=== PATIENT | male | born 1955 | race Two or more races ===

== ENCOUNTER 2016-07-27 15:45 | Observation (INO) | payer BC ==
[2016-07-27] MEDS ORDERED: SODIUM CHLORIDE 0.9% 500 ML IV STA (16:29)
[2016-07-27 16:32] LABS: Glucose,Whole Blood 189 mg/dL (75-99)
--- NOTE | 2016-07-27 16:35 | ED ---
General Adult HPI - General Chief complaint: Weakness Stated complaint: Slurred speech/Poss Stroke Time Seen by Provider: 07/27/16 16:00 Source: patient, RN notes reviewed Mode of arrival: wheelchair Limitations: no limitations - History of Present Illness Initial comments: This is a 6-year-old male who presents to the emergency department because of weakness. Patient states for the last month he seems to be getting weaker and weaker as he seems just give out at times. Patient states a month ago he fell about 2 weeks ago he fell per patient states there was no injury in the fall because he went up slowly but he just felt as though his legs were giving out. Patient states she has chronic lower back pain but that is been a little bit worse lately. Patient denies any injury to the back. He denies any recent fever or chills or cough. Patient denies headache patient denies numbness weakness patient denies any lightheadedness or dizziness. Patient states he has no palpitations chest pain difficulty breathing shortness breath. Patient denies abdominal pain patient denies nausea vomiting or diarrhea. Patient denies any knee injury however he feels as though his knees just give out slowly. Patient denies any swelling about the knees or redness about the knees. Patient denies any dysuria hematuria urinary frequency - Related Data Home Medications Medication Instructions Recorded Confirmed No Known Home Medications [No 07/27/16 07/27/16 Known Home Medications] Allergies Allergy/AdvReac Type Severity Reaction Status Date / Time Penicillins Allergy Unknown Verified 07/27/16 16:57 Childhood Review of Systems ROS Statement: Those systems with pertinent positive or pertinent negative responses have been documented in the HPI. ROS Other: All systems not noted in ROS Statement are negative. Past Medical History Past Medical History: Diabetes Mellitus, Hypertension History of Any Multi-Drug Resistant Organisms: None Reported Past Surgical History: Tonsillectomy Additional Past Surgical History / Comment(s): brain aneursym with clamp Past Psychological History: No Psychological Hx Reported Smoking Status: Never smoker Past Alcohol Use History: None Reported Past Drug Use History: None Reported General Exam - General Exam Comments Initial Comments: GENERAL: Patient is well-developed and well-nourished. Patient is nontoxic and well- hydrated and is in no distress. ENT: Neck is soft and supple. No significant lymphadenopathy is noted. Oropharynx is clear. Moist mucous membranes. Neck has full range of motion without eliciting any pain. EYES: The sclera were anicteric and conjunctiva were pink and moist. Extraocular movements were intact and pupils were equal round and reactive to light. Eyelids were unremarkable. PULMONARY: Unlabored respirations. Good breath sounds bilaterally. No audible rales rhonchi or wheezing was noted. CARDIOVASCULAR: There is a regular rate and rhythm without any murmurs gallops or rubs. ABDOMEN: Soft and nontender with normal bowel sounds. No palpable organomegaly was noted. There is no palpable pulsatile mass. SKIN: Skin is clear with no lesions or rashes and otherwise unremarkable. NEUROLOGIC: Patient is alert and oriented x3. Cranial nerves II through XII are grossly intact. Motor and sensory are also intact. Normal speech, volume and content. Symmetrical smile. MUSCULOSKELETAL: Normal extremities with adequate strength and full range of motion. No lower extremity swelling or edema. No calf tenderness. LYMPHATICS: No significant lymphadenopathy is noted PSYCHIATRIC: Normal psychiatric evaluation. Limitations: no limitations Course Vital Signs 07/27/16 07/27/16 07/27/16 16:01 16:25 17:54 Temperature 98.7 F Pulse Rate 80 78 74 Respiratory 18 18 18 Rate Blood Pressure 200/93 166/93 164/96 O2 Sat by Pulse 95 95 96 Oximetry 07/27/16 19:02 Temperature 98.2 F Pulse Rate 67 Respiratory 18 Rate Blood Pressure 156/87 O2 Sat by Pulse 96 Oximetry Medical Decision Making - Medical Decision Making EKG shows normal sinus rhythm at 82 bpm DC interval 180 QRSs 100 QT interval 390 QTC is 455. Patient's EKG shows no ST segment elevation or depression or T- wave abdomen is noted. Chest x-ray shows no acute abnormality. Lumbar spine shows no acute normalities. I went back into the room to reevaluate the patient family states he is unable to walk without assistance of a cane were as a month and a half ago he was walking completely by himself. Daughter states that he is even unable to sit on the toilet by himself without falling over. - Lab Data Result diagrams: 07/27/16 16:25 07/27/16 16:25 Lab Results 07/27/16 07/27/16 07/27/16 Range/Units 16:20 16:25 16:25 WBC 8.2 (3.8-10.6) k/uL RBC 5.27 (4.30-5.90) m/uL Hgb 15.8 (13.0-17.5) gm/dL Hct 44.0 (39.0-53.0) % MCV 83.4 (80.0-100.0) fL MCH 29.9 (25.0-35.0) pg MCHC 35.8 (31.0-37.0) g/dL RDW 13.8 (11.5-15.5) % Plt Count 138 L (150-450) k/uL Neutrophils % 71 % Lymphocytes % 19 % Monocytes % 4 % Eosinophils % 4 % Basophils % 1 % Neutrophils # 5.8 (1.3-7.7) k/uL Lymphocytes # 1.5 (1.0-4.8) k/uL Monocytes # 0.4 (0-1.0) k/uL Eosinophils # 0.3 (0-0.7) k/uL Basophils # 0.1 (0-0.2) k/uL PT (9.0-12.0) sec INR (<1.1) APTT (22.0-30.0) sec Sodium (137-145) mmol/L Potassium (3.5-5.1) mmol/L Chloride (98-107) mmol/L Carbon Dioxide (22-30) mmol/L Anion Gap mmol/L BUN (9-20) mg/dL Creatinine (0.66-1.25) mg/dL Est GFR (MDRD) Af Amer (>60 ml/min/1.73 sqM) Est GFR (MDRD) Non-Af (>60 ml/min/1.73 sqM) Glucose (74-99) mg/dL POC Glucose (mg/dL) 189 H (75-99) mg/dL POC Glu Expanded Function Dental Assistant ID Boris Rivas Calcium (8.4-10.2) mg/dL Magnesium (1.6-2.3) mg/dL Total Bilirubin (0.2-1.3) mg/dL AST (17-59) U/L ALT (21-72) U/L Alkaline Phosphatase (38-126) U/L Total Creatine Kinase 43 L (55-170) U/L CK-MB (CK-2) 0.6 (0.0-2.4) ng/mL CK-MB (CK-2) Rel Index 1.4 Troponin I <0.012 (0.000-0.034) ng/mL Total Protein (6.3-8.2) g/dL Albumin (3.5-5.0) g/dL Urine Color Urine Appearance (Clear) Urine pH (5.0-8.0) Ur Specific [place] (1.001-1.035) Urine Protein (Negative) Urine Glucose (UA) (Negative) Urine Ketones (Negative) Urine Blood (Negative) Urine Nitrate (Negative) Urine Bilirubin (Negative) Urine Urobilinogen (<2.0) mg/dL Ur Leukocyte Esterase (Negative) Urine RBC (0-5) /hpf Urine WBC (0-5) /hpf Ur Squamous Epith Cells (0-4) /hpf Urine Mucus (None) /hpf 07/27/16 07/27/16 07/27/16 Range/Units 16:25 16:25 17:45 WBC (3.8-10.6) k/uL RBC (4.30-5.90) m/uL Hgb (13.0-17.5) gm/dL Hct (39.0-53.0) % MCV (80.0-100.0) fL MCH (25.0-35.0) pg MCHC (31.0-37.0) g/dL RDW (11.5-15.5) % Plt Count (150-450) k/uL Neutrophils % % Lymphocytes % % Monocytes % % Eosinophils % % Basophils % % Neutrophils # (1.3-7.7) k/uL Lymphocytes # (1.0-4.8) k/uL Monocytes # (0-1.0) k/uL Eosinophils # (0-0.7) k/uL Basophils # (0-0.2) k/uL PT 11.4 (9.0-12.0) sec INR 1.1 (<1.1) APTT 25.1 (22.0-30.0) sec Sodium 141 (137-145) mmol/L Potassium 4.2 (3.5-5.1) mmol/L Chloride 104 (98-107) mmol/L Carbon Dioxide 25 (22-30) mmol/L Anion Gap 12 mmol/L BUN 15 (9-20) mg/dL Creatinine 0.87 (0.66-1.25) mg/dL Est GFR (MDRD) Af Amer >60 (>60 ml/min/1.73 sqM) Est GFR (MDRD) Non-Af >60 (>60 ml/min/1.73 sqM) Glucose 185 H (74-99) mg/dL POC Glucose (mg/dL) (75-99) mg/dL POC Glu Expanded Function Dental Assistant ID Calcium 9.8 (8.4-10.2) mg/dL Magnesium 1.9 (1.6-2.3) mg/dL Total Bilirubin 1.0 (0.2-1.3) mg/dL AST 25 (17-59) U/L ALT 31 (21-72) U/L Alkaline Phosphatase 93 (38-126) U/L Total Creatine Kinase (55-170) U/L CK-MB (CK-2) (0.0-2.4) ng/mL CK-MB (CK-2) Rel Index Troponin I (0.000-0.034) ng/mL Total Protein 7.8 (6.3-8.2) g/dL Albumin 4.3 (3.5-5.0) g/dL Urine Color Yellow Urine Appearance Clear (Clear) Urine pH 6.0 (5.0-8.0) Ur Specific [place] 1.015 (1.001-1.035) Urine Protein 1+ H (Negative) Urine Glucose (UA) 3+ H (Negative) Urine Ketones Negative (Negative) Urine Blood Negative (Negative) Urine Nitrate Negative (Negative) Urine Bilirubin Negative (Negative) Urine Urobilinogen <2.0 (<2.0) mg/dL Ur Leukocyte Esterase Negative (Negative) Urine RBC 1 (0-5) /hpf Urine WBC <1 (0-5) /hpf Ur Squamous Epith Cells <1 (0-4) /hpf Urine Mucus Rare H (None) /hpf Disposition Clinical Impression: Generalized weakness Disposition: ADMITTED IP TO THIS [facility] Time of Disposition: 19:12
[2016-07-27 16:48] LABS: Basophils # (A) 0.1 k/uL (0-0.2); Basophils % (A) 1 %; CH 30.8; Eosinophils # (A) 0.3 k/uL (0-0.7); Eosinophils % (A) 4 %; HGB 15.8 gm/dL (13.0-17.5); Luc # (Auto) 0.13; Luc % (Auto) 2; Lymphocytes # (A) 1.5 k/uL (1.0-4.8); Lymphocytes % (A) 19 %; MCH 29.9 pg (25.0-35.0); MCHC 35.8 g/dL (31.0-37.0); MCV 83.4 fL (80.0-100.0); Mean Platelet Volume 8.9; Monocytes # (A) 0.4 k/uL (0-1.0); Monocytes % (A) 4 %; Neutrophils # (A) 5.8 k/uL (1.3-7.7); Neutrophils % (A) 71 %; RBC 5.27 m/uL (4.30-5.90); RDW 13.8 % (11.5-15.5); WBC 8.2 k/uL (3.8-10.6); WBC (Perox) 7.91
[2016-07-27 16:54] LABS: ALT 31 U/L (21-72); AST 25 U/L (17-59); Alkaline Phosphatase 93 U/L (38-126); Anion Gap 12 mmol/L; Blood Urea Nitrogen 15 mg/dL (9-20); Calcium 9.8 mg/dL (8.4-10.2); Carbon Dioxide 25 mmol/L (22-30); Chloride 104 mmol/L (98-107); Glucose 185 mg/dL (74-99); Magnesium 1.9 mg/dL (1.6-2.3); Non-African American GFR(MDRD) >60 (>60 ml/min/1.73 sqM); Potassium 4.2 mmol/L (3.5-5.1); Sodium 141 mmol/L (137-145); Total Protein 7.8 g/dL (6.3-8.2)
[2016-07-27 17:00] LABS: INR 1.1 (<1.1); Partial Thromboplastin Time 25.1 sec (22.0-30.0); Prothrombin Time 11.4 sec (9.0-12.0)
[2016-07-27 17:10] LABS: Creatine Kinase 43 U/L (55-170)
--- NOTE | 2016-07-27 17:22 | XR ---
EXAMINATION TYPE: XR chest 2V DATE OF EXAM: 07/27/2016 5:17 PM COMPARISON: NONE HISTORY: Weakness TECHNIQUE: Frontal and lateral views of the chest are obtained. FINDINGS: Heart and mediastinum are normal. Lungs are clear. Costophrenic angles are clear. There is spurring in the thoracic spine. There are no hilar masses. There are chest leads. IMPRESSION: No active cardiopulmonary disease.
[2016-07-27 17:23] LABS: Creatine Kinase MB 0.6 ng/mL (0.0-2.4); Troponin I <0.012 ng/mL (0.000-0.034)
--- NOTE | 2016-07-27 17:23 | XR ---
EXAMINATION TYPE: XR lumbar spine 2 or 3V DATE OF EXAM: 07/27/2016 5:17 PM COMPARISON: NONE HISTORY: Weakness TECHNIQUE: 3 views FINDINGS: The vertebra have normal alignment. There is mild narrowing of disc spaces. There is spurri ng of the endplates anteriorly throughout the lumbar spine. There is no compression fracture. Posteri or elements are intact. Sacroiliac joints appear intact. IMPRESSION: Multilevel spondylosis. No fracture seen.
[2016-07-27 18:11] LABS: Appearance,Urine Clear (Clear); Bilirubin,Urine Negative (Negative); Glucose,Urine (UA) 3+ (Negative); Ketones,Urine Negative (Negative); Leukocyte Esterase,Urine Negative (Negative); Mucus,Urine Rare /hpf; Nitrite,Urine Negative (Negative); Particle Count 396; Protein,Urine 1+ (Negative); RBC,Urine 1 /hpf (0-5); Specific Gravity,Urine 1.015 (1.001-1.035); Squamous Epithelial Cell,Urine <1 /hpf (0-4); UA Billing (MACRO vs. MICRO) MICRO; Urobilinogen,Urine <2.0 mg/dL (<2.0); WBC,Urine <1 /hpf (0-5)
[2016-07-27] MEDS ORDERED: SODIUM CHLORIDE 0.9% 1,000 ML IV ONE (19:13)
[2016-07-27 21:01] LABS: Glucose,Whole Blood 131 mg/dL (75-99)
[2016-07-27] MEDS ORDERED: HYDROcodone/APAP 5-325MG 1 EACH TAB PO PRN (21:56)
[2016-07-27] MEDS ORDERED: ALPRAZolam 0.25 MG TAB PO PRN (21:56)
[2016-07-27 22:47] LABS: Hemoglobin A1C 6.6 % (4.2-6.1)
[2016-07-28 07:27] LABS: Glucose,Whole Blood 166 mg/dL (75-99)
[2016-07-28] MEDS: INSULIN LISPRO (humaLOG) 300 UNIT/3 ML VIAL SQ SCH ×4 (08:20→21:23)
[2016-07-28 11:52] LABS: Glucose,Whole Blood 187 mg/dL (75-99)
[2016-07-28] MEDS: DEXAMETHASONE 4 MG TAB PO SCH ×3 (14:45→21:23)
[2016-07-28] MEDS ORDERED: ACETAMINOPHEN TAB 500 MG TAB PO STA (15:35)
[2016-07-28] MEDS ORDERED: ACETAMINOPHEN TAB 325 MG TAB PO PRN (15:35)
--- NOTE | 2016-07-28 16:14 | HP ---
DATE OF ADMISSION: 07/27/2016 HISTORY AND PHYSICAL EXAMINATION/DISCHARGE SUMMARY: This dictation is both H&P and discharge summary. Patient is pleasant 60-year-old gentleman who came in with complaints of generalized weakness but patient has good strength in bilateral lower limbs. The patient denied any focal ( ) which are normal. Denied any focal weakness or speech abnormalities. The patient denied any strokelike symptoms. Patient has multiple falls recently. Patient is morbidly obese. Complaining of severe low back pain without any loss of bowel or bladder incontinence without any other any ( ) of back pain. Patient used to be morbidly obese and has been intentionally losing weight. Patient had history of diabetes mellitus, hypertension, benign prostatic hypertrophy, stopped using all his medications about a year ago and his hemoglobin A1C at this point of time is around 6.6 I believe. Since he lost weight, all of his diabetes mellitus, blood pressures are coming down improving. Patient is on the ( ), that patient although has severe low back pain. X-ray of the back showed spinal stenosis. Patient does not have any ( ), I do not believe patient had any CVA. Patient has chronic low back pain for which patient will get ( ) patient will need to see Dr. Crain as shahbaz as an outpatient. We will give him a dose of Decadron here and see if that will help him although patient will need physical therapy. I am not sure patient can walk, and patient had falls because of which I will obtain PT, OT consultation. Depending on their recommendations, patient will be either discharged home or to subacute rehabilitation depending on their recommendation for physical therapy. We will need at least ( ) we will also get Dr. Crain to evaluate him here, although patient will not need any emergent MRI. Patient was also advised to continue to lose weight. Patient will be started on low dose of Lisinopril. Patient will be started on metformin which is also helpful for prediabetes. Blood sugars are actually coming down. Patient will be started on Doxazosin. Patient will be started on anti-inflammatory medication along with Jackson, if he is discharged, being discharged home. Depending his ( ) all his work, his discharge is pending evaluation by Dr. Crain and PT and OT. Once those are done, patient can be discharged today either to subacute rehab or home with home care. ROS: All other systems were reviewed and were negative. MEDICATIONS: Home medications: None. PAST MEDICAL HISTORY: Significant for diabetes mellitus, hypertension, benign prostatic hypertrophy. SOCIAL HISTORY: Denied any smoking or drug abuse. FAMILY HISTORY: Significant for diabetes mellitus in multiple family members. PHYSICAL EXAMINATION: VITAL SIGNS: Temperature 98.0, pulse of 70, respiratory rate of 18, blood pressure is 165/93, saturating at 96% on 2 liters of O2 nasal cannula. GENERAL: Obese. Alert and oriented x3. HEENT: Pupils are round and equally reacting to light. EOMI. No scleral icterus. No conjunctival pallor. Normocephalic, atraumatic. No pharyngeal erythema. No thyromegaly. CARDIOVASCULAR: S1 and S2 present. No murmurs, rubs, or gallops. PULMONARY: Chest is clear to auscultation, no wheezing or crackles. ABDOMEN: Soft, nontender, nondistended, normoactive bowel sounds. No palpable organomegaly. MUSCULOSKELETAL: No joint swelling or deformity. EXTREMITIES: No cyanosis, clubbing, or pedal edema. NEUROLOGICAL: Gross neurological examination did not reveal any focal deficits. SKIN: No rashes. Patient's strengths in bilateral lower limbs is 5/5. We will obtain a TSH level. LABORATORY DATA: CBC, CMP, essentially within normal limits with hemoglobin A1C of 6.6. ASSESSMENT AND PLAN: 1. Bilateral lower limb weakness and back pain secondary to spinal stenosis. Will use Decadron empirically. He may not need Decadron for discharge. Patient can be discharged on tramadol and Jackson, PT and OT evaluation. Dr. Crain evaluation. After that, the patient will be discharged today. His disposition as related issues as mentioned above. 2. Hypertension. Will start him on low dose of Lisinopril. 3. Diabetes mellitus pretty much appears to be diet controlled at this point of time, although patient will definitely benefit with metformin because of his overweight. 4. Obesity. Counseling was provided regarding that and the patient has been losing weight. 5. Benign prostatic hypertrophy. PLAN: Patient after evaluation by PT and OT and Dr. Crain will be discharged. Activity as tolerated. Patient will be either discharged home or to subacute rehab and patient will follow with Dr. Miller Granda as an outpatient in 3 to 7 days. Activity as tolerated. Cardiac and diabetic 1800 calorie diet. Patient will need physical therapy. Patient does not have any stroke, will not need any emergent neurological evaluation. [facility]
[2016-07-28 16:52] LABS: Glucose,Whole Blood 148 mg/dL (75-99)
[2016-07-28 21:32] LABS: Glucose,Whole Blood 235 mg/dL (75-99)
[2016-07-29] MEDS: DEXAMETHASONE 4 MG TAB PO SCH ×3 (07:42→16:59)
[2016-07-29] MEDS: INSULIN LISPRO (humaLOG) 300 UNIT/3 ML VIAL SQ SCH ×3 (07:42→17:00)
[2016-07-29 07:44] LABS: Glucose,Whole Blood 208 mg/dL (75-99)
[2016-07-29 07:50] VITALS: RESP 19
[2016-07-29 11:48] LABS: Glucose,Whole Blood 238 mg/dL (75-99)
[2016-07-29 15:25] VITALS: BP 139/84; PULSE 79; TEMP 98.9
--- NOTE | 2016-07-29 16:50 | DS ---
DATE OF ADMISSION: 07/27/2016 DATE OF DISCHARGE: FINAL DIAGNOSES: 1. Bilateral lower leg weakness with the back pain secondary to spinal stenosis on conservative line of treatments. 2. Gait dysfunction. 3. Hypertension. 4. Diabetes mellitus type 2. 5. Obesity. 6. Benign prostatic hypertrophy. DISCHARGE DISPOSITION: The patient will be discharged in stable condition with guarded prognosis. Total time taken 35 minutes. The patient will be transferred to [facility]. HISTORY OF PRESENT ILLNESS: This 60-year-old gentleman with a past medical history of multiple medical problems as mentioned earlier being followed by Dr. Miller Granda in the outpatient setting was admitted to the hospital with right lower leg weakness and back pain. The symptomatology was thought to be secondary to spinal stenosis. Evaluated by orthopedic surgery. Recommend outpatient follow-up. Steroids were given. Patient improved significantly. On exam, vitals are stable. CARDIOVASCULAR SYSTEM: S1, S2 muffled. ABDOMEN: Soft. CENTRAL NERVOUS SYSTEM: Minimal diffuse weakness in the lower limbs present. Otherwise, discharge advice and medications: 1. Diet is cardiac 1800 calorie. 2. Accu-Cheks a.c. and at bedtime. 3. Novolog scale 150 to 200 = 2 units, 200-250 = 4 units, 250-300 = 6 units, 300-350 8 units, 350 to 400 10 units, more than 400 call. The current medications are: 1. Cardura 4 mg p.o. daily. 2. [place] 7.5. Q.6 p.r.n. 3. Zestril 5 mg p.o. daily. 4. Glucophage 500 mg p.o. b.i.d. 5. Ultram 50 mg p.o. q.4 p.r.n. Follow up with Dr. Granda in 2 weeks. Follow-up with orthopedics as recommended. 2
[2016-07-29] MEDS ORDERED: metFORMIN 500 MG TAB PO SCH (17:30)
[2016-07-29 17:55] LABS: Glucose,Whole Blood 251 mg/dL (75-99)
[2016-07-29] MEDS ORDERED: TAMSULOSIN 0.4 MG CAP.ER.24H PO SCH (18:30)
--- NOTE | 2016-07-29 19:37 | P.CNOR ---
History of Present Illness - [facility] Consult date: 07/29/16 Requesting physician: [place] Consult reason: low back pain, other (Generalized lower extremity weakness) History of present illness: Patient is a pleasant 60-year-old male who is seeing examined at the bedside after we are consulted for further evaluation for bilateral lower extremity weakness and low back pain. Patient is known have chronic low back pain. He states he's been experiencing some lower extremity weakness for approximately one month. He states he has fallen a couple times at work recently. After his most recent fall he was brought to the hospital for further evaluation. Denies any specific lower extremity radiculopathy. His back pain has improved since being admitted to the hospital. He is not currently experiencing any significant lower extremity radiculopathy. Patient is currently scheduled for discharge today to [facility] for rehab prior to returning home. He has been eating and voiding without difficulty. He denies loss of bowel or bladder. Past Medical History Past Medical History: Diabetes Mellitus, Hypertension, Pneumonia Additional Past Medical History / Comment(s): few falls lately-in may broke a rib on lt side, jun fell-was sent from work to [facility]. History of Any Multi-Drug Resistant Organisms: None Reported Past Surgical History: Tonsillectomy Additional Past Surgical History / Comment(s): brain aneursym with clip , colonoscopy/poypectomy(benign) Past Anesthesia/Blood Transfusion Reactions: No Reported Reaction Past Psychological History: No Psychological Hx Reported Additional Psychological History / Comment(s): pt lives with his /daughter/ 3 dogs, 5 cats., uses a 4 prong cane when up.(glenny)-no other medical equipment . 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 no service in past. lives in a ranch style home w/ 2 steps up into house.no outside services. Smoking Status: Never smoker Past Alcohol Use History: None Reported Past Drug Use History: None Reported - Past Family History Father Family Medical History: Diabetes Mellitus Additional Family Medical History / Comment(s): Mother Family Medical History: Diabetes Mellitus Additional Family Medical History / Comment(s): alive and age 81 Medications and Allergies Allergies Allergy/AdvReac Type Severity Reaction Status Date / Time Penicillins Allergy Unknown Verified 07/27/16 16:57 Childhood Physical Examination Physical exam: Patient is awake, alert, and oriented 3 Vital signs stable Good chest excursion with deep inspiration and expiration Abdomen soft nontender Examination of lumbar spine reveals skin is intact with no abrasions, lacerations or bruises; no erythema, purulence or signs of infection No significant pain with palpation of the lumbar spine Dorsiflexion, plantarflexion, and extensor hallucis longus positive sustained bilaterally Lower extremity strength 5/5 bilaterally Patient is able to lift legs independently off the bed No lower extremity hyperreflexia bilaterally Straight leg test negative bilateral lower extremities Negative Lasegue's test bilaterally No signs or symptoms of DVT; no calf pain No pain with internal and external rotation of the hips bilaterally Neurovascularly intact Results Pertinent studies: X-rays lumbar spine: L1-L2 and L2-3 lateral osteophytic spurring; L4-5 degenerative disc disease; L5-S1 severe degenerative disc disease; T12-L4 anterior osteophytic spurring; no evidence of vertebral body compression fracture; multilevel spondylosis - Labs Labs: Abnormal Lab Results - Last 24 Hours (Table) 07/28/16 07/29/16 07/29/16 Range/Units 21:00 07:35 11:47 POC Glucose (mg/dL) 235 H 208 H 238 H (75-99) mg/dL 07/29/16 Range/Units 16:58 POC Glucose (mg/dL) 251 H (75-99) mg/dL Result Diagrams: 07/27/16 16:25 07/27/16 16:25 Assessment and Plan (1) Lumbar degenerative disc disease Status: Acute (2) Lumbar spondylosis Status: Acute (3) Chronic low back pain Status: Acute (4) Generalized weakness Status: Acute Plan: Assessment: Generalized bilateral lower extremity weakness Lumbar degenerative disc disease Lumbar spondylosis Chronic low back pain Plan: 1. After physical examination of the patient, reviewing imaging, and further discussion with the patient, we'll currently planned to continue with conservative treatment and we'll plan to follow the patient for further evaluation in the outpatient setting. He's had some improvement of his symptoms since being admitted. He is currently planning to discharge to [facility] facility to try to increase his strength prior to returning home. We discussed we'll plan have him follow-up in approximately 2- 3 weeks in the outpatient setting for further evaluation. Depending on his progress with conservative treatment, we will determine an appropriate plan of care at that time. Patient agrees with this plan of care. 2. Medicine will continue following the patient; currently planned for discharge to [facility] today 3. Following discharge, patient may follow-up with Ej Hendricks PA-C or Dr. Melecio Crain at [facility] in approximately 2-3 weeks for further evaluation 4. I have discussed this patient detail with Dr. Crain and he agrees with this plan Time with Patient: Less than 30
== END 2016-07-29 17:50 ==
LOC: EC 15:45 → 4MS4W 19:13
PROVIDERS: ADMIT Internal Medicine; ATTEND Internal Medicine
DX: M48.00 Spinal stenosis, site unspecified (principal); I10 Essential (primary) hypertension; E11.9 Type 2 diabetes mellitus without complications; E66.01 Morbid (severe) obesity due to excess calories; Z68.41 Body mass index [BMI] 40.0-44.9, adult; N40.0 Benign prostatic hyperplasia without lower urinary tract symptoms; M51.36 Other intervertebral disc degeneration, lumbar region; M47.816 Spondylosis without myelopathy or radiculopathy, lumbar region; R29.6 Repeated falls; Z83.3 Family history of diabetes mellitus; Z88.0 Allergy status to penicillin
CPT/HCPCS: 96360; 96361; 99285; 36415; 93005; 97116; 97161; 97535; 97166; 80053; 84443; 83036; 82550; 82553; 83735; 84484; 85025; 85610; 85730; 81001; 71020; 72100; G0378 ×3; J8540 ×2

== ENCOUNTER → 2016-08-30 | Outpatient (CLI) | payer BC ==
--- NOTE | 2016-08-31 08:26 | MR ---
EXAMINATION TYPE: MR lumbar spine wo con DATE OF EXAM: 08/30/2016 9:48 PM COMPARISON: Plain film 27 July 2016 HISTORY: back pain x2 months TECHNIQUE: Multiplanar, multisequence images of the lumbar spine were acquired. L1-L2: Circumferential posterior disc bulge causes only mild anterior mass effect on the thecal sac. There is loss of disc height and signal with associated spondylosis, endplate discogenic marrow signa l change. L2-L3: Circumferential posterior disc bulge causes only minimal anterior mass effect on the thecal sa c. L3-L4: Endplate discogenic marrow signal change, Schmorl's node formation at the inferior endplate of L3 is present, there is associated spondylosis, loss of disc height and signal. Circumferential exte nsion endplate disc complex encroaches somewhat on the neural foramen on the right greater than left. There is only mild central canal stenosis. Facet arthropathy changes are present encroaching on the lateral recesses. L4-L5: Endplate discogenic marrow signal change is present with associated loss of disc height and si gnal compatible with disc desiccation and degenerative disc disease. Circumferential extension of end plate disc complex encroaches somewhat on the left neural foramen greater than right. Circumferential posterior disc bulge causes mild anterior mass effect on the thecal sac. Facet arthropathy with hype rtrophy of ligamentum flavum encroaches on the lateral recesses. Only mild central canal stenosis. L5-S1: Facet arthropathy is present with hypertrophy of the ligamentum flavum encroaching on the late ral recesses. There is loss of disc height and signal with vacuum phenomenon present. Posterior exten pito of endplate disc complex is noted causing anterior mass effect on the thecal sac centrally. Circ umferential extension of endplate disc complex encroaches on the neural foramina right greater than l eft. Lumbar segments are intact. No paraspinal masses are identified. Conus medullaris has a normal appe arance. There is a spinal curvature. Cortical cyst is associated with the right kidney measuring appr oximately 4.4 cm. IMPRESSION: Degenerative disc disease, facet arthropathy, foraminal encroachment as described.
== END | disposition home or self-care (01) ==
LOC: RADMRIMAIN 20:52
PROVIDERS: ATTEND Orthopaedic Surgery Orthopaedic Surgery of the Spine
DX: M51.36 Other intervertebral disc degeneration, lumbar region (principal); M46.96 Unspecified inflammatory spondylopathy, lumbar region
CPT/HCPCS: 72148

== ENCOUNTER → 2016-11-07 | Outpatient (CLI) | payer BC ==
--- NOTE | 2016-11-07 13:51 | MR ---
EXAMINATION TYPE: MR iac wo/w con DATE OF EXAM: 11/07/2016 COMPARISON: NONE HISTORY: cerebral aneurysm, benign neoplasm, acoustic neuroma, right hemisphere dysfunction, left hea ring loss, ataxia, and history of cerebral aneurysm all per order. Left-sided hearing loss, history o f stroke and 2000 aneurysm with clipping per patient. TECHNIQUE: Multiplanar, multisequence images of the brain and brainstem is performed without and with IV contras t, utilizing 20 mL intravenous MultiHance . Acoustic nerve disorder protocol. FINDINGS: Diffusion weighted images demonstrate no evidence of a recent infarct or other diffusion ab normality. There is no worrisome extra-axial fluid collection. There is mild to moderate diffuse hyd rocephalus. There is confluent T2 hyperintensity in periventricular white matter likely combination o f transependymal CSF flow and product of chronic small vessel ischemic change. Thinning of corpus callosum is present. There is mild mucosal thickening involving ethmoid sinuses bi laterally. The globes are intact bilaterally. There is artifact from aneurysm clip at left MCA origin. No suspicious fluid signal is seen in mastoid air cells bilaterally. There is fairly homogeneous avid enhancing left cerebellopontine angle mass measuring approximately 4.0 cm transversely by 3.5 cm AP diameter on series 901 image 12 x 3.5 cm craniocaudal diameter on coronal image 12 and is hypointense on T1-weighted images to remainder brain parenchyma and is slightly hyperintense on T2-weighted imag es. There is perhaps slight extension to the intracanicular portion of the 7th cranial nerve on axial image 10 series 901. There is significant local mass effect on the rafael which is deviated to right o f midline. Inferior extent is up to level of foramen magnum. There is mass effect on the cerebellum w hich is pushed posteriorly. Fourth ventricle is deviated to right of midline. Superior extent is to t he superior aspect of the rafael. IMPRESSION: 1. Abnormal large left cerebellopontine angle mass, favor meningioma given avid enhancement without d efinitive intracanicular spread or centering. Other etiologies such as acoustic neuroma or cranial ne rve schwannoma felt less likely but not excluded. Neurosurgical consultation advised. Obstructing mil d to moderate hydrocephalus is felt present. A Yellow message has been communicated to Mukul Garcia DO via the [employer] system on 11/07/2016 1:49 PM, Message ID [id number].
--- NOTE | 2016-11-07 13:57 | MR ---
EXAMINATION TYPE: MR angio head wo con DATE OF EXAM: 11/07/2016 COMPARISON: NONE HISTORY: cerebral aneurysm 2000 treated with coiling with new onset hearing loss and ataxia. TECHNIQUE: Time of flight images focusing on the [place] of [place] were performed without contrast.. 2-D and 3-D postprocessing imaging is performed. FINDINGS: There is heterogeneous left cerebellopontine angle mass with local mass effect causing post erior circulation to be deviated to the right of midline. There are patent codominant vertebral arter ies. There is no significant focal stenosis or aneurysmal change in the posterior circulation. There are hypoplastic posterior communicating arteries noted bilaterally. Images of the anterior circulation show blooming artifact from aneurysm clip at left MCA origin. Ther e is poor visualization distal to this making evaluation suboptimal. Remainder of anterior circulatio n shows patent anterior communicating artery without new aneurysm or focal stenosis identified. IMPRESSION: No new aneurysm is clearly seen. Artifact from left-sided aneurysm clip noted.
== END | disposition home or self-care (01) ==
LOC: RADMRIMAIN 12:10
PROVIDERS: ATTEND Psychiatry & Neurology Neurology
DX: G93.89 Other specified disorders of brain (principal); H93.3X9 Disorders of unspecified acoustic nerve; H91.92 Unspecified hearing loss, left ear; I67.1 Cerebral aneurysm, nonruptured
CPT/HCPCS: 70544; 70553; A9577

== ENCOUNTER → 2016-12-03 | Outpatient (CLI) | payer BC ==
--- NOTE | 2016-12-03 13:03 | MR ---
EXAMINATION TYPE: MR cspine/tspine wo con DATE OF EXAM: 12/03/2016 COMPARISON: NONE HISTORY: Cervical and thoracic regions spinal stenosis per order. Presurgical study per patient prior to brain surgery. TECHNIQUE: Multiplanar, multisequence imaging of cervical and thoracic spine are performed without co ntrast FINDINGS: There is slight S-shaped scoliosis levoconvex upper thoracic spine and dextroconvex in curv ature in the mid thoracic spine. Exam is noted suboptimal as is degraded by patient motion related to heavy breathing per technologist. C-SPINE: FINDINGS: Sagittal images of the cervical spine show the craniocervical junction to appear within nor mal limits. There is partial visualization of heterogeneous extra-axial mass anterior fossa anterior to cerebellum correlates with recent brain MRI. The cervical and upper thoracic spinal cord is normal in course, caliber, and signal. Vertebral alignment is anatomic. The vertebral body heights are no rmal. There is mild disc space narrowing C5-C6 and C6-C7 levels. Small posterior disc herniations are seen at these levels on sagittal images. The bone marrow signal intensity is within normal limits. N o significant spurring is seen. Axial images show the C2-C3 and C3-C4 levels to appear within normal limits. Axial images at C4-C5 level show central disc protrusion effacing anterior thecal sac, bilateral neur al foramina are mildly narrowed due to uncovertebral facet arthropathy. Axial images at C5-C6 level show broad-based central disc protrusion effacing anterior thecal sac matthieu rly up to ventral surface of spinal cord with asymmetric moderate left-sided neural foraminal narrowi ng and mild right-sided neural foraminal narrowing noted. Axial images at C6-C7 level shows central disc protrusion effacing anterior thecal sac bilateral neur al foramina are patent. Axial images at C7-T1 level are felt within normal limits. IMPRESSION: Multilevel degenerative changes in the mid to lower cervical spine as detailed above. T-SPINE: Spinal cord shows normal course, caliber, and signal as it courses the thoracic spine. Vertebral bod y heights and alignment are satisfactory. Posterior disc herniation T2-T3 level mildly effaces anteri or thecal sac on sagittal image 11. Disc space heights are fairly well-maintained. There is mild to m oderate multilevel anterior spurring. There are few small scattered hemangiomas, for reference are le sions T5 and T7 level on sagittal image 9. Review of the axial images confirm small focal right paracentral disc protrusion mildly effacing ante rior thecal sac on axial image 15 at T2-T3 level. Remainder thoracic spine shows no significant disc herniation or spinal canal effacement or evidence of significant neural foraminal narrowing at any th oracic level. IMPRESSION: Slight scoliotic curvature with mild to moderate multilevel spurring and small disc herni ation T2-T3 level noted.
== END | disposition home or self-care (01) ==
LOC: RADMRIMAIN 10:26
PROVIDERS: ATTEND Neurological Surgery
DX: M51.24 Other intervertebral disc displacement, thoracic region (principal); M47.812 Spondylosis without myelopathy or radiculopathy, cervical region; M41.84 Other forms of scoliosis, thoracic region
CPT/HCPCS: 72141; 72146

== ENCOUNTER 2017-03-26 17:54 | Inpatient (IN) | payer BC ==
[2017-03-26] MEDS ORDERED: SODIUM CHLORIDE 0.9% 1,000 ML IV STA (18:03)
[2017-03-26] MEDS ORDERED: SODIUM CHLORIDE 0.9% 500 ML IV STA (18:03)
[2017-03-26 18:05] LABS: Glucose,Whole Blood 136 mg/dL (75-99)
--- NOTE | 2017-03-26 18:08 | ED ---
Altered Mental Status HPI - General Stated Complaint: Altered Mental Status Time Seen by Provider: 03/26/17 17:54 Source: family, RN notes reviewed - History of Present Illness Initial Comments: This is a 61-year-old male with a history of surgery for acoustic neuroma who does have deafness in his left ear no use of his left upper extremity was brought in for evaluation by his family and EMS for decreased level of consciousness over last several weeks is been intermittent. Today it was worse he does still get fed through a feeding tube bees had some decreased intake today. He did have the surgery for part of the neuroma December 19 of this year at [facility]. Also is had some swelling to his right knee no reports of any injury no reports of fevers chills sweats nausea vomiting or other symptoms. No reports of headache or blurred vision. MD Complaint: altered mental status, decreased responsiveness - Related Data Home Medications Medication Instructions Recorded Confirmed Acetaminophen [Tylenol] 650 mg PO Q6H PRN 03/26/17 03/26/17 Amiodarone [Cordarone] 100 mg PO DAILY 03/26/17 03/26/17 Amitriptyline HCl [Elavil] 10 mg PO HS 03/26/17 03/26/17 Antifungal Powder 1 applic TOPICAL BID 03/26/17 03/26/17 Bumetanide [Bumex] 1 mg PO DAILY 03/26/17 03/26/17 Camphor-Menthol 1 applic TOPICAL HS 03/26/17 03/26/17 Doxazosin [Cardura] 2 mg PO DAILY 03/26/17 03/26/17 Doxycycline Monohydrate [Monodox] 100 mg PO BID 03/26/17 03/26/17 Famotidine [Pepcid] 20 mg PO BID 03/26/17 03/26/17 Ferrous Sulfate [Feosol] 325 mg PO DAILY 03/26/17 03/26/17 Gabapentin [Neurontin] 200 mg PO DAILY@1400 03/26/17 03/26/17 Gabapentin [Neurontin] 300 mg PO BID 03/26/17 03/26/17 HYDROcodone/APAP 7.5-325MG [[place] 1 tab PO Q4H PRN 03/26/17 03/26/17 7.5-325] Heparin Sodium,Porcine [Heparin 7,500 unit SQ Q8HR 03/26/17 03/26/17 Sodium] Insulin Glargine,Hum.rec.anlog 30 unit SQ Q12H 03/26/17 03/26/17 [Basaglar Kwikpen U-100] Insulin Regular [HumuLIN R] See Protocol SQ ACHS 03/26/17 03/26/17 Ipratropium-Albuterol Nebulize 3 ml INHALATION RT-Q6H PRN 03/26/17 03/26/17 [Duoneb 0.5 mg-3 mg/3 ml Soln] Magnesium Oxide [Mag-Ox] 400 mg PO DAILY 03/26/17 03/26/17 Metoprolol Tartrate [Lopressor] 12.5 mg PO BID 03/26/17 03/26/17 Polyethylene Glycol 3350 [Miralax] 17 gm PO DAILY 03/26/17 03/26/17 Sennosides-Docusate Sodium 1 tab PO BID 03/26/17 03/26/17 [Senokot-S] Sertraline [Zoloft] 50 mg PO HS 03/26/17 03/26/17 Triad Hydrophilic Wound Dress 1 applic TOPICAL BID 03/26/17 03/26/17 Allergies Allergy/AdvReac Type Severity Reaction Status Date / Time almond Allergy Unknown Verified 03/26/17 18:31 banana Allergy Unknown Verified 03/26/17 18:31 Penicillins Allergy Unknown Verified 03/26/17 18:31 Childhood Review of Systems ROS Statement: Those systems with pertinent positive or pertinent negative responses have been documented in the HPI. ROS Other: All systems not noted in ROS Statement are negative. Past Medical History Past Medical History: Diabetes Mellitus, Hypertension, Pneumonia Additional Past Medical History / Comment(s): few falls lately-in may broke a rib on lt side, jun-was sent from [facility]. History of Any Multi-Drug Resistant Organisms: None Reported Past Surgical History: Tonsillectomy Additional Past Surgical History / Comment(s): brain aneursym with clip , colonoscopy/poypectomy(benign) Past Anesthesia/Blood Transfusion Reactions: No Reported Reaction Past Psychological History: No Psychological Hx Reported Additional Psychological History / Comment(s): pt lives with his /daughter/ 3 dogs, 5 cats., uses a 4 prong cane when up.(glenny)-no other medical equipment . 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 no service in past. lives in a ranch style home w/ 2 steps up into house.no outside services. Smoking Status: Never smoker Past Alcohol Use History: None Reported Past Drug Use History: None Reported - Past Family History Father Family Medical History: Diabetes Mellitus Additional Family Medical History / Comment(s): Mother Family Medical History: Diabetes Mellitus Additional Family Medical History / Comment(s): alive and age 81 General Exam - General Exam Comments Initial Comments: This is a well-developed well-nourished awake alert male Limitations: altered mental status, physical limitation General appearance: alert, in no apparent distress Head exam: Present: other (The site of the CASE MANAGEMENT ASSISTANT shunt appears to be unremarkable) Eye exam: Present: normal appearance, PERRL, EOMI. Absent: scleral icterus, conjunctival injection, periorbital swelling ENT exam: Present: mucous membranes dry Neck exam: Present: other (Trach site shows no evidence of infection..). Absent : tenderness, meningismus, lymphadenopathy Respiratory exam: Present: normal lung sounds bilaterally. Absent: respiratory distress, wheezes, rales, rhonchi, stridor Cardiovascular Exam: Present: regular rate, normal rhythm, normal heart sounds. Absent: systolic murmur, diastolic murmur, rubs, gallop, clicks GI/Abdominal exam: Present: soft, normal bowel sounds, other (Feeding tube in place). Absent: distended, tenderness, guarding, rebound, rigid Extremities exam: Present: normal capillary refill, other (The right lower extremity demonstrates edema to the right knee some mild lateral tenderness no step-off or crepitation no ecchymosis. There is left-sided upper extremity weakness consistent with his previous history). Absent: tenderness, pedal edema , joint swelling, calf tenderness Back exam: Present: normal inspection Neurological exam: Present: alert, oriented X3, CN II-XII intact Psychiatric exam: Present: normal affect, normal mood Skin exam: Present: warm, dry, normal color, other (He does have a apparent stage II coccyx decubitus ulcer.). Absent: intact, rash Course Vital Signs 03/26/17 03/26/17 03/26/17 17:56 19:00 20:20 Temperature 98.8 F Pulse Rate 83 80 90 Respiratory 20 18 18 Rate Blood Pressure 107/65 115/70 132/69 O2 Sat by Pulse 97 100 96 Oximetry 03/26/17 21:29 Temperature 101.0 F H Pulse Rate 98 Respiratory 18 Rate Blood Pressure 119/89 O2 Sat by Pulse 94 L Oximetry Medical Decision Making - Medical Decision Making I did discuss findings with the patient family members as well as with Dr. Cueva. Patient will be admitted he does appear to have pneumonia with failed treatment thus far. He also has right knee effusion questionable compression fracture he will be admitted with change in IV antibiotics as well as orthopedic consultation. CAT scan appears to be stable at this time. - Lab Data Result diagrams: 03/26/17 18:25 03/26/17 18:25 Lab Results 03/26/17 03/26/17 03/26/17 Range/Units 18:04 18:25 18:25 WBC (3.8-10.6) k/uL RBC (4.30-5.90) m/uL Hgb (13.0-17.5) gm/dL Hct (39.0-53.0) % MCV (80.0-100.0) fL MCH (25.0-35.0) pg MCHC (31.0-37.0) g/dL RDW (11.5-15.5) % Plt Count (150-450) k/uL Neutrophils % % Lymphocytes % % Monocytes % % Eosinophils % % Basophils % % Neutrophils # (1.3-7.7) k/uL Lymphocytes # (1.0-4.8) k/uL Monocytes # (0-1.0) k/uL Eosinophils # (0-0.7) k/uL Basophils # (0-0.2) k/uL Hypochromasia Poikilocytosis Anisocytosis Sodium (137-145) mmol/L Potassium (3.5-5.1) mmol/L Chloride (98-107) mmol/L Carbon Dioxide (22-30) mmol/L Anion Gap mmol/L BUN (9-20) mg/dL Creatinine (0.66-1.25) mg/dL Est GFR (MDRD) Af Amer (>60 ml/min/1.73 sqM) Est GFR (MDRD) Non-Af (>60 ml/min/1.73 sqM) Glucose (74-99) mg/dL POC Glucose (mg/dL) 136 H (75-99) mg/dL POC Glu District Leader ID Ailin Moyer Plasma Lactic Acid Maxx 1.1 (0.7-2.0) mmol/L Calcium (8.4-10.2) mg/dL Magnesium (1.6-2.3) mg/dL Total Bilirubin (0.2-1.3) mg/dL AST (17-59) U/L ALT (21-72) U/L Alkaline Phosphatase (38-126) U/L Ammonia 17 (<30) umol/L Total Creatine Kinase <20 L (55-170) U/L CK-MB (CK-2) 0.3 (0.0-2.4) ng/mL CK-MB (CK-2) Rel Index Total Protein (6.3-8.2) g/dL Albumin (3.5-5.0) g/dL Urine Color Urine Appearance (Clear) Urine pH (5.0-8.0) Ur Specific [place] (1.001-1.035) Urine Protein (Negative) Urine Glucose (UA) (Negative) Urine Ketones (Negative) Urine Blood (Negative) Urine Nitrite (Negative) Urine Bilirubin (Negative) Urine Urobilinogen (<2.0) mg/dL Ur Leukocyte Esterase (Negative) Urine RBC (0-5) /hpf Urine WBC (0-5) /hpf Urine Mucus (None) /hpf 03/26/17 03/26/17 03/26/17 Range/Units 18:25 18:25 19:53 WBC 7.0 (3.8-10.6) k/uL RBC 3.93 L (4.30-5.90) m/uL Hgb 10.2 L (13.0-17.5) gm/dL Hct 33.1 L (39.0-53.0) % MCV 84.1 (80.0-100.0) fL MCH 26.0 (25.0-35.0) pg MCHC 31.0 (31.0-37.0) g/dL RDW 17.6 H (11.5-15.5) % Plt Count 204 (150-450) k/uL Neutrophils % 82 % Lymphocytes % 12 % Monocytes % 4 % Eosinophils % 2 % Basophils % 0 % Neutrophils # 5.7 (1.3-7.7) k/uL Lymphocytes # 0.8 L (1.0-4.8) k/uL Monocytes # 0.3 (0-1.0) k/uL Eosinophils # 0.1 (0-0.7) k/uL Basophils # 0.0 (0-0.2) k/uL Hypochromasia Marked Poikilocytosis Moderate Anisocytosis Slight Sodium 137 (137-145) mmol/L Potassium 4.6 (3.5-5.1) mmol/L Chloride 98 (98-107) mmol/L Carbon Dioxide 30 (22-30) mmol/L Anion Gap 9 mmol/L BUN 20 (9-20) mg/dL Creatinine 0.90 (0.66-1.25) mg/dL Est GFR (MDRD) Af Amer >60 (>60 ml/min/1.73 sqM) Est GFR (MDRD) Non-Af >60 (>60 ml/min/1.73 sqM) Glucose 123 H (74-99) mg/dL POC Glucose (mg/dL) (75-99) mg/dL POC Glu District Leader ID Plasma Lactic Acid Maxx (0.7-2.0) mmol/L Calcium 9.0 (8.4-10.2) mg/dL Magnesium 2.1 (1.6-2.3) mg/dL Total Bilirubin 0.5 (0.2-1.3) mg/dL AST 22 (17-59) U/L ALT 37 (21-72) U/L Alkaline Phosphatase 69 (38-126) U/L Ammonia (<30) umol/L Total Creatine Kinase (55-170) U/L CK-MB (CK-2) (0.0-2.4) ng/mL CK-MB (CK-2) Rel Index Total Protein 7.9 (6.3-8.2) g/dL Albumin 3.3 L (3.5-5.0) g/dL Urine Color Yellow Urine Appearance Clear (Clear) Urine pH 6.0 (5.0-8.0) Ur Specific [place] 1.012 (1.001-1.035) Urine Protein Negative (Negative) Urine Glucose (UA) Negative (Negative) Urine Ketones Negative (Negative) Urine Blood Negative (Negative) Urine Nitrite Negative (Negative) Urine Bilirubin Negative (Negative) Urine Urobilinogen <2.0 (<2.0) mg/dL Ur Leukocyte Esterase Small H (Negative) Urine RBC <1 (0-5) /hpf Urine WBC 6 H (0-5) /hpf Urine Mucus Rare H (None) /hpf - EKG Data -: EKG Interpreted by Me EKG shows normal: sinus rhythm (Sinus rhythm rate of 83. Interval 168 QRS 84 daily cyst QTc of 396/465 minimal voltage criteria for LVH nonspecific inferior changes.) Disposition Clinical Impression: Pneumonia, Failure of outpatient treatment, Effusion, right knee Disposition: ADMITTED IP TO THIS HOSP Condition: Stable Referrals: Miller Granda DO [Primary Care Provider] - 1-2 days
[2017-03-26 18:43] LABS: Anisocytosis Slight; Basophils % (A) 0 %; CH 26.7; CHCM 31.8; Eosinophils # (A) 0.1 k/uL (0-0.7); Eosinophils % (A) 2 %; HCT 33.1 % (39.0-53.0); HDW 4.24; HGB 10.2 gm/dL (13.0-17.5); Hypochromasia Marked; Luc # (Auto) 0.07; Luc % (Auto) 1; Lymphocytes # (A) 0.8 k/uL (1.0-4.8); Lymphocytes % (A) 12 %; MCV 84.1 fL (80.0-100.0); Mean Platelet Volume 7.3; Monocytes # (A) 0.3 k/uL (0-1.0); Monocytes % (A) 4 %; Neutrophils # (A) 5.7 k/uL (1.3-7.7); Neutrophils % (A) 82 %; Poikilocytosis Moderate; RBC 3.93 m/uL (4.30-5.90); RDW 17.6 % (11.5-15.5); WBC (Perox) 6.96
[2017-03-26 18:57] LABS: ALT 37 U/L (21-72); AST 22 U/L (17-59); Alkaline Phosphatase 69 U/L (38-126); Anion Gap 9 mmol/L; Blood Urea Nitrogen 20 mg/dL (9-20); Carbon Dioxide 30 mmol/L (22-30); Chloride 98 mmol/L (98-107); Glucose 123 mg/dL (74-99); Magnesium 2.1 mg/dL (1.6-2.3); Non-African American GFR(MDRD) >60 (>60 ml/min/1.73 sqM); Potassium 4.6 mmol/L (3.5-5.1); Sodium 137 mmol/L (137-145); Total Bilirubin 0.5 mg/dL (0.2-1.3); Total Protein 7.9 g/dL (6.3-8.2)
[2017-03-26 18:59] LABS: Creatine Kinase <20 U/L (55-170)
[2017-03-26 19:08] LABS: Creatine Kinase MB 0.3 ng/mL (0.0-2.4)
--- NOTE | 2017-03-26 19:47 | CT ---
EXAMINATION TYPE: CT brain wo con DATE OF EXAM: 03/26/2017 COMPARISON: MRI 11/07/2016 HISTORY: 61-year-old male confusion Altered mental status. TECHNIQUE: Examination was done in axial plane without intravenous contrast. Coronal and sagittal r econstructions performed. CT DLP: 1041.80 mGycm Automated exposure control for dose reduction was used. FINDINGS: Right frontal HIM DIRECTOR shunt catheter tip terminates in the anterior third ventricle. There is asymmetric d ecompression of the right lateral ventricle. The left lateral ventricle caliber is improved from 11/07. Prominent perivascular space or old lacunar infarct in the left basal ganglia. Prior aneurysm left MCA M1 territory. There is prior craniotomy change left posterior cranial fossa. There is some bulging CSF density here . There is a rounded soft tissue abnormality measuring 3.7 cm and the left cerebellopontine angle tracy t appears to have mass effect displacing the brainstem towards the right. Curvilinear areas of densit y in the lateral left posterior cranial fossa could represent postsurgical material. No prior CT is a vailable for comparison purposes. However, this was measured at 4.0 cm on the 11/07/2016 MRI. No evidence for acute intracranial hemorrhage or acute ischemic change. Paranasal sinuses and mastoid air cells are well pneumatized. IMPRESSION: 1. New right frontal HIM DIRECTOR shunt catheter. There is improvement in the patient's hydrocephalus with asym metrically greater shunting of the right lateral ventricle. 2. Interval left posterior craniotomy. There appears to be some CSF herniating through a portion of t he craniotomy defect. Underlying curvilinear areas of density likely surgical material. Compare with any recent outside priors. 3. Redemonstrated large 3.7 cm left CPA mass displacing the brainstem towards the right.
--- NOTE | 2017-03-26 20:03 | XR ---
EXAMINATION TYPE: XR chest 2V DATE OF EXAM: 03/26/2017 COMPARISON: 07/27/2016 HISTORY: 61-year-old male with cough TECHNIQUE: Frontal and lateral views FINDINGS: Heart borderline to mildly enlarged. Diffuse interstitial prominence appears in part chronic. There i s patchy posterior basilar opacity on the lateral view. No significant pleural effusion. Right-sided WIRE STITCHER OPERATOR shunt catheter. IMPRESSION: Patchy posterior basilar opacity on the lateral view. This could represent atelectasis or developing pneumonia.
--- NOTE | 2017-03-26 20:06 | XR ---
EXAMINATION TYPE: XR knee complete RT DATE OF EXAM: 03/26/2017 COMPARISON: NONE HISTORY: 61-year-old male right knee pain TECHNIQUE: 3 views FINDINGS: Anterior soft tissue swelling. There is prominent degenerative spurring at the patellofemoral compart ment mild to moderate in the medial and lateral compartments with at least mild joint space narrowing . Small knee joint effusion. Some intracondylar spurring present along the medial femoral condyle. On the AP view, there could be a subtle insufficiency fracture or osteochondral lesion involving the me dial femoral condyle. IMPRESSION: 1. Tricompartmental osteoarthrosis. 2. There could be a subtle impaction or insufficiency fracture or osteochondral lesion along the medi al femoral condyle on the AP view. Consider MRI if indicated. 3. Small knee joint effusion.
[2017-03-26 20:10] LABS: Appearance,Urine Clear (Clear); Bilirubin,Urine Negative (Negative); Glucose,Urine (UA) Negative (Negative); Ketones,Urine Negative (Negative); Leukocyte Esterase,Urine Small (Negative); Mucus,Urine Rare /hpf; Nitrite,Urine Negative (Negative); Particle Count 698; Protein,Urine Negative (Negative); RBC,Urine <1 /hpf (0-5); Specific Gravity,Urine 1.012 (1.001-1.035); UA Billing (MACRO vs. MICRO) MICRO; Urobilinogen,Urine <2.0 mg/dL (<2.0); WBC,Urine 6 /hpf (0-5)
[2017-03-26] MEDS ORDERED: LEVOFLOXACIN 750MG-D5W PMX 750 MG in DEXTROSE/WATER 1 150ML.BAG IVPB STA (22:04)
[2017-03-26] MEDS ORDERED: PNEUMONIA PROTOCOL UTILIZED 1 EACH MISC PO PRN (22:04)
[2017-03-26] MEDS ORDERED: ACETAMINOPHEN TAB 325 MG TAB PO PRN (22:06)
[2017-03-26] MEDS ORDERED: HYDROcodone/APAP 7.5-325MG 1 EACH TAB PO PRN (22:06)
[2017-03-27] MEDS: INSULIN DETEMIR 100 UNIT/ML 10 ML VIAL SQ SCH ×3 (00:11→21:26)
[2017-03-27] MEDS: ACETAMINOPHEN IV (For NPO) 1,000 MG in EMPTY BAG 1 BAG IVPB SCH ×4 (01:28→18:16)
[2017-03-27] MEDS: HEPARIN SODIUM,PORCINE 5,000 UNIT/ML 1 ML VIAL SQ SCH ×2 (01:28→10:54)
[2017-03-27] MEDS: SODIUM CHLORIDE 0.9% 1,000 ML IV SCH ×2 (01:29→10:55)
[2017-03-27 07:05] LABS: Glucose,Whole Blood 102 mg/dL (75-99)
[2017-03-27] MEDS ORDERED: BUMETANIDE 1 MG TAB PO SCH (09:00)
[2017-03-27] MEDS ORDERED: CLOTRIMAZOLE/BETAMETH 1-0.05% CREAM 45 GM TUBE TOPICAL SCH (09:00)
[2017-03-27] MEDS: INSULIN LISPRO (humaLOG) 300 UNIT/3 ML VIAL SQ SCH ×4 (10:54→22:21)
[2017-03-27] MEDS: FAMOTIDINE 20 MG TAB PO SCH ×2 (10:58→21:20)
[2017-03-27] MEDS: AMIODARONE 100 MG TAB PO SCH (10:58)
[2017-03-27] MEDS: DOXAZOSIN 2 MG TAB PO SCH (10:59)
[2017-03-27] MEDS: FERROUS SULFATE 325 MG TAB PO SCH (10:59)
[2017-03-27] MEDS: METOPROLOL TARTRATE 12.5 MG TAB PO SCH ×2 (11:00→21:23)
[2017-03-27] MEDS: MAGNESIUM OXIDE 400 MG TAB PO SCH (11:00)
[2017-03-27] MEDS: GABAPENTIN 300 MG CAP PO SCH ×2 (11:00→21:20)
[2017-03-27] MEDS: POLYETHYLENE GLYCOL 3350 17 GM POWD.PACK PO SCH (11:01)
[2017-03-27] MEDS: SENNOSIDES-DOCUSATE SODIUM 1 EACH TAB PO SCH ×2 (11:29→21:26)
--- NOTE | 2017-03-27 11:38 | XR ---
EXAMINATION TYPE: XR chest 2V DATE OF EXAM: 03/27/2017 COMPARISON: Prior chest x-ray 03/26/2017 HISTORY: Pneumonia TECHNIQUE: Frontal and lateral views of the chest are obtained. FINDINGS: Patchy basilar density is again noted. Ventriculoperitoneal shunt tubing is again seen. No evident pneumothorax or pleural effusion. Cardiac mediastinal silhouette, pulmonary vascularity and delfina are not significantly changed. IMPRESSION: Probable basilar atelectasis, correlate to exclude pneumonia. Follow-up is recommended.
[2017-03-27 11:58] LABS: Glucose,Whole Blood 129 mg/dL (75-99)
--- NOTE | 2017-03-27 12:39 | FL ---
EXAMINATION TYPE: FL barium swallow w video DATE OF EXAM: 03/27/2017 MODIFIED SWALLOW / DEGLUTITION STUDY CLINICAL HISTORY: Dysphagia. TECHNIQUE: Deglutition study is performed utilizing thin liquid barium, honey and nectar thick liqui d barium, barium thick applesauce, and barium coated cracker. 1.12 minutes of fluoroscopy time was ut ilized with 0 images saved. COMPARISON: None. FINDINGS: The oral and pharyngeal phases show satisfactory initiation and propagation with all modali ties tested. Normal mastication is seen with solid modalities tested. There is no evidence of penet ration or aspiration with any modality tested. Minimal pharyngeal residual was present with barium co ated cracker consistency. IMPRESSION: Normal deglutition study other than minimal pharyngeal residual with solid consistency. Please refer to speech therapist notes for further details if necessary.
[2017-03-27] MEDS ORDERED: VANCOMYCIN IV PER PHARMACY 1 EACH MISC MISCELLANE PRN (12:43)
[2017-03-27] MEDS: IPRATROPIUM-ALBUTEROL 3 ML NEB INHALATION PRN (12:56)
[2017-03-27] MEDS ORDERED: VANCOMYCIN 1,750 MG in SODIUM CHLORIDE 0.9% 250 ML IVPB ONE (13:00)
[2017-03-27] MEDS: GABAPENTIN 100 MG CAP PO SCH (14:28)
[2017-03-27] MEDS: CLOTRIMAZOLE 1% CREAM 15 GM TUBE TOPICAL SCH ×2 (15:13→21:20)
[2017-03-27] MEDS: [UNRECOGNIZED DRUG - OTHER] TOPICAL SCH ×2 (15:14→22:22)
--- NOTE | 2017-03-27 15:27 | P.HPIM ---
History of Present Illness [id number] admitted with history of a caustic neuroma underwent surgery at an month of November in [facility] [place], post surgery his hospitalization course was complicated by paralysis on the left side of the body , was intubated presently patient has an ostomy without any heart failure and a PEG tube. Patient was brought into the hospital from subacute rehab because of fever, altered mental status metabolic encephalopathy, patient has some atelectasis without any cough patient was admitted for pneumonia with levofloxacin upon examination patient appears to have pus around the PEG tube site area and patient has a decubitus ulcer stage II which doesn't appear to be infected. Infectious disease is being consulted patient it appears to have an avulsion fracture of the right knee because of which am counseling orthopedic surgery as well. Patient denied any cough dysuria come urinalysis is not significant. Patient had proximal atrial fibrillation, patient is on DVT prophylactic dose of heparin subcutaneous and family is requesting cardiology evaluation to decide regarding anticoagulation long-term. Patient was apparently treated for fluid overload and is on Bumex which will be discontinued and I'll obtain an echocardiogram and also medical records from [facility]. A she is IV fluids will be held as well Review of Systems REVIEW OF SYSTEMS: CONSTITUTIONAL: As mentioned in HPI, patient is presently alert oriented 3 HEENT: No recent visual problems or hearing problems. Denied any sore throat. CARDIOVASCULAR: No chest pain, orthopnea, PND, no palpitations, no syncope. PULMONARY: No shortness of breath, no cough, no hemoptysis. GASTROINTESTINAL: No diarrhea, no nausea, no vomiting, no abdominal pain. Normoactive bowel sounds. NEUROLOGICAL: No headaches, no weakness, no numbness. HEMATOLOGICAL: Denies any bleeding or petechiae. GENITOURINARY: Denies any burning micturition, frequency, or urgency. MUSCULOSKELETAL/RHEUMATOLOGICAL: Denies any joint pain, swelling, or any muscle pain. ENDOCRINE: Denies any polyuria or polydipsia. The rest of the 14-point review of systems is negative. Past Medical History Past Medical History: Diabetes Mellitus, Hypertension, Pneumonia Additional Past Medical History / Comment(s): few falls lately-in may broke a rib on lt side, jun fell-was sent from work to [facility]. brain aneurysm 2017 History of Any Multi-Drug Resistant Organisms: None Reported Past Surgical History: Tonsillectomy Additional Past Surgical History / Comment(s): brain aneursym with clip , colonoscopy/polypectomy(benign) Past Anesthesia/Blood Transfusion Reactions: No Reported Reaction Past Psychological History: No Psychological Hx Reported Smoking Status: Never smoker Past Alcohol Use History: None Reported Past Drug Use History: None Reported - Past Family History Father Family Medical History: Diabetes Mellitus Additional Family Medical History / Comment(s): Mother Family Medical History: Diabetes Mellitus Additional Family Medical History / Comment(s): alive and age 81 Medications and Allergies Home Medications Medication Instructions Recorded Confirmed Type Acetaminophen [Tylenol] 650 mg PO Q6H PRN 03/26/17 03/26/17 History Amiodarone [Cordarone] 100 mg PO DAILY 03/26/17 03/26/17 History Amitriptyline HCl [Elavil] 10 mg PO HS 03/26/17 03/26/17 History Antifungal Powder 1 applic TOPICAL BID 03/26/17 03/26/17 History Bumetanide [Bumex] 1 mg PO DAILY 03/26/17 03/26/17 History Camphor-Menthol 1 applic TOPICAL HS 03/26/17 03/26/17 History Doxazosin [Cardura] 2 mg PO DAILY 03/26/17 03/26/17 History Doxycycline Monohydrate [Monodox] 100 mg PO BID 03/26/17 03/26/17 History Famotidine [Pepcid] 20 mg PO BID 03/26/17 03/26/17 History Ferrous Sulfate [Feosol] 325 mg PO DAILY 03/26/17 03/26/17 History Gabapentin [Neurontin] 200 mg PO DAILY@1400 03/26/17 03/26/17 History Gabapentin [Neurontin] 300 mg PO BID 03/26/17 03/26/17 History HYDROcodone/APAP 7.5-325MG [[place] 1 tab PO Q4H PRN 03/26/17 03/26/17 History 7.5-325] Heparin Sodium,Porcine [Heparin 7,500 unit SQ Q8HR 03/26/17 03/26/17 History Sodium] Insulin Glargine,Hum.rec.anlog 30 unit SQ Q12H 03/26/17 03/26/17 History [Basaglnola Yin U-100] Insulin Regular [HumuLIN R] See Protocol SQ ACHS 03/26/17 03/26/17 History Ipratropium-Albuterol Nebulize 3 ml INHALATION RT-Q6H PRN 03/26/17 03/26/17 History [Duoneb 0.5 mg-3 mg/3 ml Soln] Magnesium Oxide [Mag-Ox] 400 mg PO DAILY 03/26/17 03/26/17 History Metoprolol Tartrate [Lopressor] 12.5 mg PO BID 03/26/17 03/26/17 History Polyethylene Glycol 3350 [Miralax] 17 gm PO DAILY 03/26/17 03/26/17 History Sennosides-Docusate Sodium 1 tab PO BID 03/26/17 03/26/17 History [Senokot-S] Sertraline [Zoloft] 50 mg PO HS 03/26/17 03/26/17 History Triad Hydrophilic Wound Dress 1 applic TOPICAL BID 03/26/17 03/26/17 History Allergies Allergy/AdvReac Type Severity Reaction Status Date / Time almond Allergy Unknown Verified 03/26/17 18:31 banana Allergy Unknown Verified 03/26/17 18:31 Penicillins Allergy Unknown Verified 03/26/17 18:31 Childhood Physical Exam Vitals: Vital Signs Temp Pulse Pulse Resp BP BP Pulse Ox 03/27/17 14:48 97.5 F L 71 16 103/66 98 03/27/17 13:05 72 03/27/17 12:57 72 03/27/17 07:00 98.4 F 68 16 110/70 92 L 03/27/17 03:45 98.3 F 69 12 109/72 97 03/26/17 23:19 97.7 F 92 12 102/61 99 03/26/17 22:29 98.9 F 03/26/17 22:18 98 18 115/64 100 03/26/17 21:29 101.0 F H 98 18 119/89 94 L 03/26/17 20:20 90 18 132/69 96 03/26/17 19:00 80 18 115/70 100 03/26/17 17:56 98.8 F 83 20 107/65 97 Intake and Output 03/27/17 03/27/17 03/27/17 06:59 14:59 22:59 Intake Total 1150 Balance 1150 Intake: Intake, IV Titration 1150 Amount ACETAMINOPHEN IV (For NPO 200 ) 1,000 mg In Empty Bag 1 bag @ 400 mls/hr IVPB Q6HR [facility] Rx#:[id number] Levofloxacin 750Mg-D5w 150 Pmx 750 mg In Dextrose/ Water 1 150ml.bag @ 100 mls/hr IVPB Q24H [facility] Rx#: [id number] Sodium Chloride 0.9% 1, 800 000 ml @ 100 mls/hr IV . Q10H [facility] Rx#:[id number] Other: Voiding Method Urinal # Voids 500 Weight 114.759 kg Patient Weight 03/28/17 06:59 Weight 114.759 kg PHYSICAL EXAMINATION: GENERAL: The patient is alert and oriented x3, not in any acute distress. Obese HEENT: Pupils are round and equally reacting to light. EOMI. No scleral icterus. No conjunctival pallor. Normocephalic, atraumatic. No pharyngeal erythema. No thyromegaly. CARDIOVASCULAR: S1 and S2 present. No murmurs, rubs, or gallops. PULMONARY: Chest is clear to auscultation, no wheezing or crackles. ABDOMEN: Soft, nontender, nondistended, normoactive bowel sounds. No palpable organomegaly. MUSCULOSKELETAL: No joint swelling or deformity. EXTREMITIES: No cyanosis, clubbing, or pedal edema. NEUROLOGICAL: There are no new focal deficit but patient has weakness in the left side has a tracheostomy in place PEG tube in place with pus around the PEG tube site area with some redness around the PEG tube site area and has a sacral decubitus ulcer no new weakness was appreciated sacral decubitus ulcer is stage II SKIN: Mentioned above Results CBC & Chem 7: 03/26/17 18:25 03/26/17 18:25 Labs: Abnormal Lab Results - Last 24 Hours (Table) 03/26/17 03/26/17 03/26/17 Range/Units 18:04 18:25 18:25 RBC 3.93 L (4.30-5.90) m/uL Hgb 10.2 L (13.0-17.5) gm/dL Hct 33.1 L (39.0-53.0) % RDW 17.6 H (11.5-15.5) % Lymphocytes # 0.8 L (1.0-4.8) k/uL Glucose (74-99) mg/dL POC Glucose (mg/dL) 136 H (75-99) mg/dL Total Creatine Kinase <20 L (55-170) U/L Albumin (3.5-5.0) g/dL Ur Leukocyte Esterase (Negative) Urine WBC (0-5) /hpf Urine Mucus (None) /hpf 03/26/17 03/26/17 03/27/17 Range/Units 18:25 19:53 06:47 RBC (4.30-5.90) m/uL Hgb (13.0-17.5) gm/dL Hct (39.0-53.0) % RDW (11.5-15.5) % Lymphocytes # (1.0-4.8) k/uL Glucose 123 H (74-99) mg/dL POC Glucose (mg/dL) 102 H (75-99) mg/dL Total Creatine Kinase (55-170) U/L Albumin 3.3 L (3.5-5.0) g/dL Ur Leukocyte Esterase Small H (Negative) Urine WBC 6 H (0-5) /hpf Urine Mucus Rare H (None) /hpf 03/27/17 Range/Units 11:56 RBC (4.30-5.90) m/uL Hgb (13.0-17.5) gm/dL Hct (39.0-53.0) % RDW (11.5-15.5) % Lymphocytes # (1.0-4.8) k/uL Glucose (74-99) mg/dL POC Glucose (mg/dL) 129 H (75-99) mg/dL Total Creatine Kinase (55-170) U/L Albumin (3.5-5.0) g/dL Ur Leukocyte Esterase (Negative) Urine WBC (0-5) /hpf Urine Mucus (None) /hpf Thrombosis Risk Factor Assmnt - Choose All That Apply Each Risk Factor Represents 2 Points: Age 61-74 years Thrombosis Risk Factor Assessment Total Risk Factor Score: 2 Thrombosis Risk Factor Assessment Level: Low Risk Assessment and Plan Plan: 1 acute toxic encephalopathy: Probably related to infection and sepsis and possibility of PEG tube site area being infected patient was started on Vanco mycin was suspicion is low that pneumonia is contributing to her symptoms. #2 sepsis due to above-mentioned reasons. #3 congestive heart failure possibility a do not have his ejection fraction available. #4 paroxysmal atrial fibrillation consulted cardiology regarding decisions of anticoagulation patient is presently rate controlled continue his rate control medications including amiodarone and metoprolol. #5 obesity #6 weakness in the left side of the body post surgery for Acoustic neuroma #7 sacral decubitus ulcer stage II: That doesn't appear to be infected exes disease was consulted #8 fracture of the right knee: Orthopedic surgery was consulted #9 continue with DVT prophylaxis #10 anemia anemia of chronic disease which is normocytic anemia
[2017-03-27 16:55] LABS: Glucose,Whole Blood 148 mg/dL (75-99)
[2017-03-27] MEDS ORDERED: METHYLENE BLUE 30 MG in DEXTROSE 5% IN WATER 500 ML IRRIGATION ONE ×2 (17:30)
[2017-03-27] MEDS: HEPARIN SODIUM,PORCINE 10,000 UNIT/ML 1 ML VIAL SQ SCH ×2 (18:11→23:19)
[2017-03-27 19:40] LABS: Glucose,Whole Blood 127 mg/dL (75-99)
[2017-03-27] MEDS ORDERED: LEVOFLOXACIN 750MG-D5W PMX 750 MG in DEXTROSE/WATER 1 150ML.BAG IVPB SCH (21:00)
[2017-03-27] MEDS: AMITRIPTYLINE HCL 10 MG TAB PO SCH (21:19)
[2017-03-27] MEDS: MENTHOL-CAMPHOR LOTION 222 APPLIC/222 ML BOTTLE TOPICAL SCH (21:21)
[2017-03-27] MEDS: SERTRALINE 50 MG TAB PO SCH (21:26)
--- NOTE | 2017-03-27 23:10 | P.CONS ---
History of Present Illness - Reason for Consult Consult date: 03/27/17 - Chief Complaint Sepsis - History of Present Illness 61 -year-old male presents to Hospital with altered mentation and fever. This pleasant gentleman has a history of cerebral aneurysm. With surgical intervention including vent curricular peritoneal shunting from several years ago. Has a several year history of difficulty with hearing in his left ear. 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 He has had surgical intervention. 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 There are concerns for sepsis and workup has been initiated. Possible blood cultures are noted. Concerns to cellulitis at the tube site. The patient's who is present is able to relate that recently she had some improvement of his status. His tracheostomy recently was decannulated. He is tolerating that well. He has follow study today that he did well with. Will be allowed oral intake but his tube feeds are on hold due to concerns to PEG tube site infection. The patient is comfortable has had an improved status. His is pleased that he is improving. Review of Systems Patient more comfortable HEENT:Denies headache or acute visual change. Denies sinus or mouth discomforts. Denies neck stiffness or pain. Denies significant oral cavity pain. Denies difficulty on swallowing. Lungs: Denies significant shortness of breath, cough, sputum production, or hemoptysis. Cardiovascular: Denies significant shortness of breath, chest pain, chest wall pain, orthopnea, dyspnea on exertion, syncope Gastrointestinal:Denies nausea, vomiting, diarrhea, constipation, hematemesis, melena, hematochezia. No no significant change of bowel habit noticed. Musculoskeletal: denies significant myalgias or arthralgias. No new joint swelling. Denies new back pain. Skin: Irritation of the PEG site as per the HPI Neuro: Denies headache but was lethargic and sleepy and not interacting well at admission Psychiatric:Denies anxiety or depression. Endocrine: Has fatigue but weight has been stable Urologic evidence of some darkening to his urine Past Medical History Past Medical History: Diabetes Mellitus, Hypertension, Pneumonia Additional Past Medical History / Comment(s): few falls lately-in may broke a rib on lt side, jun fell-was [facility]. brain aneurysm 2017 History of Any Multi-Drug Resistant Organisms: None Reported Past Surgical History: Tonsillectomy Additional Past Surgical History / Comment(s): brain aneursym with clip , colonoscopy/polypectomy(benign). 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 No travel, or experience. No tobacco or alcohol use. No animal exposures Smoking Status: Never smoker Past Alcohol Use History: None Reported Past Drug Use History: None Reported - Past Family History Father Family Medical History: Diabetes Mellitus Additional Family Medical History / Comment(s): Mother Family Medical History: Diabetes Mellitus Additional Family Medical History / Comment(s): alive and age 81 Medications and Allergies Home Medications and Allergies Comment(s): Current Medications Hydrocodone Bitart/Acetaminophen ([place] 7.5-325) 1 each PO Q4H PRN PRN Reason: Moderate Pain Albuterol/Ipratropium (Duoneb 0.5 Mg-3 Mg/3 Ml Soln) 3 ml INHALATION RT-Q6H PRN PRN Reason: Shortness Of Breath Last Admin: 03/27/17 12:56 Dose: 3 ml Amiodarone HCl (Cordarone) 100 mg PO DAILY [facility] Last Admin: 03/27/17 10:58 Dose: 100 mg Amitriptyline HCl (Elavil) 10 mg PO HS [facility] Last Admin: 03/27/17 21:19 Dose: 10 mg Clotrimazole (Lotrimin Cream) 1 applic TOPICAL BID [facility] Last Admin: 03/27/17 21:20 Dose: 1 applic Doxazosin Mesylate (Cardura) 2 mg PO DAILY [facility] Last Admin: 03/27/17 10:59 Dose: 2 mg Famotidine (Pepcid) 20 mg PO BID [facility] Last Admin: 03/27/17 21:20 Dose: 20 mg Ferrous Sulfate (Feosol) 325 mg PO DAILY [facility] Last Admin: 03/27/17 10:59 Dose: 325 mg Gabapentin (Neurontin) 300 mg PO BID [facility] Last Admin: 03/27/17 21:20 Dose: 300 mg Gabapentin (Neurontin) 200 mg PO DAILY@1400 [facility] Last Admin: 03/27/17 14:28 Dose: 200 mg Heparin Sodium (Porcine) (Heparin) 7,500 unit SQ Q8HR [facility] Last Admin: 03/27/17 18:11 Dose: 7,500 unit Levofloxacin 750 mg/ IV (Solution) 150 mls @ 100 mls/hr IVPB [facility] Stop: 04/06/17 21:01 Last Admin: 03/27/17 20:47 Dose: 100 mls/hr Vancomycin HCl 1,750 mg/ (Sodium Chloride) 250 mls @ 125 mls/hr IVPB Q12H [facility] Insulin Detemir (Levemir) 30 unit SQ Q12H [facility] Last Admin: 03/27/17 21:26 Dose: 30 unit Insulin Human Lispro (Humalog) 0 unit SQ ACHS [facility] PRN Reason: Protocol Last Admin: 03/27/17 22:21 Dose: Not Given Magnesium Oxide (Mag-Ox) 400 mg PO DAILY [facility] Last Admin: 03/27/17 11:00 Dose: 400 mg Metoprolol Tartrate (Lopressor) 12.5 mg PO BID [facility] Last Admin: 03/27/17 21:23 Dose: 12.5 mg Miscellaneous Information (Pneumonia Protocol Utilized) 1 each PO ONCE PRN PRN Reason: Per Protocol Non-Formulary Medication (Triad Hydrophilic Wound Dress ) 1 applic TOPICAL BID [facility] Last Admin: 03/27/17 22:22 Dose: Not Given Petrolatum (Sarna Lotion 0.5%-0.5%) 1 applic TOPICAL [facility] Last Admin: 03/27/17 21:21 Dose: 1 applicate Polyethylene Glycol (Miralax) 17 gm PO DAILY [facility] Last Admin: 03/27/17 11:01 Dose: Not Given Senna/Docusate Sodium (Senokot-S) 1 each PO BID [facility] Last Admin: 03/27/17 21:26 Dose: 1 each Sertraline HCl (Zoloft) 50 mg PO [facility] Last Admin: 03/27/17 21:26 Dose: 50 mg Home Medications Medication Instructions Recorded Confirmed Type Acetaminophen [Tylenol] 650 mg PO Q6H PRN 03/26/17 03/26/17 History Amiodarone [Cordarone] 100 mg PO DAILY 03/26/17 03/26/17 History Amitriptyline HCl [Elavil] 10 mg PO 03/26/17 03/26/17 History Antifungal Powder 1 applic TOPICAL BID 03/26/17 03/26/17 History Bumetanide [Bumex] 1 mg PO DAILY 03/26/17 03/26/17 History Camphor-Menthol 1 applic TOPICAL HS 03/26/17 03/26/17 History Doxazosin [Cardura] 2 mg PO DAILY 03/26/17 03/26/17 History Doxycycline Monohydrate [Monodox] 100 mg PO BID 03/26/17 03/26/17 History Famotidine [Pepcid] 20 mg PO BID 03/26/17 03/26/17 History Ferrous Sulfate [Feosol] 325 mg PO DAILY 03/26/17 03/26/17 History Gabapentin [Neurontin] 200 mg PO DAILY@1400 03/26/17 03/26/17 History Gabapentin [Neurontin] 300 mg PO BID 03/26/17 03/26/17 History HYDROcodone/APAP 7.5-325MG [[place] 1 tab PO Q4H PRN 03/26/17 03/26/17 History 7.5-325] Heparin Sodium,Porcine [Heparin 7,500 unit SQ Q8HR 03/26/17 03/26/17 History Sodium] Insulin Glargine,Hum.rec.anlog 30 unit SQ Q12H 03/26/17 03/26/17 History [Basaglar Kwikpen U-100] Insulin Regular [HumuLIN R] See Protocol SQ ACHS 03/26/17 03/26/17 History Ipratropium-Albuterol Nebulize 3 ml INHALATION RT-Q6H PRN 03/26/17 03/26/17 History [Duoneb 0.5 mg-3 mg/3 ml Soln] Magnesium Oxide [Mag-Ox] 400 mg PO DAILY 03/26/17 03/26/17 History Metoprolol Tartrate [Lopressor] 12.5 mg PO BID 03/26/17 03/26/17 History Polyethylene Glycol 3350 [Miralax] 17 gm PO DAILY 03/26/17 03/26/17 History Sennosides-Docusate Sodium 1 tab PO BID 03/26/17 03/26/17 History [Senokot-S] Sertraline [Zoloft] 50 mg PO HS 03/26/17 03/26/17 History Triad Hydrophilic Wound Dress 1 applic TOPICAL BID 03/26/17 03/26/17 History Allergies Allergy/AdvReac Type Severity Reaction Status Date / Time almond Allergy Unknown Verified 03/26/17 18:31 banana Allergy Unknown Verified 03/26/17 18:31 Penicillins Allergy Unknown Verified 03/26/17 18:31 Childhood Physical Exam Vitals: Vital Signs Temp Pulse Pulse Resp BP Pulse Ox 03/27/17 20:00 98.2 F 71 16 106/66 98 03/27/17 14:48 97.5 F L 71 16 103/66 98 03/27/17 13:05 72 03/27/17 12:57 72 03/27/17 07:00 98.4 F 68 16 110/70 92 L 03/27/17 03:45 98.3 F 69 12 109/72 97 03/26/17 23:19 97.7 F 92 12 102/61 99 Intake and Output 03/27/17 03/27/17 03/27/17 06:59 14:59 22:59 Intake Total 1150 750 390 Balance 1150 750 390 Intake: Intake, IV Titration 1150 700 250 Amount ACETAMINOPHEN IV (For NPO 200 100 ) 1,000 mg In Empty Bag 1 bag @ 400 mls/hr IVPB Q6HR [facility] Rx#:[id number] Levofloxacin 750Mg-D5w 150 Pmx 750 mg In Dextrose/ Water 1 150ml.bag @ 100 mls/hr IVPB HS [facility] Rx#: [id number] Sodium Chloride 0.9% 1, 800 600 000 ml @ 100 mls/hr IV . Q10H [facility] Rx#:[id number] Vancomycin 1,750 mg In 250 Sodium Chloride 0.9% 250 ml @ 125 mls/hr IVPB Q12H [facility] Rx#:[id number] Oral 50 50 Tube Feeding 90 Other: Voiding Method Urinal Bedpan Urinal # Voids 500 1 Weight 114.759 kg Patient Weight 03/28/17 06:59 Weight 114.759 kg 61-year-old male comfortable at this time HEENT: Anicteric conjunctiva are pink and moist nasal mucosa grossly intact without significant lesions, there is no thrush. 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 Neck: The neck is supple without significant lymphadenopathy or thyromegaly. Lungs: Good bilateral air entry without significant crackles or wheezing. There is no significant bronchial sounds. There is no egophony or dullness. Heart: Irregular with a positive S4 no murmur click or rub Abdomen: Obese, Positive bowel sounds soft and nontender without palpable masses or organomegaly. There was no guarding or rebound. Surgical wound from his HEARING THERAPIST shunt is well-healed. The PEG tube site is reviewed. Evidence or just some scant drainage at the site. Extremities: The upper extremities have excellent pulses they are symmetric, no significant petechiae or telangiectasia. No splinter hemorrhages were noted. The lower extremities are free from significant edema. The peripheral pulses were 2+ and symmetric. Neuro: Is awake and alert as has the right hemiparesis Results CBC & Chem 7: 03/26/17 18:25 03/26/17 18:25 Labs: Abnormal Lab Results - Last 24 Hours (Table) 03/27/17 03/27/17 03/27/17 Range/Units 06:47 11:56 16:48 POC Glucose (mg/dL) 102 H 129 H 148 H (75-99) mg/dL 03/27/17 Range/Units 19:33 POC Glucose (mg/dL) 127 H (75-99) mg/dL Microbiology - Last 24 Hours (Table) 03/26/17 18:25 Blood Culture Gram Stain - Preliminary Blood 03/26/17 18:25 Blood Culture - Final Blood Laboratory Results WBC 7.0 k/uL (3.8-10.6) 03/26/17 18:25 RBC 3.93 m/uL (4.30-5.90) L 03/26/17 18:25 Hgb 10.2 gm/dL (13.0-17.5) L 03/26/17 18:25 Hct 33.1 % (39.0-53.0) L 03/26/17 18:25 MCV 84.1 fL (80.0-100.0) 03/26/17 18:25 MCH 26.0 pg (25.0-35.0) 03/26/17 18:25 MCHC 31.0 g/dL (31.0-37.0) 03/26/17 18:25 RDW 17.6 % (11.5-15.5) H 03/26/17 18:25 Plt Count 204 k/uL (150-450) 03/26/17 18:25 Neutrophils % 82 % 03/26/17 18:25 Lymphocytes % 12 % 03/26/17 18:25 Monocytes % 4 % 03/26/17 18:25 Eosinophils % 2 % 03/26/17 18:25 Basophils % 0 % 03/26/17 18:25 Neutrophils # 5.7 k/uL (1.3-7.7) 03/26/17 18:25 Lymphocytes # 0.8 k/uL (1.0-4.8) L 03/26/17 18:25 Monocytes # 0.3 k/uL (0-1.0) 03/26/17 18:25 Eosinophils # 0.1 k/uL (0-0.7) 03/26/17 18:25 Basophils # 0.0 k/uL (0-0.2) 03/26/17 18:25 Hypochromasia Marked 03/26/17 18:25 Poikilocytosis Moderate 03/26/17 18:25 Anisocytosis Slight 03/26/17 18:25 Sodium 137 mmol/L (137-145) 03/26/17 18:25 Potassium 4.6 mmol/L (3.5-5.1) 03/26/17 18:25 Chloride 98 mmol/L (98-107) 03/26/17 18:25 Carbon Dioxide 30 mmol/L (22-30) 03/26/17 18:25 Anion Gap 9 mmol/L 03/26/17 18:25 BUN 20 mg/dL (9-20) 03/26/17 18:25 Creatinine 0.90 mg/dL (0.66-1.25) 03/26/17 18:25 Est GFR (MDRD) Af Amer >60 (>60 ml/min/1.73 sqM) 03/26/17 18:25 Est GFR (MDRD) Non-Af >60 (>60 ml/min/1.73 sqM) 03/26/17 18:25 Glucose 123 mg/dL (74-99) H 03/26/17 18:25 POC Glucose (mg/dL) 127 mg/dL (75-99) H 03/27/17 19:33 POC Glu [place] Allison Barton 03/27/17 19:33 Plasma Lactic Acid Maxx 1.1 mmol/L (0.7-2.0) 03/26/17 18:25 Calcium 9.0 mg/dL (8.4-10.2) 03/26/17 18:25 Magnesium 2.1 mg/dL (1.6-2.3) 03/26/17 18:25 Total Bilirubin 0.5 mg/dL (0.2-1.3) 03/26/17 18:25 AST 22 U/L (17-59) 03/26/17 18:25 ALT 37 U/L (21-72) 03/26/17 18:25 Alkaline Phosphatase 69 U/L (38-126) 03/26/17 18:25 Ammonia 17 umol/L (<30) 03/26/17 18:25 Total Creatine Kinase <20 U/L (55-170) L 03/26/17 18:25 CK-MB (CK-2) 0.3 ng/mL (0.0-2.4) 03/26/17 18:25 CK-MB (CK-2) Rel Index 03/26/17 18:25 Total Protein 7.9 g/dL (6.3-8.2) 03/26/17 18:25 Albumin 3.3 g/dL (3.5-5.0) L 03/26/17 18:25 Urine Color Yellow 03/26/17 19:53 Urine Appearance Clear (Clear) 03/26/17 19:53 Urine pH 6.0 (5.0-8.0) 03/26/17 19:53 Ur Specific [place] 1.012 (1.001-1.035) 03/26/17 19:53 Urine Protein Negative (Negative) 03/26/17 19:53 Urine Glucose (UA) Negative (Negative) 03/26/17 19:53 Urine Ketones Negative (Negative) 03/26/17 19:53 Urine Blood Negative (Negative) 03/26/17 19:53 Urine Nitrite Negative (Negative) 03/26/17 19:53 Urine Bilirubin Negative (Negative) 03/26/17 19:53 Urine Urobilinogen <2.0 mg/dL (<2.0) 03/26/17 19:53 Ur Leukocyte Esterase Small (Negative) H 03/26/17 19:53 Urine RBC <1 /hpf (0-5) 03/26/17 19:53 Urine WBC 6 /hpf (0-5) H 03/26/17 19:53 Urine Mucus Rare /hpf (None) H 03/26/17 19:53 Microbiology 03/26/17 18:25 Blood Blood Culture Gram Stain - Preliminary 03/26/17 18:25 Blood Blood Culture - Final Assessment and Plan (1) Sepsis Narrative/Plan: 61 year old male that has multiple medical troubles who presents for evaluation of increasing weakness and fever. There are concerns to sepsis and blood cultures have been performed. They've come back as positive for gram- positive cocci in chains and pairs. At this time source is not completely clear. There was concern as to the PEG site being infected. On evaluation does not appear to be grossly infected. Methyline blue was placed through the PEG tube without any evidence of leakage at this time. The patient's tracheostomy was decannulated and does not appear to be the source of infection. His pulmonary status appears to be stable. Urinalysis is mildly abnormal and urine culture potentially is etiology. Antimicrobial therapy with vancomycin is initiated. He also received levofloxacin. However he is on amiodarone and this is discontinued. We'll enhance gram-negative coverage if needed based on other cultures but gram- positive cocci are all that are seen at this time. Follow blood cultures are requested. Continue supportive care. The PEG site is being cleansed and a Aquacel silver will be utilized to the site. Current Visit: Yes Status: Acute Code(s): A41.9 - SEPSIS, UNSPECIFIED ORGANISM SNOMED Code(s): 39619004 (2) Fever Current Visit: Yes Status: Acute Code(s): R50.9 - FEVER, UNSPECIFIED SNOMED Code(s): 300228521 (3) Effusion, right knee Current Visit: Yes Status: Acute Code(s): M25.461 - EFFUSION, RIGHT KNEE SNOMED Code(s): 606816064 (4) Acoustic neuroma Current Visit: Yes Status: Acute Code(s): D33.3 - BENIGN NEOPLASM OF CRANIAL NERVES SNOMED Code(s): 558483661
[2017-03-27] MEDS: VANCOMYCIN 1,750 MG in SODIUM CHLORIDE 0.9% 250 ML IVPB SCH (23:19)
[2017-03-28 06:56] LABS: Glucose,Whole Blood 115 mg/dL (75-99)
[2017-03-28] MEDS: INSULIN LISPRO (humaLOG) 300 UNIT/3 ML VIAL SQ SCH ×4 (07:20→21:28)
[2017-03-28 07:37] LABS: Anisocytosis Slight; CH 25.5; CHCM 30.5; HCT 31.7 % (39.0-53.0); HDW 3.91; HGB 9.7 gm/dL (13.0-17.5); Hypochromasia Marked; MCH 25.7 pg (25.0-35.0); MCHC 30.6 g/dL (31.0-37.0); Mean Platelet Volume 8.1; Poikilocytosis Slight; RBC 3.77 m/uL (4.30-5.90); RDW 18.8 % (11.5-15.5); WBC 4.7 k/uL (3.8-10.6)
[2017-03-28 07:40] LABS: ALT 31 U/L (21-72); AST 18 U/L (17-59); Alkaline Phosphatase 56 U/L (38-126); Anion Gap 6 mmol/L; Blood Urea Nitrogen 17 mg/dL (9-20); Calcium 8.8 mg/dL (8.4-10.2); Carbon Dioxide 30 mmol/L (22-30); Chloride 104 mmol/L (98-107); Glucose 111 mg/dL (74-99); Non-African American GFR(MDRD) >60 (>60 ml/min/1.73 sqM); Potassium 4.4 mmol/L (3.5-5.1); Sodium 140 mmol/L (137-145); Total Bilirubin 0.3 mg/dL (0.2-1.3); Total Protein 7.1 g/dL (6.3-8.2)
[2017-03-28] MEDS: HEPARIN SODIUM,PORCINE 10,000 UNIT/ML 1 ML VIAL SQ SCH ×3 (08:51→23:38)
[2017-03-28] MEDS: DOXAZOSIN 2 MG TAB PO SCH (08:54)
[2017-03-28] MEDS: FAMOTIDINE 20 MG TAB PO SCH ×2 (08:54→21:26)
[2017-03-28] MEDS: AMIODARONE 100 MG TAB PO SCH (08:54)
[2017-03-28] MEDS: FERROUS SULFATE 325 MG TAB PO SCH (08:54)
[2017-03-28] MEDS: MAGNESIUM OXIDE 400 MG TAB PO SCH (08:55)
[2017-03-28] MEDS: METOPROLOL TARTRATE 12.5 MG TAB PO SCH (08:55)
[2017-03-28] MEDS: GABAPENTIN 300 MG CAP PO SCH ×2 (08:55→21:27)
[2017-03-28] MEDS: SENNOSIDES-DOCUSATE SODIUM 1 EACH TAB PO SCH ×2 (08:59→21:25)
[2017-03-28] MEDS: POLYETHYLENE GLYCOL 3350 17 GM POWD.PACK PO SCH (09:00)
[2017-03-28] MEDS: VANCOMYCIN 1,750 MG in SODIUM CHLORIDE 0.9% 250 ML IVPB SCH ×2 (09:56→22:46)
--- NOTE | 2017-03-28 10:29 | P.CNOR ---
History of Present Illness - [facility] Consult date: 03/28/17 Requesting physician: Tim Gambino Consult reason: joint pain (Right knee) History of present illness: Patient is a pleasant 61-year-old male seen at bedside this morning. Orthopedics was consulted for right knee pain. He states he's had knee pain for the past 3 or 4 days. He doesn't recall any trauma or injury to the knee. His past medical history is significant for previous craniotomy, brainstem mass , hemiparesis, requiring PEG tube. He is also being treated for pneumonia. He hasn't been ambulatory. He denies numbness or tingling that is new or radicular symptoms are acute. Pain is in the area of the superior knee. He denies calf pain. Pain in the knee worsens with flexion. He has no other complaints. Review of Systems All systems: negative Constitutional: Denies chills, Denies fever Eyes: denies blurred vision, denies pain Ears, nose, mouth and throat: Denies headache, Denies sore throat Cardiovascular: Denies chest pain, Denies shortness of breath Respiratory: Denies cough Gastrointestinal: Denies abdominal pain, Denies diarrhea, Denies nausea, Denies vomiting Musculoskeletal: Denies myalgias Integumentary: Denies pruritus, Denies rash Neurological: Denies convulsions, Denies loss of vision Psychiatric: Denies anxiety, Denies depression Endocrine: Denies fatigue, Denies weight change Past Medical History Past Medical History: Diabetes Mellitus, Hypertension, Pneumonia Additional Past Medical History / Comment(s): few falls lately-in may broke a rib on lt side, jun fell-was sent from work to [facility]. brain aneurysm 2017 History of Any Multi-Drug Resistant Organisms: None Reported Past Surgical History: Tonsillectomy Additional Past Surgical History / Comment(s): brain aneursym with clip , colonoscopy/polypectomy(benign). 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 No travel, or experience. No tobacco or alcohol use. No animal exposures Smoking Status: Never smoker Past Alcohol Use History: None Reported Past Drug Use History: None Reported - Past Family History Father Family Medical History: Diabetes Mellitus Additional Family Medical History / Comment(s): Mother Family Medical History: Diabetes Mellitus Additional Family Medical History / Comment(s): alive and age 81 Medications and Allergies Home Medications Medication Instructions Recorded Confirmed Type Acetaminophen [Tylenol] 650 mg PO Q6H PRN 03/26/17 03/26/17 History Amiodarone [Cordarone] 100 mg PO DAILY 03/26/17 03/26/17 History Amitriptyline HCl [Elavil] 10 mg PO HS 03/26/17 03/26/17 History Antifungal Powder 1 applic TOPICAL BID 03/26/17 03/26/17 History Bumetanide [Bumex] 1 mg PO DAILY 03/26/17 03/26/17 History Camphor-Menthol 1 applic TOPICAL HS 03/26/17 03/26/17 History Doxazosin [Cardura] 2 mg PO DAILY 03/26/17 03/26/17 History Doxycycline Monohydrate [Monodox] 100 mg PO BID 03/26/17 03/26/17 History Famotidine [Pepcid] 20 mg PO BID 03/26/17 03/26/17 History Ferrous Sulfate [Feosol] 325 mg PO DAILY 03/26/17 03/26/17 History Gabapentin [Neurontin] 200 mg PO DAILY@1400 03/26/17 03/26/17 History Gabapentin [Neurontin] 300 mg PO BID 03/26/17 03/26/17 History HYDROcodone/APAP 7.5-325MG [[place] 1 tab PO Q4H PRN 03/26/17 03/26/17 History 7.5-325] Heparin Sodium,Porcine [Heparin 7,500 unit SQ Q8HR 03/26/17 03/26/17 History Sodium] Insulin Glargine,Hum.rec.anlog 30 unit SQ Q12H 03/26/17 03/26/17 History [Basaglar [place]pen U-100] Insulin Regular [HumuLIN R] See Protocol SQ ACHS 03/26/17 03/26/17 History Ipratropium-Albuterol Nebulize 3 ml INHALATION RT-Q6H PRN 03/26/17 03/26/17 History [Duoneb 0.5 mg-3 mg/3 ml Soln] Magnesium Oxide [Mag-Ox] 400 mg PO DAILY 03/26/17 03/26/17 History Metoprolol Tartrate [Lopressor] 12.5 mg PO BID 03/26/17 03/26/17 History Polyethylene Glycol 3350 [Miralax] 17 gm PO DAILY 03/26/17 03/26/17 History Sennosides-Docusate Sodium 1 tab PO BID 03/26/17 03/26/17 History [Senokot-S] Sertraline [Zoloft] 50 mg PO HS 03/26/17 03/26/17 History Triad Hydrophilic Wound Dress 1 applic TOPICAL BID 03/26/17 03/26/17 History Allergies Allergy/AdvReac Type Severity Reaction Status Date / Time almond Allergy Unknown Verified 03/26/17 18:31 banana Allergy Unknown Verified 03/26/17 18:31 Penicillins Allergy Unknown Verified 03/26/17 18:31 Childhood Physical Examination Inspection of the right lower extremity shows no erythema, ecchymoses or deformity. There is a moderate swelling/possible effusion at the superior lateral aspect of the knee. The knee is not hot to touch. There is no joint line tenderness. Patellar tracking is normal. There is negative patellar apprehension. He extends to 0 with no pain. He flexes 100 degrees with superior knee pain. Dianna's is negative, MCL and LCL are intact. Negative Yuko's. Calf is soft and nontender. 2+ dorsalis pedis pulse and less than 2 second cap refill present. Sensation to light touch intact throughout the lower extremity. Results - Labs Labs: Abnormal Lab Results - Last 24 Hours (Table) 03/27/17 03/27/17 03/27/17 Range/Units 11:56 16:48 19:33 RBC (4.30-5.90) m/uL Hgb (13.0-17.5) gm/dL Hct (39.0-53.0) % MCHC (31.0-37.0) g/dL RDW (11.5-15.5) % Glucose (74-99) mg/dL POC Glucose (mg/dL) 129 H 148 H 127 H (75-99) mg/dL Albumin (3.5-5.0) g/dL 11/07/17 11/07/17 11/07/17 Range/Units 06:54 07:05 07:05 RBC 3.77 L (4.30-5.90) m/uL Hgb 9.7 L (13.0-17.5) gm/dL Hct 31.7 L (39.0-53.0) % MCHC 30.6 L (31.0-37.0) g/dL RDW 18.8 H (11.5-15.5) % Glucose 111 H (74-99) mg/dL POC Glucose (mg/dL) 115 H (75-99) mg/dL Albumin 2.9 L (3.5-5.0) g/dL Microbiology - Last 24 Hours (Table) 03/26/17 18:25 Blood Culture Gram Stain - Preliminary Blood Blood Culture - Preliminary Group D Enterococcus 03/27/17 16:00 Gram Stain - Preliminary Abdomen Wound Culture - Preliminary 03/27/17 16:00 Anaerobic Culture - Preliminary Abdomen 03/26/17 18:25 Blood Culture - Final Blood H & H 03/26/17 03/28/17 Range/Units 18:25 07:05 Hgb 10.2 L 9.7 L (13.0-17.5) gm/dL Hct 33.1 L 31.7 L (39.0-53.0) % Result Diagrams: 03/28/17 07:05 03/28/17 07:05 - Diagnostic results Knee x-ray: report reviewed, image reviewed Assessment and Plan (1) Effusion, right knee Narrative/Plan: X-rays of the right knee show advanced tricompartmental degenerative joint disease/osteoarthritis. There is also suggestion of possible impacted fracture or osteochondral defect at the right medial femoral condyle. His symptoms and findings do not correlate with a medial femoral condyle injury. Utilizing sterile technique the right knee was prepped where 5 mL of 1% plain lidocaine was injected into the superior lateral aspect of the knee without competition. Then approximately 5-10 mL of joint fluid was aspirated which was noninfectious in appearance. The synovial fluid aspirate was sent to the lab for culture and sensitivity, Gram stain, cell count and crystals. He is to utilize a knee immobilizer if he is to be up and ambulating. This patient has been reviewed with Dr. Gambino. We will continue to follow and make further recommendations as appropriate according to his clinical course. We will hold off on an MRI as surgical intervention is unlikely. Thank you Current Visit: Yes Status: Acute Priority: Medium Code(s): M25.461 - EFFUSION, RIGHT KNEE SNOMED Code(s): 929709824 Time with Patient: Greater than 30 (Interviewing patient, physical exam, reviewing findings, preparation and performing joint aspiration, discussing care with health care team)
[2017-03-28] MEDS: [UNRECOGNIZED DRUG - OTHER] TOPICAL SCH ×2 (11:11→21:50)
[2017-03-28] MEDS: CLOTRIMAZOLE 1% CREAM 15 GM TUBE TOPICAL SCH ×2 (11:12→22:34)
[2017-03-28] MEDS: INSULIN DETEMIR 100 UNIT/ML 10 ML VIAL SQ SCH ×2 (11:22→21:26)
[2017-03-28 11:24] LABS: RBC, Body Fluid 98400 /uL
[2017-03-28 11:34] LABS: Synovial Crystal Source Right Knee
--- NOTE | 2017-03-28 11:40 | ECHOF ---
Referral Reason:CHF MEASUREMENTS -------- HEIGHT: 172.7 cm WEIGHT: 114.8 kg BP: IVSd: 1.5 cm (0.6 - 1.1) LVIDd: 3.5 cm (3.9 - 5.3) LVPWd: 1.5 cm (0.6 - 1.1) IVSs: 1.8 cm LVIDs: 1.4 cm LVPWs: 1.7 cm Ao Diam: 3.8 cm (2.0 - 3.7) AV Cusp: 2.7 cm (1.5 - 2.6) LA Diam: 3.1 cm (2.7 - 3.8) MV EXCURSION: 26.551 mm (> 18.000) MV EF SLOPE: 106 mm/s (70 - 150) EPSS: 0.9 cm MV E Naga: 0.85 m/s MV DecT: 259 ms MV A Naga: 0.94 m/s MV E/A Ratio: 0.90 AR PHT: 211 ms RAP: 5.00 mmHg RVSP: 14.31 mmHg FINDINGS -------- Sinus rhythm. This was a technically adequate study. The left ventricular size is normal. There is moderate concentric left ventricular hypertrophy. O verall left ventricular systolic function is normal with, an EF between 55 - 60 %. The right ventricle is normal in size and function. The left atrium is normal in size. The right atrium is normal in size. Aortic valve is trileaflet and is mildly thickened. There is mild aortic regurgitation. The mitral valve leaflets are mildly thickened. Mild mitral regurgitation is present. Trace tricuspid regurgitation present. The right ventricular systolic pressure, as measured by Dopp ler, is 14.31mmHg. The pulmonic valve was not well visualized. There is no pulmonic regurgitation present. The aortic root size is normal. There is no pericardial effusion. CONCLUSIONS -------- 1. Sinus rhythm. 2. This was a technically adequate study. 3. There is moderate concentric left ventricular hypertrophy. 4. Overall left ventricular systolic function is normal with, an EF between 55 - 60 %. 5. The left atrium is normal in size. 6. Aortic valve is trileaflet and is mildly thickened. 7. There is mild aortic regurgitation. 8. The mitral valve leaflets are mildly thickened. 9. Mild mitral regurgitation is present. 10. Trace tricuspid regurgitation present. 11. The right ventricular systolic pressure, as measured by Doppler, is 14.31mmHg. 12. There is no pulmonic regurgitation present. 13. The aortic root size is normal. 14. There is no pericardial effusion. DIELECTRIC PRESS OPERATOR: Camille Newby RDCS
[2017-03-28 11:45] LABS: Glucose,Whole Blood 176 mg/dL (75-99)
--- NOTE | 2017-03-28 13:57 | P.CRDCN ---
History of Present Illness Consult date: 03/28/17 History of present illness: This is a 61-year-old male with past medical history significant for hypertension, diabetes mellitus, brain aneurysm with clip November 2016 and episode of atrial fibrillation while intubated s/p brain surgery. We have been asked to see him in consultation for recommendations on anticoagulation in regards to a- fib. Review of the previous records from [facility] reveal that he had one episode of a-fib with RVR while intubated and was placed on an amiodarone and lopressor. At that time anticoagulation was not initiated since he was post- operative for brain surgery. He is currently at [facility] undergoing rehab and was brought into the hospital for evaluation of right knee pain and swelling. EKG on arrival is sinus mechanism and he is currently in a regular rhythm. He denies any episodes of chest pain, shortness of breath, dizziness, palpitations or rapid feeling heart beat. He is not currently on telemetry. Hemoglobin 9.7, platelets 174, potassium 4.4, magnesium 2.1, BUN 17, creatinine 0.84, AST 18, ALT 31. Current cardiac medications include Lopressor 12.5 mg twice a day, amiodarone 100 mg daily. Review of Systems CONSTITUTIONAL: Denies fever. Denies chills. EYES: Denies blurred vision. Denies vision changes. Denies eye pain. EARS, NOSE, MOUTH & THROAT: Denies headache. Denies sore throat. Denies ear pain. CARDIOVASCULAR: Denies chest pain. Denies shortness of breath. Denies orthopnea. Denies PND. Denies palpitations. RESPIRATORY: Denies cough. GASTROINTESTINAL: Denies abdominal pain. Denies diarrhea. Denies constipation. Denies nausea. Denies vomitng. MUSCULOSKELETAL: Denies myalgias. INTEGUMENTARY: Denies pruitis. Denies rash. NEUROLOGIC: Denies numbness. Denies tingling. Denies weakness. PSYCHIATRIC: Denies anxiety. Denies depression. ENDOCRINE: Denies fatigue. Denies weight change. Denies polydipsia. Denies polyurina. GENITOURINARY: Denies burning, hematuria or urgency with micturation. HEMATOLOGIC: Denies history of anemia. Denies bleeding. Past Medical History Past Medical History: Diabetes Mellitus, Hypertension, Pneumonia Additional Past Medical History / Comment(s): few falls lately-in may broke a rib on lt side, jun fell-was sent from work to [facility]. brain aneurysm 2016 History of Any Multi-Drug Resistant Organisms: None Reported Past Surgical History: Tonsillectomy Additional Past Surgical History / Comment(s): brain aneursym with clip , colonoscopy/polypectomy(benign). 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 No travel, or experience. No tobacco or alcohol use. No animal exposures Smoking Status: Never smoker Past Alcohol Use History: None Reported Past Drug Use History: None Reported - Past Family History Father Family Medical History: Diabetes Mellitus Additional Family Medical History / Comment(s): Mother Family Medical History: Diabetes Mellitus Additional Family Medical History / Comment(s): alive and age 81 Medications and Allergies Home Medications Medication Instructions Recorded Confirmed Type Acetaminophen [Tylenol] 650 mg PO Q6H PRN 03/26/17 03/26/17 History Amiodarone [Cordarone] 100 mg PO DAILY 03/26/17 03/26/17 History Amitriptyline HCl [Elavil] 10 mg PO HS 03/26/17 03/26/17 History Antifungal Powder 1 applic TOPICAL BID 03/26/17 03/26/17 History Bumetanide [Bumex] 1 mg PO DAILY 03/26/17 03/26/17 History Camphor-Menthol 1 applic TOPICAL HS 03/26/17 03/26/17 History Doxazosin [Cardura] 2 mg PO DAILY 03/26/17 03/26/17 History Doxycycline Monohydrate [Monodox] 100 mg PO BID 03/26/17 03/26/17 History Famotidine [Pepcid] 20 mg PO BID 03/26/17 03/26/17 History Ferrous Sulfate [Feosol] 325 mg PO DAILY 03/26/17 03/26/17 History Gabapentin [Neurontin] 200 mg PO DAILY@1400 03/26/17 03/26/17 History Gabapentin [Neurontin] 300 mg PO BID 03/26/17 03/26/17 History HYDROcodone/APAP 7.5-325MG [Emerado 1 tab PO Q4H PRN 03/26/17 03/26/17 History 7.5-325] Heparin Sodium,Porcine [Heparin 7,500 unit SQ Q8HR 03/26/17 03/26/17 History Sodium] Insulin Glargine,Hum.rec.anlog 30 unit SQ Q12H 03/26/17 03/26/17 History [Basaglar Kwikpen U-100] Insulin Regular [HumuLIN R] See Protocol SQ ACHS 03/26/17 03/26/17 History Ipratropium-Albuterol Nebulize 3 ml INHALATION RT-Q6H PRN 03/26/17 03/26/17 History [Duoneb 0.5 mg-3 mg/3 ml Soln] Magnesium Oxide [Mag-Ox] 400 mg PO DAILY 03/26/17 03/26/17 History Metoprolol Tartrate [Lopressor] 12.5 mg PO BID 03/26/17 03/26/17 History Polyethylene Glycol 3350 [Miralax] 17 gm PO DAILY 03/26/17 03/26/17 History Sennosides-Docusate Sodium 1 tab PO BID 03/26/17 03/26/17 History [Senokot-S] Sertraline [Zoloft] 50 mg PO HS 03/26/17 03/26/17 History Triad Hydrophilic Wound Dress 1 applic TOPICAL BID 03/26/17 03/26/17 History Allergies Allergy/AdvReac Type Severity Reaction Status Date / Time almond Allergy Unknown Verified 03/26/17 18:31 banana Allergy Unknown Verified 03/26/17 18:31 Penicillins Allergy Unknown Verified 03/26/17 18:31 Childhood Physical Exam Vitals: Vital Signs Temp Pulse Resp BP Pulse Ox 03/28/17 11:35 97.5 F L 85 18 104/60 100 03/28/17 08:00 12 03/28/17 07:00 98.6 F 67 12 104/67 99 03/28/17 00:50 97.8 F 61 16 103/66 99 03/27/17 20:00 98.2 F 71 16 106/66 98 03/27/17 14:48 97.5 F L 71 16 103/66 98 Intake and Output 03/27/17 03/28/17 03/28/17 22:59 06:59 14:59 Intake Total 390 390 Balance 390 390 Intake: Intake, IV Titration 250 390 Amount Sodium Chloride 0.9% 1, 140 000 ml @ 75 mls/hr IV . [id number] [facility] Rx#:[id number] Vancomycin 1,750 mg In 250 250 Sodium Chloride 0.9% 250 ml @ 125 mls/hr IVPB Q12H [facility] Rx#:[id number] Oral 50 Tube Feeding 90 Other: Voiding Method Bedpan Urinal # Voids 1 GENERAL: This is a 61-year-old male in no apparent distress at the time of my examination. Obese. HEENT: Pupils are equal, round. Sclerae anicteric. Conjunctivae are clear. Mucous membranes of the mouth are moist. Neck is supple. There is no jugular venous distention. No carotid bruit is heard. LUNGS: Clear to auscultation no wheezes, rales or rhonchi. No chest wall tenderness is noted on palpation or with deep breathing. HEART: Regular rate and rhythm without murmurs, rubs or gallops. S1 and S2 heard. ABDOMEN: Soft, nontender. Bowel sounds are heard. No organomegaly noted. EXTREMITIES: 2+ peripheral pulses with no evidence of peripheral edema and no calf tenderness noted. Right knee redness and swelling. NEUROLOGIC: Patient is awake, alert and oriented x3. Results 03/28/17 07:05 03/28/17 07:05 Cardiac Enzymes 03/28/17 Range/Units 07:05 AST 18 (17-59) U/L CBC 03/28/17 Range/Units 07:05 WBC 4.7 (3.8-10.6) k/uL RBC 3.77 L (4.30-5.90) m/uL Hgb 9.7 L (13.0-17.5) gm/dL Hct 31.7 L (39.0-53.0) % Plt Count 174 (150-450) k/uL Comprehensive Metabolic Panel 03/28/17 Range/Units 07:05 Sodium 140 (137-145) mmol/L Potassium 4.4 (3.5-5.1) mmol/L Chloride 104 (98-107) mmol/L Carbon Dioxide 30 (22-30) mmol/L BUN 17 (9-20) mg/dL Creatinine 0.84 (0.66-1.25) mg/dL Glucose 111 H (74-99) mg/dL Calcium 8.8 (8.4-10.2) mg/dL AST 18 (17-59) U/L ALT 31 (21-72) U/L Alkaline Phosphatase 56 (38-126) U/L Total Protein 7.1 (6.3-8.2) g/dL Albumin 2.9 L (3.5-5.0) g/dL Current Medications Generic Name Dose Route Start Last Admin Trade Name Freq PRN Reason Stop Dose Admin Hydrocodone Bitart/Acetaminophen 1 each 03/26/17 22:06 Emerado 7.5-325 PO Q4H PRN Moderate Pain Albuterol/Ipratropium 3 ml 03/26/17 22:06 03/27/17 12:56 Duoneb 0.5 Mg-3 Mg/3 Ml Soln INHALATION 3 ml RT-Q6H PRN Administration Shortness Of Breath Amitriptyline HCl 10 mg 03/27/17 21:00 03/27/17 21:19 Elavil PO 10 mg HS [facility] Administration Clotrimazole 1 applic 03/27/17 09:00 03/28/17 11:12 Lotrimin Cream TOPICAL Not Given BID [facility] Doxazosin Mesylate 2 mg 03/27/17 09:00 03/28/17 08:54 Cardura PO 2 mg DAILY [facility] Administration Famotidine 20 mg 03/27/17 09:00 03/28/17 08:54 Pepcid PO 20 mg BID [facility] Administration Ferrous Sulfate 325 mg 03/27/17 09:00 03/28/17 08:54 Feosol PO 325 mg DAILY [facility] Administration Gabapentin 300 mg 03/27/17 09:00 03/28/17 08:55 Neurontin PO 300 mg BID [facility] Administration Gabapentin 200 mg 03/27/17 14:00 03/27/17 14:28 Neurontin PO 200 mg DAILY@1400 [facility] Administration Heparin Sodium (Porcine) 7,500 unit 03/27/17 16:00 03/28/17 08:51 Heparin SQ 7,500 unit Q8HR [facility] Administration Vancomycin HCl 1,750 mg/ 250 mls @ 125 mls/hr 03/27/17 22:00 03/28/17 09:56 Sodium Chloride IVPB 125 mls/hr Q12H [facility] Administration Insulin Detemir 30 unit 03/26/17 22:15 03/28/17 11:22 Levemir SQ 30 unit Q12H [facility] Administration Insulin Human Lispro 0 unit 03/27/17 07:30 03/28/17 12:55 Humalog SQ 3 unit ACHS [facility] Administration Protocol Magnesium Oxide 400 mg 03/27/17 09:00 03/28/17 08:55 Mag-Ox PO 400 mg DAILY [facility] Administration Metoprolol Tartrate 12.5 mg 03/27/17 09:00 03/28/17 08:55 Lopressor PO 12.5 mg BID [facility] Administration Miscellaneous Information 1 each 03/26/17 22:04 Pneumonia Protocol Utilized PO ONCE PRN Per Protocol Non-Formulary Medication 1 applic 03/27/17 09:00 03/28/17 11:11 Triad Hydrophilic Wound Dress TOPICAL Not Given BID [facility] Petrolatum 1 applic 03/27/17 21:00 03/27/17 21:21 Sarna Lotion 0.5%-0.5% TOPICAL 1 applicate HS [facility] Administration Polyethylene Glycol 17 gm 03/27/17 09:00 03/28/17 09:00 Miralax PO Not Given DAILY [facility] Senna/Docusate Sodium 1 each 03/27/17 09:00 03/28/17 08:59 Senokot-S PO 1 each BID [facility] Administration Sertraline HCl 50 mg 03/27/17 21:00 03/27/17 21:26 Zoloft PO 50 mg HS [facility] Administration Intake and Output 03/27/17 03/28/17 03/28/17 22:59 06:59 14:59 Intake Total 390 390 Balance 390 390 Intake: Intake, IV Titration 250 390 Amount Sodium Chloride 0.9% 1, 140 000 ml @ 75 mls/hr IV . [id number] [facility] Rx#:[id number] Vancomycin 1,750 mg In 250 250 Sodium Chloride 0.9% 250 ml @ 125 mls/hr IVPB Q12H [facility] Rx#:[id number] Oral 50 Tube Feeding 90 Other: Voiding Method Bedpan Urinal # Voids 1 03/28/17 07:05 03/28/17 07:05 Assessment and Plan Assessment: ASSESSMENT 1. Paroxysmal atrial fibrillation 2. Essential hypertension 3. Diabetes mellitus PLAN Since >rEduardo Gtz only had one episode of atrial fibrillation while he was intubated after brain surgery this may have been related to an acute high stress situation and his cardiac response was affected. Therefore, I would not recommend long-term anticoagulation at this time. Amiodarone can be discontinued and lopressor increased to 25 mg PO BID. He should follow-up with Dr. Leblanc in 2 weeks. At that time they will discuss an event monitor to evaluate for any further episodes once off amiodarone. We will also check a TSH. The patient had some question about stopping SQ heparin, this decision should be made by his primary medical team at [facility]. This is not something that is being used by cardiology for protection from coagulation secondary to atrial fibrillation. Nurse Practitioner note has been reviewed, I agree with a documented findings and plan of care. Patient was seen and examined.
[2017-03-28] MEDS: GABAPENTIN 100 MG CAP PO SCH (14:38)
--- NOTE | 2017-03-28 16:42 | P.PN ---
Subjective Progress Note Date: 03/28/17 Patient is seen bedside and all of acute events overnight per nursing staff sitting at bedside patient status post right knee aspiration with orthopedic surgery patient tolerated procedure well patient states the pain is slightly improved however not diminished, patient still unable to use left upper extremity versus chronic comes craniotomy procedure in November patient able tolerate his diet patient got using incentive spirometer as instructed is reeducated Objective - Vital Signs Vital signs: Vital Signs Temp 97.9 F 03/28/17 15:00 Pulse 72 03/28/17 15:32 Resp 18 03/28/17 15:32 BP 102/55 03/28/17 15:00 Pulse Ox 96 03/28/17 15:00 Intake & Output 03/27/17 03/28/17 03/28/17 18:59 06:59 18:59 Intake Total 750 780 490 Balance 750 780 490 Weight 114.759 kg 114.759 kg Intake: Intake, IV Titration 700 640 250 Amount ACETAMINOPHEN IV (For NPO 100 ) 1,000 mg In Empty Bag 1 bag @ 400 mls/hr IVPB Q6HR [facility] Rx#:[id number] Sodium Chloride 0.9% 1, 600 000 ml @ 100 mls/hr IV . Q10H [facility] Rx#:[id number] Sodium Chloride 0.9% 1, 140 000 ml @ 75 mls/hr IV . [id number] [facility] Rx#:[id number] Vancomycin 1,750 mg In 500 250 Sodium Chloride 0.9% 250 ml @ 125 mls/hr IVPB Q12H [facility] Rx#:[id number] Oral 50 50 240 Tube Feeding 90 Other: Voiding Method Bedpan Bedpan Urinal Urinal # Voids 1 - Exam GENERAL: The patient is alert and oriented x3, not in any acute distress. Obese. Bedbound nontoxic-appearing, cooperative his long white uncut jorge HEENT: Pupils are round and equally reacting to light. EOMI. No scleral icterus. No conjunctival pallor. Normocephalic, atraumatic. No pharyngeal erythema. No thyromegaly. CARDIOVASCULAR: S1 and S2 present. No murmurs, rubs, or gallops. PULMONARY: Chest is clear to auscultation, no wheezing or crackles. ABDOMEN: Soft, nontender, nondistended, normoactive bowel sounds. No palpable organomegaly. MUSCULOSKELETAL: No joint swelling or deformity. EXTREMITIES: No cyanosis, clubbing, or pedal edema. NEUROLOGICAL: There are no new focal deficit but patient has left upper extremity hemiparesis with loss of both motor and sensory function there is evidence of muscle wasting and atrophy has a tracheostomy in place PEG tube in place PEG dressing is clean dry and intact PEG tube site area with some redness around the PEG tube site area and has a sacral decubitus stage II SKIN: Mentioned above - Labs CBC & Chem 7: 03/28/17 07:05 03/28/17 07:05 Labs: Abnormal Lab Results - Last 24 Hours (Table) 03/27/17 03/27/17 03/28/17 Range/Units 16:48 19:33 06:54 RBC (4.30-5.90) m/uL Hgb (13.0-17.5) gm/dL Hct (39.0-53.0) % MCHC (31.0-37.0) g/dL RDW (11.5-15.5) % Glucose (74-99) mg/dL POC Glucose (mg/dL) 148 H 127 H 115 H (75-99) mg/dL Albumin (3.5-5.0) g/dL 03/28/17 03/28/17 03/28/17 Range/Units 07:05 07:05 11:42 RBC 3.77 L (4.30-5.90) m/uL Hgb 9.7 L (13.0-17.5) gm/dL Hct 31.7 L (39.0-53.0) % MCHC 30.6 L (31.0-37.0) g/dL RDW 18.8 H (11.5-15.5) % Glucose 111 H (74-99) mg/dL POC Glucose (mg/dL) 176 H (75-99) mg/dL Albumin 2.9 L (3.5-5.0) g/dL Microbiology - Last 24 Hours (Table) 03/26/17 18:25 Blood Culture Gram Stain - Preliminary Blood Blood Culture - Preliminary Group D Enterococcus 03/27/17 16:00 Gram Stain - Preliminary Abdomen Wound Culture - Preliminary 03/27/17 16:00 Anaerobic Culture - Preliminary Abdomen 03/26/17 18:25 Blood Culture - Final Blood Assessment and Plan Assessment: Plan: 1 acute toxic encephalopathy: Probably related to infection and sepsis and possibility of PEG tube site versus septic joint a was started on Vanco mycin infectious diseases consultation patient's antibiotics were broadened and Levaquin was added ex post right knee aspiration, cytology cell count Gram stain are pending. We'll monitor labs and vital signs will add CRP and sed rate to the a.m. labs #2 sepsis due to above-mentioned reasons. #3 congestive heart failure possibility a do not have his ejection fraction available. #4 paroxysmal atrial fibrillation consulted cardiology regarding decisions of anticoagulation patient is presently rate controlled continue his rate control medications including amiodarone and metoprolol. 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 patient currently having ongoing physical and occupational therapy and that is to continue #7 sacral decubitus ulcer stage II: That doesn't appear to be infected exes disease was consulted, patient to initiate pressure ulcer prophylaxis #8 advanced tricompartmental degenerative joint disease: Orthopedic surgery was consulted status post knee aspiration recommend utilization of a knee immobilizer if he is up and ambulating no acute surgical intervention is planned #9 continue with DVT prophylaxis #10 anemia anemia of chronic disease which is normocytic anemia Further recommendation to follow pending clinical course
[2017-03-28 17:21] LABS: Glucose,Whole Blood 130 mg/dL (75-99)
[2017-03-28] MEDS: IPRATROPIUM-ALBUTEROL 3 ML NEB INHALATION PRN (19:21)
[2017-03-28 20:29] LABS: Glucose,Whole Blood 146 mg/dL (75-99)
[2017-03-28] MEDS: SERTRALINE 50 MG TAB PO SCH (21:26)
[2017-03-28] MEDS: AMITRIPTYLINE HCL 10 MG TAB PO SCH (21:27)
[2017-03-28] MEDS: METOPROLOL TARTRATE 25 MG TAB PO SCH (21:31)
[2017-03-28] MEDS: MENTHOL-CAMPHOR LOTION 222 APPLIC/222 ML BOTTLE TOPICAL SCH (22:34)
--- NOTE | 2017-03-28 22:48 | P.PN ---
Subjective Progress Note Date: 03/28/17 Principal diagnosis: Sepsis 61 -year-old male presents to Hospital with altered mentation and fever. This pleasant gentleman has a history of cerebral aneurysm. With surgical intervention including vent curricular peritoneal shunting from several years ago. Has a several year history of difficulty with hearing in his left ear. 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 He has had surgical intervention. 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 There are concerns for sepsis and workup has been initiated. Possible blood cultures are noted. Concerns to cellulitis at the tube site. The patient's who is present is able to relate that recently she had some improvement of his status. His tracheostomy recently was decannulated. He is tolerating that well. He has follow study today that he did well with. Will be allowed oral intake but his tube feeds are on hold due to concerns to PEG tube site infection. The patient is comfortable has had an improved status. His is pleased that he is improving. Patient has no new complaints today. Positive blood cultures are noted. Objective - Vital Signs Vital signs: Vital Signs Temp 98.1 F 03/28/17 21:33 Pulse 77 03/28/17 21:33 Resp 18 03/28/17 21:27 BP 104/62 03/28/17 21:33 Pulse Ox 92 L 03/28/17 21:27 Intake & Output 03/28/17 03/28/17 03/29/17 06:59 18:59 06:59 Intake Total 780 490 Balance 780 490 Weight 114.759 kg Intake: Intake, IV Titration 640 250 Amount Sodium Chloride 0.9% 1, 140 000 ml @ 75 mls/hr IV . [id number] [facility]A Rx#:[id number] Vancomycin 1,750 mg In 500 250 Sodium Chloride 0.9% 250 ml @ 125 mls/hr IVPB Q12H [facility] Rx#:[id number] Oral 50 240 Tube Feeding 90 Other: Voiding Method Bedpan Bedpan Urinal Urinal # Voids 1 - Exam 61-year-old male comfortable at this time HEENT: Anicteric conjunctiva are pink and moist nasal mucosa grossly intact without significant lesions, there is no thrush. 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 Neck: The neck is supple without significant lymphadenopathy or thyromegaly. Lungs: Good bilateral air entry without significant crackles or wheezing. There is no significant bronchial sounds. There is no egophony or dullness. Heart: Irregular with a positive S4 no murmur click or rub Abdomen: Obese, Positive bowel sounds soft and nontender without palpable masses or organomegaly. There was no guarding or rebound. 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 The PEG tube site is evaluated. Evidence or just some scant drainage at the site. Extremities: The upper extremities have excellent pulses they are symmetric, no significant petechiae or telangiectasia. No splinter hemorrhages were noted. The lower extremities are free from significant edema. Is evidence of the right knee effusion that is slightly tender on the lateral surface The peripheral pulses were 2+ and symmetric. Neuro: Is awake and alert as has the left hemiparesis - Labs CBC & Chem 7: 03/28/17 07:05 03/28/17 07:05 Labs: Abnormal Lab Results - Last 24 Hours (Table) 03/28/17 03/28/17 03/28/17 Range/Units 06:54 07:05 07:05 RBC 3.77 L (4.30-5.90) m/uL Hgb 9.7 L (13.0-17.5) gm/dL Hct 31.7 L (39.0-53.0) % MCHC 30.6 L (31.0-37.0) g/dL RDW 18.8 H (11.5-15.5) % Glucose 111 H (74-99) mg/dL POC Glucose (mg/dL) 115 H (75-99) mg/dL Albumin 2.9 L (3.5-5.0) g/dL 03/28/17 03/28/17 03/28/17 Range/Units 11:42 17:19 20:16 RBC (4.30-5.90) m/uL Hgb (13.0-17.5) gm/dL Hct (39.0-53.0) % MCHC (31.0-37.0) g/dL RDW (11.5-15.5) % Glucose (74-99) mg/dL POC Glucose (mg/dL) 176 H 130 H 146 H (75-99) mg/dL Albumin (3.5-5.0) g/dL Microbiology - Last 24 Hours (Table) 03/27/17 16:00 Gram Stain - Preliminary Abdomen Wound Culture - Preliminary Gram Neg Bacilli Leanne albicans 03/28/17 10:00 Body Fluid Culture - Preliminary Knee - Right 03/28/17 10:00 Anaerobic Culture - Preliminary Knee - Right 03/26/17 18:25 Blood Culture Gram Stain - Preliminary Blood Blood Culture - Preliminary Group D Enterococcus 03/27/17 16:00 Anaerobic Culture - Preliminary Abdomen Laboratory Results WBC 4.7 k/uL (3.8-10.6) 03/28/17 07:05 RBC 3.77 m/uL (4.30-5.90) L 03/28/17 07:05 Hgb 9.7 gm/dL (13.0-17.5) L 03/28/17 07:05 Hct 31.7 % (39.0-53.0) L 03/28/17 07:05 MCV 84.0 fL (80.0-100.0) 03/28/17 07:05 MCH 25.7 pg (25.0-35.0) 03/28/17 07:05 MCHC 30.6 g/dL (31.0-37.0) L 03/28/17 07:05 RDW 18.8 % (11.5-15.5) H 03/28/17 07:05 Plt Count 174 k/uL (150-450) 03/28/17 07:05 Neutrophils % 82 % 03/26/17 18:25 Lymphocytes % 12 % 03/26/17 18:25 Monocytes % 4 % 03/26/17 18:25 Eosinophils % 2 % 03/26/17 18:25 Basophils % 0 % 03/26/17 18:25 Neutrophils # 5.7 k/uL (1.3-7.7) 03/26/17 18:25 Lymphocytes # 0.8 k/uL (1.0-4.8) L 03/26/17 18:25 Monocytes # 0.3 k/uL (0-1.0) 03/26/17 18:25 Eosinophils # 0.1 k/uL (0-0.7) 03/26/17 18:25 Basophils # 0.0 k/uL (0-0.2) 03/26/17 18:25 Hypochromasia Marked 03/28/17 07:05 Poikilocytosis Slight 03/28/17 07:05 Anisocytosis Slight 03/28/17 07:05 Sodium 140 mmol/L (137-145) 03/28/17 07:05 Potassium 4.4 mmol/L (3.5-5.1) 03/28/17 07:05 Chloride 104 mmol/L (98-107) 03/28/17 07:05 Carbon Dioxide 30 mmol/L (22-30) 03/28/17 07:05 Anion Gap 6 mmol/L 03/28/17 07:05 BUN 17 mg/dL (9-20) 03/28/17 07:05 Creatinine 0.84 mg/dL (0.66-1.25) 03/28/17 07:05 Est GFR (MDRD) Af Amer >60 (>60 ml/min/1.73 sqM) 03/28/17 07:05 Est GFR (MDRD) Non-Af >60 (>60 ml/min/1.73 sqM) 03/28/17 07:05 Glucose 111 mg/dL (74-99) H 03/28/17 07:05 POC Glucose (mg/dL) 146 mg/dL (75-99) H 03/28/17 20:16 POC Glu Poultry Picking Machine Tender ID Марина Cruz 03/28/17 20:16 Plasma Lactic Acid Maxx 1.1 mmol/L (0.7-2.0) 03/26/17 18:25 Calcium 8.8 mg/dL (8.4-10.2) 03/28/17 07:05 Magnesium 2.1 mg/dL (1.6-2.3) 03/26/17 18:25 Total Bilirubin 0.3 mg/dL (0.2-1.3) 03/28/17 07:05 AST 18 U/L (17-59) 03/28/17 07:05 ALT 31 U/L (21-72) 03/28/17 07:05 Alkaline Phosphatase 56 U/L (38-126) 03/28/17 07:05 Ammonia 17 umol/L (<30) 03/26/17 18:25 Total Creatine Kinase <20 U/L (55-170) L 03/26/17 18:25 CK-MB (CK-2) 0.3 ng/mL (0.0-2.4) 03/26/17 18:25 CK-MB (CK-2) Rel Index 03/26/17 18:25 Total Protein 7.1 g/dL (6.3-8.2) 03/28/17 07:05 Albumin 2.9 g/dL (3.5-5.0) L 03/28/17 07:05 TSH 2.380 mIU/L (0.465-4.680) 03/28/17 07:05 Urine Color Yellow 03/26/17 19:53 Urine Appearance Clear (Clear) 03/26/17 19:53 Urine pH 6.0 (5.0-8.0) 03/26/17 19:53 Ur Specific Brinkley 1.012 (1.001-1.035) 03/26/17 19:53 Urine Protein Negative (Negative) 03/26/17 19:53 Urine Glucose (UA) Negative (Negative) 03/26/17 19:53 Urine Ketones Negative (Negative) 03/26/17 19:53 Urine Blood Negative (Negative) 03/26/17 19:53 Urine Nitrite Negative (Negative) 03/26/17 19:53 Urine Bilirubin Negative (Negative) 03/26/17 19:53 Urine Urobilinogen <2.0 mg/dL (<2.0) 03/26/17 19:53 Ur Leukocyte Esterase Small (Negative) H 03/26/17 19:53 Urine RBC <1 /hpf (0-5) 03/26/17 19:53 Urine WBC 6 /hpf (0-5) H 03/26/17 19:53 Urine Mucus Rare /hpf (None) H 03/26/17 19:53 Fluid Source Synovial 03/28/17 10:00 Fluid Color Red 03/28/17 10:00 Fluid Appearance Bloody 03/28/17 10:00 Fluid RBC 79921 /uL 03/28/17 10:00 Fluid Nucleated Cells 60 /uL 03/28/17 10:00 Fluid Polynuclear WBCs 37 % 03/28/17 10:00 Fluid Mononuclear WBCs 63 % 03/28/17 10:00 Synovial Source Right Knee 03/28/17 10:00 Synovial Crystals See comment 03/28/17 10:00 Microbiology 03/27/17 16:00 Abdomen Gram Stain - Preliminary 03/27/17 16:00 Abdomen Wound Culture - Preliminary Gram Neg Bacilli Leanne albicans 03/28/17 10:00 Knee - Right Body Fluid Culture - Preliminary 03/28/17 10:00 Knee - Right Anaerobic Culture - Preliminary 03/26/17 18:25 Blood Blood Culture Gram Stain - Preliminary 03/26/17 18:25 Blood Blood Culture - Preliminary Group D Enterococcus 03/27/17 16:00 Abdomen Anaerobic Culture - Preliminary 03/26/17 18:25 Blood Blood Culture - Final Assessment and Plan (1) Sepsis Narrative/Plan: 61 year old male that has multiple medical troubles who presents for evaluation of increasing weakness and fever. There are concerns to sepsis and blood cultures have been performed. They've come back as positive for gram- positive cocci in chains and pairs. At this time source is not completely clear. There was concern as to the PEG site being infected. On evaluation does not appear to be grossly infected. Methyline blue was placed through the PEG tube without any evidence of leakage at this time. The patient's tracheostomy was decannulated and does not appear to be the source of infection. His pulmonary status appears to be stable. Urinalysis is mildly abnormal and urine culture potentially is etiology. Antimicrobial therapy with vancomycin is initiated. He also received levofloxacin. However he is on amiodarone and this is discontinued. We'll enhance gram-negative coverage if needed based on other cultures but gram- positive cocci which appears to be enterococcus is the only blood culture positive so far.. Follow blood cultures are requested. Continue supportive care. The PEG site is being cleansed and a Aquacel silver utilized to the site. The aspirated by orthopedics await final culture. Crystal analysis was negative Current Visit: Yes Status: Acute Code(s): A41.9 - SEPSIS, UNSPECIFIED ORGANISM SNOMED Code(s): 22952409 (2) Fever Current Visit: Yes Status: Acute Code(s): R50.9 - FEVER, UNSPECIFIED SNOMED Code(s): 655481251 (3) Effusion, right knee Current Visit: Yes Status: Acute Priority: Medium Code(s): M25.461 - EFFUSION, RIGHT KNEE SNOMED Code(s): 949470745 (4) Acoustic neuroma Current Visit: Yes Status: Acute Code(s): D33.3 - BENIGN NEOPLASM OF CRANIAL NERVES SNOMED Code(s): 562013590
[2017-03-29 07:11] LABS: Glucose,Whole Blood 107 mg/dL (75-99)
[2017-03-29] MEDS: CLOTRIMAZOLE 1% CREAM 15 GM TUBE TOPICAL SCH ×3 (08:22→21:14)
[2017-03-29] MEDS: [UNRECOGNIZED DRUG - OTHER] TOPICAL SCH ×2 (08:24→21:25)
[2017-03-29] MEDS: SENNOSIDES-DOCUSATE SODIUM 1 EACH TAB PO SCH ×2 (08:24→20:33)
[2017-03-29] MEDS: MAGNESIUM OXIDE 400 MG TAB PO SCH (08:25)
[2017-03-29] MEDS: FAMOTIDINE 20 MG TAB PO SCH ×2 (08:25→20:32)
[2017-03-29] MEDS: POLYETHYLENE GLYCOL 3350 17 GM POWD.PACK PO SCH (08:25)
[2017-03-29] MEDS: METOPROLOL TARTRATE 25 MG TAB PO SCH ×2 (08:25→20:32)
[2017-03-29] MEDS: GABAPENTIN 300 MG CAP PO SCH ×2 (08:25→20:33)
[2017-03-29] MEDS: FERROUS SULFATE 325 MG TAB PO SCH (08:25)
[2017-03-29 08:26] LABS: Anisocytosis Slight; Basophils % (A) 0 %; CH 25.2; CHCM 30.6; Eosinophils # (A) 0.1 k/uL (0-0.7); Eosinophils % (A) 2 %; HCT 29.6 % (39.0-53.0); HDW 3.88; HGB 9.4 gm/dL (13.0-17.5); Hypochromasia Marked; Luc # (Auto) 0.08; Luc % (Auto) 2; Lymphocytes # (A) 0.7 k/uL (1.0-4.8); Lymphocytes % (A) 17 %; MCH 26.4 pg (25.0-35.0); MCHC 31.9 g/dL (31.0-37.0); MCV 82.7 fL (80.0-100.0); Mean Platelet Volume 7.7; Monocytes # (A) 0.2 k/uL (0-1.0); Monocytes % (A) 4 %; Neutrophils # (A) 3.2 k/uL (1.3-7.7); Neutrophils % (A) 75 %; Poikilocytosis Slight; RBC 3.58 m/uL (4.30-5.90); RDW 18.3 % (11.5-15.5); WBC 4.2 k/uL (3.8-10.6); WBC (Perox) 4.59
[2017-03-29] MEDS: INSULIN LISPRO (humaLOG) 300 UNIT/3 ML VIAL SQ SCH ×2 (08:26→13:11)
[2017-03-29] MEDS: DOXAZOSIN 2 MG TAB PO SCH (08:26)
[2017-03-29 08:52] LABS: ALT 30 U/L (21-72); AST 17 U/L (17-59); Alkaline Phosphatase 55 U/L (38-126); Anion Gap 6 mmol/L; Blood Urea Nitrogen 16 mg/dL (9-20); Calcium 8.8 mg/dL (8.4-10.2); Carbon Dioxide 28 mmol/L (22-30); Chloride 106 mmol/L (98-107); Glucose 95 mg/dL (74-99); Non-African American GFR(MDRD) >60 (>60 ml/min/1.73 sqM); Potassium 4.2 mmol/L (3.5-5.1); Sodium 140 mmol/L (137-145); Total Bilirubin 0.2 mg/dL (0.2-1.3)
--- NOTE | 2017-03-29 09:21 | P.PN ---
Subjective Progress Note Date: 03/29/17 Patient seen bedside no acute events overnight per nursing staff patient seen sitting upright in bed eating breakfast and tolerating it well he was observed and no episodes of coughing while eating. Patient states his right knee pain is much improved he denied any chest pain no shortness of breath no fevers or chills he stated that he slept well Objective - Vital Signs Vital signs: Vital Signs Temp 98.6 F 03/29/17 07:35 Pulse 65 03/29/17 07:35 Resp 14 03/29/17 07:35 BP 104/64 03/29/17 07:35 Pulse Ox 95 03/29/17 07:35 Intake & Output 03/28/17 03/29/17 03/29/17 18:59 06:59 18:59 Intake Total 490 700 Output Total 550 Balance 490 150 Weight 114.759 kg Intake: IV 250 Vancomycin 1,750 mg In 250 Sodium Chloride 0.9% 250 ml @ 125 mls/hr IVPB Q12H [facility] Rx#:[id number] Intake, IV Titration 250 Amount Vancomycin 1,750 mg In 250 Sodium Chloride 0.9% 250 ml @ 125 mls/hr IVPB Q12H [facility] Rx#:[id number] Oral 240 450 Output: Urine 550 Other: Voiding Method Bedpan Bedpan Urinal Urinal - Exam GENERAL: The patient is alert and oriented x3, not in any acute distress. Obese. Bedbound nontoxic-appearing, cooperative his long white uncut jorge HEENT: Pupils are round and equally reacting to light. EOMI. No scleral icterus. No conjunctival pallor. Normocephalic, atraumatic. Old craniotomy site wound is well-healed no evidence of drainage or dehiscence No pharyngeal erythema. No thyromegaly. CARDIOVASCULAR: S1 and S2 present. No murmurs, rubs, or gallops. PULMONARY: Chest is clear to auscultation, no wheezing or crackles. ABDOMEN: Soft, nontender, nondistended, normoactive bowel sounds. No palpable organomegaly. MUSCULOSKELETAL: No joint swelling or deformity. EXTREMITIES: No cyanosis, clubbing, or pedal edema. NEUROLOGICAL: There are no new focal deficit but patient has left upper extremity hemiparesis with loss of both motor and sensory function there is evidence of muscle wasting and atrophy old tracheostomy site looks clean and intact PEG tube in place PEG dressing is clean dry and intact PEG tube site area with some redness around the PEG tube there are still remnants of methylene blue within the tubing however there is no extravasation of that fluid into oR surrounding insertion site site area and has a sacral decubitus stage II SKIN: Mentioned above - Labs CBC & Chem 7: 03/29/17 07:39 03/29/17 07:39 Labs: Abnormal Lab Results - Last 24 Hours (Table) 03/28/17 03/28/17 03/28/17 Range/Units 11:42 17:19 20:16 RBC (4.30-5.90) m/uL Hgb (13.0-17.5) gm/dL Hct (39.0-53.0) % RDW (11.5-15.5) % Lymphocytes # (1.0-4.8) k/uL POC Glucose (mg/dL) 176 H 130 H 146 H (75-99) mg/dL Albumin (3.5-5.0) g/dL 03/29/17 03/29/17 03/29/17 Range/Units 07:10 07:39 07:39 RBC 3.58 L (4.30-5.90) m/uL Hgb 9.4 L (13.0-17.5) gm/dL Hct 29.6 L (39.0-53.0) % RDW 18.3 H (11.5-15.5) % Lymphocytes # 0.7 L (1.0-4.8) k/uL POC Glucose (mg/dL) 107 H (75-99) mg/dL Albumin 2.8 L (3.5-5.0) g/dL Microbiology - Last 24 Hours (Table) 03/28/17 07:05 Blood Culture Gram Stain - Preliminary Blood 03/28/17 07:05 Blood Culture - Final Blood 03/28/17 10:00 Gram Stain - Preliminary Knee - Right Body Fluid Culture - Preliminary 03/27/17 16:00 Gram Stain - Preliminary Abdomen Wound Culture - Preliminary Gram Neg Bacilli Leanne albicans 03/28/17 10:00 Anaerobic Culture - Preliminary Knee - Right 03/26/17 18:25 Blood Culture Gram Stain - Preliminary Blood Blood Culture - Preliminary Group D Enterococcus Assessment and Plan Assessment: Plan: 1 acute metabolic encephalopathy(improving): With now preliminary positive blood cultures growing group D enterococcus. infectious diseases consultation was obtained the recommendations are appreciated patient to continue with IV vancomycin continue to wait for the final reports of the blood cultures and cultures from the knee aspirate which are preliminarily negative. We'll monitor labs and vital signs will add CRP and sed rate to the a.m. labs #2 sepsis due bacteremia with group D enterococcus to above-mentioned reasons. #3 congestive heart failure exacerbation at this time #4 paroxysmal atrial fibrillation consulted cardiology regarding decisions of anticoagulation patient is presently rate controlled continue metoprolol, amiodarone was discontinued #5 obesity #6 left-sided upper extremity hemiparesis secondary to neurosurgery for an acoustic neuroma in November 2016 patient currently having ongoing physical and occupational therapy and that is to continue #7 sacral decubitus ulcer stage II: That doesn't appear to be infected, patient to initiate pressure ulcer prophylaxis #8 advanced tricompartmental degenerative joint disease: Orthopedic surgery was consulted status post knee aspiration recommend utilization of a knee immobilizer if he is up and ambulating no acute surgical intervention is planned #9 continue with DVT prophylaxis #10 anemia anemia of chronic disease which is normocytic anemia Anticipate discharge back to the rehab facility within the next 24-48 hours
[2017-03-29] MEDS: INSULIN DETEMIR 100 UNIT/ML 10 ML VIAL SQ SCH ×2 (09:51→21:33)
[2017-03-29] MEDS: HEPARIN SODIUM,PORCINE 10,000 UNIT/ML 1 ML VIAL SQ SCH ×3 (09:51→23:21)
[2017-03-29] MEDS: VANCOMYCIN 1,750 MG in SODIUM CHLORIDE 0.9% 250 ML IVPB SCH ×2 (09:51→21:40)
[2017-03-29 11:29] LABS: Erythrocyte Sedimentation Rate 96 mm/hr (0-15)
[2017-03-29 12:31] LABS: Glucose,Whole Blood 120 mg/dL (75-99)
--- NOTE | 2017-03-29 12:42 | P.PN ---
Subjective Progress Note Date: 03/29/17 Mr. Gtz is a 61-year-old male we are seeing today in follow-up from an initial consultation. We have asked to see this patient for recommendations on anticoagulation for a one-time episode of atrial fibrillation status post brain surgery at [facility]. It was our recommendation yesterday to discontinue amiodarone and increase Lopressor. Blood pressure this morning 104/64 with a heart rate of 65. At the time of my examination he is seen resting comfortably in bed in no acute distress. He denies any episodes of chest pain, shortness of breath, dizziness or palpitations. As far as he can tell he has an abnormal rhythm. TSH 2.38. Objective - Vital Signs Vital signs: Vital Signs Temp 98.6 F 03/29/17 07:35 Pulse 65 03/29/17 08:00 Resp 14 03/29/17 07:35 BP 104/64 03/29/17 07:35 Pulse Ox 95 03/29/17 07:35 Intake & Output 03/28/17 03/29/17 03/29/17 18:59 06:59 18:59 Intake Total 490 700 Output Total 550 Balance 490 150 Weight 114.759 kg Intake: IV 250 Vancomycin 1,750 mg In 250 Sodium Chloride 0.9% 250 ml @ 125 mls/hr IVPB Q12H [facility] Rx#:[id number] Intake, IV Titration 250 Amount Vancomycin 1,750 mg In 250 Sodium Chloride 0.9% 250 ml @ 125 mls/hr IVPB Q12H [facility] Rx#:[id number] Oral 240 450 Output: Urine 550 Other: Voiding Method Bedpan Bedpan Urinal Urinal - Exam GENERAL: Well-appearing, well-nourished and in no acute distress. NECK: Supple without JVD or thyromegaly. LUNGS: Breath sounds clear to auscultation bilaterally. Respiration equal and unlabored. No wheezes, rales or rhonchi. HEART: Regular rate and rhythm without murmurs, rubs or gallops. S1 and S2 heard. EXTREMITIES: Right lower extremity wrapped with bandages. Peripheral pulses intact. - Labs CBC & Chem 7: 03/29/17 07:39 03/29/17 07:39 Labs: Abnormal Lab Results - Last 24 Hours (Table) 03/28/17 03/28/17 03/28/17 Range/Units 11:42 17:19 20:16 RBC (4.30-5.90) m/uL Hgb (13.0-17.5) gm/dL Hct (39.0-53.0) % RDW (11.5-15.5) % Lymphocytes # (1.0-4.8) k/uL POC Glucose (mg/dL) 176 H 130 H 146 H (75-99) mg/dL C-Reactive Protein (<10.0) mg/L Albumin (3.5-5.0) g/dL 03/29/17 03/29/17 03/29/17 Range/Units 07:10 07:39 07:39 RBC 3.58 L (4.30-5.90) m/uL Hgb 9.4 L (13.0-17.5) gm/dL Hct 29.6 L (39.0-53.0) % RDW 18.3 H (11.5-15.5) % Lymphocytes # 0.7 L (1.0-4.8) k/uL POC Glucose (mg/dL) 107 H (75-99) mg/dL C-Reactive Protein 41.0 H (<10.0) mg/L Albumin 2.8 L (3.5-5.0) g/dL Microbiology - Last 24 Hours (Table) 03/28/17 07:05 Blood Culture Gram Stain - Preliminary Blood 03/28/17 07:05 Blood Culture - Final Blood 03/28/17 10:00 Gram Stain - Preliminary Knee - Right Body Fluid Culture - Preliminary 03/27/17 16:00 Gram Stain - Preliminary Abdomen Wound Culture - Preliminary Gram Neg Bacilli Leanne albicans 03/28/17 10:00 Anaerobic Culture - Preliminary Knee - Right 03/26/17 18:25 Blood Culture Gram Stain - Preliminary Blood Blood Culture - Preliminary Group D Enterococcus Assessment and Plan Assessment: ASSESSMENT 1. Paroxysmal atrial fibrillation 2. Essential hypertension 3. Diabetes mellitus PLAN From cardiac perspective continue medications as previously ordered with discontinuation of amiodarone and he should continue home on Lopressor 25 mg twice a day. The need for anticoagulation will be revisited at his follow-up appointment. He should follow-up with Dr. Leblanc as an outpatient in 2 weeks. This plan has been communicated to the patient and he is in agreement. Nurse Practitioner note has been reviewed, I agree with a documented findings and plan of care. Patient was seen and examined.
[2017-03-29] MEDS: GABAPENTIN 100 MG CAP PO SCH (15:24)
--- NOTE | 2017-03-29 16:18 | P.PN ---
Subjective Progress Note Date: 03/29/17 Principal diagnosis: Right knee pain Patient is a pleasant 61-year-old male seen at bedside this morning. We are following him for his right knee pain. X-rays showed questionable impact fracture or osteochondral defect of the medial femoral condyle of the right leg. His pain has been superior lateral. A joint aspiration was performed yesterday without complication. Synovial fluid was sent for cell count, Gram stain, culture and sensitivity, and crystals. He has no new complaints today. He feels his pain is the same or improved. He has been nonambulatory and is to use a knee immobilizer when mobilizing or if he is to ambulate. He's currently denying new numbness or tingling, fever, chills, or calf pain. Objective - Vital Signs Vital signs: Vital Signs Temp 97.6 F 03/29/17 14:58 Pulse 74 03/29/17 14:58 Resp 18 03/29/17 14:58 BP 113/64 03/29/17 14:58 Pulse Ox 94 L 03/29/17 14:58 Intake & Output 03/28/17 03/29/17 03/29/17 18:59 06:59 18:59 Intake Total 490 700 300 Output Total 550 475 Balance 490 150 -175 Weight 114.759 kg Intake: IV 250 Vancomycin 1,750 mg In 250 Sodium Chloride 0.9% 250 ml @ 125 mls/hr IVPB Q12H [facility] Rx#:[id number] Intake, IV Titration 250 Amount Vancomycin 1,750 mg In 250 Sodium Chloride 0.9% 250 ml @ 125 mls/hr IVPB Q12H [facility] Rx#:[id number] Oral 240 450 300 Output: Urine 550 475 Other: Voiding Method Bedpan Bedpan Bedpan Urinal Urinal Urinal - Exam Inspection of the right lower extremity shows no deformity. There is no erythema or ecchymoses. The knee is not hot to touch. The patella and joint line are nontender. Ligamentously the knee is stable. He extends to 0 and flexes to 90 with mild pain in the superior aspect of the knee. The calf is soft and nontender. There is 2+ dorsalis pedis pulse present and less than 2 second cap refill distally. - Constitutional General appearance: Present: no acute distress - Psychiatric Psychiatric: Present: A&O x's 3, appropriate affect, intact judgment & insight - Labs CBC & Chem 7: 03/29/17 07:39 03/29/17 07:39 Labs: Abnormal Lab Results - Last 24 Hours (Table) 03/28/17 03/28/17 03/29/17 Range/Units 17:19 20:16 07:10 RBC (4.30-5.90) m/uL Hgb (13.0-17.5) gm/dL Hct (39.0-53.0) % RDW (11.5-15.5) % Lymphocytes # (1.0-4.8) k/uL ESR (0-15) mm/hr POC Glucose (mg/dL) 130 H 146 H 107 H (75-99) mg/dL C-Reactive Protein (<10.0) mg/L Albumin (3.5-5.0) g/dL 03/29/17 03/29/17 03/29/17 Range/Units 07:39 07:39 12:27 RBC 3.58 L (4.30-5.90) m/uL Hgb 9.4 L (13.0-17.5) gm/dL Hct 29.6 L (39.0-53.0) % RDW 18.3 H (11.5-15.5) % Lymphocytes # 0.7 L (1.0-4.8) k/uL ESR 96 H (0-15) mm/hr POC Glucose (mg/dL) 120 H (75-99) mg/dL C-Reactive Protein 41.0 H (<10.0) mg/L Albumin 2.8 L (3.5-5.0) g/dL Microbiology - Last 24 Hours (Table) 03/28/17 10:00 Gram Stain - Preliminary Knee - Right Body Fluid Culture - Preliminary 03/26/17 18:25 Blood Culture Gram Stain - Final Blood Blood Culture - Final Enterococcus faecalis 03/28/17 07:05 Blood Culture Gram Stain - Preliminary Blood 03/28/17 07:05 Blood Culture - Final Blood 03/27/17 16:00 Gram Stain - Preliminary Abdomen Wound Culture - Preliminary Gram Neg Bacilli Leanne albicans 03/28/17 10:00 Anaerobic Culture - Preliminary Knee - Right Assessment and Plan (1) Effusion, right knee Narrative/Plan: X-rays of the right knee show advanced tricompartmental degenerative joint disease/osteoarthritis. Synovial fluid sent for analysis is negative for crystals and a very low cell count which is not indicative of infection. Cultures and sensitivity are still pending. Continue pain management, ice, elevation and knee immobilizer when mobilizing. Currently he is not a surgical candidate regarding his knee. We will continue to follow and make further recommendations as appropriate. Current Visit: Yes Status: Acute Priority: Medium Code(s): M25.461 - EFFUSION, RIGHT KNEE SNOMED Code(s): 798116732 Time with Patient: Less than 30
[2017-03-29 17:26] LABS: Glucose,Whole Blood 123 mg/dL (75-99)
[2017-03-29] MEDS: INSULIN ASPART 100 UNIT/ML 1 ML 10 ML VIAL SQ SCH ×2 (17:42→21:33)
[2017-03-29 19:54] LABS: Glucose,Whole Blood 151 mg/dL (75-99)
[2017-03-29] MEDS: AMITRIPTYLINE HCL 10 MG TAB PO SCH (20:32)
[2017-03-29] MEDS: SERTRALINE 50 MG TAB PO SCH (20:32)
[2017-03-29] MEDS: MENTHOL-CAMPHOR LOTION 222 APPLIC/222 ML BOTTLE TOPICAL SCH (20:35)
[2017-03-29] MEDS ORDERED: VANCOMYCIN TROUGH DUE 1 EACH MISC MISCELLANE ONE (21:00)
--- NOTE | 2017-03-29 21:54 | P.PN ---
Subjective Progress Note Date: 03/29/17 Principal diagnosis: Sepsis 61 -year-old male presents to Hospital with altered mentation and fever. This pleasant gentleman has a history of cerebral aneurysm. With surgical intervention including vent curricular peritoneal shunting from several years ago. Has a several year history of difficulty with hearing in his left ear. 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 He has had surgical intervention. 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 There are concerns for sepsis and workup has been initiated. Possible blood cultures are noted. Concerns to cellulitis at the tube site. The patient's who is present is able to relate that recently she had some improvement of his status. His tracheostomy recently was decannulated. He is tolerating that well. He has follow study today that he did well with. Will be allowed oral intake but his tube feeds are on hold due to concerns to PEG tube site infection. The patient is comfortable has had an improved status. His is pleased that he is improving. Patient has no new complaints today. Positive blood cultures are noted. And the repeat cultures are also positive. Objective - Vital Signs Vital signs: Vital Signs Temp 98.7 F 03/29/17 20:03 Pulse 69 03/29/17 20:03 Resp 19 03/29/17 20:03 BP 107/58 03/29/17 20:03 Pulse Ox 95 03/29/17 20:03 Intake & Output 03/29/17 03/29/17 03/30/17 06:59 18:59 06:59 Intake Total 700 300 Output Total 550 475 Balance 150 -175 Intake: IV 250 Vancomycin 1,750 mg In 250 Sodium Chloride 0.9% 250 ml @ 125 mls/hr IVPB Q12H [facility] Rx#:[id number] Oral 450 300 Output: Urine 550 475 Other: Voiding Method Bedpan Bedpan Urinal Urinal - Exam 61-year-old male comfortable at this time HEENT: Anicteric conjunctiva are pink and moist nasal mucosa grossly intact without significant lesions, there is no thrush. 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 Neck: The neck is supple without significant lymphadenopathy or thyromegaly. Lungs: Good bilateral air entry without significant crackles or wheezing. There is no significant bronchial sounds. There is no egophony or dullness. Heart: Irregular with a positive S4 no murmur click or rub Abdomen: Obese, Positive bowel sounds soft and nontender without palpable masses or organomegaly. There was no guarding or rebound. Surgical wound from his ORIENTAL RUG STRETCHER shunt is well-healed. The PEG tube site is evaluated. Evidence or just some scant drainage at the site. Extremities: The upper extremities have excellent pulses they are symmetric, no significant petechiae or telangiectasia. No splinter hemorrhages were noted. The lower extremities are free from significant edema. Is evidence of the right knee effusion that is slightly tender on the lateral surface The peripheral pulses were 2+ and symmetric. Neuro: Is awake and alert as has the left hemiparesis Does have the pressure ulceration to the coccyx that is stable to improved - Labs CBC & Chem 7: 03/29/17 07:39 03/29/17 07:39 Labs: Abnormal Lab Results - Last 24 Hours (Table) 03/29/17 03/29/17 03/29/17 Range/Units 07:10 07:39 07:39 RBC 3.58 L (4.30-5.90) m/uL Hgb 9.4 L (13.0-17.5) gm/dL Hct 29.6 L (39.0-53.0) % RDW 18.3 H (11.5-15.5) % Lymphocytes # 0.7 L (1.0-4.8) k/uL ESR 96 H (0-15) mm/hr POC Glucose (mg/dL) 107 H (75-99) mg/dL C-Reactive Protein 41.0 H (<10.0) mg/L Albumin 2.8 L (3.5-5.0) g/dL 03/29/17 03/29/17 03/29/17 Range/Units 12:27 17:24 19:53 RBC (4.30-5.90) m/uL Hgb (13.0-17.5) gm/dL Hct (39.0-53.0) % RDW (11.5-15.5) % Lymphocytes # (1.0-4.8) k/uL ESR (0-15) mm/hr POC Glucose (mg/dL) 120 H 123 H 151 H (75-99) mg/dL C-Reactive Protein (<10.0) mg/L Albumin (3.5-5.0) g/dL Microbiology - Last 24 Hours (Table) 03/27/17 16:00 Gram Stain - Final Abdomen Wound Culture - Final Pseudomonas aeruginosa Leanne albicans 03/28/17 10:00 Gram Stain - Preliminary Knee - Right Body Fluid Culture - Preliminary 03/26/17 18:25 Blood Culture Gram Stain - Final Blood Blood Culture - Final Enterococcus faecalis 03/28/17 07:05 Blood Culture Gram Stain - Preliminary Blood 03/28/17 07:05 Blood Culture - Final Blood 03/28/17 10:00 Anaerobic Culture - Preliminary Knee - Right Laboratory Results WBC 4.2 k/uL (3.8-10.6) 03/29/17 07:39 RBC 3.58 m/uL (4.30-5.90) L 03/29/17 07:39 Hgb 9.4 gm/dL (13.0-17.5) L 03/29/17 07:39 Hct 29.6 % (39.0-53.0) L 03/29/17 07:39 MCV 82.7 fL (80.0-100.0) 03/29/17 07:39 MCH 26.4 pg (25.0-35.0) 03/29/17 07:39 MCHC 31.9 g/dL (31.0-37.0) 03/29/17 07:39 RDW 18.3 % (11.5-15.5) H 03/29/17 07:39 Plt Count 176 k/uL (150-450) 03/29/17 07:39 Neutrophils % 75 % 03/29/17 07:39 Lymphocytes % 17 % 03/29/17 07:39 Monocytes % 4 % 03/29/17 07:39 Eosinophils % 2 % 03/29/17 07:39 Basophils % 0 % 03/29/17 07:39 Neutrophils # 3.2 k/uL (1.3-7.7) 03/29/17 07:39 Lymphocytes # 0.7 k/uL (1.0-4.8) L 03/29/17 07:39 Monocytes # 0.2 k/uL (0-1.0) 03/29/17 07:39 Eosinophils # 0.1 k/uL (0-0.7) 03/29/17 07:39 Basophils # 0.0 k/uL (0-0.2) 03/29/17 07:39 Hypochromasia Marked 03/29/17 07:39 Poikilocytosis Slight 03/29/17 07:39 Anisocytosis Slight 03/29/17 07:39 ESR 96 mm/hr (0-15) H 03/29/17 07:39 Sodium 140 mmol/L (137-145) 03/29/17 07:39 Potassium 4.2 mmol/L (3.5-5.1) 03/29/17 07:39 Chloride 106 mmol/L (98-107) 03/29/17 07:39 Carbon Dioxide 28 mmol/L (22-30) 03/29/17 07:39 Anion Gap 6 mmol/L 03/29/17 07:39 BUN 16 mg/dL (9-20) 03/29/17 07:39 Creatinine 0.80 mg/dL (0.66-1.25) 03/29/17 07:39 Est GFR (MDRD) Af Amer >60 (>60 ml/min/1.73 sqM) 03/29/17 07:39 Est GFR (MDRD) Non-Af >60 (>60 ml/min/1.73 sqM) 03/29/17 07:39 Glucose 95 mg/dL (74-99) 03/29/17 07:39 POC Glucose (mg/dL) 151 mg/dL (75-99) H 03/29/17 19:53 POC Glu [employer] BHAVIN Cleopatra Carlton 03/29/17 19:53 Plasma Lactic Acid Maxx 1.1 mmol/L (0.7-2.0) 03/26/17 18:25 Calcium 8.8 mg/dL (8.4-10.2) 03/29/17 07:39 Magnesium 2.0 mg/dL (1.6-2.3) 03/29/17 07:39 Total Bilirubin 0.2 mg/dL (0.2-1.3) 03/29/17 07:39 AST 17 U/L (17-59) 03/29/17 07:39 ALT 30 U/L (21-72) 03/29/17 07:39 Alkaline Phosphatase 55 U/L (38-126) 03/29/17 07:39 Ammonia 17 umol/L (<30) 03/26/17 18:25 Total Creatine Kinase <20 U/L (55-170) L 03/26/17 18:25 CK-MB (CK-2) 0.3 ng/mL (0.0-2.4) 03/26/17 18:25 CK-MB (CK-2) Rel Index 03/26/17 18:25 C-Reactive Protein 41.0 mg/L (<10.0) H 03/29/17 07:39 Total Protein 7.0 g/dL (6.3-8.2) 03/29/17 07:39 Albumin 2.8 g/dL (3.5-5.0) L 03/29/17 07:39 TSH 2.380 mIU/L (0.465-4.680) 03/28/17 07:05 Urine Color Yellow 03/26/17 19:53 Urine Appearance Clear (Clear) 03/26/17 19:53 Urine pH 6.0 (5.0-8.0) 03/26/17 19:53 Ur Specific Garrett 1.012 (1.001-1.035) 03/26/17 19:53 Urine Protein Negative (Negative) 03/26/17 19:53 Urine Glucose (UA) Negative (Negative) 03/26/17 19:53 Urine Ketones Negative (Negative) 03/26/17 19:53 Urine Blood Negative (Negative) 03/26/17 19:53 Urine Nitrite Negative (Negative) 03/26/17 19:53 Urine Bilirubin Negative (Negative) 03/26/17 19:53 Urine Urobilinogen <2.0 mg/dL (<2.0) 03/26/17 19:53 Ur Leukocyte Esterase Small (Negative) H 03/26/17 19:53 Urine RBC <1 /hpf (0-5) 03/26/17 19:53 Urine WBC 6 /hpf (0-5) H 03/26/17 19:53 Urine Mucus Rare /hpf (None) H 03/26/17 19:53 Fluid Source Synovial 03/28/17 10:00 Fluid Color Red 03/28/17 10:00 Fluid Appearance Bloody 03/28/17 10:00 Fluid RBC 39425 /uL 03/28/17 10:00 Fluid Nucleated Cells 60 /uL 03/28/17 10:00 Fluid Polynuclear WBCs 37 % 03/28/17 10:00 Fluid Mononuclear WBCs 63 % 03/28/17 10:00 Synovial Source Right Knee 03/28/17 10:00 Synovial Crystals See comment 03/28/17 10:00 Vancomycin Trough 17.7 ug/mL 03/29/17 21:11 Microbiology 03/27/17 16:00 Abdomen Gram Stain - Final 03/27/17 16:00 Abdomen Wound Culture - Final Pseudomonas aeruginosa Leanne albicans 03/28/17 10:00 Knee - Right Gram Stain - Preliminary 03/28/17 10:00 Knee - Right Body Fluid Culture - Preliminary 03/26/17 18:25 Blood Blood Culture Gram Stain - Final 03/26/17 18:25 Blood Blood Culture - Final Enterococcus faecalis 03/28/17 07:05 Blood Blood Culture Gram Stain - Preliminary 03/28/17 07:05 Blood Blood Culture - Final 03/28/17 10:00 Knee - Right Anaerobic Culture - Preliminary Microbiology 03/27/17 16:00 Abdomen Gram Stain - Final 03/27/17 16:00 Abdomen Wound Culture - Final Pseudomonas aeruginosa Leanne albicans 03/28/17 10:00 Knee - Right Gram Stain - Preliminary 03/28/17 10:00 Knee - Right Body Fluid Culture - Preliminary 03/26/17 18:25 Blood Blood Culture Gram Stain - Final 03/26/17 18:25 Blood Blood Culture - Final Enterococcus faecalis 03/28/17 07:05 Blood Blood Culture Gram Stain - Preliminary 03/28/17 07:05 Blood Blood Culture - Final 03/28/17 10:00 Knee - Right Anaerobic Culture - Preliminary 03/27/17 16:00 Abdomen Anaerobic Culture - Preliminary 03/26/17 18:25 Blood Blood Culture - Final Assessment and Plan (1) Sepsis Narrative/Plan: 61 year old male that has multiple medical troubles who presents for evaluation of increasing weakness and fever. There are concerns to sepsis and blood cultures have been performed. They've come back as positive for gram- positive cocci in chains and pairs. At this time source is not completely clear. There was concern as to the PEG site being infected. On evaluation does not appear to be grossly infected. Methyline blue was placed through the PEG tube without any evidence of leakage at this time. The patient's tracheostomy was decannulated and does not appear to be the source of infection. His pulmonary status appears to be stable. Urinalysis is mildly abnormal and urine culture potentially is etiology. Antimicrobial therapy with vancomycin is initiated. He also received levofloxacin. However he is on amiodarone and this is discontinued. We'll enhance gram-negative coverage if needed based on other cultures but gram- positive cocci which appears to be enterococcus is the only blood culture positive so far.. Followup blood cultures are requested. These are positive again. Further have been requested. Receiving vancomycin for the enterococcus it's been isolated. Continue supportive care. The PEG site is being cleansed and a Aquacel silver utilized to the site. The knee was aspirated by orthopedics await final culture. Culture is negative so far. Crystal analysis was negative Echocardiogram is negative. Concern at the source of the sepsis is from the tissue breakdown of the coccyx. Other concern if it is persistent would be to his implanted materials. Current Visit: Yes Status: Acute Code(s): A41.9 - SEPSIS, UNSPECIFIED ORGANISM SNOMED Code(s): 46071165 (2) Fever Current Visit: Yes Status: Acute Code(s): R50.9 - FEVER, UNSPECIFIED SNOMED Code(s): 498553710 (3) Effusion, right knee Current Visit: Yes Status: Acute Priority: Medium Code(s): M25.461 - EFFUSION, RIGHT KNEE SNOMED Code(s): 280441454 (4) Acoustic neuroma Current Visit: Yes Status: Acute Code(s): D33.3 - BENIGN NEOPLASM OF CRANIAL NERVES SNOMED Code(s): 674693317
[2017-03-30 07:22] LABS: Glucose,Whole Blood 101 mg/dL (75-99)
[2017-03-30] MEDS: INSULIN ASPART 100 UNIT/ML 1 ML 10 ML VIAL SQ SCH ×4 (07:35→20:31)
[2017-03-30 07:41] LABS: Anisocytosis Slight; CH 25.2; CHCM 30.4; HCT 32.6 % (39.0-53.0); HDW 3.82; Hypochromasia Marked; MCH 25.5 pg (25.0-35.0); MCHC 30.6 g/dL (31.0-37.0); MCV 83.4 fL (80.0-100.0); Mean Platelet Volume 7.8; Poikilocytosis Slight; RBC 3.91 m/uL (4.30-5.90); RDW 18.4 % (11.5-15.5)
[2017-03-30 07:55] LABS: Anion Gap 6 mmol/L; Blood Urea Nitrogen 16 mg/dL (9-20); Calcium 8.8 mg/dL (8.4-10.2); Carbon Dioxide 28 mmol/L (22-30); Chloride 107 mmol/L (98-107); Glucose 90 mg/dL (74-99); Non-African American GFR(MDRD) >60 (>60 ml/min/1.73 sqM); Phosphorus 4.8 mg/dL (2.5-4.5); Potassium 4.3 mmol/L (3.5-5.1); Sodium 141 mmol/L (137-145)
[2017-03-30] MEDS: SENNOSIDES-DOCUSATE SODIUM 1 EACH TAB PO SCH ×2 (08:56→20:30)
[2017-03-30] MEDS: GABAPENTIN 300 MG CAP PO SCH ×2 (08:56→20:31)
[2017-03-30] MEDS: FAMOTIDINE 20 MG TAB PO SCH ×2 (08:56→20:31)
[2017-03-30] MEDS: POLYETHYLENE GLYCOL 3350 17 GM POWD.PACK PO SCH (08:56)
[2017-03-30] MEDS: HEPARIN SODIUM,PORCINE 10,000 UNIT/ML 1 ML VIAL SQ SCH ×2 (08:56→15:05)
[2017-03-30] MEDS: METOPROLOL TARTRATE 25 MG TAB PO SCH ×2 (08:56→20:30)
[2017-03-30] MEDS: FERROUS SULFATE 325 MG TAB PO SCH (08:56)
[2017-03-30] MEDS: MAGNESIUM OXIDE 400 MG TAB PO SCH (08:56)
[2017-03-30] MEDS: CLOTRIMAZOLE 1% CREAM 15 GM TUBE TOPICAL SCH ×2 (08:56→20:30)
[2017-03-30] MEDS: VANCOMYCIN 1,750 MG in SODIUM CHLORIDE 0.9% 250 ML IVPB SCH (09:37)
[2017-03-30] MEDS: DOXAZOSIN 2 MG TAB PO SCH (09:38)
[2017-03-30] MEDS ORDERED: RX INFO: IV CONTRAST WAS GIVEN 1 EACH MISC MISCELLANE PRN (11:11)
[2017-03-30] MEDS: IOHEXOL 350 MG/ML 25 ML BOTTLE (ORAL USE) PO PRN ×2 (11:20→12:40)
[2017-03-30] MEDS: [UNRECOGNIZED DRUG - OTHER] TOPICAL SCH ×2 (11:41→20:14)
[2017-03-30] MEDS: INSULIN DETEMIR 100 UNIT/ML 10 ML VIAL SQ SCH ×2 (11:49→22:53)
[2017-03-30 11:53] LABS: Glucose,Whole Blood 194 mg/dL (75-99)
--- NOTE | 2017-03-30 13:35 | P.PN ---
Subjective Progress Note Date: 03/30/17 Patient seen bedside no acute events overnight per nursing staff patient seen sitting upright in bed His demeanor seemed down from yesterday, He stated that he feels dwon about his current medical situation and feel as if no one can find out whats wrong, He was told about he repeat cx coming back positive and the need for further testing to find the source for his bactermia, He slept well and has no other complaints at this time. Objective - Vital Signs Vital signs: Vital Signs Temp 98.5 F 03/30/17 07:00 Pulse 70 03/30/17 08:00 Resp 18 03/30/17 08:00 BP 109/68 03/30/17 07:00 Pulse Ox 93 L 03/30/17 07:00 Intake & Output 03/29/17 03/30/17 03/30/17 18:59 06:59 18:59 Intake Total 300 250 Output Total 475 325 Balance -175 250 -325 Weight 114.759 kg Intake: IV 250 Vancomycin 1,750 mg In 250 Sodium Chloride 0.9% 250 ml @ 125 mls/hr IVPB Q12H [facility] Rx#:[id number] Oral 300 Output: Urine 475 325 Other: Voiding Method Bedpan Bedpan Bedpan Urinal Urinal Urinal # Voids 2 - Exam GENERAL: The patient is alert and oriented x3, not in any acute distress. Obese. Bedbound nontoxic-appearing, cooperative his long white uncut jorge HEENT: Pupils are round and equally reacting to light. EOMI. No scleral icterus. No conjunctival pallor. Normocephalic, atraumatic. Old craniotomy site wound is well-healed no evidence of drainage or dehiscence overlying dressing is soiled with food particles, No pharyngeal erythema. No thyromegaly. CARDIOVASCULAR: S1 and S2 present. No murmurs, rubs, or gallops. PULMONARY: Chest is clear to auscultation, no wheezing or crackles. ABDOMEN: Soft, nontender, nondistended, normoactive bowel sounds. No palpable organomegaly. MUSCULOSKELETAL: No joint swelling or deformity. EXTREMITIES: No cyanosis, clubbing, or pedal edema. NEUROLOGICAL: There are no new focal deficit but patient has left upper extremity hemiparesis with loss of both motor and sensory function there is evidence of muscle wasting and atrophy. intact PEG tube in place PEG dressing is clean dry and intact PEG tube site area with some redness around the PEG tube there are still remnants of methylene blue within the tubing however there is no extravasation of that fluid into or surrounding insertion site site area and has a sacral decubitus stage II does not look too be acutely infected SKIN: Mentioned above - Labs CBC & Chem 7: 03/30/17 06:51 03/30/17 06:51 Labs: Abnormal Lab Results - Last 24 Hours (Table) 03/29/17 03/29/17 03/30/17 Range/Units 17:24 19:53 06:51 RBC 3.91 L (4.30-5.90) m/uL Hgb 10.0 L (13.0-17.5) gm/dL Hct 32.6 L (39.0-53.0) % MCHC 30.6 L (31.0-37.0) g/dL RDW 18.4 H (11.5-15.5) % POC Glucose (mg/dL) 123 H 151 H (75-99) mg/dL Phosphorus (2.5-4.5) mg/dL 03/30/17 03/30/17 03/30/17 Range/Units 06:51 07:17 11:47 RBC (4.30-5.90) m/uL Hgb (13.0-17.5) gm/dL Hct (39.0-53.0) % MCHC (31.0-37.0) g/dL RDW (11.5-15.5) % POC Glucose (mg/dL) 101 H 194 H (75-99) mg/dL Phosphorus 4.8 H (2.5-4.5) mg/dL Microbiology - Last 24 Hours (Table) 03/29/17 07:39 Blood Culture Gram Stain - Preliminary Blood 03/29/17 08:01 Blood Culture Gram Stain - Preliminary Blood 03/29/17 08:01 Blood Culture - Final Blood 03/29/17 07:39 Blood Culture - Final Blood 03/28/17 07:05 Blood Culture Gram Stain - Preliminary Blood Blood Culture - Preliminary Group D Enterococcus 03/27/17 16:00 Gram Stain - Final Abdomen Wound Culture - Final Pseudomonas aeruginosa Leanne albicans 03/28/17 10:00 Gram Stain - Preliminary Knee - Right Body Fluid Culture - Preliminary 03/26/17 18:25 Blood Culture Gram Stain - Final Blood Blood Culture - Final Enterococcus faecalis Assessment and Plan Assessment: Plan: 1 acute metabolic encephalopathy (improving): With now preliminary positive blood cultures growing group D enterococcus growing on 2 cultures obtained on and 03/28 infectious diseases consultation was obtained the recommendations are appreciated patient to continue with IV vancomycin continue to wait for the final/ reports of the blood cultures and cultures from the knee aspirate which are preliminarily negative, Patient is scheduled fro CT ABD/Pelvis this afternoon to look for possible source. We'll monitor labs and vital signs will add CRP and sed rate to the a.m. labs, repeat cx on 03/30/2017 pending. #2 sepsis due bacteremia with group D enterococcus to above-mentioned reasons. #3 congestive heart failure exacerbation at this time #4 paroxysmal atrial fibrillation consulted cardiology regarding decisions of anticoagulation patient is presently rate controlled continue metoprolol, amiodarone was discontinued #5 obesity #6 left-sided upper extremity hemiparesis secondary to neurosurgery for an acoustic neuroma in November 2016 patient currently having ongoing physical and occupational therapy and that is to continue #7 sacral decubitus ulcer stage II: That doesn't appear to be infected, patient to initiate pressure ulcer prophylaxis #8 advanced tricompartmental degenerative joint disease: Orthopedic surgery was consulted status post knee aspiration recommend utilization of a knee immobilizer if he is up and ambulating no acute surgical intervention is planned #9 continue with DVT prophylaxis #10 anemia anemia of chronic disease which is normocytic anemia Anticipate discharge back to the rehab facility within the next 24-48 hours
[2017-03-30] MEDS: GABAPENTIN 100 MG CAP PO SCH (15:05)
--- NOTE | 2017-03-30 15:06 | CT ---
EXAMINATION TYPE: CT ChestAbdPelvis w con DATE OF EXAM: 03/30/2017 COMPARISON: NONE HISTORY: Possible abscess with septicemia CT DLP: 2729.7 mGycm Automated exposure control for dose reduction was used. CONTRAST: CT scan of the chest, abdomen and pelvis is performed with Oral Contrast and with IV Contrast, patien t injected with 100 mL of Omnipaque 300. FINDINGS: LUNGS: Basilar atelectatic changes are present. No endobronchial lesion, pleural or pericardial effus ion. MEDIASTINUM: There are no greater than 1 cm hilar or mediastinal lymph nodes. Air within the pulmona ry artery likely introduced during intravenous access. The heart is borderline enlarged. There are co ronary artery calcifications. No pericardial effusion is seen. AORTA: No significant abnormality is seen. OTHER: Ventriculoperitoneal shunt tubing is present along the right chest anterior laterally. Increa sed attenuation along the subcutaneous fat in the left chest towards the left axilla is noted may rep resent contusion or ecchymosis, edema. Subcutaneous increased density over the lower anterior abdomin al wall subcutaneous fat with areas of lucency likely due to injections. LIVER/GB: The liver is enlarged. Gallbladder is normal. PANCREAS: No significant abnormality is seen. SPLEEN: Enlarged ADRENALS: No significant abnormality is seen. KIDNEYS: Cortical cyst is present at the lower pole right kidney measuring 4.4 cm. No hydronephrosis bilaterally. Low dense focus present towards the upper pole left kidney measures approximately 4.4 cm in greatest dimension and is indeterminate. REPRODUCTIVE ORGANS: Prostate calcifications are present. BOWEL: No significant abnormality is seen. Percutaneous gastrostomy tube is present within the stoma ch. Some thickening along the rectosigmoid colon is nonspecific. FREE AIR: No Free Air visible. ASCITES: None seen. RETROPERITONEAL ADENOPATHY: No retroperitoneal adenopathy is seen. LYMPH NODES: No greater than 1 cm abdominal or pelvic lymph nodes are appreciated. URINARY BLADDER: No significant abnormality is seen. PELVIC ADENOPATHY: None visualized. OSSEOUS STRUCTURES: Degenerative disc changes are present in the visualized spine. IMPRESSION: Postop changes, ventriculoperitoneal shunt tubing is present. Hepatosplenomegaly. Indeter minate low-attenuation focus left kidney, correlate to exclude pyelonephritis, urinary tract infectio n. Basilar atelectasis. Cardiomegaly. Coronary artery disease. Additional findings above.
[2017-03-30 17:41] LABS: Glucose,Whole Blood 110 mg/dL (75-99)
[2017-03-30] MEDS ORDERED: DAPTOmycin IN 0.9% NACL 500 MG/10 ML SYRINGE IVP SCH (19:00)
[2017-03-30 20:13] LABS: Glucose,Whole Blood 133 mg/dL (75-99)
[2017-03-30] MEDS: AMITRIPTYLINE HCL 10 MG TAB PO SCH (20:30)
[2017-03-30] MEDS: SERTRALINE 50 MG TAB PO SCH (20:30)
[2017-03-30] MEDS: MENTHOL-CAMPHOR LOTION 222 APPLIC/222 ML BOTTLE TOPICAL SCH (20:31)
[2017-03-30] MEDS ORDERED: diphenhydrAMINE 50 MG/ML 1 ML VIAL IVP STA (21:05)
[2017-03-30 21:09] LABS: Glucose,Whole Blood 122 mg/dL (75-99)
[2017-03-30] MEDS ORDERED: methylPREDNISolone SOD SUCCI 125 MG/2 ML VIAL IV STA (21:16)
--- NOTE | 2017-03-30 21:19 | XR ---
EXAMINATION TYPE: XR chest 1V portable DATE OF EXAM: 03/30/2017 COMPARISON: 03/27/2017 HISTORY: Hypoxemia TECHNIQUE: Single frontal view of the chest is obtained. FINDINGS: There are linear densities in both lungs related to patchy atelectasis. There is poor insp iration. There is no gross heart failure. There is no sign of pleural effusion. There is ventriculope ritoneal shunt catheter on the right side noted. IMPRESSION: Bilateral patchy atelectasis without change compared to last exam. No heart failure.
[2017-03-30 21:26] LABS: Anisocytosis Slight; Basophils % (A) 0 %; CH 25.8; CHCM 30.6; Eosinophils % (A) 0 %; HCT 38.2 % (39.0-53.0); HDW 3.81; HGB 11.6 gm/dL (13.0-17.5); Hypochromasia Marked; Luc # (Auto) 0.21; Luc % (Auto) 4; Lymphocytes # (A) 2.2 k/uL (1.0-4.8); Lymphocytes % (A) 36 %; MCH 25.7 pg (25.0-35.0); MCHC 30.4 g/dL (31.0-37.0); MCV 84.6 fL (80.0-100.0); Mean Platelet Volume 7.7; Monocytes # (A) 0.1 k/uL (0-1.0); Monocytes % (A) 2 %; Neutrophils # (A) 3.5 k/uL (1.3-7.7); Neutrophils % (A) 57 %; Poikilocytosis Slight; RBC 4.51 m/uL (4.30-5.90); WBC 6.1 k/uL (3.8-10.6); WBC (Perox) 6.66
[2017-03-30 21:51] LABS: ALT 32 U/L (21-72); AST 24 U/L (17-59); Alkaline Phosphatase 66 U/L (38-126); Anion Gap 9 mmol/L; Blood Urea Nitrogen 15 mg/dL (9-20); Carbon Dioxide 24 mmol/L (22-30); Chloride 107 mmol/L (98-107); Glucose 147 mg/dL (74-99); Non-African American GFR(MDRD) >60 (>60 ml/min/1.73 sqM); Potassium 4.3 mmol/L (3.5-5.1); Sodium 140 mmol/L (137-145); Total Bilirubin 0.3 mg/dL (0.2-1.3); Total Protein 6.9 g/dL (6.3-8.2)
[2017-03-30 21:58] LABS: Glucose,Whole Blood 186 mg/dL (75-99)
--- NOTE | 2017-03-30 22:54 | P.PN ---
Subjective Progress Note Date: 03/30/17 Principal diagnosis: Sepsis 61 -year-old male presents to Hospital with altered mentation and fever. This pleasant gentleman has a history of cerebral aneurysm. With surgical intervention including vent curricular peritoneal shunting from several years ago. Has a several year history of difficulty with hearing in his left ear. 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 He has had surgical intervention. 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 There are concerns for sepsis and workup has been initiated. Possible blood cultures are noted. Concerns to cellulitis at the tube site. The patient's who is present is able to relate that recently she had some improvement of his status. His tracheostomy recently was decannulated. He is tolerating that well. He has follow study today that he did well with. Will be allowed oral intake but his tube feeds are on hold due to concerns to PEG tube site infection. The patient is comfortable has had an improved status. His is pleased that he is improving. Patient has no new complaints today. Positive blood cultures are noted. And the repeat cultures are also positive. Because of the ongoing possible cultures computed tomography scan of the chest abdomen pelvis has been requested. Case is discussed with the hospitalist. Objective - Vital Signs Vital signs: Vital Signs Temp 96.7 F L 03/30/17 19:14 Pulse 77 03/30/17 19:14 Resp 19 03/30/17 19:14 BP 116/97 03/30/17 19:14 Pulse Ox 94 L 03/30/17 19:14 Intake & Output 03/30/17 03/30/17 03/31/17 06:59 18:59 06:59 Intake Total 250 250 Output Total 925 Balance 250 -675 Weight 114.759 kg Intake: IV 250 250 Vancomycin 1,750 mg In 250 250 Sodium Chloride 0.9% 250 ml @ 125 mls/hr IVPB Q12H [facility] Rx#:[id number] Output: Urine 925 Other: Voiding Method Bedpan Bedpan Urinal Urinal # Voids 2 1 - Exam 61-year-old male comfortable at this time HEENT: Anicteric conjunctiva are pink and moist nasal mucosa grossly intact without significant lesions, there is no thrush. 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 Neck: The neck is supple without significant lymphadenopathy or thyromegaly. Lungs: Good bilateral air entry without significant crackles or wheezing. There is no significant bronchial sounds. There is no egophony or dullness. Heart: Irregular with a positive S4 no murmur click or rub Abdomen: Obese, Positive bowel sounds soft and nontender without palpable masses or organomegaly. There was no guarding or rebound. Surgical wound from his [employer] shunt is well-healed. The PEG tube site is evaluated. Evidence or just some scant drainage at the site. Extremities: The upper extremities have excellent pulses they are symmetric, no significant petechiae or telangiectasia. No splinter hemorrhages were noted. The lower extremities are free from significant edema. Is evidence of the right knee effusion that is slightly tender on the lateral surface The peripheral pulses were 2+ and symmetric. Neuro: Is awake and alert as has the left hemiparesis Does have the pressure ulceration to the coccyx that is stable to improved - Labs CBC & Chem 7: 03/30/17 21:11 03/30/17 21:11 Labs: Abnormal Lab Results - Last 24 Hours (Table) 03/30/17 03/30/17 03/30/17 Range/Units 06:51 06:51 07:17 RBC 3.91 L (4.30-5.90) m/uL Hgb 10.0 L (13.0-17.5) gm/dL Hct 32.6 L (39.0-53.0) % MCHC 30.6 L (31.0-37.0) g/dL RDW 18.4 H (11.5-15.5) % D-Dimer (<0.60) mg/L FEU Glucose (74-99) mg/dL POC Glucose (mg/dL) 101 H (75-99) mg/dL Plasma Lactic Acid Maxx (0.7-2.0) mmol/L Phosphorus 4.8 H (2.5-4.5) mg/dL Albumin (3.5-5.0) g/dL 03/30/17 03/30/17 03/30/17 Range/Units 11:47 17:34 20:12 RBC (4.30-5.90) m/uL Hgb (13.0-17.5) gm/dL Hct (39.0-53.0) % MCHC (31.0-37.0) g/dL RDW (11.5-15.5) % D-Dimer (<0.60) mg/L FEU Glucose (74-99) mg/dL POC Glucose (mg/dL) 194 H 110 H 133 H (75-99) mg/dL Plasma Lactic Acid Maxx (0.7-2.0) mmol/L Phosphorus (2.5-4.5) mg/dL Albumin (3.5-5.0) g/dL 03/30/17 03/30/17 03/30/17 Range/Units 20:48 21:11 21:11 RBC (4.30-5.90) m/uL Hgb 11.6 L (13.0-17.5) gm/dL Hct 38.2 L (39.0-53.0) % MCHC 30.4 L (31.0-37.0) g/dL RDW 19.0 H (11.5-15.5) % D-Dimer (<0.60) mg/L FEU Glucose 147 H (74-99) mg/dL POC Glucose (mg/dL) 122 H (75-99) mg/dL Plasma Lactic Acid Maxx (0.7-2.0) mmol/L Phosphorus (2.5-4.5) mg/dL Albumin 2.9 L (3.5-5.0) g/dL 03/30/17 03/30/17 03/30/17 Range/Units 21:11 21:11 21:44 RBC (4.30-5.90) m/uL Hgb (13.0-17.5) gm/dL Hct (39.0-53.0) % MCHC (31.0-37.0) g/dL RDW (11.5-15.5) % D-Dimer 3.77 H (<0.60) mg/L FEU Glucose (74-99) mg/dL POC Glucose (mg/dL) 186 H (75-99) mg/dL Plasma Lactic Acid Maxx 3.7 H* (0.7-2.0) mmol/L Phosphorus (2.5-4.5) mg/dL Albumin (3.5-5.0) g/dL Microbiology - Last 24 Hours (Table) 03/29/17 08:01 Blood Culture Gram Stain - Preliminary Blood 03/28/17 10:00 Anaerobic Culture - Preliminary Knee - Right 03/28/17 10:00 Gram Stain - Preliminary Knee - Right Body Fluid Culture - Preliminary 03/29/17 07:39 Blood Culture Gram Stain - Preliminary Blood 03/29/17 08:01 Blood Culture - Final Blood 03/29/17 07:39 Blood Culture - Final Blood 03/28/17 07:05 Blood Culture Gram Stain - Preliminary Blood Blood Culture - Preliminary Group D Enterococcus 03/27/17 16:00 Gram Stain - Final Abdomen Wound Culture - Final Pseudomonas aeruginosa Leanne albicans Laboratory Results WBC 6.1 k/uL (3.8-10.6) 03/30/17 21:11 RBC 4.51 m/uL (4.30-5.90) 03/30/17 21:11 Hgb 11.6 gm/dL (13.0-17.5) L 03/30/17 21:11 Hct 38.2 % (39.0-53.0) L 03/30/17 21:11 MCV 84.6 fL (80.0-100.0) 03/30/17 21:11 MCH 25.7 pg (25.0-35.0) 03/30/17 21:11 MCHC 30.4 g/dL (31.0-37.0) L 03/30/17 21:11 RDW 19.0 % (11.5-15.5) H 03/30/17 21:11 Plt Count 258 k/uL (150-450) 03/30/17 21:11 Neutrophils % 57 % 03/30/17 21:11 Lymphocytes % 36 % 03/30/17 21:11 Monocytes % 2 % 03/30/17 21:11 Eosinophils % 0 % 03/30/17 21:11 Basophils % 0 % 03/30/17 21:11 Neutrophils # 3.5 k/uL (1.3-7.7) 03/30/17 21:11 Lymphocytes # 2.2 k/uL (1.0-4.8) 03/30/17 21:11 Monocytes # 0.1 k/uL (0-1.0) 03/30/17 21:11 Eosinophils # 0.0 k/uL (0-0.7) 03/30/17 21:11 Basophils # 0.0 k/uL (0-0.2) 03/30/17 21:11 Hypochromasia Marked 03/30/17 21:11 Poikilocytosis Slight 03/30/17 21:11 Anisocytosis Slight 03/30/17 21:11 ESR 96 mm/hr (0-15) H 03/29/17 07:39 D-Dimer 3.77 mg/L FEU (<0.60) H 03/30/17 21:11 Sodium 140 mmol/L (137-145) 03/30/17 21:11 Potassium 4.3 mmol/L (3.5-5.1) 03/30/17 21:11 Chloride 107 mmol/L (98-107) 03/30/17 21:11 Carbon Dioxide 24 mmol/L (22-30) 03/30/17 21:11 Anion Gap 9 mmol/L 03/30/17 21:11 BUN 15 mg/dL (9-20) 03/30/17 21:11 Creatinine 0.90 mg/dL (0.66-1.25) 03/30/17 21:11 Est GFR (MDRD) Af Amer >60 (>60 ml/min/1.73 sqM) 03/30/17 21:11 Est GFR (MDRD) Non-Af >60 (>60 ml/min/1.73 sqM) 03/30/17 21:11 Glucose 147 mg/dL (74-99) H 03/30/17 21:11 POC Glucose (mg/dL) 186 mg/dL (75-99) H 03/30/17 21:44 POC Glu Manufacturing Engineering Professor ID Soniya Kendrick 03/30/17 21:44 Plasma Lactic Acid Maxx 3.7 mmol/L (0.7-2.0) H* 03/30/17 21:11 Calcium 9.0 mg/dL (8.4-10.2) 03/30/17 21:11 Phosphorus 4.8 mg/dL (2.5-4.5) H 03/30/17 06:51 Magnesium 2.0 mg/dL (1.6-2.3) 03/30/17 21:11 Total Bilirubin 0.3 mg/dL (0.2-1.3) 03/30/17 21:11 AST 24 U/L (17-59) 03/30/17 21:11 ALT 32 U/L (21-72) 03/30/17 21:11 Alkaline Phosphatase 66 U/L (38-126) 03/30/17 21:11 Ammonia 17 umol/L (<30) 03/26/17 18:25 Total Creatine Kinase <20 U/L (55-170) L 03/26/17 18:25 CK-MB (CK-2) 0.3 ng/mL (0.0-2.4) 03/26/17 18:25 CK-MB (CK-2) Rel Index 03/26/17 18:25 Troponin I <0.012 ng/mL (0.000-0.034) 03/30/17 21:11 C-Reactive Protein 41.0 mg/L (<10.0) H 03/29/17 07:39 Total Protein 6.9 g/dL (6.3-8.2) 03/30/17 21:11 Albumin 2.9 g/dL (3.5-5.0) L 03/30/17 21:11 TSH 2.380 mIU/L (0.465-4.680) 03/28/17 07:05 Urine Color Yellow 03/26/17 19:53 Urine Appearance Clear (Clear) 03/26/17 19:53 Urine pH 6.0 (5.0-8.0) 03/26/17 19:53 Ur Specific [place] 1.012 (1.001-1.035) 03/26/17 19:53 Urine Protein Negative (Negative) 03/26/17 19:53 Urine Glucose (UA) Negative (Negative) 03/26/17 19:53 Urine Ketones Negative (Negative) 03/26/17 19:53 Urine Blood Negative (Negative) 03/26/17 19:53 Urine Nitrite Negative (Negative) 03/26/17 19:53 Urine Bilirubin Negative (Negative) 03/26/17 19:53 Urine Urobilinogen <2.0 mg/dL (<2.0) 03/26/17 19:53 Ur Leukocyte Esterase Small (Negative) H 03/26/17 19:53 Urine RBC <1 /hpf (0-5) 03/26/17 19:53 Urine WBC 6 /hpf (0-5) H 03/26/17 19:53 Urine Mucus Rare /hpf (None) H 03/26/17 19:53 Fluid Source Synovial 03/28/17 10:00 Fluid Color Red 03/28/17 10:00 Fluid Appearance Bloody 03/28/17 10:00 Fluid RBC 99391 /uL 03/28/17 10:00 Fluid Nucleated Cells 60 /uL 03/28/17 10:00 Fluid Polynuclear WBCs 37 % 03/28/17 10:00 Fluid Mononuclear WBCs 63 % 03/28/17 10:00 Synovial Source Right Knee 03/28/17 10:00 Synovial Crystals See comment 03/28/17 10:00 Vancomycin Trough 17.7 ug/mL 03/29/17 21:11 Microbiology 03/29/17 08:01 Blood Blood Culture Gram Stain - Preliminary 03/28/17 10:00 Knee - Right Anaerobic Culture - Preliminary 03/28/17 10:00 Knee - Right Gram Stain - Preliminary 03/28/17 10:00 Knee - Right Body Fluid Culture - Preliminary 03/29/17 07:39 Blood Blood Culture Gram Stain - Preliminary 03/29/17 08:01 Blood Blood Culture - Final 03/29/17 07:39 Blood Blood Culture - Final 03/28/17 07:05 Blood Blood Culture Gram Stain - Preliminary 03/28/17 07:05 Blood Blood Culture - Preliminary Group D Enterococcus 03/27/17 16:00 Abdomen Gram Stain - Final 03/27/17 16:00 Abdomen Wound Culture - Final Pseudomonas aeruginosa Leanne albicans 03/26/17 18:25 Blood Blood Culture Gram Stain - Final 03/26/17 18:25 Blood Blood Culture - Final Enterococcus faecalis 03/28/17 07:05 Blood Blood Culture - Final 03/27/17 16:00 Abdomen Anaerobic Culture - Preliminary 03/26/17 18:25 Blood Blood Culture - Final - Imaging and Cardiology CT scan - abdomen: report reviewed (Low-attenuation left kidney concerns to abscess) Assessment and Plan (1) Sepsis Narrative/Plan: 61 year old male that has multiple medical troubles who presents for evaluation of increasing weakness and fever. There are concerns to sepsis and blood cultures have been performed. They've come back as positive for gram- positive cocci in chains and pairs. At this time source is not completely clear. There was concern as to the PEG site being infected. On evaluation does not appear to be grossly infected. Methyline blue was placed through the PEG tube without any evidence of leakage at this time. The patient's tracheostomy was decannulated and does not appear to be the source of infection. His pulmonary status appears to be stable. Urinalysis is mildly abnormal and urine culture potentially is etiology. Antimicrobial therapy with vancomycin is initiated. He also received levofloxacin. However he is on amiodarone and this is discontinued. We'll enhance gram-negative coverage if needed based on other cultures but gram- positive cocci which appears to be enterococcus is the only blood culture positive so far.. Followup blood cultures are requested. These are positive again. Further have been requested. Receiving vancomycin for the enterococcus it's been isolated. This will be altered to daptomycin and that he appears to be feeling vancomycin therapy. Computed tomography scan shows evidence of the lesion on the left kidney. This could be an abscess. Continue supportive care. The PEG site is being cleansed and a Aquacel silver utilized to the site. The knee was aspirated by orthopedics await final culture. Culture is negative so far. Crystal analysis was negative Echocardiogram is negative. Appears that the left kidney as a source of infection may need surgical evaluation. After daptomycin therapy the patient had a bout of hypotension and tachycardia. Concerns to medication reaction. This is now put on hold. However the patient does have evidence of ongoing sepsis Current Visit: Yes Status: Acute Code(s): A41.9 - SEPSIS, UNSPECIFIED ORGANISM SNOMED Code(s): 69340778 (2) Fever Current Visit: Yes Status: Acute Code(s): R50.9 - FEVER, UNSPECIFIED SNOMED Code(s): 232767443 (3) Effusion, right knee Current Visit: Yes Status: Acute Priority: Medium Code(s): M25.461 - EFFUSION, RIGHT KNEE SNOMED Code(s): 533874651 (4) Acoustic neuroma Current Visit: Yes Status: Acute Code(s): D33.3 - BENIGN NEOPLASM OF CRANIAL NERVES SNOMED Code(s): 815198168
[2017-03-31] MEDS ORDERED: SODIUM CHLORIDE 0.9% 2,000 ML IV ONE (00:46)
[2017-03-31] MEDS: HEPARIN SODIUM,PORCINE 10,000 UNIT/ML 1 ML VIAL SQ SCH ×4 (00:49→23:36)
[2017-03-31 05:25] LABS: Anisocytosis Slight; Basophils % (A) 0 %; CH 25.4; CHCM 30.3; Eosinophils % (A) 0 %; HCT 34.9 % (39.0-53.0); HDW 3.73; HGB 10.5 gm/dL (13.0-17.5); Hypochromasia Marked; Luc # (Auto) 0.07; Luc % (Auto) 1; Lymphocytes # (A) 0.4 k/uL (1.0-4.8); Lymphocytes % (A) 5 %; MCH 25.3 pg (25.0-35.0); MCHC 30.2 g/dL (31.0-37.0); Mean Platelet Volume 8.2; Monocytes # (A) 0.1 k/uL (0-1.0); Monocytes % (A) 1 %; Neutrophils # (A) 7.8 k/uL (1.3-7.7); Neutrophils % (A) 93 %; Poikilocytosis Slight; RBC 4.15 m/uL (4.30-5.90); RDW 18.5 % (11.5-15.5); WBC 8.5 k/uL (3.8-10.6)
[2017-03-31 05:39] LABS: ALT 31 U/L (21-72); AST 21 U/L (17-59); Alkaline Phosphatase 59 U/L (38-126); Anion Gap 5 mmol/L; Blood Urea Nitrogen 17 mg/dL (9-20); Carbon Dioxide 27 mmol/L (22-30); Chloride 107 mmol/L (98-107); Glucose 202 mg/dL (74-99); Non-African American GFR(MDRD) >60 (>60 ml/min/1.73 sqM); Phosphorus 5.1 mg/dL (2.5-4.5); Potassium 5.2 mmol/L (3.5-5.1); Sodium 139 mmol/L (137-145); Total Bilirubin 0.2 mg/dL (0.2-1.3); Total Protein 6.7 g/dL (6.3-8.2)
[2017-03-31] MEDS: methylPREDNISolone SOD SUCCI 125 MG/2 ML VIAL IV SCH ×3 (06:23→18:01)
[2017-03-31] MEDS: MAGNESIUM OXIDE 400 MG TAB PO SCH (08:09)
[2017-03-31] MEDS: FAMOTIDINE 20 MG TAB PO SCH ×2 (08:09→22:13)
[2017-03-31] MEDS: FERROUS SULFATE 325 MG TAB PO SCH (08:09)
[2017-03-31] MEDS: GABAPENTIN 300 MG CAP PO SCH ×2 (08:09→22:13)
[2017-03-31 08:12] LABS: Glucose,Whole Blood 191 mg/dL (75-99)
[2017-03-31] MEDS: INSULIN ASPART 100 UNIT/ML 1 ML 10 ML VIAL SQ SCH ×4 (08:14→22:11)
[2017-03-31] MEDS: SENNOSIDES-DOCUSATE SODIUM 1 EACH TAB PO SCH ×2 (09:02→22:10)
[2017-03-31] MEDS: POLYETHYLENE GLYCOL 3350 17 GM POWD.PACK PO SCH (09:02)
--- NOTE | 2017-03-31 09:14 | XR ---
EXAMINATION TYPE: XR chest 1V portable DATE OF EXAM: 03/31/2017 COMPARISON: Prior chest x-ray 03/30/2017 HISTORY: Pneumonia TECHNIQUE: Single frontal view of the chest is obtained. FINDINGS: Patient is rotated. Ventriculoperitoneal shunt tubing is coursing on the chest at the righ t side as on previous exam. Cardiac mediastinal silhouette, pulmonary vascularity and delfina show stable appearance. Interstitium m ay be slightly improved. Patchy perihilar bandlike areas of increased attenuation again noted. No pne umothorax or pleural effusion. There are overlying cardiac leads. IMPRESSION: There may be some improvement in lung aeration. Persistent atelectatic changes. Follow-u p recommended.
[2017-03-31] MEDS: DOXAZOSIN 2 MG TAB PO SCH (09:57)
[2017-03-31] MEDS: METOPROLOL TARTRATE 25 MG TAB PO SCH (09:57)
--- NOTE | 2017-03-31 10:06 | P.PN ---
Subjective Progress Note Date: 03/31/17 Principal diagnosis: Right knee pain Patient is a pleasant 61-year-old male seen at bedside this morning. We are following him for his right knee pain. X-rays showed questionable impact fracture or osteochondral defect of the medial femoral condyle of the right leg. His pain has been superior lateral. A joint aspiration with synovial fluid analysis has been negative for cell count, Gram stain, culture and sensitivity, and crystals thus far. He has no new complaints today. He is not complaining of knee pain today. He has been nonambulatory and is to use a knee immobilizer when mobilizing or if he is to ambulate. He's currently denying new numbness or tingling, fever, chills, or calf pain. Objective - Vital Signs Vital signs: Vital Signs Temp 98.0 F 03/31/17 08:00 Pulse 89 03/31/17 09:00 Resp 22 03/31/17 09:00 BP 96/57 03/31/17 09:00 Pulse Ox 94 L 03/31/17 09:00 Intake & Output 03/30/17 03/31/17 03/31/17 18:59 06:59 18:59 Intake Total 250 2465 850 Output Total 925 575 Balance -675 1890 850 Weight 114.759 kg 116.5 kg Intake: IV 250 2225 150 Sodium Chloride 0.9% 225 150 Sodium Chloride 0.9% 2, 2000 000 ml @ 500 mls/hr IV . Q4H [facility] Rx#:[id number] Vancomycin 1,750 mg In 250 Sodium Chloride 0.9% 250 ml @ 125 mls/hr IVPB Q12H [facility] Rx#:[id number] Oral 240 700 Output: Urine 925 575 Other: Voiding Method Bedpan Urinal Urinal # Voids 1 0 - Exam Inspection of the right lower extremity shows no deformity. There is no erythema or ecchymoses. The knee is not hot to touch. There is minimal to no actual joint effusion. The patella and joint line are nontender. Ligamentously the knee is stable. He extends to 0 and flexes to 90 with mild pressure in the superior aspect of the knee. The calf is soft and nontender. There is 2+ dorsalis pedis pulse present and less than 2 second cap refill distally. - Constitutional General appearance: Present: no acute distress - Psychiatric Psychiatric: Present: A&O x's 3, appropriate affect, intact judgment & insight - Labs CBC & Chem 7: 03/31/17 04:57 03/31/17 04:57 Labs: Abnormal Lab Results - Last 24 Hours (Table) 03/30/17 03/30/17 03/30/17 Range/Units 11:47 17:34 20:12 RBC (4.30-5.90) m/uL Hgb (13.0-17.5) gm/dL Hct (39.0-53.0) % MCHC (31.0-37.0) g/dL RDW (11.5-15.5) % Neutrophils # (1.3-7.7) k/uL Lymphocytes # (1.0-4.8) k/uL D-Dimer (<0.60) mg/L FEU Potassium (3.5-5.1) mmol/L Glucose (74-99) mg/dL POC Glucose (mg/dL) 194 H 110 H 133 H (75-99) mg/dL Plasma Lactic Acid Maxx (0.7-2.0) mmol/L Phosphorus (2.5-4.5) mg/dL Albumin (3.5-5.0) g/dL 03/30/17 03/30/17 03/30/17 Range/Units 20:48 21:11 21:11 RBC (4.30-5.90) m/uL Hgb 11.6 L (13.0-17.5) gm/dL Hct 38.2 L (39.0-53.0) % MCHC 30.4 L (31.0-37.0) g/dL RDW 19.0 H (11.5-15.5) % Neutrophils # (1.3-7.7) k/uL Lymphocytes # (1.0-4.8) k/uL D-Dimer (<0.60) mg/L FEU Potassium (3.5-5.1) mmol/L Glucose 147 H (74-99) mg/dL POC Glucose (mg/dL) 122 H (75-99) mg/dL Plasma Lactic Acid Maxx (0.7-2.0) mmol/L Phosphorus (2.5-4.5) mg/dL Albumin 2.9 L (3.5-5.0) g/dL 03/30/17 03/30/17 03/30/17 Range/Units 21:11 21:11 21:44 RBC (4.30-5.90) m/uL Hgb (13.0-17.5) gm/dL Hct (39.0-53.0) % MCHC (31.0-37.0) g/dL RDW (11.5-15.5) % Neutrophils # (1.3-7.7) k/uL Lymphocytes # (1.0-4.8) k/uL D-Dimer 3.77 H (<0.60) mg/L FEU Potassium (3.5-5.1) mmol/L Glucose (74-99) mg/dL POC Glucose (mg/dL) 186 H (75-99) mg/dL Plasma Lactic Acid Maxx 3.7 H* (0.7-2.0) mmol/L Phosphorus (2.5-4.5) mg/dL Albumin (3.5-5.0) g/dL 03/31/17 03/31/17 03/31/17 Range/Units 00:58 04:57 04:57 RBC 4.15 L (4.30-5.90) m/uL Hgb 10.5 L (13.0-17.5) gm/dL Hct 34.9 L (39.0-53.0) % MCHC 30.2 L (31.0-37.0) g/dL RDW 18.5 H (11.5-15.5) % Neutrophils # 7.8 H (1.3-7.7) k/uL Lymphocytes # 0.4 L (1.0-4.8) k/uL D-Dimer (<0.60) mg/L FEU Potassium 5.2 H (3.5-5.1) mmol/L Glucose 202 H (74-99) mg/dL POC Glucose (mg/dL) (75-99) mg/dL Plasma Lactic Acid Maxx 2.9 H* (0.7-2.0) mmol/L Phosphorus 5.1 H (2.5-4.5) mg/dL Albumin 2.9 L (3.5-5.0) g/dL 11/10/17 Range/Units 07:47 RBC (4.30-5.90) m/uL Hgb (13.0-17.5) gm/dL Hct (39.0-53.0) % MCHC (31.0-37.0) g/dL RDW (11.5-15.5) % Neutrophils # (1.3-7.7) k/uL Lymphocytes # (1.0-4.8) k/uL D-Dimer (<0.60) mg/L FEU Potassium (3.5-5.1) mmol/L Glucose (74-99) mg/dL POC Glucose (mg/dL) 191 H (75-99) mg/dL Plasma Lactic Acid Maxx (0.7-2.0) mmol/L Phosphorus (2.5-4.5) mg/dL Albumin (3.5-5.0) g/dL Microbiology - Last 24 Hours (Table) 03/28/17 07:05 Blood Culture Gram Stain - Final Blood Blood Culture - Final Enterococcus faecalis 03/29/17 08:01 Blood Culture Gram Stain - Preliminary Blood Blood Culture - Preliminary Group D Enterococcus 03/29/17 07:39 Blood Culture Gram Stain - Preliminary Blood Blood Culture - Preliminary Group D Enterococcus 03/28/17 10:00 Anaerobic Culture - Preliminary Knee - Right 03/28/17 10:00 Gram Stain - Preliminary Knee - Right Body Fluid Culture - Preliminary 03/29/17 08:01 Blood Culture - Final Blood Assessment and Plan (1) Effusion, right knee Narrative/Plan: X-rays of the right knee show advanced tricompartmental degenerative joint disease/osteoarthritis. Synovial fluid sent for analysis is negative for crystals and has shown no signs of infection. His exam is relatively benign. Continue pain management, ice, elevation and knee immobilizer prn. He may follow up as an outpatient. We will sign off for now. Thank you. Current Visit: Yes Status: Acute Priority: Medium Code(s): M25.461 - EFFUSION, RIGHT KNEE SNOMED Code(s): 415491116 Time with Patient: Less than 30
[2017-03-31 11:00] LABS: Appearance,Urine Clear (Clear); Bilirubin,Urine Negative (Negative); Glucose,Urine (UA) 3+ (Negative); Ketones,Urine Negative (Negative); Leukocyte Esterase,Urine Negative (Negative); Nitrite,Urine Negative (Negative); PH, Urine 5.5 (5.0-8.0); Protein,Urine Negative (Negative); Specific Gravity,Urine 1.019 (1.001-1.035); UA Billing (MACRO vs. MICRO) CHEM; Urobilinogen,Urine <2.0 mg/dL (<2.0)
[2017-03-31] MEDS: INSULIN DETEMIR 100 UNIT/ML 10 ML VIAL SQ SCH ×2 (11:06→22:11)
[2017-03-31] MEDS: CLOTRIMAZOLE 1% CREAM 15 GM TUBE TOPICAL SCH ×2 (11:09→22:10)
[2017-03-31] MEDS: [UNRECOGNIZED DRUG - OTHER] TOPICAL SCH ×2 (11:14→22:14)
[2017-03-31 12:47] LABS: Glucose,Whole Blood 180 mg/dL (75-99)
--- NOTE | 2017-03-31 13:22 | P.CNPUL ---
History of Present Illness Consult date: 03/31/17 Requesting physician: Regulo Cueva Reason for consult: other (ICU management) Chief complaint: Change in mental status History of present illness: This is a 61-year-old white male with history of multiple medical problems, patient had acoustic neuroma surgery back in November at [facility] in [place], postoperatively the patient developed paralysis on the left side, and he developed postoperative respiratory failure, and failure to wean, he required tracheostomy which was recently D cannulated. Patient was eventually discharged to a subacute rehab. Patient was sent to [facility] on 03/26/2017 with mostly symptoms of mental status change, metabolic encephalopathy, and he was felt to possibly have pneumonia. His other medical problems included a stage II decubitus ulcer, avulsion fracture of the right knee, paroxysmal atrial fibrillation, acute toxic encephalopathy felt to be related to sepsis. It was not clear whether the source of sepsis would be coming from, but looking at the microbiology report, patient had positive blood cultures growing group D enterococcus, Enterococcus faecalis, and he had positive wound cultures from the decubitus ulcer growing Pseudomonas and Leanne albicans. Blood cultures have been positive since admission on 2016, and follow-up cultures as of 03/29/2017, remain positive for group D enterococcus. Patient was seen by Dr. Borja on consultation, and he was placed on vancomycin and daptomycin. However yesterday the patient developed an acute episode of hypotension and diaphoresis shortly after he received his daptomycin dose. Patient was transferred to the ICU, given fluid boluses, daptomycin is presently on hold, and the patient responded well not requiring any norepinephrine. Chest x-ray done in the ICU showed basically atelectatic changes, no clear-cut evidence of pneumonia was appreciated. CT of the chest abdomen and pelvis showed postoperative changes and [employer] shunt tubing, hepatosplenomegaly, and low-attenuation focus of the left kidney cannot exclude pyelonephritis. Surprisingly no urine culture has been done since admission no urinalysis has been done since admission, I went ahead and recommended a urine culture to be sent and a urinalysis to be sent today. I believe the primary source of the patient's enterococcal infection is most likely from the urine unless proven otherwise. Patient may truly have pyelonephritis causing his Enterococcus faecalis bacteremia. Patient had a recent arthrocentesis from the right knee, results of which are pending. The synovial fluid aspiration was sent for cultures Gram stain, and so far Gram stain is negative. Review of Systems REVIEW OF SYSTEMS: CONSTITUTIONAL: Generalized weakness, fatigue, weight loss, and intermittent fevers. HEENT: History of acoustic neuroma and hard of hearing CARDIOVASCULAR: No chest pain, orthopnea, PND, no palpitations, no syncope. PULMONARY: No shortness of breath, no cough, no hemoptysis. History of tracheostomy, was recently decannulated, patient continues to have a slight healing stoma in the lower portion of his neck anteriorly. GASTROINTESTINAL: No nausea no vomiting no abdominal pain no melena no hematemesis. Patient had a PEG tube placed. NEUROLOGICAL: History of recent craniotomy, left-sided weakness, acoustic neuroma surgery and [employer]ING [employer] shunt placement. HEMATOLOGICAL: Denies any bleeding or petechiae. GENITOURINARY: No dysuria and no frequency no urgency no hematuria. MUSCULOSKELETAL/RHEUMATOLOGICAL: Denies any joint pain, swelling, or any muscle pain. ENDOCRINE: Denies any polyuria or polydipsia. Past Medical History Past Medical History: Diabetes Mellitus, Hypertension, Pneumonia Additional Past Medical History / Comment(s): few falls lately-in may broke a rib on lt side, jun fell-was sent from work to [facility]. brain aneurysm 2017 History of Any Multi-Drug Resistant Organisms: None Reported Past Surgical History: Tonsillectomy Additional Past Surgical History / Comment(s): brain aneursym with clip , colonoscopy/polypectomy(benign). 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 No travel, or experience. No tobacco or alcohol use. No animal exposures Smoking Status: Never smoker Past Alcohol Use History: None Reported Past Drug Use History: None Reported - Past Family History Father Family Medical History: Diabetes Mellitus Additional Family Medical History / Comment(s): Mother Family Medical History: Diabetes Mellitus Additional Family Medical History / Comment(s): alive and age 81 Medications and Allergies Home Medications Medication Instructions Recorded Confirmed Type Acetaminophen [Tylenol] 650 mg PO Q6H PRN 03/26/17 03/26/17 History Amitriptyline HCl [Elavil] 10 mg PO HS 03/26/17 03/26/17 History Antifungal Powder 1 applic TOPICAL BID 03/26/17 03/26/17 History Bumetanide [Bumex] 1 mg PO DAILY 03/26/17 03/26/17 History Camphor-Menthol 1 applic TOPICAL HS 03/26/17 03/26/17 History Doxazosin [Cardura] 2 mg PO DAILY 03/26/17 03/26/17 History Doxycycline Monohydrate [Monodox] 100 mg PO BID 03/26/17 03/26/17 History Famotidine [Pepcid] 20 mg PO BID 03/26/17 03/26/17 History Ferrous Sulfate [Feosol] 325 mg PO DAILY 03/26/17 03/26/17 History Gabapentin [Neurontin] 200 mg PO DAILY@1400 03/26/17 03/26/17 History Gabapentin [Neurontin] 300 mg PO BID 03/26/17 03/26/17 History HYDROcodone/APAP 7.5-325MG [[place] 1 tab PO Q4H PRN 03/26/17 03/26/17 History 7.5-325] Heparin Sodium,Porcine [Heparin 7,500 unit SQ Q8HR 03/26/17 03/26/17 History Sodium] Insulin Glargine,Hum.rec.anlog 30 unit SQ Q12H 03/26/17 03/26/17 History [Basaglar Kwikpen U-100] Insulin Regular [HumuLIN R] See Protocol SQ ACHS 03/26/17 03/26/17 History Ipratropium-Albuterol Nebulize 3 ml INHALATION RT-Q6H PRN 03/26/17 03/26/17 History [Duoneb 0.5 mg-3 mg/3 ml Soln] Magnesium Oxide [Mag-Ox] 400 mg PO DAILY 03/26/17 03/26/17 History Polyethylene Glycol 3350 [Miralax] 17 gm PO DAILY 03/26/17 03/26/17 History Sennosides-Docusate Sodium 1 tab PO BID 03/26/17 03/26/17 History [Senokot-S] Sertraline [Zoloft] 50 mg PO HS 03/26/17 03/26/17 History Triad Hydrophilic Wound Dress 1 applic TOPICAL BID 03/26/17 03/26/17 History Metoprolol Tartrate [Lopressor] 25 mg PO BID #60 tab 03/29/17 Rx Allergies Allergy/AdvReac Type Severity Reaction Status Date / Time almond Allergy Unknown Verified 03/26/17 18:31 banana Allergy Unknown Verified 03/26/17 18:31 Penicillins Allergy Unknown Verified 03/26/17 18:31 Childhood daptomycin AdvReac Severe Abdominal Verified 03/31/17 10:01 Pain Physical Exam Vitals: Vital Signs Temp Pulse Pulse Pulse Resp BP BP 03/31/17 11:00 81 17 102/66 03/31/17 10:30 84 10 L 107/65 03/31/17 10:00 87 13 104/64 03/31/17 09:30 88 19 95/58 03/31/17 09:00 89 22 96/57 03/31/17 08:30 85 18 102/65 03/31/17 08:00 98.0 F 81 12 98/61 03/31/17 07:30 77 0 L 98/61 03/31/17 07:00 77 12 92/53 03/31/17 06:30 78 18 100/61 03/31/17 06:00 74 15 102/61 03/31/17 05:30 79 19 95/60 03/31/17 05:00 76 10 L 109/59 03/31/17 04:30 76 15 101/61 03/31/17 04:00 98.3 F 75 18 98/59 03/31/17 03:30 73 10 L 105/59 03/31/17 03:00 77 14 104/59 03/31/17 02:30 76 12 105/61 03/31/17 02:00 78 16 98/59 03/31/17 01:30 77 18 101/59 03/31/17 01:00 76 17 98/56 03/31/17 00:30 83 17 95/61 03/31/17 00:00 80 16 92/55 03/30/17 23:30 92 19 87/58 03/30/17 23:00 77 19 97/61 03/30/17 22:30 82 16 104/64 03/30/17 22:00 98.6 F 103 H 15 112/75 03/30/17 21:44 101 H 03/30/17 19:14 96.7 F L 77 19 116/97 03/30/17 16:21 98.3 F 77 19 116/67 03/30/17 16:00 18 Pulse Ox 03/31/17 11:00 95 03/31/17 10:30 94 L 03/31/17 10:00 94 L 03/31/17 09:30 90 L 03/31/17 09:00 94 L 03/31/17 08:30 95 03/31/17 08:00 98 03/31/17 07:30 94 L 03/31/17 07:00 94 L 03/31/17 06:30 93 L 03/31/17 06:00 96 03/31/17 05:30 95 03/31/17 05:00 94 L 03/31/17 04:30 94 L 03/31/17 04:00 92 L 03/31/17 03:30 98 03/31/17 03:00 99 03/31/17 02:30 97 03/31/17 02:00 96 03/31/17 01:30 96 03/31/17 01:00 95 03/31/17 00:30 97 03/31/17 00:00 98 03/30/17 23:30 98 03/30/17 23:00 98 03/30/17 22:30 100 03/30/17 22:00 95 03/30/17 21:44 03/30/17 19:14 94 L 03/30/17 16:21 94 L 03/30/17 16:00 Intake and Output 03/30/17 03/31/17 03/31/17 22:59 06:59 14:59 Intake Total 2465 1000 Output Total 575 300 Balance 1890 700 Intake: IV 2225 300 Sodium Chloride 0.9% 225 300 Sodium Chloride 0.9% 2, 2000 000 ml @ 500 mls/hr IV . Q4H ONE Rx#:[id number] Oral 240 700 Output: Urine 575 300 Other: Voiding Method Bedpan Urinal Urinal Urinal # Voids 1 0 Weight 116.5 kg Physical exam revealed a 61-year-old white male in no distress. HEENT: Anicteric conjunctiva, moist mucous membranes, throat is clear, heavily bearded, Neck: The neck is supple without significant lymphadenopathy or thyromegaly. Healing stoma noted in the lower anterior portion of his neck. Lungs: Diminished breath sound bilaterally no crackles or rhonchi or wheezes. Heart: Irregular with a positive S4 no murmur click or rub Abdomen: Obese, soft nontender no megaly no rebound no guarding, positive bowel sounds. Surgical wound from his [employer] shunt is well-healed. The PEG tube site was noted. Minimal scanty drainage noted at the site Extremities: The upper extremities have excellent pulses they are symmetric, no significant petechiae or telangiectasia. No splinter hemorrhages were noted. The lower extremities are free from significant edema. Site of recent right sided arthrocentesis was noted. Neuro: Is awake and alert as has the left hemiparesis Skin: pressure ulceration to the coccyx is noted. Results - Laboratory Findings CBC and BMP: 03/31/17 04:57 03/31/17 04:57 PT/INR, D-dimer D-Dimer 3.77 mg/L FEU (<0.60) H 03/30/17 21:11 Abnormal lab findings: Abnormal Labs 03/26/17 03/26/17 03/26/17 18:04 18:25 18:25 RBC 3.93 L Hgb 10.2 L Hct 33.1 L MCHC RDW 17.6 H Neutrophils # Lymphocytes # 0.8 L ESR D-Dimer Potassium Glucose POC Glucose (mg/dL) 136 H Plasma Lactic Acid Maxx Phosphorus Total Creatine Kinase <20 L C-Reactive Protein Albumin Urine Glucose (UA) Ur Leukocyte Esterase Urine WBC Urine Mucus 03/26/17 03/26/17 03/27/17 18:25 19:53 06:47 RBC Hgb Hct MCHC RDW Neutrophils # Lymphocytes # ESR D-Dimer Potassium Glucose 123 H POC Glucose (mg/dL) 102 H Plasma Lactic Acid Maxx Phosphorus Total Creatine Kinase C-Reactive Protein Albumin 3.3 L Urine Glucose (UA) Ur Leukocyte Esterase Small H Urine WBC 6 H Urine Mucus Rare H 03/27/17 03/27/17 03/27/17 11:56 16:48 19:33 RBC Hgb Hct MCHC RDW Neutrophils # Lymphocytes # ESR D-Dimer Potassium Glucose POC Glucose (mg/dL) 129 H 148 H 127 H Plasma Lactic Acid Maxx Phosphorus Total Creatine Kinase C-Reactive Protein Albumin Urine Glucose (UA) Ur Leukocyte Esterase Urine WBC Urine Mucus 03/28/17 03/28/1703/28/17 06:54 07:05 07:05 RBC 3.77 L Hgb 9.7 L Hct 31.7 L MCHC 30.6 L RDW 18.8 H Neutrophils # Lymphocytes # ESR D-Dimer Potassium Glucose 111 H POC Glucose (mg/dL) 115 H Plasma Lactic Acid Maxx Phosphorus Total Creatine Kinase C-Reactive Protein Albumin 2.9 L Urine Glucose (UA) Ur Leukocyte Esterase Urine WBC Urine Mucus 03/28/17 03/28/17 03/28/17 11:42 17:19 20:16 RBC Hgb Hct MCHC RDW Neutrophils # Lymphocytes # ESR D-Dimer Potassium Glucose POC Glucose (mg/dL) 176 H 130 H 146 H Plasma Lactic Acid Maxx Phosphorus Total Creatine Kinase C-Reactive Protein Albumin Urine Glucose (UA) Ur Leukocyte Esterase Urine WBC Urine Mucus 03/29/17 03/29/17 03/29/17 07:10 07:39 07:39 RBC 3.58 L Hgb 9.4 L Hct 29.6 L MCHC RDW 18.3 H Neutrophils # Lymphocytes # 0.7 L ESR 96 H D-Dimer Potassium Glucose POC Glucose (mg/dL) 107 H Plasma Lactic Acid Maxx Phosphorus Total Creatine Kinase C-Reactive Protein 41.0 H Albumin 2.8 L Urine Glucose (UA) Ur Leukocyte Esterase Urine WBC Urine Mucus 03/29/17 03/29/17 03/29/17 12:27 17:24 19:53 RBC Hgb Hct MCHC RDW Neutrophils # Lymphocytes # ESR D-Dimer Potassium Glucose POC Glucose (mg/dL) 120 H 123 H 151 H Plasma Lactic Acid Maxx Phosphorus Total Creatine Kinase C-Reactive Protein Albumin Urine Glucose (UA) Ur Leukocyte Esterase Urine WBC Urine Mucus 03/30/17 03/30/17 03/30/17 06:51 06:51 07:17 RBC 3.91 L Hgb 10.0 L Hct 32.6 L MCHC 30.6 L RDW 18.4 H Neutrophils # Lymphocytes # ESR D-Dimer Potassium Glucose POC Glucose (mg/dL) 101 H Plasma Lactic Acid Maxx Phosphorus 4.8 H Total Creatine Kinase C-Reactive Protein Albumin Urine Glucose (UA) Ur Leukocyte Esterase Urine WBC Urine Mucus 03/30/17 03/30/17 03/30/17 11:47 17:34 20:12 RBC Hgb Hct MCHC RDW Neutrophils # Lymphocytes # ESR D-Dimer Potassium Glucose POC Glucose (mg/dL) 194 H 110 H 133 H Plasma Lactic Acid Maxx Phosphorus Total Creatine Kinase C-Reactive Protein Albumin Urine Glucose (UA) Ur Leukocyte Esterase Urine WBC Urine Mucus 03/30/17 03/30/17 03/30/17 20:48 21:11 21:11 RBC Hgb 11.6 L Hct 38.2 L MCHC 30.4 L RDW 19.0 H Neutrophils # Lymphocytes # ESR D-Dimer Potassium Glucose 147 H POC Glucose (mg/dL) 122 H Plasma Lactic Acid Maxx Phosphorus Total Creatine Kinase C-Reactive Protein Albumin 2.9 L Urine Glucose (UA) Ur Leukocyte Esterase Urine WBC Urine Mucus 03/30/17 03/30/17 03/30/17 21:11 21:11 21:44 RBC Hgb Hct MCHC RDW Neutrophils # Lymphocytes # ESR D-Dimer 3.77 H Potassium Glucose POC Glucose (mg/dL) 186 H Plasma Lactic Acid Maxx 3.7 H* Phosphorus Total Creatine Kinase C-Reactive Protein Albumin Urine Glucose (UA) Ur Leukocyte Esterase Urine WBC Urine Mucus 03/31/17 03/31/17 03/31/17 00:58 04:57 04:57 RBC 4.15 L Hgb 10.5 L Hct 34.9 L MCHC 30.2 L RDW 18.5 H Neutrophils # 7.8 H Lymphocytes # 0.4 L ESR D-Dimer Potassium 5.2 H Glucose 202 H POC Glucose (mg/dL) Plasma Lactic Acid Maxx 2.9 H* Phosphorus 5.1 H Total Creatine Kinase C-Reactive Protein Albumin 2.9 L Urine Glucose (UA) Ur Leukocyte Esterase Urine WBC Urine Mucus 03/31/17 03/31/17 03/31/17 07:47 10:15 12:41 RBC Hgb Hct MCHC RDW Neutrophils # Lymphocytes # ESR D-Dimer Potassium Glucose POC Glucose (mg/dL) 191 H 180 H Plasma Lactic Acid Maxx Phosphorus Total Creatine Kinase C-Reactive Protein Albumin Urine Glucose (UA) 3+ H Ur Leukocyte Esterase Urine WBC Urine Mucus - Diagnostic Findings Chest x-ray: image reviewed (No evidence of pneumonia, minimal bibasilar atelectasis is noted.) Assessment and Plan Assessment: Impression: 1 acute sepsis and bacteremia secondary to group D enterococcus faecalis. Source is not clear at this point, being addressed by Dr. Borja on consultation. 2 suspect acute polynephritis. Urine cultures are pending, urinalysis from today is unremarkable. 3 no evidence of pneumonia based on the chest x-ray findings. And based on the clinical history. 4 sacral decubitus ulcer with cellulitis secondary to pseudomonas aeruginosa. 5 acute hypotension most likely secondary to daptomycin, although possibility of hypotension from sepsis is not entirely ruled out but clinically felt to be less likely based on the clinical history. 6 history of acoustic neuroma requiring surgery and prolonged postoperative care with failure to wean and previous tracheostomy requiring decannulation recently. 7 left sided hemiparesis secondary to recent craniotomy and acoustic neuroma surgery. History of [employer] shunt placement. 8 history of paroxysmal atrial fibrillation, being addressed by cardiology. 9 advanced tricompartmental degenerative joint disease, and recent arthrocentesis done from the right knee. 10 chronic anemia. Secondary to chronic disease. Recommendation: Continue present antibiotics/vancomycin, however the patient will likely need further coverage for Pseudomonas, the decision will be left to Dr. Jonh vu. At this point a don't think we know the exact source of his enterococcal infection, and his blood cultures have been positive all along since admission. May have to seriously consider a transesophageal echocardiogram. Cardiology is following the patient. Considering the patient' s episode of hypotension was transient and resolved and considering it was closer related to the daptomycin infusion, it was felt to be related to daptomycin unless proven otherwise. We'll continue to follow, patient can be transferred out of the ICU today. Time with Patient: Greater than 30
[2017-03-31] MEDS: GABAPENTIN 100 MG CAP PO SCH (13:57)
[2017-03-31 17:30] LABS: Glucose,Whole Blood 214 mg/dL (75-99)
[2017-03-31] MEDS: AMPICILLIN 2,000 MG in SODIUM CHLORIDE 0.9% 100 ML IVPB SCH ×2 (18:01→23:35)
[2017-03-31] MEDS ORDERED: SODIUM CHLORIDE 0.9% 1,000 ML IV ONE (19:31)
--- NOTE | 2017-03-31 19:36 | PN ---
PROGRESS NOTE DATE OF SERVICE: 03/31/2017 INTERVAL HISTORY: This 61-year-old gentleman admitted with acoustic neuroma surgery had possible complication including respiratory failure as well as weakness of the left side. The patient currently was admitted with sepsis secondary to bacteremia secondary to enterococcus faecalis. The patient apparently had hypotension, transferred to ICU and is being closely monitored. The patient complains of generalized tiredness and weakness. The patient is on broad-spectrum IV antibiotics. Infectious Disease is following the patient closely. A chest x-ray was done which I reviewed personally showed some improvement in lung function. A CT scan of the chest, abdomen and pelvis was also done which showed possible changes ventriculoperitoneal shunt and hepatosplenomegaly. There is no history of fever, rigors or chills at this time. PAST MEDICAL HISTORY: Reviewed. REVIEW OF SYSTEMS: CARDIOVASCULAR: No angina. RESPIRATORY: Occasional cough. GI: As mentioned earlier. : No dysuria. NERVOUS SYSTEM: As mentioned earlier. CURRENT MEDICATIONS: Reviewed and include: 1. [place] 7.5. 2. DuoNeb q.i.d. and p.r.n. 3. Elavil 10 mg q.h.s. 4. Lotrimin. 5. Cardura 2 mg daily. 6. Pepcid. 7. Ancef. 8. Neurontin 300 mg t.i.d. 9. Heparin. 10.Levemir. 11.Magnesium oxide. 12.Solu-Medrol 60 IV q.6h. 13.Lopressor. 15.Senokot. 16.Zoloft. PHYSICAL EXAM: Patient is alert, oriented x3. The pulse is 80, blood pressure is 80/50, respiration 18, temperature is normal, pulse ox 94% on room air. HEENT: Conjunctivae normal. Oral mucosa moist. NECK: No jugular venous distention. No carotid bruit. No lymph node enlargement. CARDIOVASCULAR: S1, S2. RESPIRATORY: Breath sounds diminished in the bases. A few scattered rhonchi. No crackles. ABDOMEN: Soft, nontender. LEGS: No edema. NERVOUS SYSTEM: Diffusely weak left more than right. No focal deficits. LABS: At this time shows WBC 8.1, hemoglobin is 10.5, glucose 202. ASSESSMENT: 1. Acute sepsis bacteremia secondary to group B Enterococcus faecalis secondary to urinary tract infection. 2. Acute pyelonephritis and urinary tract infection with sepsis. 3. Sacral decubitus ulcers secondary to Pseudomonas aeruginosa. 4. History of recent acoustic neuroma surgery and postoperative left-sided hemiparalysis and ventriculoperitoneal shunt placement. 5. Hypertension, possibly secondary to medication daptomycin. 6. History of paroxysmal atrial fibrillation. 7. Degenerative joint disease. 8. Gait dysfunction. RECOMMENDATIONS AND DISCUSSION: This 61-year-old gentleman who presented with multiple complex medical issues. Will monitor the patient closely. Continue the current medications and I recommend to reduce the dose of Lopressor and hold if the blood pressure is too low. Continue steroids. Continue the rest of medications including antibiotics. I also recommend PT, OT evaluation and as well as possible ECF rehab also. We will continue to monitor. I would also recommend to check orthostatic blood pressure also on a t.i.d. basis. The prognosis is guarded because of multiple complex medical issues. Further recommendations to follow. KEVENL / IJN: [id number] / MANISHA
[2017-03-31 20:08] LABS: Glucose,Whole Blood 231 mg/dL (75-99)
[2017-03-31] MEDS: MENTHOL-CAMPHOR LOTION 222 APPLIC/222 ML BOTTLE TOPICAL SCH (22:11)
[2017-03-31] MEDS: METOPROLOL TARTRATE 12.5 MG TAB PO SCH (22:12)
[2017-03-31] MEDS: AMITRIPTYLINE HCL 10 MG TAB PO SCH (22:13)
[2017-03-31] MEDS: SERTRALINE 50 MG TAB PO SCH (22:14)
--- NOTE | 2017-03-31 22:51 | P.PN ---
Subjective Progress Note Date: 03/31/17 Principal diagnosis: Sepsis 61 -year-old male presents to Hospital with altered mentation and fever. This pleasant gentleman has a history of cerebral aneurysm. With surgical intervention including vent curricular peritoneal shunting from several years ago. Has a several year history of difficulty with hearing in his left ear. 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 He has had surgical intervention. 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 There are concerns for sepsis and workup has been initiated. Possible blood cultures are noted. Concerns to cellulitis at the tube site. The patient's who is present is able to relate that recently she had some improvement of his status. His tracheostomy recently was decannulated. He is tolerating that well. He has follow study today that he did well with. Will be allowed oral intake but his tube feeds are on hold due to concerns to PEG tube site infection. Positive blood cultures are noted. And the repeat cultures are also positive. With this antibiotic therapy was changed from vancomycin to daptomycin. This was admitted as a slow IV push. The patient immediately had a reaction antibiotic. Hypotension fever diaphoresis and shortness of breath all occurred. Fortunately resolved. He was in the ICU for monitoring and is now back to the general medical floor. Because of the ongoing possible cultures computed tomography scan of the chest abdomen pelvis has been requested. Case is discussed with the hospitalist. Objective - Vital Signs Vital signs: Vital Signs Temp 97.3 F L 03/31/17 19:42 Pulse 83 03/31/17 19:42 Resp 18 03/31/17 19:42 BP 113/58 03/31/17 19:42 Pulse Ox 94 L 03/31/17 19:42 Intake & Output 03/31/17 03/31/17 04/01/17 06:59 18:59 06:59 Intake Total 2465 1150 Output Total 575 300 Balance 1890 850 Weight 116.5 kg Intake: IV 2225 450 Sodium Chloride 0.9% 225 450 Sodium Chloride 0.9% 2, 2000 000 ml @ 500 mls/hr IV . Q4H ONE Rx#:[id number] Oral 240 700 Output: Urine 575 300 Other: Voiding Method Urinal Urinal # Voids 0 # Bowel Movements 1 - Exam 61-year-old male has recovered from the events of yesterday HEENT: Anicteric conjunctiva are pink and moist nasal mucosa grossly intact without significant lesions, there is no thrush. 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 Neck: The neck is supple without significant lymphadenopathy or thyromegaly. Lungs: Good bilateral air entry without significant crackles or wheezing. There is no significant bronchial sounds. There is no egophony or dullness. Heart: Irregular with a positive S4 no murmur click or rub Abdomen: Obese, Positive bowel sounds soft and nontender without palpable masses or organomegaly. There was no guarding or rebound. Surgical wound from his [employer] shunt is well-healed. The PEG tube site is evaluated. Evidence or just some scant drainage at the site. Extremities: The upper extremities have excellent pulses they are symmetric, no significant petechiae or telangiectasia. No splinter hemorrhages were noted. The lower extremities are free from significant edema. Is evidence of the right knee effusion that is slightly tender on the lateral surface The peripheral pulses were 2+ and symmetric. Neuro: Is awake and alert as has the left hemiparesis Does have the pressure ulceration to the coccyx that is stable to improved - Labs CBC & Chem 7: 03/31/17 04:57 03/31/17 04:57 Labs: Abnormal Lab Results - Last 24 Hours (Table) 03/31/17 03/31/17 03/31/17 Range/Units 00:58 04:57 04:57 RBC 4.15 L (4.30-5.90) m/uL Hgb 10.5 L (13.0-17.5) gm/dL Hct 34.9 L (39.0-53.0) % MCHC 30.2 L (31.0-37.0) g/dL RDW 18.5 H (11.5-15.5) % Neutrophils # 7.8 H (1.3-7.7) k/uL Lymphocytes # 0.4 L (1.0-4.8) k/uL Potassium 5.2 H (3.5-5.1) mmol/L Glucose 202 H (74-99) mg/dL POC Glucose (mg/dL) (75-99) mg/dL Plasma Lactic Acid Maxx 2.9 H* (0.7-2.0) mmol/L Phosphorus 5.1 H (2.5-4.5) mg/dL Albumin 2.9 L (3.5-5.0) g/dL Urine Glucose (UA) (Negative) 03/31/17 03/31/17 03/31/17 Range/Units 07:47 10:15 12:41 RBC (4.30-5.90) m/uL Hgb (13.0-17.5) gm/dL Hct (39.0-53.0) % MCHC (31.0-37.0) g/dL RDW (11.5-15.5) % Neutrophils # (1.3-7.7) k/uL Lymphocytes # (1.0-4.8) k/uL Potassium (3.5-5.1) mmol/L Glucose (74-99) mg/dL POC Glucose (mg/dL) 191 H 180 H (75-99) mg/dL Plasma Lactic Acid Maxx (0.7-2.0) mmol/L Phosphorus (2.5-4.5) mg/dL Albumin (3.5-5.0) g/dL Urine Glucose (UA) 3+ H (Negative) 03/31/17 03/31/17 03/31/17 Range/Units 13:49 17:27 18:13 RBC (4.30-5.90) m/uL Hgb (13.0-17.5) gm/dL Hct (39.0-53.0) % MCHC (31.0-37.0) g/dL RDW (11.5-15.5) % Neutrophils # (1.3-7.7) k/uL Lymphocytes # (1.0-4.8) k/uL Potassium (3.5-5.1) mmol/L Glucose (74-99) mg/dL POC Glucose (mg/dL) 214 H (75-99) mg/dL Plasma Lactic Acid Maxx 2.7 H* 4.0 H* (0.7-2.0) mmol/L Phosphorus (2.5-4.5) mg/dL Albumin (3.5-5.0) g/dL Urine Glucose (UA) (Negative) 03/31/17 Range/Units 20:06 RBC (4.30-5.90) m/uL Hgb (13.0-17.5) gm/dL Hct (39.0-53.0) % MCHC (31.0-37.0) g/dL RDW (11.5-15.5) % Neutrophils # (1.3-7.7) k/uL Lymphocytes # (1.0-4.8) k/uL Potassium (3.5-5.1) mmol/L Glucose (74-99) mg/dL POC Glucose (mg/dL) 231 H (75-99) mg/dL Plasma Lactic Acid Maxx (0.7-2.0) mmol/L Phosphorus (2.5-4.5) mg/dL Albumin (3.5-5.0) g/dL Urine Glucose (UA) (Negative) Microbiology - Last 24 Hours (Table) 03/27/17 16:00 Anaerobic Culture - Final Abdomen 03/31/17 10:15 Urine Culture - Preliminary Urine,Voided 03/28/17 10:00 Gram Stain - Preliminary Knee - Right Body Fluid Culture - Preliminary 03/28/17 07:05 Blood Culture Gram Stain - Final Blood Blood Culture - Final Enterococcus faecalis 03/29/17 08:01 Blood Culture Gram Stain - Preliminary Blood Blood Culture - Preliminary Group D Enterococcus 03/29/17 07:39 Blood Culture Gram Stain - Preliminary Blood Blood Culture - Preliminary Group D Enterococcus Laboratory Results WBC 8.5 k/uL (3.8-10.6) 03/31/17 04:57 RBC 4.15 m/uL (4.30-5.90) L 03/31/17 04:57 Hgb 10.5 gm/dL (13.0-17.5) L 03/31/17 04:57 Hct 34.9 % (39.0-53.0) L 03/31/17 04:57 MCV 84.0 fL (80.0-100.0) 03/31/17 04:57 MCH 25.3 pg (25.0-35.0) 03/31/17 04:57 MCHC 30.2 g/dL (31.0-37.0) L 03/31/17 04:57 RDW 18.5 % (11.5-15.5) H 03/31/17 04:57 Plt Count 182 k/uL (150-450) 03/31/17 04:57 Neutrophils % 93 % 03/31/17 04:57 Lymphocytes % 5 % 03/31/17 04:57 Monocytes % 1 % 03/31/17 04:57 Eosinophils % 0 % 03/31/17 04:57 Basophils % 0 % 03/31/17 04:57 Neutrophils # 7.8 k/uL (1.3-7.7) H 03/31/17 04:57 Lymphocytes # 0.4 k/uL (1.0-4.8) L 03/31/17 04:57 Monocytes # 0.1 k/uL (0-1.0) 03/31/17 04:57 Eosinophils # 0.0 k/uL (0-0.7) 03/31/17 04:57 Basophils # 0.0 k/uL (0-0.2) 03/31/17 04:57 Hypochromasia Marked 03/31/17 04:57 Poikilocytosis Slight 03/31/17 04:57 Anisocytosis Slight 03/31/17 04:57 ESR 96 mm/hr (0-15) H 03/29/17 07:39 D-Dimer 3.77 mg/L FEU (<0.60) H 03/30/17 21:11 Sodium 139 mmol/L (137-145) 03/31/17 04:57 Potassium 5.2 mmol/L (3.5-5.1) H 03/31/17 04:57 Chloride 107 mmol/L (98-107) 03/31/17 04:57 Carbon Dioxide 27 mmol/L (22-30) 03/31/17 04:57 Anion Gap 5 mmol/L 03/31/17 04:57 BUN 17 mg/dL (9-20) 03/31/17 04:57 Creatinine 0.90 mg/dL (0.66-1.25) 03/31/17 04:57 Est GFR (MDRD) Af Amer >60 (>60 ml/min/1.73 sqM) 03/31/17 04:57 Est GFR (MDRD) Non-Af >60 (>60 ml/min/1.73 sqM) 03/31/17 04:57 Glucose 202 mg/dL (74-99) H 03/31/17 04:57 POC Glucose (mg/dL) 231 mg/dL (75-99) H 03/31/17 20:06 POC Glu Lens Inserter ID Cleopatra Carlton 03/31/17 20:06 Lactic Ac Sepsis Rflx Y 03/31/17 14:18 Plasma Lactic Acid Maxx 4.0 mmol/L (0.7-2.0) H* 03/31/17 18:13 Calcium 9.0 mg/dL (8.4-10.2) 03/31/17 04:57 Phosphorus 5.1 mg/dL (2.5-4.5) H 03/31/17 04:57 Magnesium 2.0 mg/dL (1.6-2.3) 03/31/17 04:57 Total Bilirubin 0.2 mg/dL (0.2-1.3) 03/31/17 04:57 AST 21 U/L (17-59) 03/31/17 04:57 ALT 31 U/L (21-72) 03/31/17 04:57 Alkaline Phosphatase 59 U/L (38-126) 03/31/17 04:57 Ammonia 17 umol/L (<30) 03/26/17 18:25 Total Creatine Kinase <20 U/L (55-170) L 03/26/17 18:25 CK-MB (CK-2) 0.3 ng/mL (0.0-2.4) 03/26/17 18:25 CK-MB (CK-2) Rel Index 03/26/17 18:25 Troponin I <0.012 ng/mL (0.000-0.034) 03/30/17 21:11 C-Reactive Protein 41.0 mg/L (<10.0) H 03/29/17 07:39 Total Protein 6.7 g/dL (6.3-8.2) 03/31/17 04:57 Albumin 2.9 g/dL (3.5-5.0) L 03/31/17 04:57 TSH 2.380 mIU/L (0.465-4.680) 03/28/17 07:05 Urine Color Yellow 03/31/17 10:15 Urine Appearance Clear (Clear) 03/31/17 10:15 Urine pH 5.5 (5.0-8.0) 03/31/17 10:15 Ur Specific [place] 1.019 (1.001-1.035) 03/31/17 10:15 Urine Protein Negative (Negative) 03/31/17 10:15 Urine Glucose (UA) 3+ (Negative) H 03/31/17 10:15 Urine Ketones Negative (Negative) 03/31/17 10:15 Urine Blood Negative (Negative) 03/31/17 10:15 Urine Nitrite Negative (Negative) 03/31/17 10:15 Urine Bilirubin Negative (Negative) 03/31/17 10:15 Urine Urobilinogen <2.0 mg/dL (<2.0) 03/31/17 10:15 Ur Leukocyte Esterase Negative (Negative) 03/31/17 10:15 Urine RBC <1 /hpf (0-5) 03/26/17 19:53 Urine WBC 6 /hpf (0-5) H 03/26/17 19:53 Urine Mucus Rare /hpf (None) H 03/26/17 19:53 Fluid Source Synovial 03/28/17 10:00 Fluid Color Red 03/28/17 10:00 Fluid Appearance Bloody 03/28/17 10:00 Fluid RBC 28222 /uL 03/28/17 10:00 Fluid Nucleated Cells 60 /uL 03/28/17 10:00 Fluid Polynuclear WBCs 37 % 03/28/17 10:00 Fluid Mononuclear WBCs 63 % 03/28/17 10:00 Synovial Source Right Knee 03/28/17 10:00 Synovial Crystals See comment 03/28/17 10:00 Vancomycin Trough 17.7 ug/mL 03/29/17 21:11 C. difficile (EIA) Intrp Negative (Negative) 03/31/17 00:00 Microbiology 03/27/17 16:00 Abdomen Anaerobic Culture - Final 03/31/17 10:15 Urine,Voided Urine Culture - Preliminary 03/28/17 10:00 Knee - Right Gram Stain - Preliminary 03/28/17 10:00 Knee - Right Body Fluid Culture - Preliminary 03/28/17 07:05 Blood Blood Culture Gram Stain - Final 03/28/17 07:05 Blood Blood Culture - Final Enterococcus faecalis 03/29/17 08:01 Blood Blood Culture Gram Stain - Preliminary 03/29/17 08:01 Blood Blood Culture - Preliminary Group D Enterococcus 03/29/17 07:39 Blood Blood Culture Gram Stain - Preliminary 03/29/17 07:39 Blood Blood Culture - Preliminary Group D Enterococcus 03/28/17 10:00 Knee - Right Anaerobic Culture - Preliminary 03/29/17 08:01 Blood Blood Culture - Final 03/29/17 07:39 Blood Blood Culture - Final 03/27/17 16:00 Abdomen Gram Stain - Final 03/27/17 16:00 Abdomen Wound Culture - Final Pseudomonas aeruginosa Leanne albicans 03/26/17 18:25 Blood Blood Culture Gram Stain - Final 03/26/17 18:25 Blood Blood Culture - Final Enterococcus faecalis 03/28/17 07:05 Blood Blood Culture - Final 03/26/17 18:25 Blood Blood Culture - Final As noted urinalysis was negative at admission, urine culture was not obtained before antibiotic therapy was started Assessment and Plan (1) Sepsis Narrative/Plan: 61 year old male that has multiple medical troubles who presents for evaluation of increasing weakness and fever. There are concerns to sepsis and blood cultures have been performed. They've come back as positive for gram- positive cocci in chains and pairs. At this time source is not completely clear. There was concern as to the PEG site being infected. On evaluation does not appear to be grossly infected. Methyline blue was placed through the PEG tube without any evidence of leakage at this time. The patient's tracheostomy was decannulated and does not appear to be the source of infection. His pulmonary status appears to be stable. Urinalysis is mildly abnormal and urine culture potentially is etiology. Antimicrobial therapy with vancomycin is initiated. He also received levofloxacin. However he is on amiodarone and this is discontinued. We'll enhance gram-negative coverage if needed based on other cultures but gram- positive cocci which appears to be enterococcus is the only blood culture positive so far.. Followup blood cultures are requested. These are positive again. Further have been requested. Receiving vancomycin for the enterococcus it's been isolated. This will be altered to daptomycin and that he appears to be feeling vancomycin therapy. Computed tomography scan shows evidence of the lesion on the left kidney. This could be an abscess. Continue supportive care. The PEG site is being cleansed and a Aquacel silver utilized to the site. The knee was aspirated by orthopedics await final culture. Culture is negative so far. Crystal analysis was negative Echocardiogram is negative. Appears that the left kidney as a source of infection may need surgical evaluation. After daptomycin therapy the patient had a bout of hypotension and tachycardia. Concerns to medication reaction. This is now put on hold. However the patient does have evidence of ongoing sepsis. Patient's penicillin ALLERGY has been clarified. Appears as noted by testing rather than by exposure to the drug. Because of his severe illness a trial of penicillin therapy will be given. If tolerates within utilize examination therapy with beta-lactam and gentamicin until his bacteremia clears. Is on the computed tomography scan reveals evidence of the left kidney is the likely source. Current Visit: Yes Status: Acute Code(s): A41.9 - SEPSIS, UNSPECIFIED ORGANISM SNOMED Code(s): 89603665 (2) Fever Current Visit: Yes Status: Acute Code(s): R50.9 - FEVER, UNSPECIFIED SNOMED Code(s): 070649888 (3) Effusion, right knee Current Visit: Yes Status: Acute Priority: Medium Code(s): M25.461 - EFFUSION, RIGHT KNEE SNOMED Code(s): 011036108 (4) Acoustic neuroma Current Visit: Yes Status: Acute Code(s): D33.3 - BENIGN NEOPLASM OF CRANIAL NERVES SNOMED Code(s): 160089878
[2017-03-31] MEDS: methylPREDNISolone SOD SUCCI 40 MG/ML 1 ML VIAL IV SCH (23:59)
[2017-04-01] MEDS: AMPICILLIN 2,000 MG in SODIUM CHLORIDE 0.9% 100 ML IVPB SCH ×4 (04:55→23:38)
[2017-04-01 07:07] LABS: Anisocytosis Slight; Basophils % (A) 0 %; CH 26.1; CHCM 30.3; Eosinophils % (A) 0 %; HCT 30.3 % (39.0-53.0); HDW 3.93; Hypochromasia Marked; Luc # (Auto) 0.07; Luc % (Auto) 2; Lymphocytes # (A) 0.7 k/uL (1.0-4.8); Lymphocytes % (A) 14 %; MCH 25.7 pg (25.0-35.0); MCHC 29.8 g/dL (31.0-37.0); MCV 86.2 fL (80.0-100.0); Mean Platelet Volume 7.6; Monocytes # (A) 0.2 k/uL (0-1.0); Monocytes % (A) 5 %; Neutrophils # (A) 3.9 k/uL (1.3-7.7); Neutrophils % (A) 80 %; Poikilocytosis Slight; RBC 3.51 m/uL (4.30-5.90); RDW 16.9 % (11.5-15.5); WBC 4.9 k/uL (3.8-10.6)
[2017-04-01 07:10] LABS: Glucose,Whole Blood 112 mg/dL (75-99)
[2017-04-01 07:19] LABS: Anion Gap 5 mmol/L; Blood Urea Nitrogen 18 mg/dL (9-20); Carbon Dioxide 25 mmol/L (22-30); Chloride 111 mmol/L (98-107); Glucose 101 mg/dL (74-99); Magnesium 1.5 mg/dL (1.6-2.3); Non-African American GFR(MDRD) >60 (>60 ml/min/1.73 sqM); Phosphorus 3.8 mg/dL (2.5-4.5); Potassium 4.3 mmol/L (3.5-5.1); Sodium 141 mmol/L (137-145)
[2017-04-01] MEDS: INSULIN ASPART 100 UNIT/ML 1 ML 10 ML VIAL SQ SCH ×4 (07:19→21:25)
[2017-04-01] MEDS: methylPREDNISolone SOD SUCCI 40 MG/ML 1 ML VIAL IV SCH ×3 (07:58→23:38)
[2017-04-01] MEDS: POLYETHYLENE GLYCOL 3350 17 GM POWD.PACK PO SCH (08:03)
[2017-04-01] MEDS: SENNOSIDES-DOCUSATE SODIUM 1 EACH TAB PO SCH ×2 (08:03→21:30)
[2017-04-01] MEDS: HEPARIN SODIUM,PORCINE 10,000 UNIT/ML 1 ML VIAL SQ SCH ×3 (09:06→23:38)
[2017-04-01] MEDS: CLOTRIMAZOLE 1% CREAM 15 GM TUBE TOPICAL SCH ×2 (09:07→21:30)
[2017-04-01] MEDS: FAMOTIDINE 20 MG TAB PO SCH ×2 (09:07→21:31)
[2017-04-01] MEDS: FERROUS SULFATE 325 MG TAB PO SCH (09:08)
[2017-04-01] MEDS: METOPROLOL TARTRATE 12.5 MG TAB PO SCH ×2 (09:08→21:30)
[2017-04-01] MEDS: GABAPENTIN 300 MG CAP PO SCH ×2 (09:08→21:30)
[2017-04-01] MEDS: MAGNESIUM OXIDE 400 MG TAB PO SCH (09:08)
[2017-04-01] MEDS: DOXAZOSIN 2 MG TAB PO SCH (09:08)
[2017-04-01] MEDS: [UNRECOGNIZED DRUG - OTHER] TOPICAL SCH ×2 (09:09→21:49)
[2017-04-01] MEDS ORDERED: GENTAMICIN PER PHARMACY MISCELLANE PRN (09:37)
[2017-04-01] MEDS: INSULIN DETEMIR 100 UNIT/ML 10 ML VIAL SQ SCH ×2 (10:31→22:00)
[2017-04-01] MEDS: GENTAMICIN 120 MG in SODIUM CHLORIDE 0.9% 100 ML IVPB SCH ×2 (11:25→20:50)
--- NOTE | 2017-04-01 11:44 | P.PN ---
Subjective Progress Note Date: 04/01/17 Principal diagnosis: Acute sepsis and bacteremia secondary to group D enterococcus faecalis. This is a 61-year-old white male with history of multiple medical problems, patient had acoustic neuroma surgery back in November at [facility] in [place], postoperatively the patient developed paralysis on the left side, and he developed postoperative respiratory failure, and failure to wean, he required tracheostomy which was recently D cannulated. Patient was eventually discharged to a subacute rehab. Patient was sent to [facility] on 03/26/2017 with mostly symptoms of mental status change, metabolic encephalopathy, and he was felt to possibly have pneumonia. His other medical problems included a stage II decubitus ulcer, avulsion fracture of the right knee, paroxysmal atrial fibrillation, acute toxic encephalopathy felt to be related to sepsis. It was not clear whether the source of sepsis would be coming from, but looking at the microbiology report, patient had positive blood cultures growing group D enterococcus, Enterococcus faecalis, and he had positive wound cultures from the decubitus ulcer growing Pseudomonas and Leanne albicans. Blood cultures have been positive since admission on 2016, and follow-up cultures as of 03/29/2017, remain positive for group D enterococcus. Patient was seen by Dr. Borja on consultation, and he was placed on vancomycin and daptomycin. However yesterday the patient developed an acute episode of hypotension and diaphoresis shortly after he received his daptomycin dose. Patient was transferred to the ICU, given fluid boluses, daptomycin is presently on hold, and the patient responded well not requiring any norepinephrine. Chest x-ray done in the ICU showed basically atelectatic changes, no clear-cut evidence of pneumonia was appreciated. CT of the chest abdomen and pelvis showed postoperative changes and M[employer] shunt tubing, hepatosplenomegaly, and low-attenuation focus of the left kidney cannot exclude pyelonephritis. Surprisingly no urine culture has been done since admission no urinalysis has been done since admission, I went ahead and recommended a urine culture to be sent and a urinalysis to be sent today. I believe the primary source of the patient's enterococcal infection is most likely from the urine unless proven otherwise. Patient may truly have pyelonephritis causing his Enterococcus faecalis bacteremia. Patient had a recent arthrocentesis from the right knee, results of which are pending. The synovial fluid aspiration was sent for cultures Gram stain, and so far Gram stain is negative. Patient was reevaluated today on 04/01/2017, feeling much better, hemodynamically stable, denies any cough no wheezing no shortness of breath no nausea no vomiting no abdominal pain no melena no hematemesis no dysuria and no frequency no urgency. Patient was switched to ampicillin and gentamicin as per infectious disease, and seems to be doing well with that could've treatment. It is the feeling that his Enterococcus faecalis may be primarily from his left pyelonephritis?. CBC was noted and a relatively normal except for hemoglobin of 9 electrolytes and basic metabolic profile are normal. All the cultures were noted. And the note from Dr. Borja was also reviewed. Objective - Vital Signs Vital signs: Vital Signs Temp 97.7 F 04/01/17 07:00 Pulse 64 04/01/17 09:41 Resp 16 04/01/17 09:41 BP 131/78 04/01/17 07:00 Pulse Ox 94 L 04/01/17 07:30 Intake & Output 03/31/17 04/01/17 04/01/17 18:59 06:59 18:59 Intake Total 1150 240 Output Total 300 350 Balance 850 -110 Intake: IV 450 Sodium Chloride 0.9% 450 Oral 700 240 Output: Urine 300 350 Other: Voiding Method Urinal Urinal # Voids 1 # Bowel Movements 1 - Exam Physical exam revealed a 61-year-old white male in no distress. HEENT: Anicteric conjunctiva, moist mucous membranes, throat is clear, heavily bearded, Neck: The neck is supple without significant lymphadenopathy or thyromegaly. Healing stoma noted in the lower anterior portion of his neck. Lungs: Diminished breath sound bilaterally no crackles or rhonchi or wheezes. Heart: Irregular with a positive S4 no murmur click or rub Abdomen: Obese, soft nontender no megaly no rebound no guarding, positive bowel sounds. Surgical wound from his MOLD Y[employer]VIS[employer] shunt is well-healed. The PEG tube site was noted. Minimal scanty drainage noted at the site Extremities: The upper extremities have excellent pulses they are symmetric, no significant petechiae or telangiectasia. No splinter hemorrhages were noted. The lower extremities are free from significant edema. Site of recent right sided arthrocentesis was noted. Neuro: Is awake and alert as has the left hemiparesis Skin: pressure ulceration to the coccyx is noted. - Labs CBC & Chem 7: 04/01/17 06:38 04/01/17 06:38 Labs: Abnormal Lab Results - Last 24 Hours (Table) 03/31/17 03/31/17 03/31/17 Range/Units 12:41 13:49 17:27 RBC (4.30-5.90) m/uL Hgb (13.0-17.5) gm/dL Hct (39.0-53.0) % MCHC (31.0-37.0) g/dL RDW (11.5-15.5) % Lymphocytes # (1.0-4.8) k/uL Chloride (98-107) mmol/L Glucose (74-99) mg/dL POC Glucose (mg/dL) 180 H 214 H (75-99) mg/dL Plasma Lactic Acid Maxx 2.7 H* (0.7-2.0) mmol/L Magnesium (1.6-2.3) mg/dL 03/31/17 03/31/17 04/01/17 Range/Units 18:13 20:06 06:38 RBC (4.30-5.90) m/uL Hgb (13.0-17.5) gm/dL Hct (39.0-53.0) % MCHC (31.0-37.0) g/dL RDW (11.5-15.5) % Lymphocytes # (1.0-4.8) k/uL Chloride 111 H (98-107) mmol/L Glucose 101 H (74-99) mg/dL POC Glucose (mg/dL) 231 H (75-99) mg/dL Plasma Lactic Acid Maxx 4.0 H* (0.7-2.0) mmol/L Magnesium 1.5 L (1.6-2.3) mg/dL 04/01/17 04/01/17 Range/Units 06:38 07:08 RBC 3.51 L (4.30-5.90) m/uL Hgb 9.0 L D (13.0-17.5) gm/dL Hct 30.3 L (39.0-53.0) % MCHC 29.8 L (31.0-37.0) g/dL RDW 16.9 H (11.5-15.5) % Lymphocytes # 0.7 L (1.0-4.8) k/uL Chloride (98-107) mmol/L Glucose (74-99) mg/dL POC Glucose (mg/dL) 112 H (75-99) mg/dL Plasma Lactic Acid Maxx (0.7-2.0) mmol/L Magnesium (1.6-2.3) mg/dL Microbiology - Last 24 Hours (Table) 03/29/17 08:01 Blood Culture Gram Stain - Final Blood Blood Culture - Final Enterococcus faecalis 03/29/17 07:39 Blood Culture Gram Stain - Final Blood Blood Culture - Final Enterococcus faecalis 03/27/17 16:00 Anaerobic Culture - Final Abdomen 03/31/17 10:15 Urine Culture - Preliminary Urine,Voided 03/28/17 10:00 Gram Stain - Preliminary Knee - Right Body Fluid Culture - Preliminary Assessment and Plan Assessment: Impression: 1 acute sepsis and bacteremia secondary to group D enterococcus faecalis. Possibly from pyelonephritis involving the left kidney. 2 suspect acute polynephritis. Urine cultures are pending, urinalysis from today is unremarkable. 3 no evidence of pneumonia based on the chest x-ray findings. And based on the clinical history. 4 sacral decubitus ulcer with cellulitis secondary to pseudomonas aeruginosa. 5 acute hypotension most likely secondary to daptomycin, although possibility of hypotension from sepsis is not entirely ruled out but clinically felt to be less likely based on the clinical history. 6 history of acoustic neuroma requiring surgery and prolonged postoperative care with failure to wean and previous tracheostomy requiring decannulation recently. 7 left sided hemiparesis secondary to recent craniotomy and acoustic neuroma surgery. History of M[employer] shunt placement. 8 history of paroxysmal atrial fibrillation, being addressed by cardiology. 9 advanced tricompartmental degenerative joint disease, and recent arthrocentesis done from the right knee. 10 chronic anemia. Secondary to chronic disease. Recommendation: Continue present treatment plan, patient is now on ampicillin and gentamicin, hemodynamically stable, will continue to follow. Time with Patient: Less than 30
[2017-04-01 12:28] LABS: Glucose,Whole Blood 173 mg/dL (75-99)
[2017-04-01] MEDS: GABAPENTIN 100 MG CAP PO SCH (14:19)
[2017-04-01 17:18] LABS: Glucose,Whole Blood 144 mg/dL (75-99)
[2017-04-01] MEDS: MAGNESIUM SULFATE-D5W PMX 1 GM in DEXTROSE/WATER 1 100ML.BAG IVPB SCH ×2 (19:49→21:55)
--- NOTE | 2017-04-01 20:08 | PN ---
PROGRESS NOTE DATE OF SERVICE: 04/01/2017 This 61-year-old gentleman admitted with multiple medical problems, had sepsis and bacteremia from group D Enterococcus faecalis. 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 The patient is being closely monitored. The patient is being transferred out of ICU at this time. PAST MEDICAL HISTORY: Reviewed. REVIEW OF SYSTEMS: CARDIOVASCULAR: No angina. RESPIRATORY: As mentioned earlier. GI: As mentioned earlier. : No dysuria. NERVOUS: As mentioned earlier. CURRENT MEDICATIONS: 1. [place] 7.5 every 6 hours p.r.n. 2. DuoNeb q.i.d. and p.r.n. 3. Elavil. 4. Unasyn 2 g IV q.8h. 5. Lotensin. 6. Cardura. 7. Pepcid. 8. Ancef. 9. Neurontin. 10.Pepcid. 11.Gentamicin 120 q.8h. 12.Levemir 30 units subcu b.i.d. 13.Magnesium oxide. 14.Solu-Medrol 40 IV q.8h. 15.Sarna lotion. 16.P.r.n. medications. 17.Senokot-S and Zoloft. PHYSICAL EXAM: Patient is alert, oriented x2. Pulse 83, blood pressure is 100/56, respirations 16, temperature 98.4, pulse ox 94% on room air. HEENT: Conjunctivae normal. NECK: No jugular venous distention. CARDIOVASCULAR: S1, S2 muffled. RESPIRATORY: Breath sounds diminished at the bases. A few scattered rhonchi. No crackles. ABDOMEN: Soft. PEG tube in situ. LEGS: No edema. NERVOUS SYSTEM: Left hemiplegia. SKIN: No ulcer, rash or bleeding. LABS: WBC 4.8, hemoglobin is 9. Magnesium is 1.5. ASSESSMENT: 1. Acute sepsis bacteremia secondary to group D Enterococcus faecalis secondary to urinary tract infection. 2. Acute pyelonephritis and urinary tract infection with sepsis, present on admission. 3. Sacral decubitus ulcer secondary to Pseudomonas aeruginosa. 4. History of recent acoustic neuroma surgery on the left with possible left-sided hemiparalysis as well as ventriculoperitoneal shunt placement. 5. History of intracranial aneurysm surgery. 6. Hypotension possibly secondary to medication, daptomycin. 7. History of paroxysmal atrial fibrillation. 8. History of degenerative joint disease. 9. Gait dysfunction. 10.Percutaneous endoscopic gastrostomy tube in situ. RECOMMENDATIONS AND DISCUSSION: Recommend to continue current medical management and symptomatic treatment. Otherwise at this time, monitor closely. The patient appears to be taking p.o. medications satisfactorily. I would recommend continuing the current medications and as is the p.o. intake is satisfactory at this time, I would recommend Gastroenterology consultation and possible PEG tube removal after conferring with the family. Other than that, prognosis extremely guarded because of multiple complex medical issues and further recommendations to follow. See orders for further details. MMODL / IJN: [id number] /
[2017-04-01 20:30] LABS: Glucose,Whole Blood 223 mg/dL (75-99)
[2017-04-01] MEDS: AMITRIPTYLINE HCL 10 MG TAB PO SCH (21:30)
[2017-04-01] MEDS: SERTRALINE 50 MG TAB PO SCH (21:30)
[2017-04-01] MEDS: MENTHOL-CAMPHOR LOTION 222 APPLIC/222 ML BOTTLE TOPICAL SCH (21:31)
[2017-04-02] MEDS: GENTAMICIN 120 MG in SODIUM CHLORIDE 0.9% 100 ML IVPB SCH ×2 (03:15→10:45)
[2017-04-02] MEDS: AMPICILLIN 2,000 MG in SODIUM CHLORIDE 0.9% 100 ML IVPB SCH ×4 (06:06→23:30)
[2017-04-02] MEDS: CLOTRIMAZOLE 1% CREAM 15 GM TUBE TOPICAL SCH ×2 (07:28→21:39)
[2017-04-02] MEDS: methylPREDNISolone SOD SUCCI 40 MG/ML 1 ML VIAL IV SCH ×3 (07:28→23:30)
[2017-04-02] MEDS: INSULIN ASPART 100 UNIT/ML 1 ML 10 ML VIAL SQ SCH ×4 (07:29→21:39)
[2017-04-02 07:30] LABS: Glucose,Whole Blood 121 mg/dL (75-99)
[2017-04-02 07:31] LABS: Anion Gap 7 mmol/L; Blood Urea Nitrogen 22 mg/dL (9-20); Calcium 8.9 mg/dL (8.4-10.2); Carbon Dioxide 27 mmol/L (22-30); Chloride 107 mmol/L (98-107); Glucose 115 mg/dL (74-99); Magnesium 2.2 mg/dL (1.6-2.3); Non-African American GFR(MDRD) >60 (>60 ml/min/1.73 sqM); Phosphorus 3.9 mg/dL (2.5-4.5); Potassium 4.7 mmol/L (3.5-5.1); Sodium 141 mmol/L (137-145)
[2017-04-02] MEDS: HEPARIN SODIUM,PORCINE 10,000 UNIT/ML 1 ML VIAL SQ SCH ×2 (07:44→16:58)
[2017-04-02 07:45] LABS: Anisocytosis Slight; Basophils % (A) 0 %; CH 26.3; CHCM 30.1; Eosinophils % (A) 0 %; HDW 3.74; HGB 10.2 gm/dL (13.0-17.5); Hypochromasia Marked; Luc # (Auto) 0.04; Luc % (Auto) 1; Lymphocytes # (A) 0.7 k/uL (1.0-4.8); Lymphocytes % (A) 12 %; MCH 26.3 pg (25.0-35.0); MCHC 30.1 g/dL (31.0-37.0); MCV 87.4 fL (80.0-100.0); Mean Platelet Volume 7.9; Monocytes # (A) 0.4 k/uL (0-1.0); Monocytes % (A) 8 %; Neutrophils # (A) 4.3 k/uL (1.3-7.7); Neutrophils % (A) 79 %; Poikilocytosis Slight; RBC 3.89 m/uL (4.30-5.90); RDW 17.2 % (11.5-15.5); WBC 5.4 k/uL (3.8-10.6); WBC (Perox) 5.17
[2017-04-02] MEDS: SENNOSIDES-DOCUSATE SODIUM 1 EACH TAB PO SCH ×2 (07:49→21:39)
[2017-04-02] MEDS: POLYETHYLENE GLYCOL 3350 17 GM POWD.PACK PO SCH (07:49)
[2017-04-02 08:47] LABS: Manual Review Performed
[2017-04-02] MEDS: METOPROLOL TARTRATE 12.5 MG TAB PO SCH ×2 (09:37→21:39)
[2017-04-02] MEDS: MAGNESIUM OXIDE 400 MG TAB PO SCH (09:37)
[2017-04-02] MEDS: FERROUS SULFATE 325 MG TAB PO SCH (09:38)
[2017-04-02] MEDS: FAMOTIDINE 20 MG TAB PO SCH ×2 (09:38→21:39)
[2017-04-02] MEDS: [UNRECOGNIZED DRUG - OTHER] TOPICAL SCH ×2 (09:39→21:59)
[2017-04-02] MEDS: GABAPENTIN 300 MG CAP PO SCH ×2 (09:39→21:38)
[2017-04-02] MEDS ORDERED: GENTAMICIN TROUGH DUE 1 EACH MISC MISCELLANE ONE (10:00)
[2017-04-02] MEDS: DOXAZOSIN 2 MG TAB PO SCH (10:18)
[2017-04-02] MEDS: INSULIN DETEMIR 100 UNIT/ML 10 ML VIAL SQ SCH ×2 (10:18→21:39)
--- NOTE | 2017-04-02 12:05 | P.PN ---
Subjective Progress Note Date: 04/02/17 Principal diagnosis: Acute sepsis and bacteremia secondary to group D enterococcus faecalis. This is a 61-year-old white male with history of multiple medical problems, patient had acoustic neuroma surgery back in November at [facility] in [place], postoperatively the patient developed paralysis on the left side, and he developed postoperative respiratory failure, and failure to wean, he required tracheostomy which was recently D cannulated. Patient was eventually discharged to a subacute rehab. Patient was sent to [facility] on 03/26/2017 with mostly symptoms of mental status change, metabolic encephalopathy, and he was felt to possibly have pneumonia. His other medical problems included a stage II decubitus ulcer, avulsion fracture of the right knee, paroxysmal atrial fibrillation, acute toxic encephalopathy felt to be related to sepsis. It was not clear whether the source of sepsis would be coming from, but looking at the microbiology report, patient had positive blood cultures growing group D enterococcus, Enterococcus faecalis, and he had positive wound cultures from the decubitus ulcer growing Pseudomonas and Leanne albicans. Blood cultures have been positive since admission on 2016, and follow-up cultures as of 03/29/2017, remain positive for group D enterococcus. Patient was seen by Dr. Borja on consultation, and he was placed on vancomycin and daptomycin. However yesterday the patient developed an acute episode of hypotension and diaphoresis shortly after he received his daptomycin dose. Patient was transferred to the ICU, given fluid boluses, daptomycin is presently on hold, and the patient responded well not requiring any norepinephrine. Chest x-ray done in the ICU showed basically atelectatic changes, no clear-cut evidence of pneumonia was appreciated. CT of the chest abdomen and pelvis showed postoperative changes and MAINTENANCE MAN shunt tubing, hepatosplenomegaly, and low-attenuation focus of the left kidney cannot exclude pyelonephritis. Surprisingly no urine culture has been done since admission no urinalysis has been done since admission, I went ahead and recommended a urine culture to be sent and a urinalysis to be sent today. I believe the primary source of the patient's enterococcal infection is most likely from the urine unless proven otherwise. Patient may truly have pyelonephritis causing his Enterococcus faecalis bacteremia. Patient had a recent arthrocentesis from the right knee, results of which are pending. The synovial fluid aspiration was sent for cultures Gram stain, and so far Gram stain is negative. Patient was reevaluated today on 04/01/2017, feeling much better, hemodynamically stable, denies any cough no wheezing no shortness of breath no nausea no vomiting no abdominal pain no melena no hematemesis no dysuria and no frequency no urgency. Patient was switched to ampicillin and gentamicin as per infectious disease, and seems to be doing well with that could've treatment. It is the feeling that his Enterococcus faecalis may be primarily from his left pyelonephritis?. CBC was noted and a relatively normal except for hemoglobin of 9 electrolytes and basic metabolic profile are normal. All the cultures were noted. And the note from Dr. Borja was also reviewed. Reevaluated today on 04/10/2017, patient continues to do well, continues to improve, his most recent blood cultures and the last 2 days have been negative so far. Patient is denying any shortness of breath no cough no wheezing, no fever, no chills, no hemoptysis. No nausea no vomiting no abdominal pain. Labs including CBC and basic metabolic profile are normal. Objective - Vital Signs Vital signs: Vital Signs Temp 98.0 F 04/02/17 07:00 Pulse 68 04/02/17 08:00 Resp 18 04/02/17 08:00 BP 133/77 04/02/17 07:00 Pulse Ox 95 04/02/17 07:00 Intake & Output 04/01/17 04/02/17 04/02/17 18:59 06:59 18:59 Intake Total 840 360 Output Total 1400 Balance -560 360 Intake: Intake, IV Titration 200 Amount Ampicillin 2,000 mg In 100 Sodium Chloride 0.9% 100 ml @ 200 mls/hr IVPB Q6HR [facility] Rx#:[id number] Gentamicin 120 mg In 100 Sodium Chloride 0.9% 100 ml @ 103 mls/hr IVPB Q8H [facility] Rx#:[id number] Oral 640 360 Output: Urine 1400 Other: Voiding Method Urinal Urinal Urinal # Voids 1 - Exam Physical exam revealed a 61-year-old white male in no distress. HEENT: Anicteric conjunctiva, moist mucous membranes, throat is clear, heavily bearded, Neck: The neck is supple without significant lymphadenopathy or thyromegaly. Healing stoma noted in the lower anterior portion of his neck. Lungs: Diminished breath sound bilaterally no crackles or rhonchi or wheezes. Heart: Irregular with a positive S4 no murmur click or rub Abdomen: Obese, soft nontender no megaly no rebound no guarding, positive bowel sounds. Surgical wound from his MAINTENANCE MAN shunt is well-healed. The PEG tube site was noted. Minimal scanty drainage noted at the site Extremities: The upper extremities have excellent pulses they are symmetric, no significant petechiae or telangiectasia. No splinter hemorrhages were noted. The lower extremities are free from significant edema. Site of recent right sided arthrocentesis was noted. Neuro: Is awake and alert as has the left hemiparesis Skin: pressure ulceration to the coccyx is noted. - Labs CBC & Chem 7: 04/02/17 06:51 04/02/17 06:51 Labs: Abnormal Lab Results - Last 24 Hours (Table) 04/01/17 04/01/17 04/01/17 Range/Units 12:26 17:15 20:27 RBC (4.30-5.90) m/uL Hgb (13.0-17.5) gm/dL Hct (39.0-53.0) % MCHC (31.0-37.0) g/dL RDW (11.5-15.5) % Lymphocytes # (1.0-4.8) k/uL BUN (9-20) mg/dL Glucose (74-99) mg/dL POC Glucose (mg/dL) 173 H 144 H 223 H (75-99) mg/dL Gentamicin Trough ug/mL 04/02/17 04/02/17 04/02/17 Range/Units 06:51 06:51 07:29 RBC 3.89 L (4.30-5.90) m/uL Hgb 10.2 L (13.0-17.5) gm/dL Hct 34.0 L (39.0-53.0) % MCHC 30.1 L (31.0-37.0) g/dL RDW 17.2 H (11.5-15.5) % Lymphocytes # 0.7 L (1.0-4.8) k/uL BUN 22 H (9-20) mg/dL Glucose 115 H (74-99) mg/dL POC Glucose (mg/dL) 121 H (75-99) mg/dL Gentamicin Trough ug/mL 04/02/17 Range/Units 09:54 RBC (4.30-5.90) m/uL Hgb (13.0-17.5) gm/dL Hct (39.0-53.0) % MCHC (31.0-37.0) g/dL RDW (11.5-15.5) % Lymphocytes # (1.0-4.8) k/uL BUN (9-20) mg/dL Glucose (74-99) mg/dL POC Glucose (mg/dL) (75-99) mg/dL Gentamicin Trough 2.6 H* ug/mL Microbiology - Last 24 Hours (Table) 04/01/17 06:55 Blood Culture - Preliminary Blood No Growth after 24 hours 04/01/17 06:38 Blood Culture - Preliminary Blood No Growth after 24 hours 03/31/17 10:15 Urine Culture - Final Urine,Voided 03/28/17 10:00 Anaerobic Culture - Preliminary Knee - Right 03/28/17 10:00 Gram Stain - Final Knee - Right Body Fluid Culture - Final Assessment and Plan Assessment: Impression: 1 acute sepsis and bacteremia secondary to group D enterococcus faecalis. Possibly from pyelonephritis involving the left kidney. 2 suspect acute polynephritis. Urine cultures are negative so far. 3 no evidence of pneumonia based on the chest x-ray findings. And based on the clinical history. 4 sacral decubitus ulcer with cellulitis secondary to pseudomonas aeruginosa. 5 acute hypotension most likely secondary to daptomycin, although possibility of hypotension from sepsis is not entirely ruled out but clinically felt to be less likely based on the clinical history. 6 history of acoustic neuroma requiring surgery and prolonged postoperative care with failure to wean and previous tracheostomy requiring decannulation recently. 7 left sided hemiparesis secondary to recent craniotomy and acoustic neuroma surgery. History of MAINTENANCE MAN shunt placement. 8 history of paroxysmal atrial fibrillation, being addressed by cardiology. 9 advanced tricompartmental degenerative joint disease, and recent arthrocentesis done from the right knee. 10 chronic anemia. Secondary to chronic disease. Recommendation: Continue present treatment plan, patient is now on ampicillin and gentamicin, hemodynamically stable, will follow on when necessary basis. Time with Patient: Less than 30
[2017-04-02 12:08] LABS: Glucose,Whole Blood 195 mg/dL (75-99)
--- NOTE | 2017-04-02 12:23 | CONS ---
CONSULTATION REQUESTING PHYSICIAN: Dr. Carreon. REASON FOR CONSULTATION: PEG tube removal. HISTORY OF PRESENT ILLNESS: The patient is a 61-year-old pleasant white male with history of multiple medical problems, long hospitalization, the patient apparently was diagnosed with acoustic neuroma for which he had surgery back in November at [facility] in [place] and postoperatively developed paralysis of the left side, postoperative respiratory failure and had prolonged hospitalization. He underwent trach and PEG tube placement while he was there. Subsequently he was discharged to subacute rehab facility, but he was admitted to [facility] about a week ago because of some mental status changes and possible pneumonia. Since being in the hospital, has been on broad- spectrum antibiotics. Overall, his condition has improved. His trach was removed a week ago and he had a PEG tube in place since then but has not been using the PEG tube since he was at the rehab facility. Hence I am consulted for a PEG tube removal. The patient states that his intake has been good. His he has been able to take medications with applesauce. He has not used the PEG tube for either medications or feeding for more than 2 weeks now. He denies any abdominal pain. Reports no nausea, vomiting. No fever, chills, night sweats, presently on broad-spectrum antibiotics for possible pneumonia. PAST MEDICAL HISTORY: Diabetes mellitus, hypertension, acoustic neuroma as described above. History of brain aneurysm, status post aneurysm clipping. PAST SURGICAL HISTORY: Recent trach and PEG tube placement. Resection of the acoustic neuroma at [facility] in November of this year, brain aneurysm clipping. MEDICATIONS: Prior to hospitalization, Tylenol, Elavil, Bumex, Cardura, Pepcid, Feosol, Neurontin, [place], heparin, Humulin, magnesium oxide, MiraLAX. SOCIAL HISTORY: Ex smoking. No alcohol use. FAMILY HISTORY: Unremarkable. REVIEW OF SYSTEMS: CARDIOPULMONARY: No chest pain, shortness of breath. GENITOURINARY: No dysuria or hematuria. MUSCULOSKELETAL: Unremarkable. SKIN: Unremarkable. NEUROLOGY: Unremarkable. ENT/VISION: Unremarkable. CONSTITUTIONAL: No recent weight loss. No fever, chills, night sweats. PHYSICAL EXAMINATION: Appears comfortable, no apparent distress. Vital signs stable. Blood pressure 108/60, pulse rate 69, temperature 97.9. HEENT EXAMINATION: Unremarkable. Conjunctivae pink. Sclerae anicteric. Oral cavity no lesions. NECK: No JVD or lymph node enlargement. Chest was clear to auscultation. HEART: Regular rate and rhythm. ABDOMEN: Soft. Bowel sounds are positive. No organomegaly. EXTREMITIES: No pedal edema. SKIN: No rashes. NEURO: He is alert and oriented x3. No focal deficits. The abdomen was exposed. The PEG tube appeared to be in good position and the abdomen was benign. LAB: WBC 5.4, hemoglobin 10.2, platelets are normal. Basic metabolic panel is within normal limits. IMPRESSION: This is a patient with history of a prolonged hospitalization in November of this year in [facility] following a resection of acoustic neuroma resulting in left-sided hemiparalysis. During the hospitalization, he underwent a trach and a PEG tube placement. The patient subsequently was sent to rehab facility, now admitted to the hospital with pneumonia. While in the hospital, the patient has been doing extremely well. His trach has been removed and requesting for a PEG tube removal as patient has been able to maintain his oral nutrition and take his medications orally without any problems. RECOMMENDATION: After having a lengthy discussion with the patient I decided to remove the PEG tube, which was accomplished at the bedside without any difficulty. Following the PEG tube removal, there was small amount of oozing noted at the gastrectomy site and dressings were applied. I told the nurse that his diet can be continued and if there is any leakage at the site of gastrostomy to notify me. At this time we will sign off. Please call if needed. Thank you for this consultation. ARNIE / RIGOBERTON: [id number] /
[2017-04-02] MEDS ORDERED: GENTAMICIN PEAK DUE 1 EACH MISC MISCELLANE ONE (12:30)
[2017-04-02] MEDS: GABAPENTIN 100 MG CAP PO SCH (14:05)
[2017-04-02 17:49] LABS: Glucose,Whole Blood 150 mg/dL (75-99)
--- NOTE | 2017-04-02 18:14 | PN ---
PROGRESS NOTE DATE OF SERVICE: 04/02/2017 INTERVAL HISTORY: This 61-year-old gentleman who was admitted with acute sepsis and bacteremia also had possibly pyelonephritis also. The patient also has sacral decubitus also. The patient has significant weakness of the left side which is actually slightly improving at this time. PT has evaluated the patient. PAST MEDICAL HISTORY: Reviewed. REVIEW OF SYSTEMS: CARDIOVASCULAR: No angina. RESPIRATORY: As mentioned earlier. GI: As mentioned earlier. : No dysuria. NERVOUS SYSTEM: No numbness or weakness. ALLERGY/IMMUNOLOGY: No asthma. MUSCULOSKELETAL: As mentioned earlier. CURRENT MEDICATIONS: 1. [place] 7.5 q.6h. 2. DuoNeb q.i.d. and p.r.n. 3. Elavil 10 mg q.h.s. 4. Unasyn 2 g IV q.6h. 5. Lotrimin. 6. Cardura 2 mg daily. 7. Iron sulfate. 8. Neurontin. 9. Heparin. 10.Levemir. 11.Solu-Medrol 40 IV q.8h. 12.MiraLAX. 13.Senokot. 14.Zoloft. PHYSICAL EXAMINATION: The patient is alert and oriented x3. The pulse is 75, blood pressure 130/76, respiration 18, temperature 98 degrees, pulse ox 94% room air. HEENT: Conjunctivae normal. Oral mucosa moist. Neck is no jugular venous distention. No carotid bruit. No lymph node enlargement. CARDIOVASCULAR: S1, S2. RESPIRATORY: Breath sounds diminished in the bases. A few scattered rhonchi and crackles. ABDOMEN: Soft, nontender. LEGS: No edema. NERVOUS SYSTEM: Significant weakness of the left side which is also improving. Power is almost like grade 3 at this time. SKIN: No ulcer, rash or bleeding. LYMPHATICS: No lymph nodes palpable in the neck, axillae or groin. LABS: WBC 5, hemoglobin 10.2. Accu-Cheks noted. Gentamicin 2.6. The highest level is 2. ASSESSMENT: 1. Acute sepsis secondary to group D Enterococcus faecalis secondary to urinary tract infection. 2. Acute pyelonephritis and urinary tract infection with sepsis, present on admission. 3. Sacral decubitus ulcer secondary to Pseudomonas aeruginosa. 4. History of recent acoustic neuroma surgery on the left side with possible left- sided hemiparesis as well as ventriculoperitoneal shunt. 5. History of intracranial aneurysm surgery. 6. Hypotension possibly secondary to medications daptomycin. 7. History of paroxysmal atrial fibrillation. 8. History of degenerative joint disease. 9. Gait dysfunction. 10.Acute PEG tube in situ, which was removed today. RECOMMENDATIONS AND DISCUSSION: In this 61-year-old gentleman who presented with multiple complex medical issues , we will monitor the patient closely. Continue the current management and symptomatic treatment. Continue with broad-spectrum IV antibiotics. PEG tube will be removed today by Dr. Garland. Gentamicin should be held because of the high trough level. Closely follow with Infectious Disease. PT, OT evaluation. Possible ECF rehab. Guarded prognosis because of multiple complex medical issues. Further recommendations to follow. MMODL / IJN: [id number] / MTDMilan
[2017-04-02 20:37] LABS: Glucose,Whole Blood 215 mg/dL (75-99)
[2017-04-02] MEDS: AMITRIPTYLINE HCL 10 MG TAB PO SCH (21:38)
[2017-04-02] MEDS: SERTRALINE 50 MG TAB PO SCH (21:38)
[2017-04-02] MEDS: MENTHOL-CAMPHOR LOTION 222 APPLIC/222 ML BOTTLE TOPICAL SCH (21:39)
[2017-04-03] MEDS: HEPARIN SODIUM,PORCINE 10,000 UNIT/ML 1 ML VIAL SQ SCH ×4 (00:39→23:46)
[2017-04-03] MEDS: AMPICILLIN 2,000 MG in SODIUM CHLORIDE 0.9% 100 ML IVPB SCH ×4 (05:52→23:46)
[2017-04-03 07:28] LABS: Glucose,Whole Blood 109 mg/dL (75-99)
[2017-04-03] MEDS: INSULIN ASPART 100 UNIT/ML 1 ML 10 ML VIAL SQ SCH ×4 (08:29→21:17)
[2017-04-03] MEDS: CLOTRIMAZOLE 1% CREAM 15 GM TUBE TOPICAL SCH ×2 (08:37→21:17)
[2017-04-03] MEDS: DOXAZOSIN 2 MG TAB PO SCH (08:37)
[2017-04-03] MEDS: METOPROLOL TARTRATE 12.5 MG TAB PO SCH ×2 (08:38→21:29)
[2017-04-03] MEDS: MAGNESIUM OXIDE 400 MG TAB PO SCH (08:38)
[2017-04-03] MEDS: FERROUS SULFATE 325 MG TAB PO SCH (08:38)
[2017-04-03] MEDS: POLYETHYLENE GLYCOL 3350 17 GM POWD.PACK PO SCH (08:38)
[2017-04-03] MEDS: SENNOSIDES-DOCUSATE SODIUM 1 EACH TAB PO SCH ×2 (08:38→21:22)
[2017-04-03] MEDS: GABAPENTIN 300 MG CAP PO SCH ×2 (08:38→21:17)
[2017-04-03] MEDS: methylPREDNISolone SOD SUCCI 40 MG/ML 1 ML VIAL IV SCH ×3 (08:38→23:46)
[2017-04-03] MEDS: FAMOTIDINE 20 MG TAB PO SCH ×2 (08:38→21:18)
[2017-04-03] MEDS: [UNRECOGNIZED DRUG - OTHER] TOPICAL SCH ×2 (08:39→22:03)
[2017-04-03 09:30] LABS: Anisocytosis Slight; Basophils % (A) 0 %; CHCM 29.9; Eosinophils % (A) 0 %; HCT 34.1 % (39.0-53.0); HDW 3.36; HGB 10.3 gm/dL (13.0-17.5); Hypochromasia Marked; Luc # (Auto) 0.06; Luc % (Auto) 1; Lymphocytes # (A) 0.7 k/uL (1.0-4.8); Lymphocytes % (A) 12 %; MCH 26.4 pg (25.0-35.0); MCHC 30.3 g/dL (31.0-37.0); MCV 87.1 fL (80.0-100.0); Mean Platelet Volume 8.4; Monocytes # (A) 0.2 k/uL (0-1.0); Monocytes % (A) 4 %; Neutrophils # (A) 4.6 k/uL (1.3-7.7); Neutrophils % (A) 82 %; RBC 3.91 m/uL (4.30-5.90); RDW 18.8 % (11.5-15.5); WBC 5.6 k/uL (3.8-10.6); WBC (Perox) 5.92
[2017-04-03 09:38] LABS: Anion Gap 9 mmol/L; Blood Urea Nitrogen 23 mg/dL (9-20); Calcium 9.3 mg/dL (8.4-10.2); Carbon Dioxide 27 mmol/L (22-30); Chloride 105 mmol/L (98-107); Glucose 103 mg/dL (74-99); Magnesium 2.1 mg/dL (1.6-2.3); Non-African American GFR(MDRD) >60 (>60 ml/min/1.73 sqM); Phosphorus 4.4 mg/dL (2.5-4.5); Potassium 4.5 mmol/L (3.5-5.1); Sodium 141 mmol/L (137-145)
[2017-04-03] MEDS: INSULIN DETEMIR 100 UNIT/ML 10 ML VIAL SQ SCH ×2 (10:28→21:16)
[2017-04-03 11:27] LABS: Glucose,Whole Blood 134 mg/dL (75-99)
--- NOTE | 2017-04-03 12:42 | P.DS ---
Providers Date of admission: 03/26/17 22:05 Attending physician: Regulo Cueva Consults: 03/27/17 13:07 Consult Physician Routine Consulting Provider: Tim Gambino Consult Reason/Comments: right knee stress fracture Do you want consulting provider notified?: Yes 03/27/17 14:00 Consult Physician Routine Consulting Provider: Edmund Borja Consult Reason/Comments: Sepsis Do you want consulting provider notified?: Yes 03/30/17 21:13 Consult Physician Stat Consulting Provider: Corrine Loera Consult Reason/Comments: ICU management Do you want consulting provider notified?: Yes Primary care physician: [facility] Course: This 61-year-old gentleman was admitted with acute sepsis secondary to group d enterococcus faecalis secondary to UTI. Patient treated antibiotics. Patient also had a recent surgery for acoustic neuroma on the left side with significant weakness of the left side of the body. Patient was seen by multiple consultants including neurology infectious disease. Patient was significantly. Patient be discharged in a stable condition with guarded prognosis ECF. Total time taken is 35 minutes. On exam vitals stable. Cardio S1 and S2 normal. Abdomen soft nontender. Nervous system left hemiplegia diffuse weakness. Final diagnosis 1. Acute sepsis secondary to group D enterococcus faecalis secondary to UTI. 2. Acute pyelonephritis and UTI sepsis present on admission. 3. Sacral decubitus ulcer secondary to pseudomonas aeruginosa. 4. History of recent acoustic neuroma surgery on the left side with a possible left-sided hemiparalysis as well as ventricular shunt. 5. History of intracranial aneurysm surgery. 6. Hypotension possibly secondary to medications and daptomycin. 7. History of paroxysmal A. fib fibrillation. 8. History of DJD. 9. Gait dysfunction. 10. PEG tube removed because of non-use. Patient Condition at Discharge: Stable Plan - Discharge Summary New Discharge Prescriptions: New Metoprolol Tartrate [Lopressor] 12.5 mg PO BID #60 tab predniSONE 10 mg PO DIRECTED #30 tab INSULIN LISPRO (HumaLOG) [humaLOG] 0 unit SQ ACHS #1 vial Ampicillin Sodium 2,000 mg IVPB Q6H #112 vial Continue Antifungal Powder 1 applic TOPICAL BID Sennosides-Docusate Sodium [Senokot-S] 1 tab PO BID Camphor-Menthol 1 applic TOPICAL HS Acetaminophen [Tylenol] 650 mg PO Q6H PRN PRN Reason: Pain Ipratropium-Albuterol Nebulize [Duoneb 0.5 mg-3 mg/3 ml Soln] 3 ml INHALATION RT-Q6H PRN PRN Reason: Shortness Of Breath Heparin Sodium,Porcine [Heparin Sodium] 7,500 unit SQ Q8HR Gabapentin [Neurontin] 300 mg PO BID Famotidine [Pepcid] 20 mg PO BID Insulin Glargine,Hum.rec.anlog [Basaglar Kwikpen U-100] 30 unit SQ Q12H Sertraline [Zoloft] 50 mg PO HS Polyethylene Glycol 3350 [Miralax] 17 gm PO DAILY Magnesium Oxide [Mag-Ox] 400 mg PO DAILY Gabapentin [Neurontin] 200 mg PO DAILY@1400 Ferrous Sulfate [Iron (65 MG Elemental)] 325 mg PO DAILY Doxazosin [Cardura] 2 mg PO DAILY Bumetanide [BUMEX] 1 mg PO DAILY Amitriptyline HCl [Elavil] 10 mg PO HS Triad Hydrophilic Wound Dress 1 applic TOPICAL BID HYDROcodone/APAP 7.5-325MG [[place] 7.5-325] 1 tab PO Q4H PRN #20 tab PRN Reason: Pain Discontinued Insulin Regular [humuLIN R] See Protocol SQ ACHS Metoprolol Tartrate [Lopressor] 12.5 mg PO BID Doxycycline Monohydrate [Monodox] 100 mg PO BID Amiodarone [Cordarone] 100 mg PO DAILY Discharge Medication List Acetaminophen [Tylenol] 650 mg PO Q6H PRN 03/26/17 [History] Amitriptyline HCl [Elavil] 10 mg PO HS 03/26/17 [History] Antifungal Powder 1 applic TOPICAL BID 03/26/17 [History] Bumetanide [BUMEX] 1 mg PO DAILY 03/26/17 [History] Camphor-Menthol 1 applic TOPICAL HS 03/26/17 [History] Doxazosin [Cardura] 2 mg PO DAILY 03/26/17 [History] Famotidine [Pepcid] 20 mg PO BID 03/26/17 [History] Ferrous Sulfate [Iron (65 MG Elemental)] 325 mg PO DAILY 03/26/17 [History] Gabapentin [Neurontin] 200 mg PO DAILY@1400 03/26/17 [History] Gabapentin [Neurontin] 300 mg PO BID 03/26/17 [History] Heparin Sodium,Porcine [Heparin Sodium] 7,500 unit SQ Q8HR 03/26/17 [History] Insulin Glargine,Hum.rec.anlog [Basaglar Kwikpen U-100] 30 unit SQ Q12H [History] Ipratropium-Albuterol Nebulize [Duoneb 0.5 mg-3 mg/3 ml Soln] 3 ml INHALATION RT -Q6H PRN 03/26/17 [History] Magnesium Oxide [Mag-Ox] 400 mg PO DAILY 03/26/17 [History] Polyethylene Glycol 3350 [Miralax] 17 gm PO DAILY 03/26/17 [History] Sennosides-Docusate Sodium [Senokot-S] 1 tab PO BID 03/26/17 [History] Sertraline [Zoloft] 50 mg PO HS 03/26/17 [History] Triad Hydrophilic Wound Dress 1 applic TOPICAL BID 03/26/17 [History] Ampicillin Sodium 2,000 mg IVPB Q6H #112 vial 04/03/17 [Rx] HYDROcodone/APAP 7.5-325MG [[place] 7.5-325] 1 tab PO Q4H PRN #20 tab 04/03/17 [Rx ] INSULIN LISPRO (HumaLOG) [humaLOG] 0 unit SQ ACHS #1 vial 04/03/17 [Rx] Metoprolol Tartrate [Lopressor] 12.5 mg PO BID #60 tab 04/03/17 [Rx] predniSONE 10 mg PO DIRECTED #30 tab 04/03/17 [Rx] Follow up Appointment(s)/Referral(s): Corrine Loera MD [STAFF PHYSICIAN] - 2 Weeks Abdon Leblanc MD [STAFF PHYSICIAN] - 2 Weeks Giorgio Grande MD [STAFF PHYSICIAN] - 3 Days (While at [facility]) Edmund Borja MD [STAFF PHYSICIAN] - 2 Weeks Charley Garland MD [STAFF PHYSICIAN] - As Needed Miller Granda DO [Primary Care Provider] - 1 Week (After DC from [facility]) Tim Gambino MD [STAFF PHYSICIAN] - As Needed Ambulatory/Diagnostic Orders: Basic Metabolic Panel [LAB.AMB] Location: Determined By Patient Complete Blood Count w/diff [LAB.AMB] Time Frame: 3 Days, Location: Determined By Patient Complete Blood Count w/diff [LAB.AMB] Location: Determined By Patient Activity/Diet/Wound Care/Special Instructions: [facility] Antibiotics as per infectious disease. Diet: Consistent carb, Accu-Cheks before meals and at bedtime Activity: Limited until follow up Discharge Disposition: TRANSFER TO SNF/ECF
[2017-04-03] MEDS ORDERED: LIDOCAINE 2% INJ 20 MG/ML (20 ML MDV) ONE (12:48)
[2017-04-03] MEDS ORDERED: LIDOCAINE 2% INJ 20 MG/ML SQ ONE (12:58)
--- NOTE | 2017-04-03 13:10 | IR ---
PICC LINE PLACEMENT: HISTORY: Infection requiring long-term antibiotic therapy PROCEDURE: Ultrasound and fluoroscopic guidance of PICC line placement. COMPLICATIONS: None ANESTHESIA: 1. 1% Lidocaine locally. FINDINGS/TECHNIQUE: The procedure was explained to the patient. The risks, complications, benefits and alternatives were discussed and any questions were answered. Informed consent was obtained. The patient was placed supine on the fluoroscopic table and prepped and draped in the usual sterile fas ion. Utilizing a 21 gauge needle and sonographic and fluoroscopic guidance, access in the vein was achieved and there is placement of a 0.018 guidewire. The vein is patent. A 4-F sheath was placed o melvin the guidewire. The guidewire and dilator were removed and a 4-F. PICC line was placed through th e sheath with the tip at the level of the SVC. The sheath was removed, the catheter was flushed and sutured into position. The patient was stable throughout the procedure and remained stable upon disc harge from the Department of Radiology. The vein puncture was patent under ultrasound. A navas scale image was obtained to document patency of the vein punctured. All elements of the maximal barrier technique were utilized. FLUOROSCOPY TIME: 0.1 minute, one image submitted. IMPRESSION: Successful PICC line placement under ultrasound and fluoroscopic guidance.
[2017-04-03] MEDS: GABAPENTIN 100 MG CAP PO SCH (13:38)
[2017-04-03 17:06] LABS: Glucose,Whole Blood 127 mg/dL (75-99)
--- NOTE | 2017-04-03 18:40 | PN ---
PROGRESS NOTE DATE OF SERVICE: 04/03/2017 This 61-year-old gentleman who was admitted with acute sepsis is being closely monitored. No chest pain. No palpitations. The PT, OT evaluation was patient and possible ECF rehab. No fever and no cough. EXAM: Alert and oriented times three. Pulse is 63, blood pressure 125/66, respiration 18, temp 98.4, pulse ox 94% room air. HEENT: Conjunctivae normal. Neck no jugular venous distention. Cardiovascular : S1, S2 muffled. Respiratory: Breath sounds diminished in the bases. A few scattered rhonchi and no crackles. Abdomen is soft, nontender. No mass palpable. Legs: No edema. No swelling. Central nervous system: No focal deficits. Nervous system unchanged. LABS: WBC 5.2, hemoglobin 10.3. ASSESSMENT: 1. Acute sepsis secondary to group B Enterococcus faecalis secondary to urinary tract infection. 2. Acute pyelonephritis, urinary tract infection with sepsis present on admission. 3. Sacral decubitus ulcer secondary to Pseudomonas aeruginosa. 4. 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 5. History of intracranial aneurysm surgery. 6. Hypotension possibly secondary to medication and Daptomycin. 7. History of paroxysmal atrial fibrillation. 8. History of degenerative joint disease. 9. Gait dysfunction. 10.PEG tube removed. RECOMMENDATIONS AND DISCUSSION: Recommend to continue current medications, management and symptomatic treatment , PT/OT evaluation and continue the rest of medications and antibiotics by Infectious Disease. Guarded prognosis. Further recommendations to follow. MMODL / IJN: [id number] / MANISAH
[2017-04-03 20:16] LABS: Glucose,Whole Blood 203 mg/dL (75-99)
[2017-04-03] MEDS: SERTRALINE 50 MG TAB PO SCH (21:17)
[2017-04-03] MEDS: AMITRIPTYLINE HCL 10 MG TAB PO SCH (21:17)
[2017-04-03] MEDS: MENTHOL-CAMPHOR LOTION 222 APPLIC/222 ML BOTTLE TOPICAL SCH (21:24)
[2017-04-04] MEDS: AMPICILLIN 2,000 MG in SODIUM CHLORIDE 0.9% 100 ML IVPB SCH ×4 (05:41→22:48)
[2017-04-04 07:22] LABS: Glucose,Whole Blood 109 mg/dL (75-99)
[2017-04-04 09:33] VITALS: BMI 39.0
[2017-04-04] MEDS: INSULIN ASPART 100 UNIT/ML 1 ML 10 ML VIAL SQ SCH ×4 (09:40→20:43)
[2017-04-04] MEDS: INSULIN DETEMIR 100 UNIT/ML 10 ML VIAL SQ SCH ×2 (09:41→20:42)
[2017-04-04] MEDS: METOPROLOL TARTRATE 12.5 MG TAB PO SCH ×2 (09:41→20:45)
[2017-04-04] MEDS: GABAPENTIN 300 MG CAP PO SCH ×2 (09:41→20:45)
[2017-04-04] MEDS: POLYETHYLENE GLYCOL 3350 17 GM POWD.PACK PO SCH ×2 (09:41→09:46)
[2017-04-04] MEDS: FAMOTIDINE 20 MG TAB PO SCH ×2 (09:42→20:45)
[2017-04-04] MEDS: methylPREDNISolone SOD SUCCI 40 MG/ML 1 ML VIAL IV SCH ×3 (09:42→22:48)
[2017-04-04] MEDS: FERROUS SULFATE 325 MG TAB PO SCH (09:42)
[2017-04-04] MEDS: MAGNESIUM OXIDE 400 MG TAB PO SCH (09:42)
[2017-04-04] MEDS: DOXAZOSIN 2 MG TAB PO SCH (09:42)
[2017-04-04] MEDS: CLOTRIMAZOLE 1% CREAM 15 GM TUBE TOPICAL SCH ×2 (09:42→20:46)
[2017-04-04] MEDS: [UNRECOGNIZED DRUG - OTHER] TOPICAL SCH ×2 (09:43→22:05)
[2017-04-04] MEDS: SENNOSIDES-DOCUSATE SODIUM 1 EACH TAB PO SCH ×2 (09:45→20:44)
[2017-04-04] MEDS: HEPARIN SODIUM,PORCINE 10,000 UNIT/ML 1 ML VIAL SQ SCH ×2 (09:50→17:51)
[2017-04-04 12:28] LABS: Glucose,Whole Blood 96 mg/dL (75-99)
[2017-04-04] MEDS: GABAPENTIN 100 MG CAP PO SCH (13:29)
[2017-04-04 14:56] VITALS: TEMP 97.6
[2017-04-04 17:22] LABS: Glucose,Whole Blood 103 mg/dL (75-99)
[2017-04-04 20:15] LABS: Glucose,Whole Blood 198 mg/dL (75-99)
[2017-04-04] MEDS: SERTRALINE 50 MG TAB PO SCH (20:43)
[2017-04-04] MEDS: AMITRIPTYLINE HCL 10 MG TAB PO SCH (20:45)
[2017-04-04] MEDS: MENTHOL-CAMPHOR LOTION 222 APPLIC/222 ML BOTTLE TOPICAL SCH (20:47)
[2017-04-05] MEDS: HEPARIN SODIUM,PORCINE 10,000 UNIT/ML 1 ML VIAL SQ SCH ×3 (03:37→16:38)
[2017-04-05] MEDS: AMPICILLIN 2,000 MG in SODIUM CHLORIDE 0.9% 100 ML IVPB SCH ×3 (06:05→18:23)
[2017-04-05 07:04] LABS: Glucose,Whole Blood 105 mg/dL (75-99)
[2017-04-05 07:38] VITALS: PULSE 62; RESP 16
[2017-04-05] MEDS: INSULIN ASPART 100 UNIT/ML 1 ML 10 ML VIAL SQ SCH ×3 (08:15→18:23)
[2017-04-05] MEDS: CLOTRIMAZOLE 1% CREAM 15 GM TUBE TOPICAL SCH (09:58)
[2017-04-05] MEDS: methylPREDNISolone SOD SUCCI 40 MG/ML 1 ML VIAL IV SCH ×2 (09:58→16:38)
[2017-04-05] MEDS: DOXAZOSIN 2 MG TAB PO SCH (09:59)
[2017-04-05] MEDS: FAMOTIDINE 20 MG TAB PO SCH (10:00)
[2017-04-05] MEDS: GABAPENTIN 300 MG CAP PO SCH (10:00)
[2017-04-05] MEDS: FERROUS SULFATE 325 MG TAB PO SCH (10:00)
[2017-04-05] MEDS: MAGNESIUM OXIDE 400 MG TAB PO SCH (10:01)
[2017-04-05] MEDS: SENNOSIDES-DOCUSATE SODIUM 1 EACH TAB PO SCH (10:02)
[2017-04-05] MEDS: METOPROLOL TARTRATE 12.5 MG TAB PO SCH (10:02)
[2017-04-05] MEDS: POLYETHYLENE GLYCOL 3350 17 GM POWD.PACK PO SCH (10:02)
[2017-04-05] MEDS: [UNRECOGNIZED DRUG - OTHER] TOPICAL SCH (10:03)
--- NOTE | 2017-04-05 10:05 | P.PN ---
Subjective Progress Note Date: 04/04/17 Progress note being dictated for Dr. Angelo. Interval history:This is a 61-year-old gentleman was admitted with acute sepsis secondary to group d enterococcus faecalis secondary to UTI. Maintained on antibiotics. Patient also had a recent surgery for acoustic neuroma on the left side with significant weakness of the left side of the body. Evaluated by multiple consultants including neurology infectious disease. Significant clinical improvement. No acute overnight events. [facility] Objective - Vital Signs Vital signs: Vital Signs Temp 97.6 F 04/04/17 14:55 Pulse 71 04/04/17 15:58 Resp 18 04/04/17 15:58 BP 115/63 04/04/17 14:55 Pulse Ox 95 04/04/17 14:55 Intake & Output 04/03/17 04/04/17 04/04/17 18:59 06:59 18:59 Intake Total 679 030 2480 Output Total 804 265 2403 Balance -750 -120 620 Weight 116.5 kg Intake: Intake, IV Titration 100 100 Amount Ampicillin 2,000 mg In 100 100 Sodium Chloride 0.9% 100 ml @ 200 mls/hr IVPB Q6HR [facility] Rx#:[id number] Oral 580 1440 Tube Feeding 180 Output: Urine 424 092 7368 Other: Voiding Method Urinal Incontinent Incontinent # Voids 2 1 3 # Bowel Movements 1 1 1 - Exam PHYSICAL EXAM: VITAL SIGNS: As above GENERAL: Sitting up in bed, no acute distress HEENT: Conjunctivae normal. eyes normal. Oral mucosa moist NECK: No JVD. No thyroid enlargement. No LNs CARDIOVASCULAR: S1, S2 muffled. No murmur RESPIRATION: Breath sounds diminished in the bases. No rhonchi or crackles. No bronchial breathing. ABDOMEN: Soft, nontender . No guarding. no masses palpable. Bowel sounds heard. LEGS: No edema. no swelling PSYCHIATRY: Alert and oriented -3, mood and affect normal. NERVOUS SYSTEM: Cranial N 2-12 grossly normal. Moves all 4 limbs. Diffuse weakness No focal deficits. No sensory deficit. Skin: no ulcer no rash Joints: No active swelling. No inflammation. Lymphatic system. No LN neck axilla or groin. - Labs CBC & Chem 7: 04/03/17 07:08 04/03/17 07:08 Labs: Abnormal Lab Results - Last 24 Hours (Table) 04/03/17 04/04/17 04/04/17 Range/Units 20:04 07:20 17:05 POC Glucose (mg/dL) 203 H 109 H 103 H (75-99) mg/dL Microbiology - Last 24 Hours (Table) 03/28/17 10:00 Anaerobic Culture - Preliminary Knee - Right 04/01/17 06:55 Blood Culture - Preliminary Blood No Growth after 72 hours 04/01/17 06:38 Blood Culture - Preliminary Blood No Growth after 72 hours Assessment and Plan Assessment: 1. Acute sepsis secondary to group D enterococcus faecalis secondary to UTI. 2. Acute pyelonephritis and UTI sepsis present on admission. 3. Sacral decubitus ulcer secondary to pseudomonas aeruginosa. 4. History of recent acoustic neuroma surgery on the left side with a possible left-sided hemiparalysis as well as ventricular shunt. 5. History of intracranial aneurysm surgery. 6. Hypotension possibly secondary to medications and daptomycin. 7. History of paroxysmal A. fib fibrillation. 8. History of DJD. 9. Gait dysfunction. 10. PEG tube removed because of non-use. Plan: Continue on current medication regime ,monitoring. Continue on antibiotics. Discharge planning in progress for subacute rehab pending authorization. The impression and plan of care has been dictated as directed. : I performed a history and examination of this patient, discussed the same with the dictator. I agree with the dictator's note ,documented as a scribe. Any additional findings or plans will be noted.
--- NOTE | 2017-04-05 10:08 | P.PN ---
Subjective Progress Note Date: 04/03/17 Progress note being dictated for Dr. Carroen Interval history:This is a 61-year-old gentleman was admitted with acute sepsis secondary to group d enterococcus faecalis secondary to UTI. Maintained on antibiotics. Patient also had a recent surgery for acoustic neuroma on the left side with significant weakness of the left side of the body. Maintained on antibiotics as per infectious disease. Significant clinical improvement. No acute overnight events. Denies chest pain, palpitations or increasing shortness of breath. Objective - Vital Signs Vital signs: Vital Signs Temp 97.6 F 04/05/17 07:00 Pulse 62 04/05/17 07:00 Resp 16 04/05/17 07:00 BP 130/75 04/05/17 07:00 Pulse Ox 95 04/05/17 07:00 Intake & Output 04/04/17 04/05/17 04/05/17 18:59 06:59 18:59 Intake Total 1620 590 Output Total 1000 900 Balance 620 -310 Weight 116.5 kg Intake: Oral 1440 590 Tube Feeding 180 Output: Urine 1000 900 Other: Voiding Method Incontinent Urinal Incontinent # Voids 3 2 # Bowel Movements 1 - Exam PHYSICAL EXAM: VITAL SIGNS: Temperature 98.4 oral, pulse 63, respiratory rate 18, blood pressure 125/63, O2 sat on room air 94% GENERAL: Sitting up in bed, no acute distress HEENT: Conjunctivae normal. eyes normal. Oral mucosa moist NECK: No JVD. No thyroid enlargement. No LNs CARDIOVASCULAR: S1, S2 muffled. No murmur RESPIRATION: Breath sounds diminished in the bases. No rhonchi or crackles. No bronchial breathing. ABDOMEN: Soft, nontender . No guarding. no masses palpable. Bowel sounds heard. LEGS: No edema. no swelling PSYCHIATRY: Alert and oriented -3, mood and affect normal. NERVOUS SYSTEM: Cranial N 2-12 grossly normal. Moves all 4 limbs. Diffuse weakness No focal deficits. No sensory deficit. Skin: no ulcer no rash Joints: No active swelling. No inflammation. Lymphatic system. No LN neck axilla or groin. - Labs CBC & Chem 7: 04/03/17 07:08 04/03/17 07:08 Labs: Abnormal Lab Results - Last 24 Hours (Table) 04/04/17 04/04/17 04/05/17 Range/Units 17:05 20:12 07:03 POC Glucose (mg/dL) 103 H 198 H 105 H (75-99) mg/dL Microbiology - Last 24 Hours (Table) 04/01/17 06:55 Blood Culture - Preliminary Blood No Growth after 96 hours 04/01/17 06:38 Blood Culture - Preliminary Blood No Growth after 96 hours 03/28/17 10:00 Anaerobic Culture - Preliminary Knee - Right Assessment and Plan Assessment: 1. Acute sepsis secondary to group D enterococcus faecalis secondary to UTI. 2. Acute pyelonephritis and UTI sepsis present on admission. 3. Sacral decubitus ulcer secondary to pseudomonas aeruginosa. 4. History of recent acoustic neuroma surgery on the left side with a possible left-sided hemiparalysis as well as ventricular shunt. 5. History of intracranial aneurysm surgery. 6. Hypotension possibly secondary to medications and daptomycin. 7. History of paroxysmal A. fib fibrillation. 8. History of DJD. 9. Gait dysfunction. 10. PEG tube removed because of non-use. Plan: Continue on current medication regime ,monitoring. Continue on antibiotics. Discharge planning in progress for subacute rehab pending authorization. The impression and plan of care has been dictated as directed. : I performed a history and examination of this patient, discussed the same with the dictator. I agree with the dictator's note ,documented as a scribe. Any additional findings or plans will be noted.
--- NOTE | 2017-04-05 10:21 | P.DS ---
Providers Date of admission: 03/26/17 22:05 Expected date of discharge: 04/05/17 Attending physician: Regulo Angelo Consults: 03/27/17 13:07 Consult Physician Routine Consulting Provider: Tim Gambino Consult Reason/Comments: right knee stress fracture Do you want consulting provider notified?: Yes 03/27/17 14:00 Consult Physician Routine Consulting Provider: Edmund Borja Consult Reason/Comments: Sepsis Do you want consulting provider notified?: Yes 03/30/17 21:13 Consult Physician Stat Consulting Provider: Corrine Loera Consult Reason/Comments: ICU management Do you want consulting provider notified?: Yes [facility] Course: Final diagnosis 1. Acute sepsis secondary to group D enterococcus faecalis secondary to UTI. 2. Acute pyelonephritis and UTI sepsis present on admission. 3. Sacral decubitus ulcer secondary to pseudomonas aeruginosa. 4. History of recent acoustic neuroma surgery on the left side with a possible left-sided hemiparalysis as well as ventricular shunt. 5. History of intracranial aneurysm surgery. 6. Hypotension possibly secondary to medications and daptomycin. 7. History of paroxysmal A. fib fibrillation. 8. History of DJD. 9. Gait dysfunction. 10. PEG tube removed because of non-use. Hospital course:This 61-year-old gentleman was admitted with acute sepsis secondary to group d enterococcus faecalis secondary to UTI. Patient treated antibiotics. Patient also had a recent surgery for acoustic neuroma on the left side with significant weakness of the left side of the body. Patient was seen by multiple consultants including neurology infectious disease. Patient was significantly. Patient be discharged in a stable condition with guarded prognosis ECF. Total time taken is 35 minutes. On exam vitals stable. Cardio S1 and S2 normal. Abdomen soft nontender. Nervous system left hemiplegia diffuse weakness. The impression and plan of care has been dictated as directed. : I performed a history and examination of this patient, discussed the same with the dictator. I agree with the dictator's note ,documented as a scribe. Any additional findings or plans will be noted. Patient Condition at Discharge: Stable Plan - Discharge Summary New Discharge Prescriptions: New Metoprolol Tartrate [Lopressor] 12.5 mg PO BID #60 tab predniSONE 10 mg PO DIRECTED #30 tab INSULIN LISPRO (HumaLOG) [humaLOG] 0 unit SQ ACHS #1 vial Ampicillin Sodium 2,000 mg IVPB Q6H #112 vial Continue Antifungal Powder 1 applic TOPICAL BID Sennosides-Docusate Sodium [Senokot-S] 1 tab PO BID Camphor-Menthol 1 applic TOPICAL HS Acetaminophen [Tylenol] 650 mg PO Q6H PRN PRN Reason: Pain Ipratropium-Albuterol Nebulize [Duoneb 0.5 mg-3 mg/3 ml Soln] 3 ml INHALATION RT-Q6H PRN PRN Reason: Shortness Of Breath Heparin Sodium,Porcine [Heparin Sodium] 7,500 unit SQ Q8HR Gabapentin [Neurontin] 300 mg PO BID Famotidine [Pepcid] 20 mg PO BID Insulin Glargine,Hum.rec.anlog [Basaglar Kwikpen U-100] 30 unit SQ Q12H Sertraline [Zoloft] 50 mg PO HS Polyethylene Glycol 3350 [Miralax] 17 gm PO DAILY Magnesium Oxide [Mag-Ox] 400 mg PO DAILY Gabapentin [Neurontin] 200 mg PO DAILY@1400 Ferrous Sulfate [Iron (65 MG Elemental)] 325 mg PO DAILY Doxazosin [Cardura] 2 mg PO DAILY Bumetanide [BUMEX] 1 mg PO DAILY Amitriptyline HCl [Elavil] 10 mg PO HS Triad Hydrophilic Wound Dress 1 applic TOPICAL BID HYDROcodone/APAP 7.5-325MG [Wiley 7.5-325] 1 tab PO Q4H PRN #20 tab PRN Reason: Pain Discontinued Insulin Regular [humuLIN R] See Protocol SQ ACHS Metoprolol Tartrate [Lopressor] 12.5 mg PO BID Doxycycline Monohydrate [Monodox] 100 mg PO BID Amiodarone [Cordarone] 100 mg PO DAILY Discharge Medication List Acetaminophen [Tylenol] 650 mg PO Q6H PRN 03/26/17 [History] Amitriptyline HCl [Elavil] 10 mg PO HS 03/26/17 [History] Antifungal Powder 1 applic TOPICAL BID 03/26/17 [History] Bumetanide [BUMEX] 1 mg PO DAILY 03/26/17 [History] Camphor-Menthol 1 applic TOPICAL HS 03/26/17 [History] Doxazosin [Cardura] 2 mg PO DAILY 03/26/17 [History] Famotidine [Pepcid] 20 mg PO BID 03/26/17 [History] Ferrous Sulfate [Iron (65 MG Elemental)] 325 mg PO DAILY 03/26/17 [History] Gabapentin [Neurontin] 200 mg PO DAILY@1400 03/26/17 [History] Gabapentin [Neurontin] 300 mg PO BID 03/26/17 [History] Heparin Sodium,Porcine [Heparin Sodium] 7,500 unit SQ Q8HR 03/26/17 [History] Insulin Glargine,Hum.rec.anlog [Basaglar Kwikpen U-100] 30 unit SQ Q12H [History] Ipratropium-Albuterol Nebulize [Duoneb 0.5 mg-3 mg/3 ml Soln] 3 ml INHALATION RT -Q6H PRN 03/26/17 [History] Magnesium Oxide [Mag-Ox] 400 mg PO DAILY 03/26/17 [History] Polyethylene Glycol 3350 [Miralax] 17 gm PO DAILY 03/26/17 [History] Sennosides-Docusate Sodium [Senokot-S] 1 tab PO BID 03/26/17 [History] Sertraline [Zoloft] 50 mg PO HS 03/26/17 [History] Triad Hydrophilic Wound Dress 1 applic TOPICAL BID 03/26/17 [History] Ampicillin Sodium 2,000 mg IVPB Q6H #112 vial 04/03/17 [Rx] HYDROcodone/APAP 7.5-325MG [Wiley 7.5-325] 1 tab PO Q4H PRN #20 tab 04/03/17 [Rx ] INSULIN LISPRO (HumaLOG) [humaLOG] 0 unit SQ ACHS #1 vial 04/03/17 [Rx] Metoprolol Tartrate [Lopressor] 12.5 mg PO BID #60 tab 04/03/17 [Rx] predniSONE 10 mg PO DIRECTED #30 tab 04/03/17 [Rx] Follow up Appointment(s)/Referral(s): Corrine Loera MD [STAFF PHYSICIAN] - 2 Weeks Abdon Leblanc MD [STAFF PHYSICIAN] - 2 Weeks Giorgio Grande MD [STAFF PHYSICIAN] - 3 Days (While at [facility]) Edmund Borja MD [STAFF PHYSICIAN] - 2 Weeks Charley Garland MD [STAFF PHYSICIAN] - As Needed Miller Granda DO [Primary Care Provider] - 1 Week (After DC from ECF) Tim Gambino MD [STAFF PHYSICIAN] - As Needed Ambulatory/Diagnostic Orders: Basic Metabolic Panel [LAB.AMB] Location: Determined By Patient Complete Blood Count w/diff [LAB.AMB] Time Frame: 3 Days, Location: Determined By Patient Complete Blood Count w/diff [LAB.AMB] Location: Determined By Patient Activity/Diet/Wound Care/Special Instructions: [facility] on the Zhang PICC line, maintain dressing and flushes per facility protocol, inserted Diet: Consistent carb, mechanical level II dysphagia, aspiration precautions, magic cups TIDWM PEG discontinued 04/02/17, site care: Wound care: Tracheostomy, decannulated, on room air Accu-Cheks before meals and at bedtime Activity: Right knee immobilizer when out of bed -Change dressing to PICC line every 7 days -Dry dresing to old peg site daily -Hydrocolloid to sacrum every 72 hrs and as needed -Dry dressing to anterior neck daily and as needed Discharge Disposition: TRANSFER TO SNF/ECF
[2017-04-05] MEDS: INSULIN DETEMIR 100 UNIT/ML 10 ML VIAL SQ SCH (11:21)
[2017-04-05 12:31] LABS: Glucose,Whole Blood 107 mg/dL (75-99)
[2017-04-05] MEDS: GABAPENTIN 100 MG CAP PO SCH (16:38)
[2017-04-05 16:42] VITALS: BP 105/57
[2017-04-05 17:48] LABS: Glucose,Whole Blood 143 mg/dL (75-99)
== END 2017-04-05 19:29 | DRG 871 ==
LOC: EC 17:54 → 3SUR 22:05 → 5MS5E 03-28 10:05 → 6ICU 03-30 21:12 → 5MS5E 03-31 13:36
PROVIDERS: ADMIT Internal Medicine; ATTEND Internal Medicine
PROC: 02HV33Z Insertion of Infusion Device into Superior Vena Cava, Percutaneous Approach (ICD-10-PCS; principal; 2017-04-03 12:48)
DX: A41.81 Sepsis due to Enterococcus (principal); G92 Toxic encephalopathy; L89.152 Pressure ulcer of sacral region, stage 2; J18.9 Pneumonia, unspecified organism; I11.0 Hypertensive heart disease with heart failure; Z93.0 Tracheostomy status; I50.9 Heart failure, unspecified; K94.22 Gastrostomy infection; I48.0 Paroxysmal atrial fibrillation; G81.94 Hemiplegia, unspecified affecting left nondominant side; J98.11 Atelectasis; L03.311 Cellulitis of abdominal wall; N10 Acute pyelonephritis; D63.8 Anemia in other chronic diseases classified elsewhere; E11.9 Type 2 diabetes mellitus without complications; D33.3 Benign neoplasm of cranial nerves; E66.9 Obesity, unspecified; H91.92 Unspecified hearing loss, left ear; M17.10 Unilateral primary osteoarthritis, unspecified knee; Z79.01 Long term (current) use of anticoagulants; Z79.2 Long term (current) use of antibiotics; Z79.899 Other long term (current) drug therapy; Z83.3 Family history of diabetes mellitus; Z86.79 Personal history of other diseases of the circulatory system; Z88.0 Allergy status to penicillin; Z98.2 Presence of cerebrospinal fluid drainage device; B96.5 Pseudomonas (aeruginosa) (mallei) (pseudomallei) as the cause of diseases classified elsewhere
CPT/HCPCS: 36415; 36569; 70450; 71010; 71020; 71260; 74177; 74230; 76937; 77001; 80048; 80053; 80170; 80202; 81001; 81003; 82140; 82550; 82553; 83605; 83735; 84100; 84443; 84484; 85025; 85027; 85379; 85652; 86140; 87040; 87070; 87075; 87077; 87086; 87186; 87205; 87324; 89050; 89060; 93005; 93306; 94640; 94760; 96360; 96361; 99285

== ENCOUNTER 2017-05-21 22:12 | Inpatient (IN) | payer BC ==
[2017-05-21 22:38] LABS: Glucose,Whole Blood 151 mg/dL (75-99)
[2017-05-21] MEDS ORDERED: ACETAMINOPHEN TAB 325 MG TAB PO STA (22:49)
[2017-05-21 23:22] LABS: Anisocytosis Slight; Basophils % (A) 0 %; Eosinophils # (A) 0.1 k/uL (0-0.7); Eosinophils % (A) 1 %; HCT 40.6 % (39.0-53.0); Hypochromasia Slight; Lymphocytes # (A) 0.7 k/uL (1.0-4.8); Lymphocytes % (A) 10 %; MCH 26.2 pg (25.0-35.0); Mean Platelet Volume 9.2; Microcytosis Slight; Monocytes # (A) 0.4 k/uL (0-1.0); Monocytes % (A) 5 %; Neutrophils # (A) 5.6 k/uL (1.3-7.7); Neutrophils % (A) 82 %; Platelet Count 149 k/uL (150-450); Poikilocytosis Slight; RBC 4.95 m/uL (4.30-5.90); RDW 17.9 % (11.5-15.5); WBC 6.8 k/uL (3.8-10.6)
[2017-05-21 23:30] LABS: INR 1.2 (<1.2)
[2017-05-21 23:31] LABS: Partial Thromboplastin Time 27.8 sec (22.0-30.0); Prothrombin Time 11.7 sec (9.0-12.0)
--- NOTE | 2017-05-21 23:33 | CT ---
EXAMINATION TYPE: CT brain wo con DATE OF EXAM: 05/21/2017 COMPARISON: 03/26/2017 HISTORY: weakness, hx of brain tumor removal CT DLP: 1144.70 mGycm Automated exposure control for dose reduction was used. FINDINGS: There is left side craniotomy defect. There are surgical clips at the anterior clinoid process on the left side. There is hypodensity in the lateral left cerebellar hemisphere as well as the anterior le ft temporal lobe. There is a ventricular shunt catheter with the tip in the anterior horn of the righ t lateral ventricle. There is asymmetric enlargement of the left lateral ventricle. There is no evide nce of intracranial hemorrhage. There is some deformity of the fourth ventricle apparently due to a m ass at the left cerebellopontine angle. IMPRESSION: PREVIOUS SURGERY. THERE IS SOME ENCEPHALOMALACIA IN THE LUNG LEFT-SIDED CEREBELLUM AND ANTERIOR LEFT TEMPORAL LOBE. NO SIGNIFICANT HYDROCEPHALUS. SHUNT CATHETER APPEARS IN GOOD POSITION. VENTRICLES ARE NOT CHANGED IN SIZE COMPARED TO LAST EXAM. THERE IS SOME DEFORMITY OF THE FOURTH VENTRICLE APPARENTLY DUE TO POSTERIOR FOSSA MASS ON THE LEFT SIDE THAT IS UNCHANGED. BRAINSTEM IS DEVIATED TO THE RIGHT S EHSAN.
[2017-05-21 23:35] LABS: ALT 40 U/L (21-72); AST 21 U/L (17-59); Albumin 3.6 g/dL (3.5-5.0); Alkaline Phosphatase 86 U/L (38-126); Anion Gap 8 mmol/L; Blood Urea Nitrogen 16 mg/dL (9-20); Calcium 9.3 mg/dL (8.4-10.2); Carbon Dioxide 28 mmol/L (22-30); Chloride 102 mmol/L (98-107); Glucose 151 mg/dL (74-99); Potassium 4.3 mmol/L (3.5-5.1); Sodium 138 mmol/L (137-145); Total Bilirubin 1.4 mg/dL (0.2-1.3); Total Protein 6.9 g/dL (6.3-8.2)
--- NOTE | 2017-05-21 23:41 | XR ---
EXAMINATION TYPE: XR chest 1V DATE OF EXAM: 05/21/2017 COMPARISON: NONE HISTORY: Fever TECHNIQUE: Single frontal view of the chest is obtained. FINDINGS: There is no heart failure nor confluent pneumonic infiltrate. Ventriculoperitoneal shunt c atheter is noted. There are chest leads. Costophrenic angles are clear. IMPRESSION: No active cardiopulmonary disease.
--- NOTE | 2017-05-22 00:23 | ED ---
General Adult HPI - General Chief complaint: Neuro Symptoms/Deficit Stated complaint: weakness Time Seen by Provider: 05/21/17 22:26 Source: patient, family, RN notes reviewed, old records reviewed Mode of arrival: wheelchair Limitations: no limitations - History of Present Illness Initial comments: 61-year-old female presents for evaluation of generalized weakness and lethargy. Patient has history of brain cancer status post resection with permanent left-sided upper extremity weakness. Denies any new focal deficits. Denies headache. Denies chest pain. Patient has had some mild cough and dyspnea. Patient also has history of UTI with pyelonephritis and sepsis. Patient's family is concerned that he may be developing a urinary tract infection as he has had several episodes of urinary incontinence. Patient denies vomiting or diarrhea. Denies any pain complaints. - Related Data Home Medications Medication Instructions Recorded Confirmed Amitriptyline HCl 10 mg PO HS 05/21/17 05/21/17 DULoxetine HCL [Cymbalta] 30 mg PO DAILY 05/21/17 05/21/17 Docusate [Colace] 100 mg PO Q48H 05/21/17 05/21/17 Famotidine [Pepcid] 20 mg PO BID 05/21/17 05/21/17 Ferrous Sulfate [Iron (65 MG 325 mg PO Q48H 05/21/17 05/21/17 Elemental)] Gabapentin [Neurontin] 400 mg PO TID 05/21/17 05/21/17 Magnesium Oxide [Mag-Ox] 400 mg PO DAILY 05/21/17 05/21/17 Metoprolol Tartrate [Lopressor] 12.5 mg PO BID 05/21/17 05/21/17 Naloxegol Oxalate [Movantik] 25 mg PO DAILY 05/21/17 05/21/17 Tamsulosin [Flomax] 0.4 mg PO HS 05/21/17 05/21/17 Allergies Allergy/AdvReac Type Severity Reaction Status Date / Time almond Allergy Unknown Verified 05/21/17 23:08 banana Allergy Unknown Verified 05/21/17 23:08 Penicillins Allergy Unknown Verified 05/21/17 23:08 Childhood daptomycin AdvReac Severe Abdominal Verified 05/21/17 23:08 Pain Review of Systems ROS Statement: Those systems with pertinent positive or pertinent negative responses have been documented in the HPI. ROS Other: All systems not noted in ROS Statement are negative. 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, shunt to brain Past Anesthesia/Blood Transfusion Reactions: No Reported Reaction Past Psychological History: No Psychological Hx Reported Smoking Status: Never smoker Past Alcohol Use History: None Reported Past Drug Use History: None Reported - Past Family History Father Family Medical History: Diabetes Mellitus Additional Family Medical History / Comment(s): Mother Family Medical History: Diabetes Mellitus Additional Family Medical History / Comment(s): alive and age 81 General Exam Limitations: no limitations General appearance: alert, in no apparent distress Head exam: Present: atraumatic, normocephalic Eye exam: Present: normal appearance, PERRL ENT exam: Present: mucous membranes dry Neck exam: Present: normal inspection. Absent: tenderness, meningismus Respiratory exam: Present: decreased breath sounds (Decreased breath sounds likely secondary to body habitus). Absent: respiratory distress Cardiovascular Exam: Present: regular rate, normal rhythm GI/Abdominal exam: Present: soft, distended. Absent: tenderness, guarding Extremities exam: Present: normal inspection, normal capillary refill. Absent: pedal edema, calf tenderness Neurological exam: Present: alert, oriented X3, motor sensory deficit (Left upper extremity weakness, symmetric bilateral lower extremity weakness) Psychiatric exam: Present: normal affect, normal mood Skin exam: Present: warm, dry, intact. Absent: cyanosis, diaphoretic Course Vital Signs 05/21/17 05/22/17 22:17 00:10 Temperature 100 F H Pulse Rate 81 71 Respiratory 20 16 Rate Blood Pressure 118/54 99/53 O2 Sat by Pulse 93 L 95 Oximetry EKG Findings - EKG Comments: EKG Findings:: EKG shows normal sinus rhythm, LVH, ventricular rate 79, GA interval 166, QRS duration 90, QTC 451, no signs of acute ischemia Medical Decision Making - Medical Decision Making 61-year-old male presenting with generalized weakness and lethargy. Patient has history of brain cancer status post resection. CT is obtained, this is negative for intracranial hemorrhage, there is significant past surgical changes with no acute abnormality. Chest x-ray obtained negative for acute pulmonary disease. White blood cell count normal 6.8, hemoglobin stable at 13.0 to light and normal limits lactic acid normal 1.4, influenza is negative. UA is positive for rare bacteria with no other signs of infection. Blood culture and urine culture are pending. Patient will be admitted for IV hydration, awaiting urine culture and blood culture. - Lab Data Result diagrams: 05/21/17 22:40 05/21/17 22:40 Lab Results 05/21/17 05/21/17 05/21/17 Range/Units 22:36 22:40 22:40 WBC 6.8 (3.8-10.6) k/uL RBC 4.95 (4.30-5.90) m/uL Hgb 13.0 (13.0-17.5) gm/dL Hct 40.6 (39.0-53.0) % MCV 82.0 (80.0-100.0) fL MCH 26.2 (25.0-35.0) pg MCHC 32.0 (31.0-37.0) g/dL RDW 17.9 H (11.5-15.5) % Plt Count 149 L (150-450) k/uL Neutrophils % 82 % Lymphocytes % 10 % Monocytes % 5 % Eosinophils % 1 % Basophils % 0 % Neutrophils # 5.6 (1.3-7.7) k/uL Lymphocytes # 0.7 L (1.0-4.8) k/uL Monocytes # 0.4 (0-1.0) k/uL Eosinophils # 0.1 (0-0.7) k/uL Basophils # 0.0 (0-0.2) k/uL Hypochromasia Slight Poikilocytosis Slight Anisocytosis Slight Microcytosis Slight PT (9.0-12.0) sec INR (<1.2) APTT (22.0-30.0) sec Sodium 138 (137-145) mmol/L Potassium 4.3 (3.5-5.1) mmol/L Chloride 102 (98-107) mmol/L Carbon Dioxide 28 (22-30) mmol/L Anion Gap 8 mmol/L BUN 16 (9-20) mg/dL Creatinine 1.20 (0.66-1.25) mg/dL Est GFR (MDRD) Af Amer >60 (>60 ml/min/1.73 sqM) Est GFR (MDRD) Non-Af >60 (>60 ml/min/1.73 sqM) Glucose 151 H (74-99) mg/dL POC Glucose (mg/dL) 151 H (75-99) mg/dL POC Glu Anime Designer ID Estrella Jefferson Plasma Lactic Acid Maxx (0.7-2.0) mmol/L Calcium 9.3 (8.4-10.2) mg/dL Total Bilirubin 1.4 H (0.2-1.3) mg/dL AST 21 (17-59) U/L ALT 40 (21-72) U/L Alkaline Phosphatase 86 (38-126) U/L Troponin I (0.000-0.034) ng/mL Total Protein 6.9 (6.3-8.2) g/dL Albumin 3.6 (3.5-5.0) g/dL Urine Color Urine Appearance (Clear) Urine pH (5.0-8.0) Ur Specific Pollard (1.001-1.035) Urine Protein (Negative) Urine Glucose (UA) (Negative) Urine Ketones (Negative) Urine Blood (Negative) Urine Nitrite (Negative) Urine Bilirubin (Negative) Urine Urobilinogen (<2.0) mg/dL Ur Leukocyte Esterase (Negative) Urine RBC (0-5) /hpf Urine WBC (0-5) /hpf Urine Bacteria (None) /hpf Urine Mucus (None) /hpf Influenza Type A RNA (Not Detectd) Influenza Type B (PCR) (Not Detectd) 05/21/17 05/21/17 05/21/17 Range/Units 22:40 22:40 22:40 WBC (3.8-10.6) k/uL RBC (4.30-5.90) m/uL Hgb (13.0-17.5) gm/dL Hct (39.0-53.0) % MCV (80.0-100.0) fL MCH (25.0-35.0) pg MCHC (31.0-37.0) g/dL RDW (11.5-15.5) % Plt Count (150-450) k/uL Neutrophils % % Lymphocytes % % Monocytes % % Eosinophils % % Basophils % % Neutrophils # (1.3-7.7) k/uL Lymphocytes # (1.0-4.8) k/uL Monocytes # (0-1.0) k/uL Eosinophils # (0-0.7) k/uL Basophils # (0-0.2) k/uL Hypochromasia Poikilocytosis Anisocytosis Microcytosis PT 11.7 (9.0-12.0) sec INR 1.2 H (<1.2) APTT 27.8 (22.0-30.0) sec Sodium (137-145) mmol/L Potassium (3.5-5.1) mmol/L Chloride (98-107) mmol/L Carbon Dioxide (22-30) mmol/L Anion Gap mmol/L BUN (9-20) mg/dL Creatinine (0.66-1.25) mg/dL Est GFR (MDRD) Af Amer (>60 ml/min/1.73 sqM) Est GFR (MDRD) Non-Af (>60 ml/min/1.73 sqM) Glucose (74-99) mg/dL POC Glucose (mg/dL) (75-99) mg/dL POC Glu Anime Designer ID Plasma Lactic Acid Maxx 1.4 (0.7-2.0) mmol/L Calcium (8.4-10.2) mg/dL Total Bilirubin (0.2-1.3) mg/dL AST (17-59) U/L ALT (21-72) U/L Alkaline Phosphatase (38-126) U/L Troponin I <0.012 (0.000-0.034) ng/mL Total Protein (6.3-8.2) g/dL Albumin (3.5-5.0) g/dL Urine Color Urine Appearance (Clear) Urine pH (5.0-8.0) Ur Specific Pollard (1.001-1.035) Urine Protein (Negative) Urine Glucose (UA) (Negative) Urine Ketones (Negative) Urine Blood (Negative) Urine Nitrite (Negative) Urine Bilirubin (Negative) Urine Urobilinogen (<2.0) mg/dL Ur Leukocyte Esterase (Negative) Urine RBC (0-5) /hpf Urine WBC (0-5) /hpf Urine Bacteria (None) /hpf Urine Mucus (None) /hpf Influenza Type A RNA (Not Detectd) Influenza Type B (PCR) (Not Detectd) 05/21/17 05/22/17 Range/Units 23:00 00:08 WBC (3.8-10.6) k/uL RBC (4.30-5.90) m/uL Hgb (13.0-17.5) gm/dL Hct (39.0-53.0) % MCV (80.0-100.0) fL MCH (25.0-35.0) pg MCHC (31.0-37.0) g/dL RDW (11.5-15.5) % Plt Count (150-450) k/uL Neutrophils % % Lymphocytes % % Monocytes % % Eosinophils % % Basophils % % Neutrophils # (1.3-7.7) k/uL Lymphocytes # (1.0-4.8) k/uL Monocytes # (0-1.0) k/uL Eosinophils # (0-0.7) k/uL Basophils # (0-0.2) k/uL Hypochromasia Poikilocytosis Anisocytosis Microcytosis PT (9.0-12.0) sec INR (<1.2) APTT (22.0-30.0) sec Sodium (137-145) mmol/L Potassium (3.5-5.1) mmol/L Chloride (98-107) mmol/L Carbon Dioxide (22-30) mmol/L Anion Gap mmol/L BUN (9-20) mg/dL Creatinine (0.66-1.25) mg/dL Est GFR (MDRD) Af Amer (>60 ml/min/1.73 sqM) Est GFR (MDRD) Non-Af (>60 ml/min/1.73 sqM) Glucose (74-99) mg/dL POC Glucose (mg/dL) (75-99) mg/dL POC Glu Anime Designer ID Plasma Lactic Acid Maxx (0.7-2.0) mmol/L Calcium (8.4-10.2) mg/dL Total Bilirubin (0.2-1.3) mg/dL AST (17-59) U/L ALT (21-72) U/L Alkaline Phosphatase (38-126) U/L Troponin I (0.000-0.034) ng/mL Total Protein (6.3-8.2) g/dL Albumin (3.5-5.0) g/dL Urine Color Crawford Urine Appearance Clear (Clear) Urine pH 5.5 (5.0-8.0) Ur Specific Pollard 1.023 (1.001-1.035) Urine Protein 1+ H (Negative) Urine Glucose (UA) Negative (Negative) Urine Ketones Negative (Negative) Urine Blood Negative (Negative) Urine Nitrite Negative (Negative) Urine Bilirubin 1+ H (Negative) Urine Urobilinogen 2.0 (<2.0) mg/dL Ur Leukocyte Esterase Negative (Negative) Urine RBC <1 (0-5) /hpf Urine WBC 1 (0-5) /hpf Urine Bacteria Rare H (None) /hpf Urine Mucus Rare H (None) /hpf Influenza Type A RNA Not Detected (Not Detectd) Influenza Type B (PCR) Not Detected (Not Detectd) Disposition Clinical Impression: Generalized weakness, Fever Disposition: ADMITTED IP TO THIS [facility] Condition: Stable Referrals: Miller Granda DO [Primary Care Provider] - 1-2 days Decision to Admit Reason: Admit from EC Decision Date: 05/22/17 Decision Time: 01:10
[2017-05-22 00:36] LABS: Appearance,Urine Clear (Clear); Bacteria,Urine Rare /hpf; Bilirubin,Urine 1+ (Negative); Blood,Urine Negative (Negative); Color,Urine Orange; Glucose,Urine (UA) Negative (Negative); Ketones,Urine Negative (Negative); Leukocyte Esterase,Urine Negative (Negative); Mucus,Urine Rare /hpf; Nitrite,Urine Negative (Negative); PH, Urine 5.5 (5.0-8.0); Protein,Urine 1+ (Negative); RBC,Urine <1 /hpf (0-5); Specific Gravity,Urine 1.023 (1.001-1.035); WBC,Urine 1 /hpf (0-5)
[2017-05-22] MEDS ORDERED: NALOXONE 0.4 MG/ML 1 ML VIAL IV PRN (01:11)
[2017-05-22] MEDS ORDERED: HYDROcodone/APAP 5-325MG 1 EACH TAB PO PRN (01:11)
[2017-05-22] MEDS ORDERED: ONDANSETRON 4 MG/2 ML VIAL IVP PRN (01:11)
[2017-05-22] MEDS: SODIUM CHLORIDE 0.9% 1,000 ML IV SCH ×2 (04:24→09:34)
[2017-05-22 07:07] LABS: Anisocytosis Slight; Basophils % (A) 0 %; Eosinophils % (A) 1 %; HCT 36.5 % (39.0-53.0); HGB 11.6 gm/dL (13.0-17.5); Hypochromasia Slight; Lymphocytes # (A) 0.7 k/uL (1.0-4.8); Lymphocytes % (A) 21 %; MCH 26.5 pg (25.0-35.0); MCHC 31.9 g/dL (31.0-37.0); MCV 83.2 fL (80.0-100.0); Mean Platelet Volume 8.5; Monocytes # (A) 0.3 k/uL (0-1.0); Monocytes % (A) 8 %; Neutrophils # (A) 2.2 k/uL (1.3-7.7); Neutrophils % (A) 68 %; Platelet Count 109 k/uL (150-450); Poikilocytosis Slight; RBC 4.39 m/uL (4.30-5.90); RDW 16.3 % (11.5-15.5); WBC 3.3 k/uL (3.8-10.6)
[2017-05-22 07:33] LABS: ALT 37 U/L (21-72); AST 21 U/L (17-59); Albumin 3.1 g/dL (3.5-5.0); Alkaline Phosphatase 73 U/L (38-126); Anion Gap 8 mmol/L; Blood Urea Nitrogen 16 mg/dL (9-20); Calcium 9.6 mg/dL (8.4-10.2); Carbon Dioxide 27 mmol/L (22-30); Chloride 104 mmol/L (98-107); Glucose 122 mg/dL (74-99); Potassium 4.1 mmol/L (3.5-5.1); Sodium 139 mmol/L (137-145); Total Protein 6.2 g/dL (6.3-8.2)
[2017-05-22 07:44] LABS: Glucose,Whole Blood 122 mg/dL (75-99)
[2017-05-22] MEDS: DULoxetine HCL 30 MG CAPSULE.DR PO SCH (08:00)
[2017-05-22] MEDS: GABAPENTIN 400 MG CAP PO SCH ×3 (08:00→21:41)
[2017-05-22] MEDS: DOCUSATE 100 MG CAP PO SCH (08:00)
[2017-05-22] MEDS: METOPROLOL TARTRATE 12.5 MG TAB PO SCH ×2 (08:00→21:41)
[2017-05-22] MEDS: FERROUS SULFATE 325 MG TAB PO SCH (08:00)
[2017-05-22 11:23] LABS: Glucose,Whole Blood 163 mg/dL (75-99)
[2017-05-22 17:13] LABS: Glucose,Whole Blood 140 mg/dL (75-99)
[2017-05-22 18:00] LABS: Hemoglobin A1C 5.1 % (4.0-6.0)
[2017-05-22] MEDS ORDERED: ALPRAZolam 0.25 MG TAB PO PRN (18:36)
[2017-05-22 19:41] LABS: Glucose,Whole Blood 147 mg/dL (75-99)
[2017-05-22] MEDS ORDERED: VANCOMYCIN IV PER PHARMACY 1 EACH MISC MISCELLANE PRN (20:17)
[2017-05-22] MEDS ORDERED: VANCOMYCIN 1,750 MG in SODIUM CHLORIDE 0.9% 250 ML IVPB ONE (21:00)
[2017-05-22] MEDS: ACETAMINOPHEN TAB 325 MG TAB PO PRN (21:41)
[2017-05-22] MEDS: TAMSULOSIN 0.4 MG CAP.ER.24H PO SCH (21:41)
[2017-05-22] MEDS: AMITRIPTYLINE HCL 10 MG TAB PO SCH (21:42)
[2017-05-22] MEDS: HEPARIN SODIUM,PORCINE 5,000 UNIT/ML 1 ML VIAL SQ SCH ×2 (21:42→22:37)
[2017-05-23] MEDS: SODIUM CHLORIDE 0.9% 1,000 ML IV SCH ×2 (06:00→16:47)
--- NOTE | 2017-05-23 06:05 | HP ---
HISTORY AND PHYSICAL CHIEF COMPLAINTS: Weakness. HISTORY OF PRESENT ILLNESS: This is a 61-year-old gentleman with a past history of diabetes, hypertension, history pneumonia, history of brain aneurysm, history of tonsillectomy, being followed by Dr. Granda in the outpatient setting recently underwent resection of the right acoustic neuroma and also as well as shunt placement. The patient apparently had significant weakness of the left side and patient currently is in ECF. The patient was taken to [facility] with complaints of increasing weakness and as well as some cough and some shortness of breath. The patient also has history of UTI and pyelonephritis also. The patient also had episode urine incontinence. Patient also running fever as well. A CT scan of the brain was done on admission which showed areas of previous surgery and encephalomalacia in the left-sided cerebellum and anterior left temporal lobe and with no significant hydrocephalus. A shunt catheter was thought to be in good position. Deformity of the fourth ventricle was found to be unchanged. A chest x-ray was also done on admission which showed no acute abnormality. As far as labs are concerned, WBC 3.3, and the UA did not show any acute abnormality. Blood sugar is elevated and the patient was admitted for further evaluation and treatment. Currently the patient is able to provide sketchy history. Most of the history is taken from my discussion with staff and review of the chart at this time. The patient has significant difficulties in walking and mobilization. PAST MEDICAL HISTORY: History of diabetes, hypertension, history pneumonia, history of brain aneurysm, history of acoustic neuroma to the brainstem, tonsillectomy. MEDICATIONS: Prior to admission include: 1. Magnesium oxide 400 mg p.o. daily. 2. Colace 100 mg every 48 hours. 3. Flomax 0.4 q.h.s. 4. Movantik 25 mg p.o. daily. 5. Iron 320 mg p.o. q.4h. 6. Pepcid 20 mg b.i.d. 7. Cymbalta 30 mg daily. 8. Lopressor 12.5 mg b.i.d. 9. Neurontin 400 mg t.i.d. 10.Amitriptyline 10 mg p.o. q.h.s. ALLERGIES: ALMOND, BANANA, PENICILLIN, DAPTOMYCIN. FAMILY HISTORY: Family history of diabetes in the family. SOCIAL HISTORY: No history of smoking, no history of alcohol. REVIEW OF SYSTEMS: ENT: As mentioned earlier. CARDIOVASCULAR: No angina. RESPIRATORY: No cough or hemoptysis. GI: No nausea. : Mentioned earlier. NERVOUS SYSTEM: Mentioned earlier. ALLERGY/IMMUNOLOGY: No asthma. MUSCULOSKELETAL: As mentioned earlier. HEMATOLOGY/ONCOLOGY: No history of anemia, otherwise as mentioned. ENDOCRINE: History of diabetes. No history of hypothyroidism. CONSTITUTIONAL: As mentioned earlier. DERMATOLOGY: Negative. RHEUMATOLOGY: Negative. PSYCHIATRY: As mentioned earlier. PHYSICAL EXAMINATION: Alert, oriented x2. Mildly dysphasic. Pulse 86, blood pressure 129/50, respiration 18, temperature 98.8, pulse ox 94% on room air. HEENT: Conjunctivae normal. Otherwise, multiple scars on the scalp present. Oral mucosa moist. Neck is no jugular venous distention. No carotid bruit. No lymph node enlargement. CARDIOVASCULAR: S1, S2. No S3, no S4. RESPIRATORY: Breath sounds diminished in the bases. Scattered rhonchi. No crackles. ABDOMEN: Soft, obese, nontender. No mass palpable. LEGS: No edema, no swelling. NERVOUS SYSTEM: Higher functions as mentioned earlier. Significant weakness of the left upper and lower limbs, grade 3/4. Otherwise, no sensory abnormalities. LYMPHATICS: No lymphadenopathy in the neck, groin or axillae. SKIN: No ulcer, rash, bleeding. JOINTS: No active deforming arthropathy. LABS: WBC 3.2, hemoglobin 11.6, and platelets are 109. Glucose 122. UA noted. ASSESSMENT: 1. Generalized weakness and tiredness, rule out acute transient ischemic attack. 2. 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 3. History of cerebral brain aneurysm surgery. 4. Diabetes mellitus type 2. 5. History of urinary tract infection and pyelonephritis. 6. Mild pancytopenia. 7. Hypertension. 8. History pneumonia. 9. History of tonsillectomy. 10.History of shunt, status post surgery. 11.FULL CODE. RECOMMENDATION AND DISCUSSION: This 61-year-old gentleman who presented with multiple complex medical issues, will monitor the patient closely. Continue the current management and symptomatic treatment. Otherwise at this time I recommend PT, OT evaluation and continue to monitor. Monitor for possible ECF rehab. I would also recommend cultures and workup for any recent infection. The UA did not show any acute abnormality, but however a TIA is also a consideration too. I would also recommend a neurology evaluation and continue to monitor also. The prognosis is guarded because of multiple complex medical issues and DVT prophylaxis. Incentive spirometry and I would also recommend to resume the home medications. Discussed with the staff. Further recommendations to follow. ARNIE / IJN: [id number] /
[2017-05-23 07:35] LABS: Glucose,Whole Blood 132 mg/dL (75-99)
[2017-05-23 07:49] LABS: Anisocytosis Slight; Basophils % (A) 0 %; Eosinophils # (A) 0.2 k/uL (0-0.7); Eosinophils % (A) 5 %; HGB 10.4 gm/dL (13.0-17.5); Hypochromasia Slight; Lymphocytes # (A) 0.5 k/uL (1.0-4.8); Lymphocytes % (A) 14 %; MCH 26.2 pg (25.0-35.0); MCHC 31.6 g/dL (31.0-37.0); MCV 82.9 fL (80.0-100.0); Mean Platelet Volume 8.4; Monocytes # (A) 0.2 k/uL (0-1.0); Monocytes % (A) 7 %; Neutrophils # (A) 2.6 k/uL (1.3-7.7); Neutrophils % (A) 72 %; Platelet Count 101 k/uL (150-450); Poikilocytosis Slight; RBC 3.98 m/uL (4.30-5.90); RDW 16.6 % (11.5-15.5); WBC 3.6 k/uL (3.8-10.6)
[2017-05-23 07:55] LABS: Anion Gap 7 mmol/L; Blood Urea Nitrogen 15 mg/dL (9-20); Calcium 8.6 mg/dL (8.4-10.2); Carbon Dioxide 26 mmol/L (22-30); Chloride 107 mmol/L (98-107); Glucose 125 mg/dL (74-99); Sodium 140 mmol/L (137-145)
[2017-05-23] MEDS: HEPARIN SODIUM,PORCINE 5,000 UNIT/ML 1 ML VIAL SQ SCH ×2 (08:20→21:31)
[2017-05-23] MEDS: DULoxetine HCL 30 MG CAPSULE.DR PO SCH (08:21)
[2017-05-23] MEDS: PANTOPRAZOLE 40 MG TABLET PO SCH (08:21)
[2017-05-23] MEDS: METOPROLOL TARTRATE 12.5 MG TAB PO SCH ×2 (08:21→21:16)
[2017-05-23] MEDS: GABAPENTIN 400 MG CAP PO SCH ×3 (08:21→21:16)
[2017-05-23] MEDS: NON-FORMULARY DRUG (Naloxegol Oxalate [Movantik] 25 MG) PO SCH (08:22)
[2017-05-23] MEDS: VANCOMYCIN 1,750 MG in SODIUM CHLORIDE 0.9% 250 ML IVPB SCH ×2 (09:21→23:23)
--- NOTE | 2017-05-23 10:14 | US ---
EXAMINATION TYPE: US carotid duplex BILAT DATE OF EXAM: 05/23/2017 COMPARISON: NONE CLINICAL HISTORY: stroke. weakness, brain tumor removed this past summer EXAM MEASUREMENTS: RIGHT: Peak Systolic Velocity (PSV) cm/sec ----- Right CCA: 111.4 ----- Right ICA: 84.9 ----- Right ECA: 97.9 ICA/CCA ratio: 0.8 RIGHT: End Diastole cm/sec ----- Right CCA: 9.6 ----- Right ICA: 15.0 ----- Right ECA: 12.3 LEFT: Peak Systolic Velocity (PSV) cm/sec ----- Left CCA: 109.2 ----- Left ICA: 109.5 ----- Left ECA: 113.9 ICA/CCA ratio: 1.0 LEFT: End Diastole cm/sec ----- Left CCA: 0.0 ----- Left ICA: 19.4 ----- Left ECA: 18.3 VERTEBRALS (direction of flow): Right Vertebral: Antegrade Left Vertebral: Antegrade Rhythm: Arrhythmia Mild homogeneous plaque with no significant stenosis seen patient has thick jorge that was difficult to image around IMPRESSION: 1. Mild homogeneous plaque bilaterally with no significant hemodynamic stenosis. 2. Correlate for cardiac dysrhythmia.
[2017-05-23 11:43] LABS: Glucose,Whole Blood 183 mg/dL (75-99)
[2017-05-23] MEDS: MAGNESIUM OXIDE 400 MG TAB PO SCH (12:14)
--- NOTE | 2017-05-23 16:31 | P.CNNES ---
History of Present Illness Consult date: 05/23/17 Reason for Consult: Patient with generalized weakness and possible TIA. History of Present Illness: This patient is a 61-year-old right-handed white male who has a history of multiple complex medical issues. Patient states that he has been in the hospital since November 2016. He initially was found to have evidence of a acoustic neuroma which required surgical resection in November at [facility]. He underwent surgery and from there was sent to a senior care facility. He states he was into other senior care facilities and subsequently ended up at [facility] on the [facility] where he spent 2 months. He was recently discharged about 2 weeks from that F. He was at home and apparently his noticed that he was having increasing weakness and low-grade fever. There was concern for possibility of underlying sepsis. He was brought into the emergency room yesterday and was further evaluated in the ER by Dr. Keys. He was sent for a computed tomography scan of the brain as he has multiple histories of brain surgery. As noted he underwent a brain stem acoustic neuroma surgery in November 2016. Prior to that in the year 1999 and he had to have a aneurysm clipping involving the right hemisphere of the brain. He has been left with residual left arm weakness following his recent brainstem surgery for the acoustic neuroma. This has not shown much improvement at all since November. This is been part of the reason for his ongoing therapy in the extended care facilities. 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 Apparently his surgery went well other than the weakness of his left arm following this particular procedure. His computed tomography scan of the brain revealed some degree of encephalomalacia. There was involvement of the left cerebellum with hypodensities in the left lateral cerebellar hemisphere as well as anterior left temporal lobe. There was no evidence for hydrocephalus. He does have evidence of a shunt catheter which appeared to be in good position. No evidence of shunt failure. There was some deformity noted of the fourth ventricle due to the posterior fossa mass on the left side that has remained unchanged from his previous scan that was done on . The patient was evaluated for possibility of sepsis. His blood and urine cultures are pending at this time. Urine analysis revealed mild UTI symptoms. Patient states he is scheduled to have further acoustic surgery as only 80% of the acoustic neuroma was resected. The other 20% is still to be addressed by his surgeons at [facility] in [place]. Patient also says he has cervical disc disease which they're planning for possible surgery first on the cervical spine. He is to follow-up with the specialist very soon further further direction. Apparently he was to recover from his recent acoustic neuroma surgery before they would consider further intervention. Patient has been very weak due to his immobility in the senior care. He is being recommended physical therapy and occupational therapy. He will likely need rehab once he is stabilized in the ECF. Patient denies any previous history of recent TIA or stroke. He states that he is back to baseline and was more concerned with his sepsis and fever symptoms. He does have a history of recurrent urinary tract infection and pyelonephritis in the past. He did have some urinary incontinence on admission. As noted he does have a shunt catheter placed which remains in good position. There was no evidence for shunt failure. He denies any headaches at this time and is currently afebrile. Neurology is now been consulted for further evaluation and recommendations. Review of Systems Constitutional: Denies chills, Denies fever Eyes: denies blurred vision, denies pain Ears, nose, mouth and throat: Denies headache, Denies sore throat Cardiovascular: Denies chest pain, Denies shortness of breath Respiratory: Denies cough Gastrointestinal: Denies abdominal pain, Denies diarrhea, Denies nausea, Denies vomiting Musculoskeletal: Denies myalgias Integumentary: Denies pruritus, Denies rash Neurological: Reports aphasia, Reports confusion, Reports paresthesias, Denies numbness, Denies weakness Psychiatric: Denies anxiety, Denies depression Endocrine: Denies fatigue, Denies weight change Past Medical History Past Medical History: Diabetes Mellitus, Hypertension, Pneumonia Additional Past Medical History / Comment(s): brain aneurysm 1999, 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 Retired [employer]. No travel, or experience. No tobacco or alcohol use. No animal exposures Smoking Status: Never smoker Past Alcohol Use History: None Reported Past Drug Use History: None Reported - Past Family History Father Family Medical History: Diabetes Mellitus Additional Family Medical History / Comment(s): Mother Family Medical History: Diabetes Mellitus Additional Family Medical History / Comment(s): alive and age 81 Medications and Allergies Home Medications Medication Instructions Recorded Confirmed Type Amitriptyline HCl 10 mg PO HS 05/21/17 05/21/17 History DULoxetine HCL [Cymbalta] 30 mg PO DAILY 05/21/17 05/21/17 History Docusate [Colace] 100 mg PO Q48H 05/21/17 05/21/17 History Famotidine [Pepcid] 20 mg PO BID 05/21/17 05/21/17 History Ferrous Sulfate [Iron (65 MG 325 mg PO Q48H 05/21/17 05/21/17 History Elemental)] Gabapentin [Neurontin] 400 mg PO TID 05/21/17 05/21/17 History Magnesium Oxide [Mag-Ox] 400 mg PO DAILY 05/21/17 05/21/17 History Metoprolol Tartrate [Lopressor] 12.5 mg PO BID 05/21/17 05/21/17 History Naloxegol Oxalate [Movantik] 25 mg PO DAILY 05/21/17 05/21/17 History Tamsulosin [Flomax] 0.4 mg PO HS 05/21/17 05/21/17 History Allergies Allergy/AdvReac Type Severity Reaction Status Date / Time almond Allergy Unknown Verified 05/21/17 23:08 banana Allergy Unknown Verified 05/21/17 23:08 Penicillins Allergy Unknown Verified 05/21/17 23:08 Childhood daptomycin AdvReac Severe Abdominal Verified 05/21/17 23:08 Pain Physical Examination - Vital Signs Vital Signs: Vital Signs Temp Pulse Resp BP Pulse Ox 05/23/17 08:38 93 L 05/23/17 08:00 71 18 05/23/17 07:00 98.2 F 71 18 90/54 93 L 05/22/17 22:37 99.3 F 05/22/17 22:00 101.6 F H 86 16 114/52 92 L 05/22/17 16:00 86 18 Intake and Output 05/23/17 05/23/17 05/23/17 06:59 14:59 22:59 Intake Total 1000 615 Balance 1000 615 Intake: Intake, IV Titration 1000 375 Amount Sodium Chloride 0.9% 1, 750 375 000 ml @ 75 mls/hr IV . [id number] [facility] Rx#:[id number] Vancomycin 1,750 mg In 250 Sodium Chloride 0.9% 250 ml @ 125 mls/hr IVPB Q16H [facility] Rx#:[id number] Oral 240 Other: Voiding Method Urinal Urinal # Voids 3 Weight 106.821 kg Patient Weight 05/24/17 06:59 Weight 106.821 kg - Constitutional General appearance: average body habitus, cooperative - EENT EENT: PERRL, mucous membranes moist - Respiratory Respiratory: lungs clear, normal breath sounds - Cardiovascular Cardiovascular: regular rate, normal S1, normal S2 Extremities: no peripheral edema bilaterally - Gastrointestinal Gastrointestinal: normoactive bowel sounds - Integumentary Integumentary: normal - Neurologic Cranial nerve examination: PERRL, EOMI, VFF, V1/V2/V3 grossly intact, face symmetric, tongue midline, intact gag reflex, intact corneal reflex, normal palatal elevation Speech examination: intact Sensorimotor examination: pronator drift, hemiparesis Motor examination - right side: 4/5: biceps, triceps, wrist flexion, wrist extension, customer success specialist, hip flexors, knee extensors, dorsiflexion, toe extension (EHL) , plantarflexion Motor examination - left side: 1/5: biceps, triceps, wrist flexion, wrist extension, customer success specialist, 3/5: hip flexors, knee extensors, 4/5: dorsiflexion, toe extension (EHL), plantarflexion Detailed sensory examination: light touch, vibration Reflex and gait examination: intact Reflexes: 1+: ankle, bicep, knee, tricep - Musculoskeletal Musculoskeletal: no pain - Psychiatric Psychiatric: mood/affect appropriate, cooperative Results - Laboratory Findings CBC and BMP: 05/23/17 07:16 05/23/17 07:16 Abnormal Lab Findings: Abnormal Labs 05/21/17 05/21/17 05/21/17 22:36 22:40 22:40 WBC RBC Hgb Hct RDW 17.9 H Plt Count 149 L Lymphocytes # 0.7 L INR Glucose 151 H POC Glucose (mg/dL) 151 H Total Bilirubin 1.4 H Total Protein Albumin Urine Protein Urine Bilirubin Urine Bacteria Urine Mucus 05/21/17 05/22/17 05/22/17 22:40 00:08 06:09 WBC 3.3 L RBC Hgb 11.6 L Hct 36.5 L RDW 16.3 H Plt Count 109 L Lymphocytes # 0.7 L INR 1.2 H Glucose POC Glucose (mg/dL) Total Bilirubin Total Protein Albumin Urine Protein 1+ H Urine Bilirubin 1+ H Urine Bacteria Rare H Urine Mucus Rare H 05/22/17 05/22/17 05/22/17 06:09 07:23 11:19 WBC RBC Hgb Hct RDW Plt Count Lymphocytes # INR Glucose 122 H POC Glucose (mg/dL) 122 H 163 H Total Bilirubin Total Protein 6.2 L Albumin 3.1 L Urine Protein Urine Bilirubin Urine Bacteria Urine Mucus 05/22/17 05/22/17 05/23/17 17:12 19:40 07:16 WBC 3.6 L RBC 3.98 L Hgb 10.4 L Hct 33.0 L RDW 16.6 H Plt Count 101 L Lymphocytes # 0.5 L INR Glucose POC Glucose (mg/dL) 140 H 147 H Total Bilirubin Total Protein Albumin Urine Protein Urine Bilirubin Urine Bacteria Urine Mucus 05/23/17 05/23/17 05/23/17 07:16 07:25 11:35 WBC RBC Hgb Hct RDW Plt Count Lymphocytes # INR Glucose 125 H POC Glucose (mg/dL) 132 H 183 H Total Bilirubin Total Protein Albumin Urine Protein Urine Bilirubin Urine Bacteria Urine Mucus Assessment and Plan (1) S/P excision of acoustic neuroma Current Visit: Yes Status: Acute Code(s): Z98.890 - OTHER SPECIFIED POSTPROCEDURAL STATES; Z86.018 - PERSONAL HISTORY OF OTHER BENIGN NEOPLASM SNOMED Code(s): 888918847 (2) Cerebral aneurysm Current Visit: Yes Status: Acute Code(s): I67.1 - CEREBRAL ANEURYSM, NONRUPTURED SNOMED Code(s): 122452497 (3) S/P TECHNOLOGY APPLICATIONS TEACHER shunt Current Visit: Yes Status: Acute Code(s): Z98.2 - PRESENCE OF CEREBROSPINAL FLUID DRAINAGE DEVICE SNOMED Code(s): 677816765 (4) Generalized weakness Current Visit: Yes Status: Acute Code(s): R53.1 - WEAKNESS SNOMED Code(s) : 32080454 (5) Fever Current Visit: Yes Status: Acute Code(s): R50.9 - FEVER, UNSPECIFIED SNOMED Code(s): 297757395 Plan: This patient is a 61-year-old right-handed white male with complex multiple medical issues. Patient has a history of having undergone a left cerebellar pontine angle surgery for a acoustic neuroma. The surgery took place in November at [facility] in [place]. 80% of the tumor was resected. Remaining 20 % is to be further resected later this year. Patient also has a history of having suffered a brain aneurysm clipping in surgery in the year 1999. This was a right-sided craniotomy procedure which has successful clipping. Following his recent brainstem acoustic neuroma surgery he was left with left arm weakness following the surgery in November. He has been in multiple nursing homes since November and only recently was discharged from [facility] on the [facility] about 2 weeks ago. His noted that he was having fever symptoms as well as increase in weakness. As noted he has been debilitated and multiple nursing homes prior to his recent discharge. He was brought into the emergency room and was found to have evidence of mild urinary tract infection. He was admitted to the hospital for further evaluation. He underwent a computed tomography scan of the brain the results of which are noted above. There was no evidence for acute stroke or hemorrhage. There was evidence of the posterior fossa mass on the left side which remained unchanged from previous. As noted he underwent recent brainstem acoustic neuroma surgery and is scheduled for further follow-up for this with his specialist at [facility]. Patient states he is also scheduled to have some cervical spine disc surgery done prior to his brainstem reevaluation. He is following with multiple surgeons at [facility]. For this condition. The patient states otherwise he has been doing fairly well today. He has not had any high- grade fever. He underwent carotid Doppler study today which reveals only mild plaque formation with no significant hemodynamic stenosis. His clinical history suggesting mild encephalopathy from sepsis. He does have multiple complex neurological conditions which are being addressed by his surgeons at [facility] in [place]. We would recommend he have follow-up with them as soon as he is discharged from hospital. He will require possible ECF evaluation if he continues to have generalized weakness. We will continue to monitor his progress closely during this admission. His overall prognosis at this time remains very guarded. Time with Patient: Greater than 30
[2017-05-23 17:20] LABS: Glucose,Whole Blood 126 mg/dL (75-99)
--- NOTE | 2017-05-23 20:37 | PN ---
PROGRESS NOTE DATE OF SERVICE: 05/23/2017 This 61-year-old gentleman admitted with diabetes, hypertension, hyperlipidemia , also had weakness of the left side of the body. The patient also had some fever and the initial cultures, preliminary showing gram-positive cocci in groups. The patient started on broad-spectrum IV antibiotics. PAST MEDICAL HISTORY: Reviewed. REVIEW OF SYSTEMS: CARDIOVASCULAR: No angina, palpitations. RESPIRATORY: As mentioned earlier. GI: As mentioned earlier. : As mentioned earlier. NERVOUS: No numbness or weakness. CURRENT MEDICATIONS: Reviewed and include: 1. Tylenol 650 q.4h p.r.n. 2. Nome 5 mg q.4h p.r.n. 3. Xanax 0.3 t.i.d. 4. Elavil 10 mg. q.h.s. 5. Colace 100 mg q.4h. 7. Iron sulfate 320 mg q.4h. 8. Neurontin 400 mg t.i.d. 9. Heparin 5 subcu b.i.d. 10.Magnesium oxide 400 p.o. daily. 11.Lopressor 12.5 mg daily. 12.Zofran. 13.Protonix. 14.Flomax. PHYSICAL EXAM: Patient is alert, oriented x3, dysarthric. Pulse 86, blood pressure ntd, respiration 18, temperature 98.1, pulse ox 94% on room air. HEENT: Conjunctivae normal. Oral mucosa moist. NECK: No jugular venous distention. No carotid bruits. No lymph node enlargement. CARDIOVASCULAR: S1, S2 muffled. RESPIRATORY: Breath sounds diminished in the bases. No rhonchi. No crackles. ABDOMEN: Soft, nontender. LEGS: No edema. NERVOUS SYSTEM: Significant weakness on the left side of the body. SKIN: No ulcer, rash or bleeding. LABS: WBC 3.3, hemoglobin was 10.4. ASSESSMENT: 1. Generalized weakness and tiredness, possible transient ischemic attack. 2. Rule out sepsis with gram-positive cocci/. 3. 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 4. History of cerebral brain aneurysm surgery. 5. History of urinary tract infection with pyelonephritis. 6. Diabetes mellitus type 2. 7. Mild pancytopenia. 8. Hypertension. 9. History of pneumonia. 10.History of tonsillectomy. 11.History of cerebral shunt, status post surgery. 12.FULL CODE. RECOMMENDATIONS AND DISCUSSION: In this 61-year-old gentleman who presented with multiple complex medical issues , will monitor the patient closely, continue with the current medical management and symptomatic treatment. Otherwise at this time, I would also recommend infectious disease evaluation, continue with continue with IV antibiotics. A CT scan of the brain noted. Prognosis guarded because of multiple complex medical issues. Further recommendations to follow. See orders for further details. DVT prophylaxis. Discussed with the family. PT/OT evaluation and possible ECF rehab once the patient is stabilized. The patient recently got out of the rehab, according to the family , after a prolonged stay after the most recent intracranial surgery. MMODL / IJN: [id number] / MANISHA
[2017-05-23 20:46] LABS: Glucose,Whole Blood 128 mg/dL (75-99)
[2017-05-23] MEDS: AMITRIPTYLINE HCL 10 MG TAB PO SCH (21:16)
[2017-05-23] MEDS: TAMSULOSIN 0.4 MG CAP.ER.24H PO SCH (21:16)
[2017-05-24 07:28] LABS: Glucose,Whole Blood 128 mg/dL (75-99)
[2017-05-24] MEDS: SODIUM CHLORIDE 0.9% 1,000 ML IV SCH ×2 (07:30→18:22)
[2017-05-24 07:32] LABS: Anisocytosis Slight; Basophils % (A) 0 %; Eosinophils # (A) 0.2 k/uL (0-0.7); Eosinophils % (A) 7 %; HCT 31.2 % (39.0-53.0); HGB 9.9 gm/dL (13.0-17.5); Hypochromasia Slight; Lymphocytes # (A) 0.7 k/uL (1.0-4.8); Lymphocytes % (A) 20 %; MCH 26.5 pg (25.0-35.0); MCHC 31.7 g/dL (31.0-37.0); MCV 83.6 fL (80.0-100.0); Mean Platelet Volume 8.4; Monocytes # (A) 0.2 k/uL (0-1.0); Monocytes % (A) 5 %; Neutrophils # (A) 2.4 k/uL (1.3-7.7); Neutrophils % (A) 65 %; Platelet Count 109 k/uL (150-450); Poikilocytosis Slight; RBC 3.73 m/uL (4.30-5.90); RDW 16.7 % (11.5-15.5); WBC 3.6 k/uL (3.8-10.6)
[2017-05-24 07:59] LABS: Anion Gap 8 mmol/L; Blood Urea Nitrogen 14 mg/dL (9-20); Calcium 8.5 mg/dL (8.4-10.2); Carbon Dioxide 23 mmol/L (22-30); Chloride 109 mmol/L (98-107); Glucose 118 mg/dL (74-99); Sodium 140 mmol/L (137-145)
[2017-05-24] MEDS: METOPROLOL TARTRATE 12.5 MG TAB PO SCH ×2 (08:24→21:13)
[2017-05-24] MEDS: HEPARIN SODIUM,PORCINE 5,000 UNIT/ML 1 ML VIAL SQ SCH ×3 (08:24→21:13)
[2017-05-24] MEDS: FERROUS SULFATE 325 MG TAB PO SCH (08:24)
[2017-05-24] MEDS: PANTOPRAZOLE 40 MG TABLET PO SCH (08:24)
[2017-05-24] MEDS: GABAPENTIN 400 MG CAP PO SCH ×3 (08:25→21:14)
[2017-05-24] MEDS: DULoxetine HCL 30 MG CAPSULE.DR PO SCH (08:25)
[2017-05-24] MEDS: DOCUSATE 100 MG CAP PO SCH (08:25)
[2017-05-24] MEDS: NON-FORMULARY DRUG (Naloxegol Oxalate [Movantik] 25 MG) PO SCH (08:29)
[2017-05-24 11:14] LABS: Glucose,Whole Blood 157 mg/dL (75-99)
[2017-05-24] MEDS: MAGNESIUM OXIDE 400 MG TAB PO SCH (11:41)
[2017-05-24] MEDS ORDERED: VANCOMYCIN TROUGH DUE 1 EACH MISC MISCELLANE ONE (15:00)
[2017-05-24 17:41] LABS: Glucose,Whole Blood 120 mg/dL (75-99)
--- NOTE | 2017-05-24 19:17 | PN ---
PROGRESS NOTE DATE OF SERVICE: 05/24/2017. INTERVAL HISTORY: This 61-year-old gentleman admitted with diabetes and hypertension also had a fever. The blood culture has grown coagulase-negative staph at this time. The patient also had recent acoustic neuroma surgery. No chest pain. No palpitations. No fever. EXAM: Alert attentive pulse 68, blood pressure 90/52, respirations 18, temperature 98.1, pulse ox 96% on room air. HEENT: Conjunctivae normal. NECK: Supple. CARDIOVASCULAR: S1 and S2. LUNGS: Breath sounds diminished in the bases. No rhonchi, no crackles. ABDOMEN: Soft, nontender. LEGS: No edema. NERVOUS SYSTEM: Diffusely weak. LABS: WBC 3.2, hemoglobin 9.9, albumin 13.1. ASSESSMENT: 1. Generalized weakness and tiredness, possible transient ischemic attack. 2. Gram-positive cocci in the blood, coagulase-negative Staph in the blood. 3. History of recent left acoustic neuroma surgery with a significant left-sided paralysis. 4. Gait dysfunction. 5. History of cerebral aneurysm surgery. 6. History of urinary tract infection with pyelonephritis. 7. Diabetes type 2. 8. Mild pancytopenia. 9. Hypertension. 10.History of pneumonia. 11.History of tonsillectomy. 12.History of cerebral shunt status post surgery. 13.FULL CODE. RECOMMENDATIONS: Recommend to continue current medications, continue with monitoring and symptomatic treatment. Otherwise at this time I recommend continue PT and OT evaluation. Continue to monitor. Await final blood culture reports as well as Infectious Disease evaluation also. Further recommendation to follow. Currently only one out of several blood cultures are positive at this time. Further recommendations to follow. MMODL / IJN: [id number] /
[2017-05-24 20:21] LABS: Glucose,Whole Blood 127 mg/dL (75-99)
--- NOTE | 2017-05-24 21:04 | P.PN ---
Subjective Progress Note Date: 05/24/17 This patient is a 61-year-old male who was admitted to Hospital with generalized weakness and possible TIA. He underwent a computed tomography scan of the brain the results of which are noted previously. There was no evidence of acute stroke. Patient does have evidence of underlying Gram-positive sepsis. He is to be seen by infectious disease in regards to further antibiotic coverage for the patient. Patient continues to do fairly well but does have a complex neurological history having undergone a left acoustic neuroma surgery with significant left-sided paralysis. He also has a history of cerebral aneurysm surgery in the past as well as cerebral shunt placement. Patient is to follow-up with his surgeon at [facility] for further treatment. According to the patient he may require surgical intervention for cervical disc disease first and then further left acoustic neuroma surgery as needed. The patient is resting comfortably today. He has had no evidence of TIA or strokelike symptoms. He is afebrile this evening. We will continue close neurological follow-up with the patient. Objective - Vital Signs Vital signs: Vital Signs Temp 98.1 F 05/24/17 15:00 Pulse 68 05/24/17 15:00 Resp 18 05/24/17 15:00 BP 95/54 05/24/17 15:00 Pulse Ox 96 05/24/17 15:00 Intake & Output 05/23/17 05/24/17 05/24/17 18:59 06:59 18:59 Intake Total 615 750 600 Balance 615 750 600 Weight 106.821 kg Intake: Intake, IV Titration 375 750 600 Amount Sodium Chloride 0.9% 1, 375 600 600 000 ml @ 75 mls/hr IV . [id number] [facility] Rx#:[id number] Vancomycin 1,750 mg In 150 Sodium Chloride 0.9% 250 ml @ 125 mls/hr IVPB Q16H [facility] Rx#:[id number] Oral 240 Other: Voiding Method Urinal Urinal Urinal # Voids 3 1 - Exam Physical Examination: PHYSICAL EXAMINATION: Patient is resting comfortably in bed. VITAL SIGNS: Blood pressure is [95/54]. Heart rate is [68]. Respiration is [18] . Temperature is [98.1]. HEENT: Head is atraumatic, neck is supple, there were no carotid bruits. CHEST: Lungs are clear to auscultation and percussion. CARDIAC: S1, S2 normal rate and rhythm. There is no murmur. ABDOMEN: Soft and nontender. Bowel sounds are present. EXTREMITIES: There is no pedal edema. Peripheral pulses are present. Neurological examination: Patient's neurological examination is unchanged from yesterday. - Labs CBC & Chem 7: 05/24/17 07:00 05/24/17 07:00 Labs: Abnormal Lab Results - Last 24 Hours (Table) 05/23/17 05/24/17 05/24/17 Range/Units 20:43 07:00 07:00 WBC 3.6 L (3.8-10.6) k/uL RBC 3.73 L (4.30-5.90) m/uL Hgb 9.9 L (13.0-17.5) gm/dL Hct 31.2 L (39.0-53.0) % RDW 16.7 H (11.5-15.5) % Plt Count 109 L (150-450) k/uL Lymphocytes # 0.7 L (1.0-4.8) k/uL Chloride 109 H (98-107) mmol/L Glucose 118 H (74-99) mg/dL POC Glucose (mg/dL) 128 H (75-99) mg/dL 05/24/17 05/24/17 Range/Units 07:17 11:10 WBC (3.8-10.6) k/uL RBC (4.30-5.90) m/uL Hgb (13.0-17.5) gm/dL Hct (39.0-53.0) % RDW (11.5-15.5) % Plt Count (150-450) k/uL Lymphocytes # (1.0-4.8) k/uL Chloride (98-107) mmol/L Glucose (74-99) mg/dL POC Glucose (mg/dL) 128 H 157 H (75-99) mg/dL Microbiology - Last 24 Hours (Table) 05/22/17 20:25 Blood Culture Gram Stain - Preliminary Blood 05/22/17 20:55 Blood Culture Gram Stain - Preliminary Blood Blood Culture - Preliminary Coagulase Negative Staph 05/22/17 20:25 Blood Culture - Preliminary Blood 05/22/17 20:55 Blood Culture - Preliminary Blood 05/22/17 00:08 Urine Culture - Final Urine,Catheterized Assessment and Plan (1) S/P excision of acoustic neuroma Current Visit: Yes Status: Acute Code(s): Z98.890 - OTHER SPECIFIED POSTPROCEDURAL STATES; Z86.018 - PERSONAL HISTORY OF OTHER BENIGN NEOPLASM SNOMED Code(s): 703630173 (2) Cerebral aneurysm Current Visit: Yes Status: Acute Code(s): I67.1 - CEREBRAL ANEURYSM, NONRUPTURED SNOMED Code(s): 361534333 (3) S/P MACHINE DEICER ELEMENT WINDER shunt Current Visit: Yes Status: Acute Code(s): Z98.2 - PRESENCE OF CEREBROSPINAL FLUID DRAINAGE DEVICE SNOMED Code(s): 890115996 (4) Generalized weakness Current Visit: Yes Status: Acute Code(s): R53.1 - WEAKNESS SNOMED Code(s) : 86302574 (5) Fever Current Visit: Yes Status: Acute Code(s): R50.9 - FEVER, UNSPECIFIED SNOMED Code(s): 187219327 Plan: This patient is a 61-year-old male who is being treated for underlying sepsis. He has gram-positive cocci in his blood cultures. Infectious disease has been consulted. Patient has multiple neurological issues including history of recent left acoustic neuroma surgery. He has left-sided paralysis following surgery. He also has history of cerebral aneurysm surgery and shunt placement. Neurologically he remains intact today. He is not showing any signs or symptoms of TIA at this time. Neurological examination remains stable and unchanged from yesterday. We will await further recommendations from infectious disease in regards to his sepsis. His overall prognosis at this time remains guarded. Patient states he would like to go home and have outpatient physical therapy rather than placement into rehab or correction. We will continue to follow his progress closely. His overall prognosis at this time remains very guarded.
[2017-05-24] MEDS: TAMSULOSIN 0.4 MG CAP.ER.24H PO SCH (21:14)
[2017-05-24] MEDS: AMITRIPTYLINE HCL 10 MG TAB PO SCH (21:14)
[2017-05-24] MEDS ORDERED: VANCOMYCIN IV PER PHARMACY 1 EACH MISC MISCELLANE PRN (23:27)
--- NOTE | 2017-05-24 23:27 | P.CONS ---
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 He required an extensive surgical procedure including a ventricular peritoneal shunt for reduction of pressure. 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 There was concerns to a TIA the patient was brought into hospital. His recent hospitalization it was concerns to sepsis and he was treated with antibiotic therapy with concerns to infection at his PEG tube site. At that time he had been recently decannulated from his tracheostomy. And during the recent hospitalization his PEG tube was removed and he was doing well with his feeding. Family has been having no concerns about his nutrition. He was doing well until he had the sudden TIA-like event. Since admission he has been doing relatively well except he has had 101.6 fever. There are now multiple positive blood cultures and without the infectious diseases consultation was requested. Pleasant gentleman has no other acute complaints is evening. He is denying further fevers chills rigors or sweats. He just has generalized weakness but no new acute gross focal sensory motor complaint. Review of Systems Patient more comfortable HEENT:Denies headache or acute visual change. Denies sinus or mouth discomforts. Denies neck stiffness or pain. Denies significant oral cavity pain. Denies difficulty on swallowing. Denies difficulty since tracheostomy decannulation Lungs: Denies significant shortness of breath, cough, sputum production, or hemoptysis. Cardiovascular: Denies significant shortness of breath, chest pain, chest wall pain, orthopnea, dyspnea on exertion, syncope Gastrointestinal:Denies nausea, vomiting, diarrhea, constipation, hematemesis, melena, hematochezia. No no significant change of bowel habit noticed. Denies difficulty since PEG tube was removed Musculoskeletal: denies significant myalgias or arthralgias. No new joint swelling. Denies new back pain. Skin: Irritation of the PEG site as per the HPI Neuro: Denies headache but was lethargic and sleepy as per HPI Psychiatric: Denies anxiety or depression. 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 Retired [employer]. No travel, or experience. No tobacco or alcohol use. No animal exposures Smoking Status: Never smoker Past Alcohol Use History: None Reported Past Drug Use History: None Reported - Past Family History Father Family Medical History: Diabetes Mellitus Additional Family Medical History / Comment(s): Mother Family Medical History: Diabetes Mellitus Additional Family Medical History / Comment(s): alive and age 81 Medications and Allergies Home Medications and Allergies Comment(s): Current Medications Acetaminophen (Tylenol Tab) 650 mg PO Q4HR PRN PRN Reason: Fever and/ or Pain Last Admin: 05/22/17 21:41 Dose: 650 mg Hydrocodone Bitart/Acetaminophen ([place] 5-325) 1 each PO Q4HR PRN PRN Reason: Moderate Pain Alprazolam (Xanax) 0.25 mg PO TID PRN PRN Reason: Anxiety Amitriptyline HCl (Elavil) 10 mg PO HS [facility] Last Admin: 05/24/17 21:14 Dose: 10 mg Docusate Sodium (Colace) 100 mg PO Q48H [facility] Last Admin: 05/24/17 08:25 Dose: 100 mg Duloxetine HCl (Cymbalta) 30 mg PO DAILY [facility] Last Admin: 05/24/17 08:25 Dose: 30 mg Ferrous Sulfate (Feosol) 325 mg PO Q48H [facility] Last Admin: 05/24/17 08:24 Dose: 325 mg Gabapentin (Neurontin) 400 mg PO TID [facility] Last Admin: 05/24/17 21:14 Dose: 400 mg Heparin Sodium (Porcine) (Heparin) 5,000 unit SQ Q12HR [facility] Last Admin: 05/24/17 21:13 Dose: Not Given Sodium Chloride (Saline 0.9%) 1,000 mls @ 75 mls/hr IV .[id number] [facility] Last Admin: 05/24/17 18:22 Dose: 75 mls/hr Magnesium Oxide (Mag-Ox) 400 mg PO 1200 [facility] Last Admin: 05/24/17 11:41 Dose: 400 mg Metoprolol Tartrate (Lopressor) 12.5 mg PO BID [facility] Last Admin: 05/24/17 21:13 Dose: 12.5 mg Naloxone HCl (Narcan) 0.2 mg IV Q2M PRN PRN Reason: Opioid Reversal Non-Formulary Medication (Naloxegol Oxalate [Movantik]) 25 mg PO DAILY [facility] Last Admin: 05/24/17 08:29 Dose: Not Given Ondansetron HCl (Zofran) 4 mg IVP Q8HR PRN PRN Reason: Nausea And Vomiting Pantoprazole Sodium (Protonix) 40 mg PO AC-BRKFST [facility] Last Admin: 05/24/17 08:24 Dose: 40 mg Tamsulosin HCl (Flomax) 0.4 mg PO HS [facility] Last Admin: 05/24/17 21:14 Dose: 0.4 mg Home Medications Medication Instructions Recorded Confirmed Type Amitriptyline HCl 10 mg PO HS 05/21/17 05/21/17 History DULoxetine HCL [Cymbalta] 30 mg PO DAILY 05/21/17 05/21/17 History Docusate [Colace] 100 mg PO Q48H 05/21/17 05/21/17 History Famotidine [Pepcid] 20 mg PO BID 05/21/17 05/21/17 History Ferrous Sulfate [Iron (65 MG 325 mg PO Q48H 05/21/17 05/21/17 History Elemental)] Gabapentin [Neurontin] 400 mg PO TID 05/21/17 05/21/17 History Magnesium Oxide [Mag-Ox] 400 mg PO DAILY 05/21/17 05/21/17 History Metoprolol Tartrate [Lopressor] 12.5 mg PO BID 05/21/17 05/21/17 History Naloxegol Oxalate [Movantik] 25 mg PO DAILY 05/21/17 05/21/17 History Tamsulosin [Flomax] 0.4 mg PO HS 05/21/17 05/21/17 History HYDROcodone/APAP 5-325MG [[place] 1 each PO Q6H PRN #20 tab 05/24/17 Rx 5-325] Allergies Allergy/AdvReac Type Severity Reaction Status Date / Time almond Allergy Unknown Verified 05/21/17 23:08 banana Allergy Unknown Verified 05/21/17 23:08 Penicillins Allergy Unknown Verified 05/21/17 23:08 Childhood daptomycin AdvReac Severe Abdominal Verified 05/21/17 23:08 Pain Physical Exam Vitals: Vital Signs Temp Pulse Resp BP Pulse Ox 05/24/17 21:12 98.3 F 75 16 103/55 96 05/24/17 15:00 98.1 F 68 18 95/54 96 05/24/17 07:00 98.2 F 68 18 95/54 95 Intake and Output 05/24/17 05/24/17 05/25/17 14:59 22:59 06:59 Intake Total 600 Balance 600 Intake: Intake, IV Titration 600 Amount Sodium Chloride 0.9% 1, 600 000 ml @ 75 mls/hr IV . [id number] [facility] Rx#:[id number] Other: Voiding Method Urinal Urinal 61-year-old male comfortable at this time HEENT: Anicteric conjunctiva are pink and moist nasal mucosa grossly intact without significant lesions, there is no thrush. 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 Neck: The neck is supple without significant lymphadenopathy or thyromegaly. DT cannulated tracheostomy site is well-healed Lungs: Good bilateral air entry without significant crackles or wheezing. There is no significant bronchial sounds. There is no egophony or dullness. Heart: Irregular with a positive S4 no murmur click or rub Abdomen: Obese, Positive bowel sounds soft and nontender without palpable masses or organomegaly. There was no guarding or rebound. Surgical wound from his CASINO BANKER shunt is well-healed. The prior PEG tube site is without erythema or drainage. Extremities: The upper extremities have excellent pulses they are symmetric, no significant petechiae or telangiectasia. No splinter hemorrhages were noted. The lower extremities are free from significant edema. The peripheral pulses were 2+ and symmetric. Neuro: Is awake and alert as has the left hemiparesis Results CBC & Chem 7: 05/24/17 07:00 05/24/17 07:00 Labs: Abnormal Lab Results - Last 24 Hours (Table) 05/24/17 05/24/17 05/24/17 Range/Units 07:00 07:00 07:17 WBC 3.6 L (3.8-10.6) k/uL RBC 3.73 L (4.30-5.90) m/uL Hgb 9.9 L (13.0-17.5) gm/dL Hct 31.2 L (39.0-53.0) % RDW 16.7 H (11.5-15.5) % Plt Count 109 L (150-450) k/uL Lymphocytes # 0.7 L (1.0-4.8) k/uL Chloride 109 H (98-107) mmol/L Glucose 118 H (74-99) mg/dL POC Glucose (mg/dL) 128 H (75-99) mg/dL 05/24/17 05/24/17 05/24/17 Range/Units 11:10 17:22 20:19 WBC (3.8-10.6) k/uL RBC (4.30-5.90) m/uL Hgb (13.0-17.5) gm/dL Hct (39.0-53.0) % RDW (11.5-15.5) % Plt Count (150-450) k/uL Lymphocytes # (1.0-4.8) k/uL Chloride (98-107) mmol/L Glucose (74-99) mg/dL POC Glucose (mg/dL) 157 H 120 H 127 H (75-99) mg/dL Microbiology - Last 24 Hours (Table) 05/21/17 22:40 Blood Culture Gram Stain - Preliminary Blood Blood Culture - Preliminary Group D Enterococcus Coagulase Negative Staph 05/22/17 20:25 Blood Culture Gram Stain - Preliminary Blood 05/22/17 20:55 Blood Culture Gram Stain - Preliminary Blood Blood Culture - Preliminary Coagulase Negative Staph 05/22/17 20:25 Blood Culture - Preliminary Blood Laboratory Results WBC 3.6 k/uL (3.8-10.6) L 05/24/17 07:00 RBC 3.73 m/uL (4.30-5.90) L 05/24/17 07:00 Hgb 9.9 gm/dL (13.0-17.5) L 05/24/17 07:00 Hct 31.2 % (39.0-53.0) L 05/24/17 07:00 MCV 83.6 fL (80.0-100.0) 05/24/17 07:00 MCH 26.5 pg (25.0-35.0) 05/24/17 07:00 MCHC 31.7 g/dL (31.0-37.0) 05/24/17 07:00 RDW 16.7 % (11.5-15.5) H 05/24/17 07:00 Plt Count 109 k/uL (150-450) L 05/24/17 07:00 Neutrophils % 65 % 05/24/17 07:00 Lymphocytes % 20 % 05/24/17 07:00 Monocytes % 5 % 05/24/17 07:00 Eosinophils % 7 % 05/24/17 07:00 Basophils % 0 % 05/24/17 07:00 Neutrophils # 2.4 k/uL (1.3-7.7) 05/24/17 07:00 Lymphocytes # 0.7 k/uL (1.0-4.8) L 05/24/17 07:00 Monocytes # 0.2 k/uL (0-1.0) 05/24/17 07:00 Eosinophils # 0.2 k/uL (0-0.7) 05/24/17 07:00 Basophils # 0.0 k/uL (0-0.2) 05/24/17 07:00 Hypochromasia Slight 05/24/17 07:00 Poikilocytosis Slight 05/24/17 07:00 Anisocytosis Slight 05/24/17 07:00 Microcytosis Slight 05/21/17 22:40 PT 11.7 sec (9.0-12.0) 05/21/17 22:40 INR 1.2 (<1.2) H 05/21/17 22:40 APTT 27.8 sec (22.0-30.0) 05/21/17 22:40 Sodium 140 mmol/L (137-145) 05/24/17 07:00 Potassium 4.0 mmol/L (3.5-5.1) 05/24/17 07:00 Chloride 109 mmol/L (98-107) H 05/24/17 07:00 Carbon Dioxide 23 mmol/L (22-30) 05/24/17 07:00 Anion Gap 8 mmol/L 05/24/17 07:00 BUN 14 mg/dL (9-20) 05/24/17 07:00 Creatinine 0.85 mg/dL (0.66-1.25) 05/24/17 07:00 Est GFR (MDRD) Af Amer >60 (>60 ml/min/1.73 sqM) 05/24/17 07:00 Est GFR (MDRD) Non-Af >60 (>60 ml/min/1.73 sqM) 05/24/17 07:00 Glucose 118 mg/dL (74-99) H 05/24/17 07:00 POC Glucose (mg/dL) 127 mg/dL (75-99) H 05/24/17 20:19 POC Glu [employer] Macey [place] 05/24/17 20:[address] Glu mg/dL 100 05/22/17 06:09 Hemoglobin A1c 5.1 % (4.0-6.0) 05/22/17 06:09 Plasma Lactic Acid Maxx 1.4 mmol/L (0.7-2.0) 05/21/17 22:40 Calcium 8.5 mg/dL (8.4-10.2) 05/24/17 07:00 Magnesium 2.0 mg/dL (1.6-2.3) 05/22/17 06:09 Total Bilirubin 1.0 mg/dL (0.2-1.3) 05/22/17 06:09 AST 21 U/L (17-59) 05/22/17 06:09 ALT 37 U/L (21-72) 05/22/17 06:09 Alkaline Phosphatase 73 U/L (38-126) 05/22/17 06:09 Troponin I <0.012 ng/mL (0.000-0.034) 05/21/17 22:40 Total Protein 6.2 g/dL (6.3-8.2) L 05/22/17 06:09 Albumin 3.1 g/dL (3.5-5.0) L 05/22/17 06:09 Urine Color [place] 05/22/17 00:08 Urine Appearance Clear (Clear) 05/22/17 00:08 Urine pH 5.5 (5.0-8.0) 05/22/17 00:08 Ur Specific [place] 1.023 (1.001-1.035) 05/22/17 00:08 Urine Protein 1+ (Negative) H 05/22/17 00:08 Urine Glucose (UA) Negative (Negative) 05/22/17 00:08 Urine Ketones Negative (Negative) 05/22/17 00:08 Urine Blood Negative (Negative) 05/22/17 00:08 Urine Nitrite Negative (Negative) 05/22/17 00:08 Urine Bilirubin 1+ (Negative) H 05/22/17 00:08 Urine Urobilinogen 2.0 mg/dL (<2.0) 05/22/17 00:08 Ur Leukocyte Esterase Negative (Negative) 05/22/17 00:08 Urine RBC <1 /hpf (0-5) 05/22/17 00:08 Urine WBC 1 /hpf (0-5) 05/22/17 00:08 Urine Bacteria Rare /hpf (None) H 05/22/17 00:08 Urine Mucus Rare /hpf (None) H 05/22/17 00:08 Vancomycin Trough 13.1 ug/mL 05/24/17 15:53 Influenza Type A RNA Not Detected (Not Detectd) 05/21/17 23:00 Influenza Type B (PCR) Not Detected (Not Detectd) 05/21/17 23:00 Microbiology 05/21/17 22:40 Blood Blood Culture Gram Stain - Preliminary 05/21/17 22:40 Blood Blood Culture - Preliminary Group D Enterococcus Coagulase Negative Staph 05/22/17 20:25 Blood Blood Culture Gram Stain - Preliminary 05/22/17 20:55 Blood Blood Culture Gram Stain - Preliminary 05/22/17 20:55 Blood Blood Culture - Preliminary Coagulase Negative Staph 05/22/17 20:25 Blood Blood Culture - Preliminary 05/22/17 20:55 Blood Blood Culture - Preliminary 05/22/17 00:08 Urine,Catheterized Urine Culture - Final 05/21/17 22:40 Blood Blood Culture - Final Assessment and Plan (1) Acoustic neuroma Current Visit: No Status: Acute Code(s): D33.3 - BENIGN NEOPLASM OF CRANIAL NERVES SNOMED Code(s): 747925627 (2) TIA (transient ischemic attack) Current Visit: Yes Status: Acute Code(s): G45.9 - TRANSIENT CEREBRAL ISCHEMIC ATTACK, UNSPECIFIED SNOMED Code(s): 613783488 (3) Fever Narrative/Plan: 61-year-old male who is a very extensive past medical history regarding his acoustic neuroma, his surgery and his neurological deficits occurred since. He recently had some improvement since he has tracheostomy decannulated and his PEG tube removed. He's been doing quite well since this is occurred. She's not been having difficulties with chewing swallowing and eating. There's been no gagging and choking occurring. Chest x-rays without evidence of significant pneumonia. The patient however did have evidence of fever at admission at which point in time he also had symptoms of a TIA. His been seen by neurology I do not believe that he's had a TIA. He over did have evidence of fever finale evidence of multiple positive blood cultures. A coagulase-negative staph appears to be occurring. It is unclear the extent of the nature of this bacteremia. Follow up blood cultures have been requested. Prior blood cultures did have evidence of Enterococcus faecalis. Vancomycin will continue for now so we have further data. Current urine culture is negative. Patient does have a CASINO BANKER shunt, would not appear to be the source of infection at this time must be considered if other sites of infection are excluded. Current Visit: Yes Status: Acute Code(s): R50.9 - FEVER, UNSPECIFIED SNOMED Code(s): 547068787
[2017-05-25] MEDS: VANCOMYCIN 1,750 MG in SODIUM CHLORIDE 0.9% 250 ML IVPB SCH ×2 (00:20→17:26)
[2017-05-25 06:54] LABS: Glucose,Whole Blood 121 mg/dL (75-99)
[2017-05-25 08:31] LABS: Anisocytosis Slight; Basophils % (A) 0 %; Eosinophils # (A) 0.2 k/uL (0-0.7); Eosinophils % (A) 6 %; HCT 32.9 % (39.0-53.0); HGB 10.1 gm/dL (13.0-17.5); Hypochromasia Slight; Lymphocytes # (A) 0.7 k/uL (1.0-4.8); Lymphocytes % (A) 19 %; MCH 25.7 pg (25.0-35.0); MCHC 30.8 g/dL (31.0-37.0); MCV 83.5 fL (80.0-100.0); Mean Platelet Volume 8.6; Monocytes # (A) 0.2 k/uL (0-1.0); Monocytes % (A) 5 %; Neutrophils # (A) 2.4 k/uL (1.3-7.7); Neutrophils % (A) 68 %; Platelet Count 113 k/uL (150-450); Poikilocytosis Slight; RBC 3.93 m/uL (4.30-5.90); RDW 16.4 % (11.5-15.5); WBC 3.5 k/uL (3.8-10.6)
[2017-05-25] MEDS: METOPROLOL TARTRATE 12.5 MG TAB PO SCH ×2 (08:42→19:59)
[2017-05-25] MEDS: GABAPENTIN 400 MG CAP PO SCH ×2 (08:42→17:26)
[2017-05-25] MEDS: PANTOPRAZOLE 40 MG TABLET PO SCH (08:43)
[2017-05-25] MEDS: HEPARIN SODIUM,PORCINE 5,000 UNIT/ML 1 ML VIAL SQ SCH ×3 (08:43→20:02)
[2017-05-25] MEDS: DULoxetine HCL 30 MG CAPSULE.DR PO SCH (08:43)
[2017-05-25] MEDS: SODIUM CHLORIDE 0.9% 1,000 ML IV SCH ×2 (08:44→17:26)
[2017-05-25] MEDS: NON-FORMULARY DRUG (Naloxegol Oxalate [Movantik] 25 MG) PO SCH (08:44)
[2017-05-25 08:59] LABS: Anion Gap 7 mmol/L; Blood Urea Nitrogen 12 mg/dL (9-20); Calcium 8.6 mg/dL (8.4-10.2); Carbon Dioxide 26 mmol/L (22-30); Chloride 108 mmol/L (98-107); Glucose 120 mg/dL (74-99); Potassium 3.9 mmol/L (3.5-5.1); Sodium 141 mmol/L (137-145)
[2017-05-25 11:36] LABS: Glucose,Whole Blood 193 mg/dL (75-99)
[2017-05-25] MEDS: MAGNESIUM OXIDE 400 MG TAB PO SCH (12:25)
[2017-05-25 16:40] LABS: Glucose,Whole Blood 141 mg/dL (75-99)
--- NOTE | 2017-05-25 18:14 | P.PN ---
Subjective Progress Note Date: 05/25/17 This patient is a 61-year-old male who was admitted to Hospital with generalized weakness and possible TIA. He underwent a computed tomography scan of the brain the results of which are noted previously. There was no evidence of acute stroke. Patient does have evidence of underlying Gram-positive sepsis. He is to be seen by infectious disease in regards to further antibiotic coverage for the patient. Patient continues to do fairly well but does have a complex neurological history having undergone a left acoustic neuroma surgery with significant left-sided paralysis. He also has a history of cerebral aneurysm surgery in the past as well as cerebral shunt placement. Patient is to follow-up with his surgeon at [facility] for further treatment. According to the patient he may require surgical intervention for cervical disc disease first and then further left acoustic neuroma surgery as needed. The patient is resting comfortably today. He has had no evidence of TIA or strokelike symptoms. He is afebrile this evening. Patient was seen by Dr. Borja yesterday evening. He is being evaluated for sources of sepsis. A coagulase-negative staph appears to be occurring. It is unclear to the extent of the nature of this bacteremia. We will await further recommendations from Dr. Borja. We will continue close neurological follow-up with the patient. Objective - Vital Signs Vital signs: Vital Signs Temp 97.6 F 05/25/17 14:56 Pulse 63 05/25/17 14:56 Resp 18 05/25/17 14:56 BP 95/46 05/25/17 14:56 Pulse Ox 94 L 05/25/17 14:56 Intake & Output 05/24/17 05/25/17 05/25/17 18:59 06:59 18:59 Intake Total 600 1740 270 Output Total 550 Balance 600 1190 270 Intake: IV 900 270 Sodium Chloride 0.9% 1, 650 270 000 ml @ 75 mls/hr IV . [id number] [facility] Rx#:[id number] Vancomycin 1,750 mg In 250 Sodium Chloride 0.9% 250 ml @ 125 mls/hr IVPB Q16H [facility] Rx#:[id number] Intake, IV Titration 600 Amount Sodium Chloride 0.9% 1, 600 000 ml @ 75 mls/hr IV . [id number] [facility] Rx#:[id number] Oral 840 Output: Urine 550 Other: Voiding Method Urinal Urinal Urinal # Voids 2 - Exam Physical Examination: PHYSICAL EXAMINATION: Patient is resting comfortably in bed. VITAL SIGNS: Blood pressure is [108/55]. Heart rate is [73]. Respiration is [18] . Temperature is [97.5]. HEENT: Head is atraumatic, neck is supple, there were no carotid bruits. CHEST: Lungs are clear to auscultation and percussion. CARDIAC: S1, S2 normal rate and rhythm. There is no murmur. ABDOMEN: Soft and nontender. Bowel sounds are present. EXTREMITIES: There is no pedal edema. Peripheral pulses are present. Neurological examination: Patient's neurological examination is unchanged from yesterday. - Labs CBC & Chem 7: 05/25/17 07:58 05/25/17 07:58 Labs: Abnormal Lab Results - Last 24 Hours (Table) 05/24/17 05/25/17 05/25/17 Range/Units 20:19 06:52 07:58 WBC 3.5 L (3.8-10.6) k/uL RBC 3.93 L (4.30-5.90) m/uL Hgb 10.1 L (13.0-17.5) gm/dL Hct 32.9 L (39.0-53.0) % MCHC 30.8 L (31.0-37.0) g/dL RDW 16.4 H (11.5-15.5) % Plt Count 113 L (150-450) k/uL Lymphocytes # 0.7 L (1.0-4.8) k/uL Chloride (98-107) mmol/L Glucose (74-99) mg/dL POC Glucose (mg/dL) 127 H 121 H (75-99) mg/dL 05/25/17 05/25/17 05/25/17 Range/Units 07:58 11:33 16:38 WBC (3.8-10.6) k/uL RBC (4.30-5.90) m/uL Hgb (13.0-17.5) gm/dL Hct (39.0-53.0) % MCHC (31.0-37.0) g/dL RDW (11.5-15.5) % Plt Count (150-450) k/uL Lymphocytes # (1.0-4.8) k/uL Chloride 108 H (98-107) mmol/L Glucose 120 H (74-99) mg/dL POC Glucose (mg/dL) 193 H 141 H (75-99) mg/dL Microbiology - Last 24 Hours (Table) 05/22/17 20:55 Blood Culture - Final Blood 05/22/17 20:25 Blood Culture Gram Stain - Preliminary Blood Blood Culture - Preliminary Group D Enterococcus 05/21/17 22:40 Blood Culture Gram Stain - Preliminary Blood Blood Culture - Preliminary Group D Enterococcus Coagulase Negative Staph Assessment and Plan (1) S/P excision of acoustic neuroma Current Visit: Yes Status: Acute Code(s): Z98.890 - OTHER SPECIFIED POSTPROCEDURAL STATES; Z86.018 - PERSONAL HISTORY OF OTHER BENIGN NEOPLASM SNOMED Code(s): 758700344 (2) Cerebral aneurysm Current Visit: Yes Status: Acute Code(s): I67.1 - CEREBRAL ANEURYSM, NONRUPTURED SNOMED Code(s): 216209065 (3) S/P ACUPUNCTURE PHYSICIAN shunt Current Visit: Yes Status: Acute Code(s): Z98.2 - PRESENCE OF CEREBROSPINAL FLUID DRAINAGE DEVICE SNOMED Code(s): 100786200 (4) Generalized weakness Current Visit: Yes Status: Acute Code(s): R53.1 - WEAKNESS SNOMED Code(s) : 26628672 (5) Fever Current Visit: Yes Status: Acute Code(s): R50.9 - FEVER, UNSPECIFIED SNOMED Code(s): 936565626 Plan: This patient is a 61-year-old male who has a history of recent left acoustic neuroma surgery followed with recent symptoms of altered mental status and weakness. There was concern for TIA. He underwent computed tomography scan of the brain was also which have been noted earlier. He is being evaluated for coagulation-negative staph infection. Infectious disease has been consulted and are currently evaluating him for source of bacteremia. He is currently on vancomycin and we will await further recommendations from Dr. Borja. He is not showing any new neurological deficits since admission to hospital. He does have multiple medical conditions including history of left acoustic neuroma surgery as well as cerebral aneurysm surgery in the past. He has a ACUPUNCTURE PHYSICIAN shunt. At this time there does not appear to be evidence of shunt failure infection. We will await further recommendations from Dr. Borja. His overall prognosis at this time remains guarded.
[2017-05-25] MEDS: ACETAMINOPHEN TAB 325 MG TAB PO PRN (18:34)
[2017-05-25] MEDS: AMITRIPTYLINE HCL 10 MG TAB PO SCH (19:59)
[2017-05-25] MEDS: TAMSULOSIN 0.4 MG CAP.ER.24H PO SCH (19:59)
[2017-05-25 20:36] LABS: Glucose,Whole Blood 115 mg/dL (75-99)
--- NOTE | 2017-05-25 22:03 | PN ---
PROGRESS NOTE DATE OF SERVICE: 05/25/2017 This 61-year-old gentleman admitted with generalized weakness and tiredness, also had a history of recent surgery for acoustic neuroma. The patient had multiple positive cultures. Patient also has left-sided weakness. Patient had difficulty in walking also. The patient had a prolonged stint in rehab, according to him, after the most recent surgery. Multiple cultures are being followed, showing coagulase- negative Staph. Infectious Disease, Dr. Borja, has been consulted and is evaluating the patient also. PAST MEDICAL HISTORY: Reviewed. REVIEW OF SYSTEMS: CARDIOVASCULAR: No angina, palpitations. RESPIRATORY: As mentioned earlier. GI: As mentioned earlier. : No dysuria. NERVOUS: As mentioned earlier. CURRENT MEDICATIONS: Reviewed, include: 1. Tylenol 650 q.4h p.r.n. 2. [place] 5 mg q.4h. p.r.n. 3. Xanax 0.5 t.i.d. 4. Elavil 10 mg q.h.s. 5. Colace 100 mg q.48h. 6. Cymbalta 30 mg p.o. b.i.d. 7. Iron sulfate 320 mg daily. 8. Neurontin 400 mg t.i.d. 9. Heparin subcu b.i.d. 10.Magnesium oxide 400 mg p.o. daily. 11.Lopressor 12.5 mg p.o. b.i.d. 12.Narcan 0.2 q.2h p.r.n. 13.Zofran 4 mg IV q.8h. 14.Protonix 40 mg daily. 15.Flomax 0.4 q.h.s. 16.Vancomycin 1.75 mg IV q.16 hours. PHYSICAL EXAM: The patient is alert, oriented x2. Pulse 63, blood pressure ntd, respirations 18, temperature is 97.2, pulse ox 94% on 2L. HEENT: Conjunctivae normal. Oral mucosa moist. NECK: No jugular venous distention. No carotid bruits. No lymph node enlargement. CARDIOVASCULAR: S1, S2 muffled. RESPIRATORY: Breath sounds diminished in the bases. A few scattered rhonchi. No crackles. ABDOMEN: Soft, obese, nontender. LEGS: No edema. No swelling. NERVOUS SYSTEM: Diffusely weak, left more than the right. Significant weakness with left hemiparesis. SKIN: No rash or bleeding. Decubitus ulcer present. LABS: WBC 3.2, hemoglobin is 10.1, platelets are 113. ASSESSMENT: 1. Generalized weakness and tiredness, possible acute transient ischemic attack. 2. Coagulase-negative Staphylococcus septicemia as well as group D Enterococcus septicemia. 3. 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 4. History of ventriculoperitoneal shunt. 5. History of gait dysfunction. 6. History of cerebral aneurysm surgery. 7. History of urinary tract infection with pyelonephritis. 8. Diabetes mellitus type 2. 9. History of mild pancytopenia. 10.History of hypertension. 11.History of pneumonia. 12.History of tonsillectomy. 13.FULL CODE. RECOMMENDATIONS AND DISCUSSION: Recommend to continue current medical management and symptomatic treatment. Otherwise, continue with IV antibiotics. Most recent cultures done on the 1st of this month are positive. We will repeat the blood cultures and continue to monitor along with the Infectious Disease. A carotid Doppler was done which shows no hemodynamically significant stenosis. I would also recommend a 2D echo with Doppler also. Further recommendations to follow. MMODL / IJN: [id number] / MANISHA
--- NOTE | 2017-05-26 00:20 | P.PN ---
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 He required an extensive surgical procedure including a ventricular peritoneal shunt for reduction of pressure. 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 There was concerns to a TIA the patient was brought into hospital. His recent hospitalization it was concerns to sepsis and he was treated with antibiotic therapy with concerns to infection at his PEG tube site. At that time he had been recently decannulated from his tracheostomy. And during the recent hospitalization his PEG tube was removed and he was doing well with his feeding. Family has been having no concerns about his nutrition. He was doing well until he had the sudden TIA-like event. Since admission he has been doing relatively well except he has had 101.6 fever. There are now multiple positive blood cultures and without the infectious diseases consultation was requested. Pleasant gentleman has no other acute complaints is evening. He is denying further fevers chills rigors or sweats. He just has generalized weakness but no new acute gross focal sensory motor complaint. Patient states feeling somewhat better today. Fevers have resolved. His been seen by neurology and MRI has been requested. Objective - Vital Signs Vital signs: Vital Signs Temp 98.3 F 05/25/17 22:10 Pulse 71 05/25/17 22:10 Resp 18 05/25/17 22:10 BP 98/50 05/25/17 22:10 Pulse Ox 96 05/25/17 22:10 Intake & Output 05/25/17 05/25/17 05/26/17 06:59 18:59 06:59 Intake Total 1740 270 Output Total 550 Balance 1190 270 Intake: IV 900 270 Sodium Chloride 0.9% 1, 650 270 000 ml @ 75 mls/hr IV . [id number] [facility] Rx#:[id number] Vancomycin 1,750 mg In 250 Sodium Chloride 0.9% 250 ml @ 125 mls/hr IVPB Q16H [facility] Rx#:[id number] Oral 840 Output: Urine 550 Other: Voiding Method Urinal Urinal # Voids 2 - Exam 61-year-old male comfortable at this time HEENT: Anicteric conjunctiva are pink and moist nasal mucosa grossly intact without significant lesions, there is no thrush. 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 Neck: The neck is supple without significant lymphadenopathy or thyromegaly. DT cannulated tracheostomy site is well-healed Lungs: Good bilateral air entry without significant crackles or wheezing. There is no significant bronchial sounds. There is no egophony or dullness. Heart: Irregular with a positive S4 no murmur click or rub Abdomen: Obese, Positive bowel sounds soft and nontender without palpable masses or organomegaly. There was no guarding or rebound. Surgical wound from his COAT TAILOR shunt is well-healed. The prior PEG tube site is without erythema or drainage. Extremities: The upper extremities have excellent pulses they are symmetric, no significant petechiae or telangiectasia. No splinter hemorrhages were noted. The lower extremities are free from significant edema. The peripheral pulses were 2+ and symmetric. Neuro: Is awake and alert as has the left hemiparesis - Labs CBC & Chem 7: 05/25/17 07:58 05/25/17 07:58 Labs: Abnormal Lab Results - Last 24 Hours (Table) 05/25/17 05/25/17 05/25/17 Range/Units 06:52 07:58 07:58 WBC 3.5 L (3.8-10.6) k/uL RBC 3.93 L (4.30-5.90) m/uL Hgb 10.1 L (13.0-17.5) gm/dL Hct 32.9 L (39.0-53.0) % MCHC 30.8 L (31.0-37.0) g/dL RDW 16.4 H (11.5-15.5) % Plt Count 113 L (150-450) k/uL Lymphocytes # 0.7 L (1.0-4.8) k/uL Chloride 108 H (98-107) mmol/L Glucose 120 H (74-99) mg/dL POC Glucose (mg/dL) 121 H (75-99) mg/dL 05/25/17 05/25/17 05/25/17 Range/Units 11:33 16:38 20:24 WBC (3.8-10.6) k/uL RBC (4.30-5.90) m/uL Hgb (13.0-17.5) gm/dL Hct (39.0-53.0) % MCHC (31.0-37.0) g/dL RDW (11.5-15.5) % Plt Count (150-450) k/uL Lymphocytes # (1.0-4.8) k/uL Chloride (98-107) mmol/L Glucose (74-99) mg/dL POC Glucose (mg/dL) 193 H 141 H 115 H (75-99) mg/dL Microbiology - Last 24 Hours (Table) 05/22/17 20:55 Blood Culture - Final Blood 05/22/17 20:25 Blood Culture Gram Stain - Preliminary Blood Blood Culture - Preliminary Group D Enterococcus 05/21/17 22:40 Blood Culture Gram Stain - Preliminary Blood Blood Culture - Preliminary Group D Enterococcus Coagulase Negative Staph Laboratory Results WBC 3.5 k/uL (3.8-10.6) L 05/25/17 07:58 RBC 3.93 m/uL (4.30-5.90) L 05/25/17 07:58 Hgb 10.1 gm/dL (13.0-17.5) L 05/25/17 07:58 Hct 32.9 % (39.0-53.0) L 05/25/17 07:58 MCV 83.5 fL (80.0-100.0) 05/25/17 07:58 MCH 25.7 pg (25.0-35.0) 05/25/17 07:58 MCHC 30.8 g/dL (31.0-37.0) L 05/25/17 07:58 RDW 16.4 % (11.5-15.5) H 05/25/17 07:58 Plt Count 113 k/uL (150-450) L 05/25/17 07:58 Neutrophils % 68 % 05/25/17 07:58 Lymphocytes % 19 % 05/25/17 07:58 Monocytes % 5 % 05/25/17 07:58 Eosinophils % 6 % 05/25/17 07:58 Basophils % 0 % 05/25/17 07:58 Neutrophils # 2.4 k/uL (1.3-7.7) 05/25/17 07:58 Lymphocytes # 0.7 k/uL (1.0-4.8) L 05/25/17 07:58 Monocytes # 0.2 k/uL (0-1.0) 05/25/17 07:58 Eosinophils # 0.2 k/uL (0-0.7) 05/25/17 07:58 Basophils # 0.0 k/uL (0-0.2) 05/25/17 07:58 Hypochromasia Slight 05/25/17 07:58 Poikilocytosis Slight 05/25/17 07:58 Anisocytosis Slight 05/25/17 07:58 Microcytosis Slight 05/21/17 22:40 PT 11.7 sec (9.0-12.0) 05/21/17 22:40 INR 1.2 (<1.2) H 05/21/17 22:40 APTT 27.8 sec (22.0-30.0) 05/21/17 22:40 Sodium 141 mmol/L (137-145) 05/25/17 07:58 Potassium 3.9 mmol/L (3.5-5.1) 05/25/17 07:58 Chloride 108 mmol/L (98-107) H 05/25/17 07:58 Carbon Dioxide 26 mmol/L (22-30) 05/25/17 07:58 Anion Gap 7 mmol/L 05/25/17 07:58 BUN 12 mg/dL (9-20) 05/25/17 07:58 Creatinine 0.82 mg/dL (0.66-1.25) 05/25/17 07:58 Est GFR (MDRD) Af Amer >60 (>60 ml/min/1.73 sqM) 05/25/17 07:58 Est GFR (MDRD) Non-Af >60 (>60 ml/min/1.73 sqM) 05/25/17 07:58 Glucose 120 mg/dL (74-99) H 05/25/17 07:58 POC Glucose (mg/dL) 115 mg/dL (75-99) H 05/25/17 20:24 POC Glu Custom Bookbinder ID Марина Cruz 05/25/17 20:[address] Glu mg/dL 100 05/22/17 06:09 Hemoglobin A1c 5.1 % (4.0-6.0) 05/22/17 06:09 Plasma Lactic Acid Maxx 1.4 mmol/L (0.7-2.0) 05/21/17 22:40 Calcium 8.6 mg/dL (8.4-10.2) 05/25/17 07:58 Magnesium 2.0 mg/dL (1.6-2.3) 05/22/17 06:09 Total Bilirubin 1.0 mg/dL (0.2-1.3) 05/22/17 06:09 AST 21 U/L (17-59) 05/22/17 06:09 ALT 37 U/L (21-72) 05/22/17 06:09 Alkaline Phosphatase 73 U/L (38-126) 05/22/17 06:09 Troponin I <0.012 ng/mL (0.000-0.034) 05/21/17 22:40 Total Protein 6.2 g/dL (6.3-8.2) L 05/22/17 06:09 Albumin 3.1 g/dL (3.5-5.0) L 05/22/17 06:09 Urine Color [place] 05/22/17 00:08 Urine Appearance Clear (Clear) 05/22/17 00:08 Urine pH 5.5 (5.0-8.0) 05/22/17 00:08 Ur Specific [place] 1.023 (1.001-1.035) 05/22/17 00:08 Urine Protein 1+ (Negative) H 05/22/17 00:08 Urine Glucose (UA) Negative (Negative) 05/22/17 00:08 Urine Ketones Negative (Negative) 05/22/17 00:08 Urine Blood Negative (Negative) 05/22/17 00:08 Urine Nitrite Negative (Negative) 05/22/17 00:08 Urine Bilirubin 1+ (Negative) H 05/22/17 00:08 Urine Urobilinogen 2.0 mg/dL (<2.0) 05/22/17 00:08 Ur Leukocyte Esterase Negative (Negative) 05/22/17 00:08 Urine RBC <1 /hpf (0-5) 05/22/17 00:08 Urine WBC 1 /hpf (0-5) 05/22/17 00:08 Urine Bacteria Rare /hpf (None) H 05/22/17 00:08 Urine Mucus Rare /hpf (None) H 05/22/17 00:08 Vancomycin Trough 13.1 ug/mL 05/24/17 15:53 Influenza Type A RNA Not Detected (Not Detectd) 05/21/17 23:00 Influenza Type B (PCR) Not Detected (Not Detectd) 05/21/17 23:00 Microbiology 05/22/17 20:55 Blood Blood Culture - Final 05/22/17 20:25 Blood Blood Culture Gram Stain - Preliminary 05/22/17 20:25 Blood Blood Culture - Preliminary Group D Enterococcus 05/21/17 22:40 Blood Blood Culture Gram Stain - Preliminary 05/21/17 22:40 Blood Blood Culture - Preliminary Group D Enterococcus Coagulase Negative Staph 05/22/17 20:55 Blood Blood Culture Gram Stain - Preliminary 05/22/17 20:55 Blood Blood Culture - Preliminary Coagulase Negative Staph 05/22/17 20:25 Blood Blood Culture - Preliminary 05/22/17 00:08 Urine,Catheterized Urine Culture - Final 05/21/17 22:40 Blood Blood Culture - Final Assessment and Plan (1) Acoustic neuroma Current Visit: No Status: Acute Code(s): D33.3 - BENIGN NEOPLASM OF CRANIAL NERVES SNOMED Code(s): 798438214 (2) TIA (transient ischemic attack) Current Visit: Yes Status: Acute Code(s): G45.9 - TRANSIENT CEREBRAL ISCHEMIC ATTACK, UNSPECIFIED SNOMED Code(s): 030019555 (3) Fever Narrative/Plan: 61-year-old male who is a very extensive past medical history regarding his acoustic neuroma, his surgery and his neurological deficits occurred since. He recently had some improvement since he has tracheostomy decannulated and his PEG tube removed. He's been doing quite well since this is occurred. She's not been having difficulties with chewing swallowing and eating. There's been no gagging and choking occurring. Chest x-rays without evidence of significant pneumonia. The patient however did have evidence of fever at admission at which point in time he also had symptoms of a TIA. His been seen by neurology I do not believe that he's had a TIA. He over did have evidence of fever finale evidence of multiple positive blood cultures. A coagulase-negative staph appears to be occurring. It is unclear the extent of the nature of this bacteremia. Follow up blood cultures have been requested. Prior blood cultures did have evidence of Enterococcus faecalis. Vancomycin will continue for now so we have further data. Current urine culture is negative. Patient does have a COAT TAILOR shunt, would not appear to be the source of infection at this time must be considered if other sites of infection are excluded. Patient does have evidence of several positive blood cultures. First with a coagulase-negative staph and enterococcus. And then follow cultures each showing bacteria but one with coagulase-negative staph and one with enterococcus. The last set of blood cultures are pending and are negative so far. It is time being the patient was ill at admission there is concerns the bacteremia is not spurious. The final cultures will help determine course of antibiotic therapy. Patient has been seen by neurology. MRI has been requested. If this cannot be done at this facility within be prudent for him to transfer to the facility that MRI can be performed to complete his course of therapy. Current Visit: Yes Status: Acute Code(s): R50.9 - FEVER, UNSPECIFIED SNOMED Code(s): 478403747
[2017-05-26] MEDS: GABAPENTIN 400 MG CAP PO SCH ×4 (00:54→20:13)
[2017-05-26 07:05] LABS: Glucose,Whole Blood 121 mg/dL (75-99)
[2017-05-26] MEDS: NON-FORMULARY DRUG (Naloxegol Oxalate [Movantik] 25 MG) PO SCH (07:40)
[2017-05-26] MEDS: VANCOMYCIN 1,750 MG in SODIUM CHLORIDE 0.9% 250 ML IVPB SCH ×2 (07:51→23:12)
[2017-05-26] MEDS: FERROUS SULFATE 325 MG TAB PO SCH (07:52)
[2017-05-26] MEDS: PANTOPRAZOLE 40 MG TABLET PO SCH (07:52)
[2017-05-26] MEDS: METOPROLOL TARTRATE 12.5 MG TAB PO SCH ×2 (07:52→20:13)
[2017-05-26] MEDS: DULoxetine HCL 30 MG CAPSULE.DR PO SCH (07:52)
[2017-05-26] MEDS: DOCUSATE 100 MG CAP PO SCH (07:52)
[2017-05-26] MEDS: HEPARIN SODIUM,PORCINE 5,000 UNIT/ML 1 ML VIAL SQ SCH ×3 (07:52→20:12)
[2017-05-26 07:53] LABS: Anion Gap 9 mmol/L; Blood Urea Nitrogen 12 mg/dL (9-20); Calcium 8.8 mg/dL (8.4-10.2); Carbon Dioxide 25 mmol/L (22-30); Chloride 110 mmol/L (98-107); Glucose 121 mg/dL (74-99); Potassium 4.1 mmol/L (3.5-5.1); Sodium 144 mmol/L (137-145)
[2017-05-26 07:55] LABS: Anisocytosis Slight; Basophils % (A) 0 %; Eosinophils # (A) 0.2 k/uL (0-0.7); Eosinophils % (A) 6 %; HCT 32.8 % (39.0-53.0); HGB 10.3 gm/dL (13.0-17.5); Hypochromasia Moderate; Lymphocytes # (A) 0.7 k/uL (1.0-4.8); Lymphocytes % (A) 18 %; MCH 26.4 pg (25.0-35.0); MCHC 31.3 g/dL (31.0-37.0); MCV 84.4 fL (80.0-100.0); Mean Platelet Volume 8.4; Monocytes # (A) 0.1 k/uL (0-1.0); Monocytes % (A) 4 %; Neutrophils # (A) 2.5 k/uL (1.3-7.7); Neutrophils % (A) 71 %; Platelet Count 112 k/uL (150-450); Poikilocytosis Slight; RBC 3.88 m/uL (4.30-5.90); RDW 16.3 % (11.5-15.5); WBC 3.6 k/uL (3.8-10.6)
--- NOTE | 2017-05-26 10:10 | ECHOF ---
Referral Reason:tia? bacteremia MEASUREMENTS -------- HEIGHT: 172.7 cm WEIGHT: 106.6 kg BP: 98/52 IVSd: 1.0 cm (0.6 - 1.1) LVIDd: 5.2 cm (3.9 - 5.3) LVPWd: 1.2 cm (0.6 - 1.1) IVSs: 1.7 cm LVIDs: 2.1 cm LVPWs: 2.1 cm LAESV Index (A-L): 33.90 ml/m Ao Diam: 3.6 cm (2.0 - 3.7) AV Cusp: 2.1 cm (1.5 - 2.6) LA Diam: 4.3 cm (2.7 - 3.8) MV EXCURSION: 15.618 mm (> 18.000) MV EF SLOPE: 124 mm/s (70 - 150) EPSS: 0.7 cm MV E Naga: 1.24 m/s MV DecT: 327 ms MV A Naga: 0.29 m/s MV E/A Ratio: 4.29 AV maxP.40 mmHg AV meanP.72 mmHg AR PHT: 249 ms RAP: 5.00 mmHg RVSP: 19.44 mmHg FINDINGS -------- Sinus rhythm. This was a technically good study. The left ventricular size is normal. There is mild concentric left ventricular hypertrophy. Overa ll left ventricular systolic function is normal with, an EF between 55 - 60 %. The right ventricle is normal in size and function. LA is midly dilated 29-33ml/m2. The right atrium is normal in size. Aortic valve is trileaflet and is mildly thickened. There is mild aortic regurgitation. Peak/mean gradient across the Aortic Valve is 18.40mmHg / 8.72mmHg. There is a vegetation of the right coron clara cusp. The vegetation is mobile. Mild mitral regurgitation is present. Mild tricuspid regurgitation present. The right ventricular systolic pressure, as measured by Doppl er, is 19.44mmHg. Pulmonic valve appears structurally normal. The aortic root size is normal. The pericardium is normal. CONCLUSIONS -------- 1. Sinus rhythm. 2. This was a technically good study. 3. The left ventricular size is normal. 4. There is mild concentric left ventricular hypertrophy. 5. Overall left ventricular systolic function is normal with, an EF between 55 - 60 %. 6. The right ventricle is normal in size and function. 7. LA is midly dilated 29-33ml/m2. 8. The right atrium is normal in size. 9. Aortic valve is trileaflet and is mildly thickened. 10. There is mild aortic regurgitation. 11. Peak/mean gradient across the Aortic Valve is 18.40mmHg / 8.72mmHg. 12. There is a vegetation of the right coronary cusp. 13. The vegetation is mobile. 14. Mild mitral regurgitation is present. 15. Mild tricuspid regurgitation present. 16. The right ventricular systolic pressure, as measured by Doppler, is 19.44mmHg. 17. Pulmonic valve appears structurally normal. 18. The aortic root size is normal. 19. The pericardium is normal. ALLERGY AND IMMUNOLOGY SPECIALIST: Camille Newby RDCS
[2017-05-26 11:31] LABS: Glucose,Whole Blood 141 mg/dL (75-99)
--- NOTE | 2017-05-26 13:47 | P.CRDCN ---
History of Present Illness History of present illness: Please see full dictation by nurse practitioner. 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 He was admitted with fever and possible sepsis with bacteremia. Microbiology report reviewed. On clinical examination he complains of shortness of breath and he is a diastolic murmur At this time I would continue treatment for possible endocarditis with a view to ERICA in case of unresponsiveness to treatment or complicated course Patient was transferred upstairs to the sixth floor and will be followed by the sixth floor team He is a patient of Dr. 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 No travel, or experience. No tobacco or alcohol use. No animal exposures Smoking Status: Never smoker Past Alcohol Use History: None Reported Past Drug Use History: None Reported - Past Family History Father Family Medical History: Diabetes Mellitus Additional Family Medical History / Comment(s): Mother Family Medical History: Diabetes Mellitus Additional Family Medical History / Comment(s): alive and age 81 Medications and Allergies Home Medications Medication Instructions Recorded Confirmed Type Amitriptyline HCl 10 mg PO HS 05/21/17 05/21/17 History DULoxetine HCL [Cymbalta] 30 mg PO DAILY 05/21/17 05/21/17 History Docusate [Colace] 100 mg PO Q48H 05/21/17 05/21/17 History Famotidine [Pepcid] 20 mg PO BID 05/21/17 05/21/17 History Ferrous Sulfate [Iron (65 MG 325 mg PO Q48H 05/21/17 05/21/17 History Elemental)] Gabapentin [Neurontin] 400 mg PO TID 05/21/17 05/21/17 History Magnesium Oxide [Mag-Ox] 400 mg PO DAILY 05/21/17 05/21/17 History Metoprolol Tartrate [Lopressor] 12.5 mg PO BID 05/21/17 05/21/17 History Naloxegol Oxalate [Movantik] 25 mg PO DAILY 05/21/17 05/21/17 History Tamsulosin [Flomax] 0.4 mg PO HS 05/21/17 05/21/17 History HYDROcodone/APAP 5-325MG [Darby 1 each PO Q6H PRN #20 tab 05/24/17 Rx 5-325] Allergies Allergy/AdvReac Type Severity Reaction Status Date / Time almond Allergy Unknown Verified 05/21/17 23:08 banana Allergy Unknown Verified 05/21/17 23:08 Penicillins Allergy Unknown Verified 05/21/17 23:08 Childhood daptomycin AdvReac Severe Abdominal Verified 05/21/17 23:08 Pain Physical Exam Vitals: Vital Signs Temp Pulse Resp BP Pulse Ox 05/26/17 07:00 98 F 18 104/51 96 05/26/17 00:00 71 18 05/25/17 22:10 98.3 F 71 18 98/50 96 05/25/17 19:56 97.4 F L 69 99/52 05/25/17 14:56 97.6 F 63 18 95/46 94 L Intake and Output 05/25/17 05/26/17 05/26/17 22:59 06:59 14:59 Intake Total 750 775 Balance 750 775 Intake: Intake, IV Titration 750 775 Amount Sodium Chloride 0.9% 1, 750 525 000 ml @ 75 mls/hr IV . [id number] [facility] Rx#:[id number] Vancomycin 1,750 mg In 250 Sodium Chloride 0.9% 250 ml @ 125 mls/hr IVPB Q16H [facility] Rx#:[id number] Other: Voiding Method Urinal Urinal Toilet Urinal # Voids 2 2 Results 05/26/17 07:00 05/26/17 07:00 CBC 05/26/17 Range/Units 07:00 WBC 3.6 L (3.8-10.6) k/uL RBC 3.88 L (4.30-5.90) m/uL Hgb 10.3 L (13.0-17.5) gm/dL Hct 32.8 L (39.0-53.0) % Plt Count 112 L (150-450) k/uL Comprehensive Metabolic Panel 05/26/17 Range/Units 07:00 Sodium 144 (137-145) mmol/L Potassium 4.1 (3.5-5.1) mmol/L Chloride 110 H (98-107) mmol/L Carbon Dioxide 25 (22-30) mmol/L BUN 12 (9-20) mg/dL Creatinine 0.77 (0.66-1.25) mg/dL Glucose 121 H (74-99) mg/dL Calcium 8.8 (8.4-10.2) mg/dL Current Medications Generic Name Dose Route Start Last Admin Trade Name Freq PRN Reason Stop Dose Admin Acetaminophen 650 mg 05/22/17 01:58 05/25/17 18:34 Tylenol Tab PO 650 mg Q4HR PRN Administration Fever and/ or Pain Hydrocodone Bitart/Acetaminophen 1 each 05/22/17 01:11 Darby 5-325 PO Q4HR PRN Moderate Pain Alprazolam 0.25 mg 05/22/17 18:36 Xanax PO TID PRN Anxiety Amitriptyline HCl 10 mg 05/22/17 21:00 05/25/17 19:59 Elavil PO 10 mg HS [facility] Administration Docusate Sodium 100 mg 05/22/17 09:00 05/26/17 07:52 Colace PO 100 mg Q48H [facility] Administration Duloxetine HCl 30 mg 05/22/17 09:00 05/26/17 07:52 Cymbalta PO 30 mg DAILY [facility] Administration Ferrous Sulfate 325 mg 05/22/17 09:00 05/26/17 07:52 Feosol PO 325 mg Q48H [facility] Administration Gabapentin 400 mg 05/22/17 09:00 05/26/17 07:52 Neurontin PO 400 mg TID [facility] Administration Heparin Sodium (Porcine) 5,000 unit 05/22/17 21:00 05/26/17 07:58 Heparin SQ Not Given Q12HR [facility] Sodium Chloride 1,000 mls @ 75 mls/hr 05/22/17 01:15 05/25/17 17:26 Saline 0.9% IV 75 mls/hr .[id number] [facility] Administration Vancomycin HCl 1,750 mg/ 250 mls @ 125 mls/hr 05/24/17 23:00 05/26/17 07:51 Sodium Chloride IVPB 125 mls/hr Q16H [facility] Administration Magnesium Oxide 400 mg 05/23/17 12:00 05/25/17 12:25 Mag-Ox PO 400 mg 1200 [facility] Administration Metoprolol Tartrate 12.5 mg 05/22/17 09:00 05/26/17 07:52 Lopressor PO 12.5 mg BID [facility] Administration Naloxone HCl 0.2 mg 05/22/17 01:11 Narcan IV Q2M PRN Opioid Reversal Non-Formulary Medication 25 mg 05/23/17 09:00 05/26/17 07:40 Naloxegol Oxalate [Movantik] PO Not Given DAILY [facility] Ondansetron HCl 4 mg 05/22/17 01:11 Zofran IVP Q8HR PRN Nausea And Vomiting Pantoprazole Sodium 40 mg 05/23/17 07:30 05/26/17 07:52 Protonix PO 40 mg [id number] [facility] Administration Tamsulosin HCl 0.4 mg 05/22/17 21:00 05/25/17 19:59 Flomax PO 0.4 mg HS [facility] Administration Intake and Output 05/25/17 05/26/17 05/26/17 22:59 06:59 14:59 Intake Total 750 775 Balance 750 775 Intake: Intake, IV Titration 750 775 Amount Sodium Chloride 0.9% 1, 750 525 000 ml @ 75 mls/hr IV . [id number] [facility] Rx#:[id number] Vancomycin 1,750 mg In 250 Sodium Chloride 0.9% 250 ml @ 125 mls/hr IVPB Q16H [facility] Rx#:[id number] Other: Voiding Method Urinal Urinal Toilet Urinal # Voids 2 2 05/26/17 07:00 05/26/17 07:00
--- NOTE | 2017-05-26 14:25 | P.GSCN ---
<Camille Pope - Last Filed: 05/26/17 14:22> History of Present Illness Consult date: 05/26/17 Reason for Consult: Vegetation on the patient's aortic valve, treatment recommendations. Requesting physician: Calvin Carreon History of present illness: This 61-year-old gentleman who follows with Dr. 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 Apparently he has been either hospitalized or in rehab since November 2016. A computed tomography scan of the brain was done in the emergency room secondary to concern for TIA which demonstrated no hydrocephalus, COAT CUTTER shunt in good position, post surgical changes with no new findings compared to his last CT. The patient was admitted for concerns for bacteremia. In fact his blood cultures were positive with coag negative staph and enterococcus faecalis. Neurology was consulted for the possibility of TIA but this does not appear to be the case. Dr. Borja was consulted regarding antibiotic management. 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 Dr. Briceño from cardiothoracic surgery was consulted regarding recommendations for the vegetation on the aortic valve. Review of Systems 14 point review systems was completed and was negative except as noted. - Constitutional Reports as per HPI, Reports chills, Reports fatigue, Reports fever, Reports weakness - Cardiovascular Reports shortness of breath - Respiratory Reports congestion, Reports cough - Musculoskeletal Musculoskeleta Comment(s): Left arm completely flaccid, has been since his brain tumor removal last November. 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 No travel, or experience. No tobacco or alcohol use. No animal exposures Smoking Status: Never smoker Past Alcohol Use History: None Reported Past Drug Use History: None Reported - Past Family History Father Family Medical History: Diabetes Mellitus Additional Family Medical History / Comment(s): Mother Family Medical History: Diabetes Mellitus Additional Family Medical History / Comment(s): alive and age 81 Medications and Allergies Home Medications Medication Instructions Recorded Confirmed Type Amitriptyline HCl 10 mg PO HS 05/21/17 05/21/17 History DULoxetine HCL [Cymbalta] 30 mg PO DAILY 05/21/17 05/21/17 History Docusate [Colace] 100 mg PO Q48H 05/21/17 05/21/17 History Famotidine [Pepcid] 20 mg PO BID 05/21/17 05/21/17 History Ferrous Sulfate [Iron (65 MG 325 mg PO Q48H 05/21/17 05/21/17 History Elemental)] Gabapentin [Neurontin] 400 mg PO TID 05/21/17 05/21/17 History Magnesium Oxide [Mag-Ox] 400 mg PO DAILY 05/21/17 05/21/17 History Metoprolol Tartrate [Lopressor] 12.5 mg PO BID 05/21/17 05/21/17 History Naloxegol Oxalate [Movantik] 25 mg PO DAILY 05/21/17 05/21/17 History Tamsulosin [Flomax] 0.4 mg PO HS 05/21/17 05/21/17 History HYDROcodone/APAP 5-325MG [Kellogg 1 each PO Q6H PRN #20 tab 05/24/17 Rx 5-325] Allergies Allergy/AdvReac Type Severity Reaction Status Date / Time almond Allergy Unknown Verified 05/21/17 23:08 banana Allergy Unknown Verified 05/21/17 23:08 Penicillins Allergy Unknown Verified 05/21/17 23:08 Childhood daptomycin AdvReac Severe Abdominal Verified 05/21/17 23:08 Pain Surgical - Exam Vital Signs Temp Pulse Resp BP Pulse Ox 100 F H 81 20 118/54 93 L 05/21/17 22:17 05/21/17 22:17 05/21/17 22:17 05/21/17 22:17 05/21/17 22:17 - General well developed, well nourished, no distress, no pain, chronically ill, obese - Eyes PERRL, normal ocular movement - ENT no hearing loss - Neck no masses, no bruits, trachea midline - Respiratory Lungs sounds diminished bilaterally. Respirations even, nonlabored. Currently on room air with oxygen saturation 96%. - Cardiovascular S1, S2 present. Regular rate and rhythm, sinus rhythm on telemetry. Palpable peripheral pulses bilaterally. Trace bilateral lower extremity edema present. - Abdomen Abdomen: soft, non tender, bowel sounds - Genitourinary Deferred - Rectum Deferred - Integumentary Skin is warm, dry, pink. Patient does have ruddiness with dry scaly skin to his bilateral lower remedies. - Neurologic Weakness present in his left arm normal coordination - Psychiatric oriented to time, oriented to person, oriented to place, speech is normal, memory intact Results - Labs 05/26/17 07:00 05/26/17 07:00 Abnormal Lab Results - Last 24 Hours (Table) 05/25/17 05/25/17 05/26/17 Range/Units 16:38 20:24 07:00 WBC 3.6 L (3.8-10.6) k/uL RBC 3.88 L (4.30-5.90) m/uL Hgb 10.3 L (13.0-17.5) gm/dL Hct 32.8 L (39.0-53.0) % RDW 16.3 H (11.5-15.5) % Plt Count 112 L (150-450) k/uL Lymphocytes # 0.7 L (1.0-4.8) k/uL Chloride (98-107) mmol/L Glucose (74-99) mg/dL POC Glucose (mg/dL) 141 H 115 H (75-99) mg/dL 05/26/17 05/26/17 05/26/17 Range/Units 07:00 07:03 11:29 WBC (3.8-10.6) k/uL RBC (4.30-5.90) m/uL Hgb (13.0-17.5) gm/dL Hct (39.0-53.0) % RDW (11.5-15.5) % Plt Count (150-450) k/uL Lymphocytes # (1.0-4.8) k/uL Chloride 110 H (98-107) mmol/L Glucose 121 H (74-99) mg/dL POC Glucose (mg/dL) 121 H 141 H (75-99) mg/dL Microbiology - Last 24 Hours (Table) 05/22/17 20:25 Blood Culture Gram Stain - Final Blood Blood Culture - Final Enterococcus faecalis 05/25/17 08:06 Blood Culture Gram Stain - Preliminary Blood 05/25/17 07:58 Blood Culture - Preliminary Blood No Growth after 24 hours 05/21/17 22:40 Blood Culture Gram Stain - Final Blood Blood Culture - Final Enterococcus faecalis Coagulase Negative Staph 05/25/17 08:06 Blood Culture - Final Blood 05/22/17 20:55 Blood Culture - Final Blood Diabetes panel 05/26/17 Range/Units 07:00 Sodium 144 (137-145) mmol/L Potassium 4.1 (3.5-5.1) mmol/L Chloride 110 H (98-107) mmol/L Carbon Dioxide 25 (22-30) mmol/L BUN 12 (9-20) mg/dL Creatinine 0.77 (0.66-1.25) mg/dL Glucose 121 H (74-99) mg/dL Calcium 8.8 (8.4-10.2) mg/dL Calcium panel 05/26/17 Range/Units 07:00 Calcium 8.8 (8.4-10.2) mg/dL Pituitary panel 05/26/17 Range/Units 07:00 Sodium 144 (137-145) mmol/L Potassium 4.1 (3.5-5.1) mmol/L Chloride 110 H (98-107) mmol/L Carbon Dioxide 25 (22-30) mmol/L BUN 12 (9-20) mg/dL Creatinine 0.77 (0.66-1.25) mg/dL Glucose 121 H (74-99) mg/dL Calcium 8.8 (8.4-10.2) mg/dL Adrenal panel 05/26/17 Range/Units 07:00 Sodium 144 (137-145) mmol/L Potassium 4.1 (3.5-5.1) mmol/L Chloride 110 H (98-107) mmol/L Carbon Dioxide 25 (22-30) mmol/L BUN 12 (9-20) mg/dL Creatinine 0.77 (0.66-1.25) mg/dL Glucose 121 H (74-99) mg/dL Calcium 8.8 (8.4-10.2) mg/dL - Imaging Chest x-ray: report reviewed, image reviewed Additional studies: Echocardiogram results and films reviewed. Assessment and Plan Assessment: 1. 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 Generalized weakness with fever 3. Coag-negative staph and enterococcus faecalis bacteremia 4. Type 2 diabetes mellitus 5. History of left acoustic neuroma with resection and COAT CUTTER shunt placement 6. Treated hypertension 7. History of pneumonia 8. History of brain aneurysm 9. History of tracheostomy and PEG tube, both of which have been removed Plan: The patient was seen and examined at the bedside with Dr. Briceño. Chart/ diagnostics were reviewed. Echocardiogram films were reviewed. At this time we would recommend continued antibiotic management per infectious disease until bacteremia has resolved. Continued medical management per primary care services /cardiology consult/infectious disease/neurology. We will continue to follow with you closely. Thank you Dr. Carreon for this consult. We look forward to working with you in the care of your patient. Time with Patient: Greater than 30 <Pramod Briceño - Last Filed: 05/28/17 06:24> Surgical - Exam Vital Signs Temp Pulse Resp BP Pulse Ox 100 F H 81 20 118/54 93 L 05/21/17 22:17 05/21/17 22:17 05/21/17 22:17 05/21/17 22:17 05/21/17 22:17 Results - Labs 05/27/17 05:42 05/27/17 05:42 Abnormal Lab Results - Last 24 Hours (Table) 05/27/17 05/27/17 05/27/17 Range/Units 05:42 05:42 06:18 RBC 3.96 L (4.30-5.90) m/uL Hgb 10.2 L (13.0-17.5) gm/dL Hct 33.9 L (39.0-53.0) % MCHC 30.1 L (31.0-37.0) g/dL RDW 18.1 H (11.5-15.5) % Plt Count 120 L (150-450) k/uL Chloride 110 H (98-107) mmol/L Glucose 112 H (74-99) mg/dL POC Glucose (mg/dL) 115 H (75-99) mg/dL 05/27/17 05/27/17 05/27/17 Range/Units 11:45 16:37 21:33 RBC (4.30-5.90) m/uL Hgb (13.0-17.5) gm/dL Hct (39.0-53.0) % MCHC (31.0-37.0) g/dL RDW (11.5-15.5) % Plt Count (150-450) k/uL Chloride (98-107) mmol/L Glucose (74-99) mg/dL POC Glucose (mg/dL) 184 H 138 H 154 H (75-99) mg/dL 05/28/17 Range/Units 06:07 RBC (4.30-5.90) m/uL Hgb (13.0-17.5) gm/dL Hct (39.0-53.0) % MCHC (31.0-37.0) g/dL RDW (11.5-15.5) % Plt Count (150-450) k/uL Chloride (98-107) mmol/L Glucose (74-99) mg/dL POC Glucose (mg/dL) 109 H (75-99) mg/dL Microbiology - Last 24 Hours (Table) 05/25/17 08:06 Blood Culture Gram Stain - Final Blood Blood Culture - Final Coagulase Negative Staph Alpha Hemolytic Streptococcus 05/22/17 20:55 Blood Culture Gram Stain - Final Blood Blood Culture - Final Coagulase Negative Staph Diphtheroid species Diphtheroid species#2 05/25/17 07:58 Blood Culture - Preliminary Blood No Growth after 48 hours Diabetes panel 05/27/17 Range/Units 05:42 Sodium 143 (137-145) mmol/L Potassium 4.0 (3.5-5.1) mmol/L Chloride 110 H (98-107) mmol/L Carbon Dioxide 27 (22-30) mmol/L BUN 13 (9-20) mg/dL Creatinine 0.90 (0.66-1.25) mg/dL Glucose 112 H (74-99) mg/dL Calcium 8.5 (8.4-10.2) mg/dL Calcium panel 05/27/17 Range/Units 05:42 Calcium 8.5 (8.4-10.2) mg/dL Pituitary panel 05/27/17 Range/Units 05:42 Sodium 143 (137-145) mmol/L Potassium 4.0 (3.5-5.1) mmol/L Chloride 110 H (98-107) mmol/L Carbon Dioxide 27 (22-30) mmol/L BUN 13 (9-20) mg/dL Creatinine 0.90 (0.66-1.25) mg/dL Glucose 112 H (74-99) mg/dL Calcium 8.5 (8.4-10.2) mg/dL Adrenal panel 05/27/17 Range/Units 05:42 Sodium 143 (137-145) mmol/L Potassium 4.0 (3.5-5.1) mmol/L Chloride 110 H (98-107) mmol/L Carbon Dioxide 27 (22-30) mmol/L BUN 13 (9-20) mg/dL Creatinine 0.90 (0.66-1.25) mg/dL Glucose 112 H (74-99) mg/dL Calcium 8.5 (8.4-10.2) mg/dL Assessment and Plan Plan: The patient was seen and examined. I agree with the above assessment and plan. The patient's transthoracic echocardiogram reveals a 0.9 cm vegetation on the aortic valve leaflet with associated mild AI. He has persistent bacteremia. He appears to be hemodynamcially stable. At this point, I would recommend continued medical management including antibiotics as directed by the Infectious Disease service. There is no indication for acute surgical intervention at this time. We will certainly follow along with you.
--- NOTE | 2017-05-26 14:26 | P.CRDCN ---
History of Present Illness Consult date: 05/26/17 History of present illness: Mr. 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 He has had no recurrence since and therefore was not anti-coagulated. He follows with Dr. Leblanc as an outpatient. He had been in ECF until 2 weeks ago when he went home with his . She brought him to the hospital with complaints of increasing weakness, fever and chills. Blood cultures show coagulase-negative staph as well as enterococcus faecalis. An echocardiogram was performed and shows mobile structure on the right coronary cusp of the aortic valve consistent with possible vegetation. For that reason a cardiology consult was requested. He is seen sitting up in the chair in no acute distress. He denies chest pain, shortness of breath, dizziness, palpitations or fever. He has been receiving vancomycin per infectious disease. Echocardiogram performed in March of this year revealed preserved LV function with mild mitral regurgitation. Laboratory data has been reviewed, white blood cell count 3.6, hemoglobin 10.3, platelets 112, potassium 4.1, creatinine 0.77. Current cardiac medications include metoprolol 12.5 mg twice a day. Review of Systems At the time of my exam: CONSTITUTIONAL: Denies fever. Denies chills. EYES: Denies blurred vision. Denies vision changes. Denies eye pain. EARS, NOSE, MOUTH & THROAT: Denies headache. Denies sore throat. Denies ear pain. CARDIOVASCULAR: Denies chest pain. Denies shortness of breath. Denies orthopnea. Denies PND. Denies palpitations. RESPIRATORY: Denies cough. GASTROINTESTINAL: Denies abdominal pain. Denies diarrhea. Denies constipation. Denies nausea. Denies vomiting. MUSCULOSKELETAL: Denies myalgias. INTEGUMENTARY: Denies pruitis. Denies rash. NEUROLOGIC: Denies numbness. Denies tingling. Denies weakness. PSYCHIATRIC: Denies anxiety. Denies depression. ENDOCRINE: Denies fatigue. Denies weight change. Denies polydipsia. Denies polyurina. GENITOURINARY: Denies burning, hematuria or urgency with micturation. HEMATOLOGIC: Denies history of anemia. Denies bleeding. 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 No travel, or experience. No tobacco or alcohol use. No animal exposures Smoking Status: Never smoker Past Alcohol Use History: None Reported Past Drug Use History: None Reported - Past Family History Father Family Medical History: Diabetes Mellitus Additional Family Medical History / Comment(s): Mother Family Medical History: Diabetes Mellitus Additional Family Medical History / Comment(s): alive and age 81 Medications and Allergies Home Medications Medication Instructions Recorded Confirmed Type Amitriptyline HCl 10 mg PO HS 05/21/17 05/21/17 History DULoxetine HCL [Cymbalta] 30 mg PO DAILY 05/21/17 05/21/17 History Docusate [Colace] 100 mg PO Q48H 05/21/17 05/21/17 History Famotidine [Pepcid] 20 mg PO BID 05/21/17 05/21/17 History Ferrous Sulfate [Iron (65 MG 325 mg PO Q48H 05/21/17 05/21/17 History Elemental)] Gabapentin [Neurontin] 400 mg PO TID 05/21/17 05/21/17 History Magnesium Oxide [Mag-Ox] 400 mg PO DAILY 05/21/17 05/21/17 History Metoprolol Tartrate [Lopressor] 12.5 mg PO BID 05/21/17 05/21/17 History Naloxegol Oxalate [Movantik] 25 mg PO DAILY 05/21/17 05/21/17 History Tamsulosin [Flomax] 0.4 mg PO HS 05/21/17 05/21/17 History HYDROcodone/APAP 5-325MG [Prentice 1 each PO Q6H PRN #20 tab 05/24/17 Rx 5-325] Allergies Allergy/AdvReac Type Severity Reaction Status Date / Time almond Allergy Unknown Verified 05/21/17 23:08 banana Allergy Unknown Verified 05/21/17 23:08 Penicillins Allergy Unknown Verified 05/21/17 23:08 Childhood daptomycin AdvReac Severe Abdominal Verified 05/21/17 23:08 Pain Physical Exam Vitals: Vital Signs Temp Pulse Resp BP Pulse Ox 05/26/17 07:00 98 F 18 104/51 96 05/26/17 00:00 71 18 05/25/17 22:10 98.3 F 71 18 98/50 96 05/25/17 19:56 97.4 F L 69 99/52 05/25/17 14:56 97.6 F 63 18 95/46 94 L Intake and Output 05/25/17 05/26/17 05/26/17 22:59 06:59 14:59 Intake Total 750 775 Balance 750 775 Intake: Intake, IV Titration 750 775 Amount Sodium Chloride 0.9% 1, 750 525 000 ml @ 75 mls/hr IV . [id number] [facility] Rx#:[id number] Vancomycin 1,750 mg In 250 Sodium Chloride 0.9% 250 ml @ 125 mls/hr IVPB Q16H [facility] Rx#:[id number] Other: Voiding Method Urinal Urinal Toilet Urinal # Voids 2 2 Blood pressure 104/51 with a heart rate of 71 afebrile GENERAL: This is a 61-year-old male in no apparent distress at the time of my examination. HEENT: Head is atraumatic, normocephalic. Pupils are equal, round. Sclerae anicteric. Conjunctivae are clear. Mucous membranes of the mouth are moist. Neck is supple. There is no jugular venous distention. No carotid bruit is heard. LUNGS: Clear to auscultation no wheezes, rales or rhonchi. No chest wall tenderness is noted on palpation or with deep breathing. Diminished. HEART: Regular rate and rhythm with diastolic murmur at left sternal border, no rubs or gallops. S1 and S2 heard. ABDOMEN: Soft, nontender. Bowel sounds are heard. No organomegaly noted. EXTREMITIES: 2+ peripheral pulses with no evidence of peripheral edema and no calf tenderness noted. NEUROLOGIC: Patient is awake, alert and oriented x3. Results 05/26/17 07:00 05/26/17 07:00 CBC 05/26/17 Range/Units 07:00 WBC 3.6 L (3.8-10.6) k/uL RBC 3.88 L (4.30-5.90) m/uL Hgb 10.3 L (13.0-17.5) gm/dL Hct 32.8 L (39.0-53.0) % Plt Count 112 L (150-450) k/uL Comprehensive Metabolic Panel 05/26/17 Range/Units 07:00 Sodium 144 (137-145) mmol/L Potassium 4.1 (3.5-5.1) mmol/L Chloride 110 H (98-107) mmol/L Carbon Dioxide 25 (22-30) mmol/L BUN 12 (9-20) mg/dL Creatinine 0.77 (0.66-1.25) mg/dL Glucose 121 H (74-99) mg/dL Calcium 8.8 (8.4-10.2) mg/dL Current Medications Generic Name Dose Route Start Last Admin Trade Name Freq PRN Reason Stop Dose Admin Acetaminophen 650 mg 05/22/17 01:58 05/25/17 18:34 Tylenol Tab PO 650 mg Q4HR PRN Administration Fever and/ or Pain Hydrocodone Bitart/Acetaminophen 1 each 05/22/17 01:11 Prentice 5-325 PO Q4HR PRN Moderate Pain Alprazolam 0.25 mg 05/22/17 18:36 Xanax PO TID PRN Anxiety Amitriptyline HCl 10 mg 05/22/17 21:00 05/25/17 19:59 Elavil PO 10 mg HS BRITTNEY Administration Docusate Sodium 100 mg 05/22/17 09:00 05/26/17 07:52 Colace PO 100 mg Q48H BRITTNEY Administration Duloxetine HCl 30 mg 05/22/17 09:00 05/26/17 07:52 Cymbalta PO 30 mg DAILY BRITTNEY Administration Ferrous Sulfate 325 mg 05/22/17 09:00 05/26/17 07:52 Feosol PO 325 mg Q48H BRITTNEY Administration Gabapentin 400 mg 05/22/17 09:00 05/26/17 07:52 Neurontin PO 400 mg TID BRITTNEY Administration Heparin Sodium (Porcine) 5,000 unit 05/22/17 21:00 05/26/17 07:58 Heparin SQ Not Given Q12HR [facility] Sodium Chloride 1,000 mls @ 75 mls/hr 05/22/17 01:15 05/25/17 17:26 Saline 0.9% IV 75 mls/hr .[id number] BRITTNEY Administration Vancomycin HCl 1,750 mg/ 250 mls @ 125 mls/hr 05/24/17 23:00 05/26/17 07:51 Sodium Chloride IVPB 125 mls/hr Q16H BRITTNEY Administration Magnesium Oxide 400 mg 05/23/17 12:00 05/25/17 12:25 Mag-Ox PO 400 mg 1200 BRITTNEY Administration Metoprolol Tartrate 12.5 mg 05/22/17 09:00 05/26/17 07:52 Lopressor PO 12.5 mg BID BRITTNEY Administration Naloxone HCl 0.2 mg 05/22/17 01:11 Narcan IV Q2M PRN Opioid Reversal Non-Formulary Medication 25 mg 05/23/17 09:00 05/26/17 07:40 Naloxegol Oxalate [Movantik] PO Not Given DAILY [facility] Ondansetron HCl 4 mg 05/22/17 01:11 Zofran IVP Q8HR PRN Nausea And Vomiting Pantoprazole Sodium 40 mg 05/23/17 07:30 05/26/17 07:52 Protonix PO 40 mg [id number] [facility] Administration Tamsulosin HCl 0.4 mg 05/22/17 21:00 05/25/17 19:59 Flomax PO 0.4 mg HS BRITTNEY Administration Intake and Output 05/25/17 05/26/17 05/26/17 22:59 06:59 14:59 Intake Total 750 775 Balance 750 775 Intake: Intake, IV Titration 750 775 Amount Sodium Chloride 0.9% 1, 750 525 000 ml @ 75 mls/hr IV . [id number] [facility] Rx#:[id number] Vancomycin 1,750 mg In 250 Sodium Chloride 0.9% 250 ml @ 125 mls/hr IVPB Q16H [facility] Rx#:[id number] Other: Voiding Method Urinal Urinal Toilet Urinal # Voids 2 2 05/26/17 07:00 05/26/17 07:00 Assessment and Plan Assessment: ASSESSMENT 1. Mobile structure on the right cusp of aortic valve most likely represent a vegetation. Secondary to fever, suggestive of endocarditis. 2. Essential hypertension 3. 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 History of brain aneurysm with clip 5. Diabetes mellitus PLAN Transfer [facility] for further cardiac monitoring. Continue with antibiotic management per infectious disease. If patient is unresponsive to medical therapy may consider ERICA. Ongoing telemetry monitoring. We will continue to follow with this patient. Nurse Practitioner note has been reviewed, I agree with a documented findings and plan of care. Patient was seen and examined.
[2017-05-26] MEDS: SODIUM CHLORIDE 0.9% 1,000 ML IV SCH (14:40)
[2017-05-26 17:20] LABS: Glucose,Whole Blood 147 mg/dL (75-99)
[2017-05-26] MEDS: MAGNESIUM OXIDE 400 MG TAB PO SCH (18:25)
--- NOTE | 2017-05-26 18:25 | PN ---
PROGRESS NOTE DATE OF SERVICE: 05/26/2017 This 61-year-old gentleman with features of sepsis also had some weakness also. 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 No significant regurgitation noted. Culture showed coag negative Staph and as well as group B enterococcus. Multiple consultants following the patient, Infectious Disease and as well as Cardiology and cardiothoracic surgery following the patient closely. 2-D echo has been noted. PAST MEDICAL HISTORY: Reviewed. REVIEW OF SYSTEMS: Cardiovascular: No angina. Respiration as mentioned earlier. GI: As mentioned earlier. : No dysuria. Nervous system: No numbness, weakness. CURRENT MEDICATIONS ARE: 1. Tylenol 650 q.4h p.r.n. 2. Healy 5 mg q.4h p.r.n. 3. Xanax 0.5 t.i.d. 4. Eliquis 10 mg q.h.s. 5. Colace 100 mg q.4h. 6. Cymbalta 30 mg. 7. Iron sulfate 320 mg q.4h. 8. Neurontin 400 mg t.i.d. 9. Heparin 5000 units subcu b.i.d. 10.Magnesium oxide 400 mg p.o. daily. 11.Narcan 0.2 q.2h. 12.Zofran 4 mg IV q.h.s. 13.Protonix 40 mg daily. 14.Flomax. 15.Vancomycin. PHYSICAL EXAM: Patient is alert, oriented x two. Pulse is 71, blood pressure 114/51, respiration 18, temperature 98 degrees, pulse ox 98% on room air. HEENT: Conjunctivae normal. Oral mucosa moist. Neck is no jugular venous distention. No carotid bruit. No lymph node enlargement. Cardiovascular S1 S2 muffled. Respirations breath sounds diminished in the bases. No rhonchi and no crackles. ABDOMEN: Soft, nontender. No mass palpable. Legs no edema and no swelling. NERVOUS SYSTEM: Higher functions as mentioned earlier, moves all 4 limbs, no focal deficits. Lymphatics: No lymph nodes palpable in the neck, axillae or groin. Skin no ulcer, rash or bleeding. LABS: WBC 3.2, hemoglobin 10.2, platelets 112. Glucose is 121. ASSESSMENT: 1. Possible infective endocarditis with coagulase-negative Staph, septicemia as well as group D enterococcus septicemia. 2. Generalized weakness and tiredness, possible acute transient ischemic attack. 3. Aortic valve vegetation on the 2D echo. 4. 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 5. History of ventriculoperitoneal shunt. 6. History of gait dysfunction. 7. History of cerebral aneurysm surgery. 8. History of urinary tract infection with pyelonephritis. 9. Diabetes type 2. 10.History of mild pancytopenia. 11.History of hypertension. 12.History of pneumonia. 13.History of tonsillectomy. 14.FULL CODE. RECOMMENDATIONS AND DISCUSSION: Continue current management and symptomatic treatment. Discussed with Cardiology. The patient will be transferred to telemetry for further close monitoring. Cardiothoracic surgery evaluation noted. Closely follow with Infectious Disease. Continue broad- spectrum IV antibiotics. As far as the cultures are concerned, the cultures from yesterday remained multiple cultures from yesterday still showing multiple gram- positive cocci at this time. Dr. Huffman is following the patient closely with Neurology point of view. Prognosis guarded because of multiple complex medical issues as described above. Further recommendations to follow. MMODL / IJN: [id number] /
[2017-05-26] MEDS: AMITRIPTYLINE HCL 10 MG TAB PO SCH (20:12)
[2017-05-26] MEDS: TAMSULOSIN 0.4 MG CAP.ER.24H PO SCH (20:13)
--- NOTE | 2017-05-26 21:16 | P.PN ---
Subjective Progress Note Date: 05/26/17 This patient is a 61-year-old male who was admitted to Hospital with symptoms of possible TIA and mild confusion. He underwent an initial computed tomography scan of the brain which failed to reveal any acute changes. He does have evidence of having had recent acoustic neuroma surgery on his left side. He was admitted for further evaluation of sepsis as well. He has been followed closely by Dr. Borja from infectious disease. He has evidence of coagulase- negative Staphylococcus as well as group B enterococcus. He is on vancomycin for broad-spectrum antibiotic coverage. The patient was sent for echocardiogram today which showed evidence of a mobile mass and thrombus involving the aortic valve. Cardiology was consulted and he is being evaluated for endocarditis. Cardiovascular surgery also has been consulted. We will await further recommendations from infectious disease regarding the finding of possible endocarditis. This likely is his cause of sepsis and bacteremia. Neurologically he has not shown any new changes in his neurological exam findings. 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 Apparently he requires further surgery in this region. He developed some hydrocephalus following the surgery and also had to have a FLATBED PRESS OPERATOR shunt placed which is healed well. At this time there does not appear to be evidence for shunt infection. Dr. Borja is closely monitoring this patient for these findings as well. He is unable to have MRI done at our institution and we will need to see if hewill require this to be done at an outside tertiary center. At this time he seems to be doing well in terms of his overall neurological status. There's been no further deterioration. His primary neurosurgeon is at [facility] in [place] and he may be contacted if we need to transfer this patient for further neuro imaging studies. This was discussed today with Dr. Carreon. He is aware of his overall neurological findings. We will wait to see if he develops any further neurological changes and if the endocarditis is the primary source of this bacteremia. We will continue to follow his progress very closely with Dr. Borja and await his further recommendations regarding his endocarditis findings. His overall prognosis at this time remains very guarded. Objective - Vital Signs Vital signs: Vital Signs Temp 97.2 F L 05/26/17 20:00 Pulse 97 05/26/17 20:00 Resp 18 05/26/17 20:00 BP 97/48 05/26/17 20:00 Pulse Ox 97 05/26/17 20:00 Intake & Output 05/26/17 05/26/17 05/27/17 06:59 18:59 06:59 Intake Total 750 1015 Balance 750 1015 Intake: Intake, IV Titration 750 775 Amount Sodium Chloride 0.9% 1, 750 525 000 ml @ 75 mls/hr IV . [id number] [facility] Rx#:[id number] Vancomycin 1,750 mg In 250 Sodium Chloride 0.9% 250 ml @ 125 mls/hr IVPB Q16H [facility] Rx#:[id number] Oral 240 Other: Voiding Method Urinal Toilet Toilet Urinal Urinal # Voids 2 - Exam Physical Examination: PHYSICAL EXAMINATION: Patient is resting comfortably in bed. VITAL SIGNS: Blood pressure is [97/48]. Heart rate is [97]. Respiration is [18] . Temperature is [97.2]. HEENT: Head is atraumatic, neck is supple, there were no carotid bruits. CHEST: Lungs are clear to auscultation and percussion. CARDIAC: S1, S2 normal rate and rhythm. There is no murmur. ABDOMEN: Soft and nontender. Bowel sounds are present. EXTREMITIES: There is no pedal edema. Peripheral pulses are present. Neurological examination: Patient's neurological examination is unchanged from yesterday. - Labs CBC & Chem 7: 05/26/17 07:00 05/26/17 07:00 Labs: Abnormal Lab Results - Last 24 Hours (Table) 05/26/17 05/26/17 05/26/17 Range/Units 07:00 07:00 07:03 WBC 3.6 L (3.8-10.6) k/uL RBC 3.88 L (4.30-5.90) m/uL Hgb 10.3 L (13.0-17.5) gm/dL Hct 32.8 L (39.0-53.0) % RDW 16.3 H (11.5-15.5) % Plt Count 112 L (150-450) k/uL Lymphocytes # 0.7 L (1.0-4.8) k/uL Chloride 110 H (98-107) mmol/L Glucose 121 H (74-99) mg/dL POC Glucose (mg/dL) 121 H (75-99) mg/dL 05/26/17 05/26/17 Range/Units 11:29 17:15 WBC (3.8-10.6) k/uL RBC (4.30-5.90) m/uL Hgb (13.0-17.5) gm/dL Hct (39.0-53.0) % RDW (11.5-15.5) % Plt Count (150-450) k/uL Lymphocytes # (1.0-4.8) k/uL Chloride (98-107) mmol/L Glucose (74-99) mg/dL POC Glucose (mg/dL) 141 H 147 H (75-99) mg/dL Microbiology - Last 24 Hours (Table) 05/22/17 20:25 Blood Culture Gram Stain - Final Blood Blood Culture - Final Enterococcus faecalis 05/25/17 08:06 Blood Culture Gram Stain - Preliminary Blood 05/25/17 07:58 Blood Culture - Preliminary Blood No Growth after 24 hours 05/21/17 22:40 Blood Culture Gram Stain - Final Blood Blood Culture - Final Enterococcus faecalis Coagulase Negative Staph 05/25/17 08:06 Blood Culture - Final Blood Assessment and Plan (1) S/P excision of acoustic neuroma Current Visit: Yes Status: Acute Code(s): Z98.890 - OTHER SPECIFIED POSTPROCEDURAL STATES; Z86.018 - PERSONAL HISTORY OF OTHER BENIGN NEOPLASM SNOMED Code(s): 501906516 (2) Cerebral aneurysm Current Visit: Yes Status: Acute Code(s): I67.1 - CEREBRAL ANEURYSM, NONRUPTURED SNOMED Code(s): 225839815 (3) S/P FLATBED PRESS OPERATOR shunt Current Visit: Yes Status: Acute Code(s): Z98.2 - PRESENCE OF CEREBROSPINAL FLUID DRAINAGE DEVICE SNOMED Code(s): 639465057 (4) Generalized weakness Current Visit: Yes Status: Acute Code(s): R53.1 - WEAKNESS SNOMED Code(s) : 60469158 (5) Fever Current Visit: Yes Status: Acute Code(s): R50.9 - FEVER, UNSPECIFIED SNOMED Code(s): 237660656 Plan: This patient is a 61-year-old male who is being treated for bacteremia and sepsis. He underwent a 2-D echocardiogram today which did come back positive for a thrombus involving the aortic valve. He is now being treated for endocarditis. Cardiology and cardiovascular surgery have been consulted. This is likely source of his underlying bacteremia and we will await further recommendations from infectious disease. Patient does remain afebrile today. He has had no further changes in his overall neurological status. He has a history of having undergone left acoustic neuroma surgery as well as FLATBED PRESS OPERATOR shunt placement and may require further neurosurgical intervention as per the patient. Apparently only 80% of the tumor was removed and he may require repeat surgical intervention in the future. At this time the patient is being treated for acute endocarditis. We will continue to follow his neurological status closely. He was unable to have MRI done due to his FLATBED PRESS OPERATOR shunt. We will continue to follow with Dr. Borja to see if the patient requires further neuro imaging studies in the event that the endocarditis is a possible cause of his bacteremia at this time. His overall prognosis at this time remains very guarded. We will continue close neurological follow this patient during this admission.
[2017-05-26 21:41] LABS: Glucose,Whole Blood 106 mg/dL (75-99)
[2017-05-27] MEDS: SODIUM CHLORIDE 0.9% 1,000 ML IV SCH ×2 (04:10→15:46)
[2017-05-27 06:05] LABS: Anisocytosis Slight; Basophils % (A) 0 %; Eosinophils # (A) 0.2 k/uL (0-0.7); Eosinophils % (A) 5 %; HCT 33.9 % (39.0-53.0); HGB 10.2 gm/dL (13.0-17.5); Hypochromasia Marked; Lymphocytes # (A) 1.1 k/uL (1.0-4.8); Lymphocytes % (A) 21 %; MCH 25.7 pg (25.0-35.0); MCHC 30.1 g/dL (31.0-37.0); MCV 85.4 fL (80.0-100.0); Mean Platelet Volume 9.5; Monocytes # (A) 0.2 k/uL (0-1.0); Monocytes % (A) 5 %; Neutrophils # (A) 3.5 k/uL (1.3-7.7); Neutrophils % (A) 68 %; Platelet Count 120 k/uL (150-450); Poikilocytosis Slight; RBC 3.96 m/uL (4.30-5.90); RDW 18.1 % (11.5-15.5); WBC 5.2 k/uL (3.8-10.6)
[2017-05-27 06:17] LABS: Anion Gap 6 mmol/L; Blood Urea Nitrogen 13 mg/dL (9-20); Calcium 8.5 mg/dL (8.4-10.2); Carbon Dioxide 27 mmol/L (22-30); Chloride 110 mmol/L (98-107); Glucose 112 mg/dL (74-99); Sodium 143 mmol/L (137-145)
[2017-05-27 06:20] LABS: Glucose,Whole Blood 115 mg/dL (75-99)
[2017-05-27] MEDS: PANTOPRAZOLE 40 MG TABLET PO SCH (06:32)
[2017-05-27] MEDS: HEPARIN SODIUM,PORCINE 5,000 UNIT/ML 1 ML VIAL SQ SCH ×2 (07:55→19:48)
[2017-05-27] MEDS: NON-FORMULARY DRUG (Naloxegol Oxalate [Movantik] 25 MG) PO SCH (07:55)
[2017-05-27] MEDS: DULoxetine HCL 30 MG CAPSULE.DR PO SCH (07:55)
[2017-05-27] MEDS: GABAPENTIN 400 MG CAP PO SCH ×3 (07:55→19:48)
[2017-05-27] MEDS: METOPROLOL TARTRATE 12.5 MG TAB PO SCH ×2 (08:01→19:47)
[2017-05-27] MEDS: MAGNESIUM OXIDE 400 MG TAB PO SCH (08:02)
[2017-05-27 11:48] LABS: Glucose,Whole Blood 184 mg/dL (75-99)
--- NOTE | 2017-05-27 11:59 | PN ---
PROGRESS NOTE Mr. Gtz is a 61-year-old male who is status post surgery for brain aneurysm, right acoustic neuroma and SNOWBOARDING INSTRUCTOR shunt. He came into the hospital with progressive fatigue, fever and chills and was found to have a coagulase-negative staph as well as Enterococcus faecalis. He had an echocardiogram that raised the possibility of vegetation on the right coronary cusp. He is doing well at this time. He is denying any chest pain. His breathing has been stable. He denies any dizziness or palpitation. He denies any nausea. He has been evaluated by Dr. Borja. He continues to be at this time on: 1. Amitriptyline. 2. Alprazolam. 3. Iron. 4. Gabapentin. 5. Magnesium. 6. Metoprolol tartrate 12.5 mg twice a day. 7. His antibiotics. PHYSICAL EXAMINATION: Blood pressure 110/60 with a heart rate in the 80s. LUNGS: Clear. HEART: Regular rate and rhythm. S1, S2. No S3. Systolic murmur heard at the base. No diastolic murmur. No rub. ABDOMEN: Soft, nontender. EXTREMITIES: No edema. LAB DATA: Hemoglobin 10.2. BUN and creatinine of 13 and 0.9. IMPRESSION: 1. Positive blood cultures with questionable vegetation on the aortic valve. 2. Status post acoustic neuroma surgery and shunt placement. 3. History of diabetes. RECOMMENDATIONS: From the cardiac standpoint, we will continue on the IV PB antibiotics. I have discussed with him the issue of transesophageal echocardiogram. He will be tentatively scheduled to undergo a transesophageal echocardiogram on Monday to further evaluate his status and guide his treatment. MMODL / IJN: [id number] /
[2017-05-27] MEDS: VANCOMYCIN 1,750 MG in SODIUM CHLORIDE 0.9% 250 ML IVPB SCH (15:51)
--- NOTE | 2017-05-27 16:01 | P.PN ---
Subjective Progress Note Date: 05/27/17 This patient is a 61-year-old male who was admitted to Hospital with symptoms of possible TIA and mild confusion. He underwent an initial computed tomography scan of the brain which failed to reveal any acute changes. He does have evidence of having had recent acoustic neuroma surgery on his left side. He was admitted for further evaluation of sepsis as well. He has been followed closely by Dr. Borja from infectious disease. He has evidence of coagulase- negative Staphylococcus as well as group B enterococcus. He is on vancomycin for broad-spectrum antibiotic coverage. The patient was sent for echocardiogram today which showed evidence of a mobile mass and thrombus involving the aortic valve. Cardiology was consulted and he is being evaluated for endocarditis. Cardiovascular surgery also has been consulted. We will await further recommendations from infectious disease regarding the finding of possible endocarditis. This likely is his cause of sepsis and bacteremia. Neurologically he has not shown any new changes in his neurological exam findings. 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 Apparently he requires further surgery in this region. He developed some hydrocephalus following the surgery and also had to have a PR MANAGER shunt placed which is healed well. At this time there does not appear to be evidence for shunt infection. Dr. Borja is closely monitoring this patient for these findings as well. He is unable to have MRI done at our institution and we will need to see if hewill require this to be done at an outside tertiary center. At this time he seems to be doing well in terms of his overall neurological status. There's been no further deterioration. His primary neurosurgeon is at [facility] in [place] and he may be contacted if we need to transfer this patient for further neuro imaging studies. This was discussed yesterday with Dr. Carreon. He is aware of his overall neurological findings. We will wait to see if he develops any further neurological changes and if the endocarditis is the primary source of this bacteremia. Patient was seen by cardiology today. He is being scheduled for possible ERICA procedure on Monday for further evaluation. His blood cultures are positive for Enterococcus faecalis and coagulation-negative staph. He denies any headache and remains afebrile. We will continue to follow his progress very closely with Dr. Borja and await his further recommendations regarding his endocarditis findings. We will await further recommendations pending his ERICA procedure and findings on Monday. His overall prognosis at this time remains very guarded. Objective - Vital Signs Vital signs: Vital Signs Temp 97.2 F L 05/27/17 14:52 Pulse 72 05/27/17 15:45 Resp 17 05/27/17 14:52 BP 97/54 05/27/17 14:52 Pulse Ox 96 05/27/17 14:52 Intake & Output 05/26/17 05/27/17 05/27/17 18:59 06:59 18:59 Intake Total 1015 1450 960 Output Total 500 650 Balance 1015 950 310 Weight 122 kg Intake: IV 1450 Sodium Chloride 0.9% 1, 1200 000 ml @ 75 mls/hr IV . [id number] [facility] Rx#:[id number] Vancomycin 1,750 mg In 250 Sodium Chloride 0.9% 250 ml @ 125 mls/hr IVPB Q16H [facility] Rx#:[id number] Intake, IV Titration 775 Amount Sodium Chloride 0.9% 1, 525 000 ml @ 75 mls/hr IV . [id number] [facility] Rx#:[id number] Vancomycin 1,750 mg In 250 Sodium Chloride 0.9% 250 ml @ 125 mls/hr IVPB Q16H [facility] Rx#:[id number] Oral 240 960 Output: Urine 500 650 Other: Voiding Method Toilet Toilet Urinal Urinal Urinal # Voids 1 2 # Bowel Movements 0 - Exam Physical Examination: PHYSICAL EXAMINATION: Patient is resting comfortably in bed. VITAL SIGNS: Blood pressure is [97/54]. Heart rate is [72]. Respiration is [17] . Temperature is [97.2]. HEENT: Head is atraumatic, neck is supple, there were no carotid bruits. CHEST: Lungs are clear to auscultation and percussion. CARDIAC: S1, S2 normal rate and rhythm. There is no murmur. ABDOMEN: Soft and nontender. Bowel sounds are present. EXTREMITIES: There is no pedal edema. Peripheral pulses are present. Neurological examination: Patient's neurological examination is unchanged from yesterday. - Labs CBC & Chem 7: 05/27/17 05:42 05/27/17 05:42 Labs: Abnormal Lab Results - Last 24 Hours (Table) 05/26/17 05/26/17 05/27/17 Range/Units 17:15 21:39 05:42 RBC 3.96 L (4.30-5.90) m/uL Hgb 10.2 L (13.0-17.5) gm/dL Hct 33.9 L (39.0-53.0) % MCHC 30.1 L (31.0-37.0) g/dL RDW 18.1 H (11.5-15.5) % Plt Count 120 L (150-450) k/uL Chloride (98-107) mmol/L Glucose (74-99) mg/dL POC Glucose (mg/dL) 147 H 106 H (75-99) mg/dL 05/27/17 05/27/17 05/27/17 Range/Units 05:42 06:18 11:45 RBC (4.30-5.90) m/uL Hgb (13.0-17.5) gm/dL Hct (39.0-53.0) % MCHC (31.0-37.0) g/dL RDW (11.5-15.5) % Plt Count (150-450) k/uL Chloride 110 H (98-107) mmol/L Glucose 112 H (74-99) mg/dL POC Glucose (mg/dL) 115 H 184 H (75-99) mg/dL Microbiology - Last 24 Hours (Table) 05/22/17 20:55 Blood Culture Gram Stain - Final Blood Blood Culture - Final Coagulase Negative Staph Diphtheroid species Diphtheroid species#2 05/25/17 07:58 Blood Culture - Preliminary Blood No Growth after 48 hours 05/25/17 08:06 Blood Culture Gram Stain - Preliminary Blood Blood Culture - Preliminary Coagulase Negative Staph Streptococcus species Assessment and Plan (1) S/P excision of acoustic neuroma Current Visit: Yes Status: Acute Code(s): Z98.890 - OTHER SPECIFIED POSTPROCEDURAL STATES; Z86.018 - PERSONAL HISTORY OF OTHER BENIGN NEOPLASM SNOMED Code(s): 605972122 (2) Cerebral aneurysm Current Visit: Yes Status: Acute Code(s): I67.1 - CEREBRAL ANEURYSM, NONRUPTURED SNOMED Code(s): 612193448 (3) S/P PR MANAGER shunt Current Visit: Yes Status: Acute Code(s): Z98.2 - PRESENCE OF CEREBROSPINAL FLUID DRAINAGE DEVICE SNOMED Code(s): 760391131 (4) Generalized weakness Current Visit: Yes Status: Acute Code(s): R53.1 - WEAKNESS SNOMED Code(s) : 01159475 (5) Fever Current Visit: Yes Status: Acute Code(s): R50.9 - FEVER, UNSPECIFIED SNOMED Code(s): 177557123 Plan: This patient is a 61-year-old male who has a history of having undergone recent acoustic neuroma surgery with PR MANAGER shunt placement following 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 He was admitted to Hospital with symptoms of progressive fatigue and fever and chills and had positive blood cultures. Echocardiogram reveals possible that G2 and on the aortic valve. He is to be scheduled for ERICA procedure for further assessment on Monday. Neurologically he is intact and shows no new changes since admission. We will continue close monitoring of his neurological status. At this time he does not show any new findings on exam to suggest shunt infection or failure. We will await further recommendations from Dr. Borja in regards to his septic picture. His overall prognosis at this time remains guarded.
[2017-05-27 16:38] LABS: Glucose,Whole Blood 138 mg/dL (75-99)
[2017-05-27] MEDS: TAMSULOSIN 0.4 MG CAP.ER.24H PO SCH (19:48)
[2017-05-27] MEDS: AMITRIPTYLINE HCL 10 MG TAB PO SCH (19:48)
[2017-05-27 21:46] LABS: Glucose,Whole Blood 154 mg/dL (75-99)
[2017-05-28] MEDS: SODIUM CHLORIDE 0.9% 1,000 ML IV SCH ×2 (02:58→14:37)
[2017-05-28] MEDS ORDERED: VANCOMYCIN TROUGH DUE 1 EACH MISC MISCELLANE ONE (06:00)
[2017-05-28 06:09] LABS: Glucose,Whole Blood 109 mg/dL (75-99)
[2017-05-28] MEDS: VANCOMYCIN 1,750 MG in SODIUM CHLORIDE 0.9% 250 ML IVPB SCH ×2 (06:11→23:26)
[2017-05-28] MEDS: PANTOPRAZOLE 40 MG TABLET PO SCH (06:12)
[2017-05-28 06:38] LABS: Anion Gap 7 mmol/L; Blood Urea Nitrogen 12 mg/dL (9-20); Calcium 8.6 mg/dL (8.4-10.2); Carbon Dioxide 25 mmol/L (22-30); Chloride 110 mmol/L (98-107); Glucose 113 mg/dL (74-99); Potassium 4.1 mmol/L (3.5-5.1); Sodium 142 mmol/L (137-145)
--- NOTE | 2017-05-28 07:33 | PN ---
PROGRESS NOTE DATE OF SERVICE: 05/27/2017 This 61-year-old gentleman who had recently had acoustic neuroma resection and was in rehab for quite some time, was admitted with multiple features including possible TIA and as well as coagulase negative staph sepsis as well as Streptococcus species from the culture on a consistent basis including enterococcus faecalis. The patient had a 2D echo which showed possible vegetation of the change in the right coronary cusp. The patient has been seen by Cardiology as well as Neurology at this time. Please note the patient also had a ventriculoperitoneal shunt at this time. Cardiovascular surgery is also evaluating the patient. Cardiology is tentatively planning TE at this time. The patient is on broad-spectrum IV antibiotics per Infectious Disease. The patient is currently on vancomycin. PAST MEDICAL: Reviewed. REVIEW OF SYSTEMS: CARDIOVASCULAR: No angina. RESPIRATORY: As mentioned. GI: As mentioned earlier. : No dysuria. NERVOUS SYSTEM: Diffuse weakness especially on the right. CURRENT MEDICATIONS: 1. Tylenol 650 q.4h p.r.n. 2. Amo 5 mg p.o. q.4h. 3. Xanax 0.5 t.i.d. 4. Elavil 10 mg q.h.s. 5. Colace 100 mg daily. 6. Cymbalta 30 mg daily. 7. Iron sulfate 320 mg daily. 8. Neurontin 400 mg p.o. daily. 9. Heparin subcu b.i.d. 10.Magnesium oxide 400 mg b.i.d. 11.Lopressor 12.5 mg b.i.d. 12.Vancomycin. 13.Narcan 0.2 q.2h p.r.n. 14.Zofran 4 mg IV q.8h p.r.n. 15.Protonix 40 mg daily. 16.Flomax 0.4 q.h.s. 17.Vancomycin IV 1.75 mg IV q.16 hours. PHYSICAL EXAM: Patient is alert, oriented x2, dysarthric. Pulse 72, blood pressure 97/52, respirations 17, temperature 97.2, pulse ox 98% on room air HEENT: Conjunctivae normal. Oral mucosa moist. Neck is no jugular venous distention. No carotid bruit. No lymph node enlargement. CARDIOVASCULAR: S1, S2. No S3, no S4. RESPIRATORY: Breath sounds diminished in the bases. A few scattered rhonchi. No crackles. ABDOMEN: Soft, nontender. No mass palpable. LEGS: No edema, no swelling. NERVOUS SYSTEM: Higher functions as mentioned earlier, significant weakness on the left side present. Otherwise the patient also had a ventriculoperitoneal shunt on the right side of the brain also. SKIN: No ulcer, rash, bleeding. LYMPHATICS: No lymphadenopathy in the neck, axillae or groin. LAB INVESTIGATIONS: At this time shows WBC 5, hemoglobin is 10.2 and glucose 112. ASSESSMENT: 1. Possibly infective endocarditis with coagulase-negative Staph as well as Enterococcus faecalis and Streptococcus in the blood with the septicemia. 2. Generalized weakness and tiredness, possible acute TIA, present on admission. 3. 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 4. History of recent left acoustic neuroma surgery with significant left-sided weakness. 5. History of ventriculoperitoneal shunt. 6. Gait dysfunction. 7. History of cerebral aneurysm surgery previously. 8. History urinary tract infection with pyelonephritis previously. 9. Diabetes mellitus type 2. 10.History of mild pancytopenia. 11.History of hypertension. 12.History of pneumonia. 13.History of tonsillectomy. 14.FULL CODE. RECOMMENDATIONS AND DISCUSSION: I recommend to continue current management and symptomatic treatment. Continue the antibiotics. Repeat cultures are ordered. Please note that the patient had multiple consistent cultures which are positive for coagulase-negative Staph. TE. Cardiovascular Surgery has recommended continued observation. Prognosis guarded because of multiple complex medical issues. Further recommendations to follow. MMODL / IJN: [id number] /
[2017-05-28] MEDS: HEPARIN SODIUM,PORCINE 5,000 UNIT/ML 1 ML VIAL SQ SCH ×2 (07:37→20:10)
[2017-05-28] MEDS: NON-FORMULARY DRUG (Naloxegol Oxalate [Movantik] 25 MG) PO SCH (07:38)
[2017-05-28] MEDS: MAGNESIUM OXIDE 400 MG TAB PO SCH (07:41)
[2017-05-28] MEDS: GABAPENTIN 400 MG CAP PO SCH ×3 (07:41→20:17)
[2017-05-28] MEDS: DULoxetine HCL 30 MG CAPSULE.DR PO SCH (07:41)
[2017-05-28] MEDS: DOCUSATE 100 MG CAP PO SCH (07:41)
[2017-05-28] MEDS: METOPROLOL TARTRATE 12.5 MG TAB PO SCH ×2 (07:41→20:17)
[2017-05-28] MEDS: FERROUS SULFATE 325 MG TAB PO SCH (07:41)
[2017-05-28 11:42] LABS: Glucose,Whole Blood 166 mg/dL (75-99)
--- NOTE | 2017-05-28 13:14 | PN ---
PROGRESS NOTE Mr. Cruz is a 61-year-old male who presented with symptoms of progressive fatigue, was found to have a positive blood culture and subsequently underwent transthoracic echocardiogram that revealed a possible vegetation on right coronary cusp of the aortic valve. He is doing well this morning. He denies chest pain. His breathing has been stable. He denies any dizziness or palpitation. He denies any nausea. He continues to be at this time on his antibiotics in addition to the amitriptyline, duloxetine, metoprolol tartrate 12.5 mg twice a day. PHYSICAL EXAMINATION: Blood pressure running in the 90s with a heart in 60s. LUNGS: Clear. HEART: Regular rate and rhythm, S1, S2. No S3 with a systolic ejection murmur and a diastolic murmur heard at the base. No rub. ABDOMEN: Soft, nontender. EXTREMITIES: No significant edema. LAB DATA: BUN and creatinine 12 and 0.8, potassium 4.1. IMPRESSION: 1. Bacteremia. 2. Possible vegetation on the aortic valve. 3. Status post acoustic neuroma surgery and shunt placement. 4. History of diabetes mellitus. RECOMMENDATION: From the cardiac standpoint, we will proceed with a transesophageal echocardiogram tomorrow to further evaluate the aortic valve and guide his treatment. Those findings and recommendation were discussed with the patient who is in full understanding and agreement. MMODL / IJN: [id number] /
--- NOTE | 2017-05-28 17:16 | P.PN ---
Subjective Progress Note Date: 05/28/17 This patient is a 61-year-old male who was admitted to Hospital with symptoms of possible TIA and mild confusion. He underwent an initial computed tomography scan of the brain which failed to reveal any acute changes. He does have evidence of having had recent acoustic neuroma surgery on his left side. He was admitted for further evaluation of sepsis as well. He has been followed closely by Dr. Borja from infectious disease. He has evidence of coagulase- negative Staphylococcus as well as group B enterococcus. He is on vancomycin for broad-spectrum antibiotic coverage. The patient was sent for echocardiogram today which showed evidence of a mobile mass and thrombus involving the aortic valve. Cardiology was consulted and he is being evaluated for endocarditis. Cardiovascular surgery also has been consulted. We will await further recommendations from infectious disease regarding the finding of possible endocarditis. This likely is his cause of sepsis and bacteremia. Neurologically he has not shown any new changes in his neurological exam findings. 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 Apparently he requires further surgery in this region. He developed some hydrocephalus following the surgery and also had to have a ANGLEDOZER OPERATOR shunt placed which is healed well. At this time there does not appear to be evidence for shunt infection. Dr. Borja is closely monitoring this patient for these findings as well. He is unable to have MRI done at our institution and we will need to see if hewill require this to be done at an outside tertiary center. At this time he seems to be doing well in terms of his overall neurological status. There's been no further deterioration. His primary neurosurgeon is at [facility] in [place] and he may be contacted if we need to transfer this patient for further neuro imaging studies. This was discussed yesterday with Dr. Carreon. His neurological examination remains stable and unchanged since admission. As mentioned there is no evidence to suggest shunt failure or shunt infection at this time. We will continue to follow closely with infectious disease. We will wait to see if he develops any further neurological changes and if the endocarditis is the primary source of this bacteremia. Patient was seen by cardiology today. He is being scheduled for possible ERICA procedure on Monday for further evaluation. His blood cultures are positive for Enterococcus faecalis and coagulation-negative staph. He denies any headache and remains afebrile. We will continue to follow his progress very closely with Dr. Borja and await his further recommendations regarding his endocarditis findings. We will await further recommendations pending his ERICA procedure and findings on Monday. Patient was seen by Dr. Leblanc today. Plan is to proceed with ERICA procedure tomorrow. We will await further recommendations and cardiology and infectious disease. His overall prognosis at this time remains very guarded. Objective - Vital Signs Vital signs: Vital Signs Temp 97.6 F 05/28/17 14:38 Pulse 68 05/28/17 14:38 Resp 18 05/28/17 14:38 BP 100/51 05/28/17 14:38 Pulse Ox 99 05/28/17 14:38 Intake & Output 05/27/17 05/28/17 05/28/17 18:59 06:59 18:59 Intake Total 1200 1450 716 Output Total 800 700 Balance 400 750 716 Weight 122.3 kg Intake: IV 1450 Sodium Chloride 0.9% 1, 1200 000 ml @ 75 mls/hr IV . [id number] [facility] Rx#:[id number] Vancomycin 1,750 mg In 250 Sodium Chloride 0.9% 250 ml @ 125 mls/hr IVPB Q16H [facility] Rx#:[id number] Oral 1200 716 Output: Urine 800 700 Other: Voiding Method Urinal Urinal Urinal # Voids 1 1 # Bowel Movements 1 - Exam Physical Examination: PHYSICAL EXAMINATION: Patient is resting comfortably in bed. VITAL SIGNS: Blood pressure is [100/51]. Heart rate is [68]. Respiration is [18] . Temperature is [97.7]. HEENT: Head is atraumatic, neck is supple, there were no carotid bruits. CHEST: Lungs are clear to auscultation and percussion. CARDIAC: S1, S2 normal rate and rhythm. There is no murmur. ABDOMEN: Soft and nontender. Bowel sounds are present. EXTREMITIES: There is no pedal edema. Peripheral pulses are present. Neurological examination: Patient's neurological examination is unchanged from yesterday. Neurological exam findings reveal no new changes. He has left-sided hemiparesthesias from his recent left acoustic neuroma surgery and shunt placement. He is afebrile. No evidence of nuchal rigidity or meningismus. - Labs CBC & Chem 7: 05/27/17 05:42 05/28/17 06:02 Labs: Abnormal Lab Results - Last 24 Hours (Table) 05/27/17 05/27/17 05/28/17 Range/Units 16:37 21:33 06:02 Chloride 110 H (98-107) mmol/L Glucose 113 H (74-99) mg/dL POC Glucose (mg/dL) 138 H 154 H (75-99) mg/dL 05/28/17 05/28/17 Range/Units 06:07 11:34 Chloride (98-107) mmol/L Glucose (74-99) mg/dL POC Glucose (mg/dL) 109 H 166 H (75-99) mg/dL Microbiology - Last 24 Hours (Table) 05/27/17 12:43 Blood Culture - Preliminary Blood No Growth after 24 hours 05/25/17 07:58 Blood Culture - Preliminary Blood No Growth after 72 hours 05/25/17 08:06 Blood Culture Gram Stain - Final Blood Blood Culture - Final Coagulase Negative Staph Alpha Hemolytic Streptococcus 05/22/17 20:55 Blood Culture Gram Stain - Final Blood Blood Culture - Final Coagulase Negative Staph Diphtheroid species Diphtheroid species#2 Assessment and Plan (1) S/P excision of acoustic neuroma Current Visit: Yes Status: Acute Code(s): Z98.890 - OTHER SPECIFIED POSTPROCEDURAL STATES; Z86.018 - PERSONAL HISTORY OF OTHER BENIGN NEOPLASM SNOMED Code(s): 727819305 (2) Cerebral aneurysm Current Visit: Yes Status: Acute Code(s): I67.1 - CEREBRAL ANEURYSM, NONRUPTURED SNOMED Code(s): 841227897 (3) S/P ANGLEDOZER OPERATOR shunt Current Visit: Yes Status: Acute Code(s): Z98.2 - PRESENCE OF CEREBROSPINAL FLUID DRAINAGE DEVICE SNOMED Code(s): 824545226 (4) Generalized weakness Current Visit: Yes Status: Acute Code(s): R53.1 - WEAKNESS SNOMED Code(s) : 19850776 (5) Fever Current Visit: Yes Status: Acute Code(s): R50.9 - FEVER, UNSPECIFIED SNOMED Code(s): 523133223 Plan: This patient is a 61-year-old male being closely monitored following recent left acoustic neuroma resection and sepsis. He is being followed by cardiology for possibility of endocarditis. He underwent an echocardiogram which reveals a vegetation in the aortic valve. He is to undergo ERICA procedure tomorrow as per cardiology. We will await their further recommendations. He does have history of ANGLEDOZER OPERATOR shunt placement secondary to recent acoustic neuroma surgery. His shunt appears to be stable and no signs of shunt failure at this time. He will be following up with his neurosurgeon soon after discharge from hospital for further management of cervical disc disease and recurrent acoustic neuroma surgery. The patient is currently on broad-spectrum IV antibiotics. We're waiting for the recommendations from infectious disease regarding possibility of endocarditis and long-term treatment. So overall prognosis at this time remains guarded. We will continue to monitor his progress closely during this admission. Patient was updated on all of this test results today and appears to be more awake and alert and will await further results of his ERICA procedure tomorrow. We will continue close neurological follow-up this patient during this admission.
[2017-05-28] MEDS: TAMSULOSIN 0.4 MG CAP.ER.24H PO SCH (20:17)
[2017-05-28] MEDS: AMITRIPTYLINE HCL 10 MG TAB PO SCH (20:17)
[2017-05-28 21:00] LABS: Glucose,Whole Blood 146 mg/dL (75-99)
[2017-05-29] MEDS: PANTOPRAZOLE 40 MG TABLET PO SCH (03:31)
[2017-05-29] MEDS: SODIUM CHLORIDE 0.9% 1,000 ML IV SCH ×2 (06:10→07:15)
[2017-05-29 06:25] LABS: Glucose,Whole Blood 98 mg/dL (75-99)
[2017-05-29 06:48] LABS: Anisocytosis Slight; Basophils % (A) 0 %; Eosinophils # (A) 0.3 k/uL (0-0.7); Eosinophils % (A) 5 %; HCT 35.2 % (39.0-53.0); HGB 10.6 gm/dL (13.0-17.5); Hypochromasia Moderate; Lymphocytes # (A) 0.9 k/uL (1.0-4.8); Lymphocytes % (A) 18 %; MCH 25.6 pg (25.0-35.0); MCV 85.3 fL (80.0-100.0); Mean Platelet Volume 9.1; Monocytes # (A) 0.2 k/uL (0-1.0); Monocytes % (A) 4 %; Neutrophils # (A) 3.5 k/uL (1.3-7.7); Neutrophils % (A) 71 %; Platelet Count 138 k/uL (150-450); Poikilocytosis Slight; RBC 4.13 m/uL (4.30-5.90); RDW 18.1 % (11.5-15.5); WBC 4.9 k/uL (3.8-10.6)
[2017-05-29 07:10] LABS: Anion Gap 8 mmol/L; Blood Urea Nitrogen 11 mg/dL (9-20); Calcium 8.5 mg/dL (8.4-10.2); Carbon Dioxide 24 mmol/L (22-30); Chloride 110 mmol/L (98-107); Glucose 111 mg/dL (74-99); Sodium 142 mmol/L (137-145)
[2017-05-29] MEDS ORDERED: IV FLUID CONTINUATION 950 ML IV ONE (09:00)
[2017-05-29] MEDS: BENZOCAINE SPRAY 1 CAN MUCOUS MEM ONE ×2 (09:04→09:10)
[2017-05-29] MEDS ORDERED: fentaNYL (PF) 50 MCG/ML 2 ML AMP IV ONE (09:17)
[2017-05-29] MEDS ORDERED: MIDAZOLAM 2 MG/2 ML VIAL IV ONE (09:18)
--- NOTE | 2017-05-29 09:25 | PN ---
PROGRESS NOTE DATE OF SERVICE: 05/28/2017 This 61-year-old gentleman who was admitted with acoustic neuroma, also had a coagulase- negative Staph grown from multiple cultures. The patient is on broad-spectrum IV antibiotics. However the blood culture grown from sent from 05/25 showed coag- negative staph with multiple organisms including enterococcus faecalis, alpha hemolytic streptococcus and as well as diphtheroids species also. The cardiology is planning a ERICA. Cardiothoracic surgery has evaluated the patient. PAST MEDICAL HISTORY: Reviewed. REVIEW OF SYSTEMS: Cardio system: As mentioned earlier. GI: No nausea or vomiting. : No dysuria. Central nervous system: No numbness or weakness. CURRENT MEDICATIONS ARE: 1. Tylenol 650 q.4h p.r.n. 2. Gobler 5 mg q.4h p.r.n. 3. Xanax 0.25 t.i.d. 4. Elavil 10 mg q.h.s. 5. Colace 100 mg q48h. 6. Cymbalta 30 mg p.o. daily. 7. Iron sulfate 320 mg q.48h. 8. Neurontin 400 mg t.i.d. 9. Heparin 5000 units subcutaneously b.i.d. 10.Magnesium oxide 400 mg daily. 11.Lopressor 12.5 mg b.i.d. 12.Narcan 0.2 q.2h p.r.n. 13.Zofran 4 mg q.8h p.r.n. 14.Protonix 40 mg daily. 15.Flomax 0.4 q.h.s. 16.Vancomycin 1.7 mg q16. PHYSICAL EXAM: Patient is alert, oriented x3. Pulse 68, blood pressure 120/51, respiration 18, temperature 97.2, pulse ox 98% on room air. HEENT: Conjunctivae normal. Oral mucosa moist. Neck is no jugular venous distention. No carotid bruit. No lymph node enlargement. Cardiovascular System: S1, S2 muffled. Respirations: Breath sounds diminished in the bases. A few scattered rhonchi and crackles. ABDOMEN: Soft, nontender. No mass palpable. Legs no edema and no swelling. Central nervous system: Left sided weakness present. Nervous system: No focal deficits. LAB STUDIES: WBC 5.8, hemoglobin 10.2. Other labs are reviewed. ASSESSMENT: 1. Possible infected endocarditis with coagulase-negative Staph as well as Enterococcus faecalis strep in the blood with septicemia. 2. Generalized weakness and tiredness, possible acute transient ischemic attack, present on admission. 3. 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 4. History of recent left acoustic neuroma surgery with significant left-sided weakness. 5. History of ventriculoperitoneal shunt. 6. Gait dysfunction. 7. History of cerebral aneurysm surgery previously. 8. History of urinary tract infection with pyelonephritis previous. 9. Diabetes type 2. 10.History of mild pancytopenia. 11.History of hypertension. 12.History of pneumonia. 13.History of tonsillectomy. 14.FULL CODE. RECOMMENDATIONS AND DISCUSSION: Recommend to continue current medications, continue with IV antibiotics. Follow the cultures. ERICA. Closely follow with Cardiology, Prognosis guarded. Further recommendations to follow. Please see orders for further details. MMODL / IJN: [id number] / MTDD
[2017-05-29] MEDS: DULoxetine HCL 30 MG CAPSULE.DR PO SCH (11:17)
[2017-05-29] MEDS: HEPARIN SODIUM,PORCINE 5,000 UNIT/ML 1 ML VIAL SQ SCH ×2 (11:18→21:54)
[2017-05-29] MEDS: GABAPENTIN 400 MG CAP PO SCH ×3 (11:18→21:55)
[2017-05-29] MEDS: NON-FORMULARY DRUG (Naloxegol Oxalate [Movantik] 25 MG) PO SCH (11:18)
[2017-05-29] MEDS: MAGNESIUM OXIDE 400 MG TAB PO SCH (11:19)
[2017-05-29] MEDS: METOPROLOL TARTRATE 25 MG TAB PO SCH ×2 (11:19→23:34)
[2017-05-29 11:47] VITALS: BMI 40.7
[2017-05-29 12:05] LABS: Glucose,Whole Blood 102 mg/dL (75-99)
--- NOTE | 2017-05-29 12:19 | ECHOT ---
TRANSESOPHAGEAL ECHOCARDIOGRAM PERFORMING PHYSICIAN: Dr. Leblanc PROCEDURE PERFORMED: ERICA INDICATIONS: Evaluation of aortic valve and vegetation. COMPLICATIONS: LEVEL OF SEDATION: PROCEDURE DESCRIPTION: After explaining the procedure to the patient, risks and complications, blood pressure, heart rate, O2 saturation was monitored. His throat was sprayed with Cetacaine. He received 2 mg intravenous Versed, 50 mcg intravenous fentanyl. After obtaining moderate conscious sedated state, the probe in the esophagus without difficulty. Images were obtained. There was no immediate complication. FINDINGS: Left atrial size is mildly dilated. Left atrial appendage is normal. Left ventricular size and systolic function are normal. The tricuspid, pulmonic, and mitral valve appears to be normal. The aortic valve is a tricuspid valve with normal opening. There is a vegetation noted on the non coronary cusp measuring up to 1.5 cm and prolapsing into the left ventricle out flow track. There was no shunting across the interatrial septum by contrast bubble study. No pericardial effusion was noted. Descending thoracic aorta appears to be normal. Doppler pulse wave was obtained and revealed a severe aortic regurgitation with mild mitral and moderate tricuspid regurgitation. The estimated right ventricular systolic pressure was 49 mmHg consistent with moderate pulmonary hypertension. There was no evidence of shunting across the interatrial septum. CONCLUSION: 1. Mildly dilated left atrium with normal appearance left atrial appendage. 2. Normal left ventricular size and systolic function. 3. Vegetation noted on the right coronary cusp measuring 1.5 cm and prolapsing in the left ventricle outflow tract with severe aortic regurgitation. 4. Mild mitral, with moderate tricuspid regurgitation. Moderate pulmonary hypertension. 5. No evidence of shunting across the interatrial septum. MMODL / IJN: [id number] / MANISHA
--- NOTE | 2017-05-29 13:10 | PN ---
PROGRESS NOTE HISTORY: Mr. Cruz is a 61-year-old male with a history of acoustic neuroma removal, history of NATURAL SCIENCES PROFESSOR shunt placement, who presented with septicemia and positive blood cultures. He had a transesophageal echocardiogram, revealed a vegetation on the right coronary cusp with mild aortic regurgitation. He is doing well this morning. He denies any symptoms of chest pain. His breathing has been stable. He denies any dizziness or palpitation. He is lying supine without any shortness of breath. He continues to be at this time on metoprolol tartrate 12.5 mg twice a day, vancomycin, amitriptyline, duloxetine, iron, gabapentin, heparin subcu. PHYSICAL EXAMINATION: Blood pressure 121/60 with a heart rate in the 80s. Lungs are clear. Heart rate rhythm S1, S2. No S3 with a systolic murmur, ejection type, and diastolic murmur heard at the base. Abdomen is soft, nontender. Extremities with no edema. LAB DATA: Lab data revealed BUN 11 and creatinine 0.81, hemoglobin of 10.6, his white blood cell count is 4.9. He is afebrile. IMPRESSION: 1. Evidence of endocarditis with evidence of vegetation on the aortic valve. 2. Status post NATURAL SCIENCES PROFESSOR shunt. 3. History of acoustic neuroma removal. RECOMMENDATIONS: Patient will undergo transthoracic echocardiogram today to further evaluate the aortic valve. Depending on those findings, further recommendation will be made. MMODL / IJN: [id number] /
[2017-05-29] MEDS: VANCOMYCIN 1,750 MG in SODIUM CHLORIDE 0.9% 250 ML IVPB SCH (15:10)
[2017-05-29 17:09] LABS: Glucose,Whole Blood 125 mg/dL (75-99)
--- NOTE | 2017-05-29 18:04 | P.PN ---
Subjective Progress Note Date: 05/29/17 Progress note being dictated for Dr. Carreon. Interval history: This a 61-year-old gentleman admitted with possibly infective endocarditis with coagulase-negative staph and enterococcus faecalis, Streptococcus in the blood, septicemia, aortic valve vegetation of the right coronary cusp per 2-D echo, generalized weakness, possible acute TIA and multiple other medical issues. Maintained on antibiotics of IV vancomycin as per ID. Underwent ERICA today reporting right coronary cusp vegetation prolapsing into the left ventricle, no shunting by contrast bubble study, severe aortic regurgitation with mild to moderate tricuspid regurgitation. Moderate pulmonary hypertension No paracardial effusion Denies chest pain, palpitations or increasing shortness of breath. Denies lightheadedness dizziness or focal deficits. Objective - Vital Signs Vital signs: Vital Signs Temp 98.0 F 05/29/17 15:05 Pulse 69 05/29/17 15:43 Resp 16 05/29/17 15:05 BP 100/55 05/29/17 15:05 Pulse Ox 95 05/29/17 15:05 Intake & Output 05/28/17 05/29/17 05/29/17 18:59 06:59 18:59 Intake Total 1196 1700 350 Output Total 820 1100 Balance 376 600 350 Weight 121.5 kg 121.5 kg Intake: IV 1700 350 Sodium Chloride 0.9% 1, 1200 300 000 ml @ 75 mls/hr IV . [id number] [facility] Rx#:[id number] Vancomycin 1,750 mg In 500 Sodium Chloride 0.9% 250 ml @ 125 mls/hr IVPB Q16H [facility] Rx#:[id number] Oral 1196 Output: Urine 820 1100 Other: Voiding Method Urinal Urinal Urinal # Voids 1 1 220 # Bowel Movements 1 - Exam PHYSICAL EXAM: VITAL SIGNS: As above GENERAL: Sitting up in bed, no acute distress HEENT: Conjunctivae normal. eyes normal. Oral mucosa moist. NECK: No JVD. No thyroid enlargement. No LNs CARDIOVASCULAR: S1, S2 muffled. Positive systolic/diastolic murmur. RESPIRATION: Breath sounds diminished in the bases. No rhonchi or crackles. No bronchial breathing. ABDOMEN: Soft, nontender . No guarding. no masses palpable..Bowel sounds heard. LEGS: No edema. no swelling PSYCHIATRY: Alert and oriented -3, mood and affect normal. NERVOUS SYSTEM: Cranial N 2-12 grossly normal. Moves all 4 limbs. Diffuse weakness No focal deficits. No sensory deficit. Skin: no ulcer no rash Joints: No active swelling. No inflammation. Lymphatic system. No LN neck axilla or groin. Microbiology 05/27/17 12:43 Blood Blood Culture Gram Stain - Preliminary 05/27/17 12:43 Blood Blood Culture - Final 05/25/17 07:58 Blood Blood Culture - Preliminary No Growth after 96 hours 05/25/17 08:06 Blood Blood Culture Gram Stain - Final 05/25/17 08:06 Blood Blood Culture - Final Coagulase Negative Staph Alpha Hemolytic Streptococcus 05/22/17 20:55 Blood Blood Culture Gram Stain - Final 05/22/17 20:55 Blood Blood Culture - Final Coagulase Negative Staph Diphtheroid species Diphtheroid species#2 05/22/17 20:25 Blood Blood Culture Gram Stain - Final 05/22/17 20:25 Blood Blood Culture - Final Enterococcus faecalis 05/21/17 22:40 Blood Blood Culture Gram Stain - Final 05/21/17 22:40 Blood Blood Culture - Final Enterococcus faecalis Coagulase Negative Staph 05/25/17 08:06 Blood Blood Culture - Final 05/22/17 20:55 Blood Blood Culture - Final 05/22/17 20:25 Blood Blood Culture - Preliminary 05/22/17 00:08 Urine,Catheterized Urine Culture - Final 05/21/17 22:40 Blood Blood Culture - Final - Labs CBC & Chem 7: 05/29/17 06:25 05/29/17 06:25 Labs: Abnormal Lab Results - Last 24 Hours (Table) 05/28/17 05/29/17 05/29/17 Range/Units 20:59 06:25 06:25 RBC 4.13 L (4.30-5.90) m/uL Hgb 10.6 L (13.0-17.5) gm/dL Hct 35.2 L (39.0-53.0) % MCHC 30.0 L (31.0-37.0) g/dL RDW 18.1 H (11.5-15.5) % Plt Count 138 L (150-450) k/uL Lymphocytes # 0.9 L (1.0-4.8) k/uL Chloride 110 H (98-107) mmol/L Glucose 111 H (74-99) mg/dL POC Glucose (mg/dL) 146 H (75-99) mg/dL 05/29/17 05/29/17 Range/Units 11:55 17:07 RBC (4.30-5.90) m/uL Hgb (13.0-17.5) gm/dL Hct (39.0-53.0) % MCHC (31.0-37.0) g/dL RDW (11.5-15.5) % Plt Count (150-450) k/uL Lymphocytes # (1.0-4.8) k/uL Chloride (98-107) mmol/L Glucose (74-99) mg/dL POC Glucose (mg/dL) 102 H 125 H (75-99) mg/dL Microbiology - Last 24 Hours (Table) 05/27/17 12:43 Blood Culture Gram Stain - Preliminary Blood 05/27/17 12:43 Blood Culture - Final Blood 05/25/17 07:58 Blood Culture - Preliminary Blood No Growth after 96 hours Assessment and Plan Assessment: 1. Possibly infective endocarditis with coagulase-negative staph, enterococcus faecalis, alpha hemolytic streptococcus in the blood with septicemia. Status post ERICA. 2. Generalized weakness, tiredness, possible acute TIA present on admission 3. Aortic valve vegetation in the right coronary cusp per 2-D echo and ERICA. 4. Recent left acoustic neuroma surgery with significant left-sided residual weakness 5. History of ventriculoperitoneal shunt 6. Gait dysfunction 7. History of cerebral aneurysm surgery 8. diabetes mellitus type 2 Plan: Continue on current medication regime ,monitoring and symptomatic treatment. Continue following repeat cultures closely. Follow closely with cardiovascular thoracic surgery and cardiology. Further recommendations to follow. The impression and plan of care has been dictated as directed. : I performed a history and examination of this patient, discussed the same with the dictator. I agree with the dictator's note ,documented as a scribe. Any additional findings or plans will be noted.
[2017-05-29] MEDS ORDERED: GENTAMICIN PER PHARMACY MISCELLANE PRN (19:06)
--- NOTE | 2017-05-29 19:18 | P.PN ---
Subjective Progress Note Date: 05/29/17 This patient is a 61-year-old male who recently underwent a left acoustic neuroma surgery as well as LIVESTOCK HANDLER shunt placement following his surgical intervention. He also has a history of brain aneurysm surgery in the past. Patient was admitted due to TIA symptoms. He was found to have evidence of sepsis and did reveal evidence of a vegetation on his echocardiogram. He underwent ERICA procedure today by Dr. Leblanc. 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 No evidence of shunting across the interatrial septum. We reviewed the results of the ERICA today with the patient. He denies any new symptoms of headache or worsening weakness. He was seen by Dr. Borja today and we're waiting his further recommendations regarding possibility of infective endocarditis. His blood cultures did come back positive for coagulation-negative staph in multiple organisms including an enterococcus faecalis. We will await further recommendations from Dr. Borja in regards to IV antibiotic coverage. Patient denies any headache or new symptoms related to his previous brain surgery. We will need to monitor his condition closely for any signs of intercurrent sepsis. He does have a LIVESTOCK HANDLER shunt but shows no signs of shunt failure or infection in the shunt region at this time. We will need to continue close monitoring of his condition. We'll await further input from cardiology and cardiothoracic surgery regarding aortic valve endocarditis. His overall prognosis at this time remains very guarded. Objective - Vital Signs Vital signs: Vital Signs Temp 98.0 F 05/29/17 15:05 Pulse 69 05/29/17 15:43 Resp 16 05/29/17 15:05 BP 100/55 05/29/17 15:05 Pulse Ox 95 05/29/17 15:05 Intake & Output 05/28/17 05/29/17 05/29/17 18:59 06:59 18:59 Intake Total 1196 1700 350 Output Total 820 1100 Balance 376 600 350 Weight 121.5 kg 121.5 kg Intake: IV 1700 350 Sodium Chloride 0.9% 1, 1200 300 000 ml @ 75 mls/hr IV . [id number] [facility] Rx#:[id number] Vancomycin 1,750 mg In 500 Sodium Chloride 0.9% 250 ml @ 125 mls/hr IVPB Q16H [facility] Rx#:[id number] Oral 1196 Output: Urine 820 1100 Other: Voiding Method Urinal Urinal Urinal # Voids 1 1 220 # Bowel Movements 1 - Exam Physical Examination: PHYSICAL EXAMINATION: Patient is resting comfortably in bed. VITAL SIGNS: Blood pressure is [100/55]. Heart rate is [69]. Respiration is [16] . Temperature is [98.2]. HEENT: Head is atraumatic, neck is supple, there were no carotid bruits. CHEST: Lungs are clear to auscultation and percussion. CARDIAC: S1, S2 normal rate and rhythm. There is no murmur. ABDOMEN: Soft and nontender. Bowel sounds are present. EXTREMITIES: There is no pedal edema. Peripheral pulses are present. Neurological examination: Patient's neurological examination is unchanged from yesterday. Neurological exam findings reveal no new changes. He has left-sided hemiparesthesias from his recent left acoustic neuroma surgery and shunt placement. He is afebrile. No evidence of nuchal rigidity or meningismus. - Labs CBC & Chem 7: 05/29/17 06:25 05/29/17 06:25 Labs: Abnormal Lab Results - Last 24 Hours (Table) 05/28/17 05/29/17 05/29/17 Range/Units 20:59 06:25 06:25 RBC 4.13 L (4.30-5.90) m/uL Hgb 10.6 L (13.0-17.5) gm/dL Hct 35.2 L (39.0-53.0) % MCHC 30.0 L (31.0-37.0) g/dL RDW 18.1 H (11.5-15.5) % Plt Count 138 L (150-450) k/uL Lymphocytes # 0.9 L (1.0-4.8) k/uL Chloride 110 H (98-107) mmol/L Glucose 111 H (74-99) mg/dL POC Glucose (mg/dL) 146 H (75-99) mg/dL 05/29/17 05/29/17 Range/Units 11:55 17:07 RBC (4.30-5.90) m/uL Hgb (13.0-17.5) gm/dL Hct (39.0-53.0) % MCHC (31.0-37.0) g/dL RDW (11.5-15.5) % Plt Count (150-450) k/uL Lymphocytes # (1.0-4.8) k/uL Chloride (98-107) mmol/L Glucose (74-99) mg/dL POC Glucose (mg/dL) 102 H 125 H (75-99) mg/dL Microbiology - Last 24 Hours (Table) 05/27/17 12:43 Blood Culture Gram Stain - Preliminary Blood 05/27/17 12:43 Blood Culture - Final Blood 05/25/17 07:58 Blood Culture - Preliminary Blood No Growth after 96 hours Assessment and Plan (1) S/P excision of acoustic neuroma Current Visit: Yes Status: Acute Code(s): Z98.890 - OTHER SPECIFIED POSTPROCEDURAL STATES; Z86.018 - PERSONAL HISTORY OF OTHER BENIGN NEOPLASM SNOMED Code(s): 898253292 (2) Cerebral aneurysm Current Visit: Yes Status: Acute Code(s): I67.1 - CEREBRAL ANEURYSM, NONRUPTURED SNOMED Code(s): 981232947 (3) S/P LIVESTOCK HANDLER shunt Current Visit: Yes Status: Acute Code(s): Z98.2 - PRESENCE OF CEREBROSPINAL FLUID DRAINAGE DEVICE SNOMED Code(s): 635581229 (4) Generalized weakness Current Visit: Yes Status: Acute Code(s): R53.1 - WEAKNESS SNOMED Code(s) : 26640341 (5) Fever Current Visit: Yes Status: Acute Code(s): R50.9 - FEVER, UNSPECIFIED SNOMED Code(s): 802967448 Plan: This patient is a 61-year-old male being closely monitored following recent left acoustic neuroma resection and sepsis. He is being followed by cardiology for possibility of endocarditis. He underwent an echocardiogram which reveals a vegetation in the aortic valve. He is to undergo ERICA procedure tomorrow as per cardiology. We will await their further recommendations. He does have history of LIVESTOCK HANDLER shunt placement secondary to recent acoustic neuroma surgery. His shunt appears to be stable and no signs of shunt failure at this time. He will be following up with his neurosurgeon soon after discharge from hospital for further management of cervical disc disease and recurrent acoustic neuroma surgery. The patient is currently on broad-spectrum IV antibiotics. We're waiting for the recommendations from infectious disease regarding possibility of endocarditis and long-term treatment. So overall prognosis at this time remains guarded. We will continue to monitor his progress closely during this admission. Patient was able to complete his ERICA procedure today. Results are as noted above. We are waiting for the recommendations from cardiology and cardiothoracic surgery. Dr. Borja did see the patient today and we will await his recommendations as well. At this time no new signs and changes in his neurological status. We will need close monitoring of his condition during this admission. We will continue close neurological follow-up this patient during this admission.
--- NOTE | 2017-05-29 20:57 | P.PN ---
Subjective Progress Note Date: 05/29/17 Principal diagnosis: fever 61-year-old male is a very extensive recent past medical history related to his acoustic neuroma. He required an extensive surgical procedure including a ventricular peritoneal shunt for reduction of pressure. 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 There was concerns to a TIA the patient was brought into hospital. His recent hospitalization it was concerns to sepsis and he was treated with antibiotic therapy with concerns to infection at his PEG tube site. At that time he had been recently decannulated from his tracheostomy. And during the recent hospitalization his PEG tube was removed and he was doing well with his feeding. Family has been having no concerns about his nutrition. He was doing well until he had the sudden TIA-like event. Since admission he has been doing relatively well except he has had 101.6 fever. There are now multiple positive blood cultures and without the infectious diseases consultation was requested. Pleasant gentleman has no other acute complaints is evening. He is denying further fevers chills rigors or sweats. He just has generalized weakness but no new acute gross focal sensory motor complaint. Patient states feeling somewhat better today. Fevers have resolved. His been seen by neurology and cardiology. The transthoracic echocardiogram showed abnormality aortic valve and a ERICA has been performed confirming the significant aortic insufficiency and a vegetation on the noncoronary cusp of the aortic valve. Objective - Vital Signs Vital signs: Vital Signs Temp 98.0 F 05/29/17 15:05 Pulse 69 05/29/17 15:43 Resp 16 05/29/17 15:05 BP 100/55 05/29/17 15:05 Pulse Ox 95 05/29/17 15:05 Intake & Output 05/29/17 05/29/17 05/30/17 06:59 18:59 06:59 Intake Total 1700 350 Output Total 1100 600 Balance 600 -250 Weight 121.5 kg 121.5 kg Intake: IV 1700 350 Sodium Chloride 0.9% 1, 1200 300 000 ml @ 75 mls/hr IV . [id number] [facility] Rx#:[id number] Vancomycin 1,750 mg In 500 Sodium Chloride 0.9% 250 ml @ 125 mls/hr IVPB Q16H [facility] Rx#:[id number] Output: Urine 1100 600 Other: Voiding Method Urinal Urinal # Voids 1 220 - Exam 61-year-old male comfortable at this time HEENT: Anicteric conjunctiva are pink and moist nasal mucosa grossly intact without significant lesions, there is no thrush. 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 Neck: The neck is supple without significant lymphadenopathy or thyromegaly. DT cannulated tracheostomy site is well-healed Lungs: Good bilateral air entry without significant crackles or wheezing. There is no significant bronchial sounds. There is no egophony or dullness. Heart: Irregular with a positive S4 no murmur click or rub Abdomen: Obese, Positive bowel sounds soft and nontender without palpable masses or organomegaly. There was no guarding or rebound. Surgical wound from his HEADER UP shunt is well-healed. The prior PEG tube site is without erythema or drainage. Extremities: The upper extremities have excellent pulses they are symmetric, no significant petechiae or telangiectasia. No splinter hemorrhages were noted. The lower extremities are free from significant edema. The peripheral pulses were 2+ and symmetric. Neuro: Is awake and alert as has the left hemiparesis - Labs CBC & Chem 7: 05/29/17 06:25 05/29/17 06:25 Labs: Abnormal Lab Results - Last 24 Hours (Table) 05/28/17 05/29/17 05/29/17 Range/Units 20:59 06:25 06:25 RBC 4.13 L (4.30-5.90) m/uL Hgb 10.6 L (13.0-17.5) gm/dL Hct 35.2 L (39.0-53.0) % MCHC 30.0 L (31.0-37.0) g/dL RDW 18.1 H (11.5-15.5) % Plt Count 138 L (150-450) k/uL Lymphocytes # 0.9 L (1.0-4.8) k/uL Chloride 110 H (98-107) mmol/L Glucose 111 H (74-99) mg/dL POC Glucose (mg/dL) 146 H (75-99) mg/dL 05/29/17 05/29/17 Range/Units 11:55 17:07 RBC (4.30-5.90) m/uL Hgb (13.0-17.5) gm/dL Hct (39.0-53.0) % MCHC (31.0-37.0) g/dL RDW (11.5-15.5) % Plt Count (150-450) k/uL Lymphocytes # (1.0-4.8) k/uL Chloride (98-107) mmol/L Glucose (74-99) mg/dL POC Glucose (mg/dL) 102 H 125 H (75-99) mg/dL Microbiology - Last 24 Hours (Table) 05/27/17 12:43 Blood Culture Gram Stain - Preliminary Blood 05/27/17 12:43 Blood Culture - Final Blood 05/25/17 07:58 Blood Culture - Preliminary Blood No Growth after 96 hours Laboratory Results WBC 4.9 k/uL (3.8-10.6) 05/29/17 06:25 RBC 4.13 m/uL (4.30-5.90) L 05/29/17 06:25 Hgb 10.6 gm/dL (13.0-17.5) L 05/29/17 06:25 Hct 35.2 % (39.0-53.0) L 05/29/17 06:25 MCV 85.3 fL (80.0-100.0) 05/29/17 06:25 MCH 25.6 pg (25.0-35.0) 05/29/17 06:25 MCHC 30.0 g/dL (31.0-37.0) L 05/29/17 06:25 RDW 18.1 % (11.5-15.5) H 05/29/17 06:25 Plt Count 138 k/uL (150-450) L 05/29/17 06:25 Neutrophils % 71 % 05/29/17 06:25 Lymphocytes % 18 % 05/29/17 06:25 Monocytes % 4 % 05/29/17 06:25 Eosinophils % 5 % 05/29/17 06:25 Basophils % 0 % 05/29/17 06:25 Neutrophils # 3.5 k/uL (1.3-7.7) 05/29/17 06:25 Lymphocytes # 0.9 k/uL (1.0-4.8) L 05/29/17 06:25 Monocytes # 0.2 k/uL (0-1.0) 05/29/17 06:25 Eosinophils # 0.3 k/uL (0-0.7) 05/29/17 06:25 Basophils # 0.0 k/uL (0-0.2) 05/29/17 06:25 Hypochromasia Moderate 05/29/17 06:25 Poikilocytosis Slight 05/29/17 06:25 Anisocytosis Slight 05/29/17 06:25 Microcytosis Slight 05/21/17 22:40 PT 11.7 sec (9.0-12.0) 05/21/17 22:40 INR 1.2 (<1.2) H 05/21/17 22:40 APTT 27.8 sec (22.0-30.0) 05/21/17 22:40 Sodium 142 mmol/L (137-145) 05/29/17 06:25 Potassium 4.0 mmol/L (3.5-5.1) 05/29/17 06:25 Chloride 110 mmol/L (98-107) H 05/29/17 06:25 Carbon Dioxide 24 mmol/L (22-30) 05/29/17 06:25 Anion Gap 8 mmol/L 05/29/17 06:25 BUN 11 mg/dL (9-20) 05/29/17 06:25 Creatinine 0.81 mg/dL (0.66-1.25) 05/29/17 06:25 Est GFR (MDRD) Af Amer >60 (>60 ml/min/1.73 sqM) 05/29/17 06:25 Est GFR (MDRD) Non-Af >60 (>60 ml/min/1.73 sqM) 05/29/17 06:25 Glucose 111 mg/dL (74-99) H 05/29/17 06:25 POC Glucose (mg/dL) 125 mg/dL (75-99) H 05/29/17 17:07 POC Glu Lime Spreader ID Mayito Pacheco 05/29/17 17:[address] Glu mg/dL 100 05/22/17 06:09 Hemoglobin A1c 5.1 % (4.0-6.0) 05/22/17 06:09 Plasma Lactic Acid Maxx 1.4 mmol/L (0.7-2.0) 05/21/17 22:40 Calcium 8.5 mg/dL (8.4-10.2) 05/29/17 06:25 Magnesium 2.0 mg/dL (1.6-2.3) 05/22/17 06:09 Total Bilirubin 1.0 mg/dL (0.2-1.3) 05/22/17 06:09 AST 21 U/L (17-59) 05/22/17 06:09 ALT 37 U/L (21-72) 05/22/17 06:09 Alkaline Phosphatase 73 U/L (38-126) 05/22/17 06:09 Troponin I <0.012 ng/mL (0.000-0.034) 05/21/17 22:40 Total Protein 6.2 g/dL (6.3-8.2) L 05/22/17 06:09 Albumin 3.1 g/dL (3.5-5.0) L 05/22/17 06:09 Urine Color [place] 05/22/17 00:08 Urine Appearance Clear (Clear) 05/22/17 00:08 Urine pH 5.5 (5.0-8.0) 05/22/17 00:08 Ur Specific [place] 1.023 (1.001-1.035) 05/22/17 00:08 Urine Protein 1+ (Negative) H 05/22/17 00:08 Urine Glucose (UA) Negative (Negative) 05/22/17 00:08 Urine Ketones Negative (Negative) 05/22/17 00:08 Urine Blood Negative (Negative) 05/22/17 00:08 Urine Nitrite Negative (Negative) 05/22/17 00:08 Urine Bilirubin 1+ (Negative) H 05/22/17 00:08 Urine Urobilinogen 2.0 mg/dL (<2.0) 05/22/17 00:08 Ur Leukocyte Esterase Negative (Negative) 05/22/17 00:08 Urine RBC <1 /hpf (0-5) 05/22/17 00:08 Urine WBC 1 /hpf (0-5) 05/22/17 00:08 Urine Bacteria Rare /hpf (None) H 05/22/17 00:08 Urine Mucus Rare /hpf (None) H 05/22/17 00:08 Vancomycin Trough 19.6 ug/mL 05/28/17 06:02 Influenza Type A RNA Not Detected (Not Detectd) 12/31/17 23:00 Influenza Type B (PCR) Not Detected (Not Detectd) 05/21/17 23:00 Microbiology 05/27/17 12:43 Blood Blood Culture Gram Stain - Preliminary 05/27/17 12:43 Blood Blood Culture - Final 05/25/17 07:58 Blood Blood Culture - Preliminary No Growth after 96 hours 05/25/17 08:06 Blood Blood Culture Gram Stain - Final 05/25/17 08:06 Blood Blood Culture - Final Coagulase Negative Staph Alpha Hemolytic Streptococcus 05/22/17 20:55 Blood Blood Culture Gram Stain - Final 05/22/17 20:55 Blood Blood Culture - Final Coagulase Negative Staph Diphtheroid species Diphtheroid species#2 05/22/17 20:25 Blood Blood Culture Gram Stain - Final 05/22/17 20:25 Blood Blood Culture - Final Enterococcus faecalis 05/21/17 22:40 Blood Blood Culture Gram Stain - Final 05/21/17 22:40 Blood Blood Culture - Final Enterococcus faecalis Coagulase Negative Staph 05/25/17 08:06 Blood Blood Culture - Final 05/22/17 20:55 Blood Blood Culture - Final 05/22/17 20:25 Blood Blood Culture - Preliminary 05/22/17 00:08 Urine,Catheterized Urine Culture - Final 05/21/17 22:40 Blood Blood Culture - Final Assessment and Plan (1) Acoustic neuroma Current Visit: No Status: Acute Code(s): D33.3 - BENIGN NEOPLASM OF CRANIAL NERVES SNOMED Code(s): 692622506 (2) TIA (transient ischemic attack) Current Visit: Yes Status: Acute Code(s): G45.9 - TRANSIENT CEREBRAL ISCHEMIC ATTACK, UNSPECIFIED SNOMED Code(s): 167633437 (3) Fever Narrative/Plan: 61-year-old male who is a very extensive past medical history regarding his acoustic neuroma, his surgery and his neurological deficits occurred since. He recently had some improvement since he has tracheostomy decannulated and his PEG tube removed. He's been doing quite well since this is occurred. She's not been having difficulties with chewing swallowing and eating. There's been no gagging and choking occurring. Chest x-rays without evidence of significant pneumonia. The patient however did have evidence of fever at admission at which point in time he also had symptoms of a TIA. His been seen by neurology I do not believe that he's had a TIA. He over did have evidence of fever and evidence of multiple positive blood cultures. A coagulase-negative staph appears to be occurring. However other cultures are again showing Enterococcus faecalis that he had in the latter part of 2017 he was treated with a protracted course of intravenous antibiotic therapy. Multiple blood cultures have been requested. As noted there are several blood cultures that have different pathogens including coagulase negative staph, enterococcus faecalis, and some diphtheroids. The diphtheroids or contamination. Vancomycin will continue and gentamicin is added for synergy given the multiple cultures again positive for enterococcus Current urine culture is negative. It is noted the patient had further positive blood cultures and echocardiogram was performed. This did reveal evidence of the abnormality aortic valve which has now been verified by the ERICA. There is evidence of the aortic insufficiency in the vegetation on the noncoronary cusp of the aortic valve. Antibiotics of vancomycin and gentamicin in process. Follow blood cultures requested. Once bacteremia clears he'll need IV access for his outpatient therapy. He'll need to have completion of the course of antibiotics. Cardiothoracic input has been requested and they will monitor. Current Visit: Yes Status: Acute Code(s): R50.9 - FEVER, UNSPECIFIED SNOMED Code(s): 349517637
[2017-05-29 21:43] LABS: Glucose,Whole Blood 120 mg/dL (75-99)
[2017-05-29] MEDS: GENTAMICIN 100 MG in SODIUM CHLORIDE 0.9% 100 ML IVPB SCH (21:54)
[2017-05-29] MEDS: TAMSULOSIN 0.4 MG CAP.ER.24H PO SCH (21:55)
[2017-05-29] MEDS: AMITRIPTYLINE HCL 10 MG TAB PO SCH (21:55)
[2017-05-30] MEDS: GENTAMICIN 100 MG in SODIUM CHLORIDE 0.9% 100 ML IVPB SCH ×4 (04:10→22:36)
[2017-05-30 06:36] LABS: Glucose,Whole Blood 109 mg/dL (75-99)
[2017-05-30] MEDS: VANCOMYCIN 1,750 MG in SODIUM CHLORIDE 0.9% 250 ML IVPB SCH (06:36)
[2017-05-30] MEDS: PANTOPRAZOLE 40 MG TABLET PO SCH (06:36)
[2017-05-30] MEDS: SODIUM CHLORIDE 0.9% 1,000 ML IV SCH (06:37)
[2017-05-30 06:41] LABS: Anisocytosis Slight; Basophils % (A) 0 %; Eosinophils # (A) 0.2 k/uL (0-0.7); Eosinophils % (A) 5 %; HCT 34.8 % (39.0-53.0); HGB 11.1 gm/dL (13.0-17.5); Hypochromasia Moderate; Lymphocytes % (A) 20 %; MCH 26.4 pg (25.0-35.0); MCHC 31.9 g/dL (31.0-37.0); Mean Platelet Volume 8.9; Monocytes # (A) 0.2 k/uL (0-1.0); Monocytes % (A) 4 %; Neutrophils # (A) 3.4 k/uL (1.3-7.7); Neutrophils % (A) 69 %; Platelet Count 149 k/uL (150-450); Poikilocytosis Slight; RBC 4.19 m/uL (4.30-5.90); RDW 17.6 % (11.5-15.5); WBC 4.9 k/uL (3.8-10.6)
[2017-05-30 06:55] LABS: Anion Gap 8 mmol/L; Blood Urea Nitrogen 10 mg/dL (9-20); Calcium 8.5 mg/dL (8.4-10.2); Carbon Dioxide 23 mmol/L (22-30); Chloride 110 mmol/L (98-107); Glucose 113 mg/dL (74-99); Potassium 4.1 mmol/L (3.5-5.1); Sodium 141 mmol/L (137-145)
[2017-05-30] MEDS: NON-FORMULARY DRUG (Naloxegol Oxalate [Movantik] 25 MG) PO SCH (08:17)
[2017-05-30] MEDS: HEPARIN SODIUM,PORCINE 5,000 UNIT/ML 1 ML VIAL SQ SCH ×2 (08:23→22:38)
[2017-05-30] MEDS: METOPROLOL TARTRATE 25 MG TAB PO SCH ×2 (08:24→22:37)
[2017-05-30] MEDS: FERROUS SULFATE 325 MG TAB PO SCH (08:24)
[2017-05-30] MEDS: DULoxetine HCL 30 MG CAPSULE.DR PO SCH (08:24)
[2017-05-30] MEDS: DOCUSATE 100 MG CAP PO SCH (08:24)
[2017-05-30] MEDS: GABAPENTIN 400 MG CAP PO SCH ×3 (08:24→22:37)
--- NOTE | 2017-05-30 10:26 | P.PN ---
Subjective Progress Note Date: 05/30/17 Principal diagnosis: Aortic valve endocarditis with enterococcus faecalis and coag negative staph. Severe aortic insufficiency, mild mitral regurgitation, moderate tricuspid regurgitation, and moderate pulmonary hypertension on ERICA 05-29-17. History of diabetes mellitus type 2, hypertension, pneumonia, pyelonephritis, brain aneurysm, left acoustic neuroma with resection and shunt placement. The patient is currently sitting up in bed in no acute distress. Denies chest pain, shortness of breath. No new complaints. Objective - Vital Signs Vital signs: Vital Signs Temp 97.5 F L 05/30/17 08:00 Pulse 75 05/30/17 08:00 Resp 16 05/30/17 08:00 BP 97/45 05/30/17 08:00 Pulse Ox 93 L 05/30/17 08:00 Intake & Output 05/29/17 05/30/17 05/30/17 18:59 06:59 18:59 Intake Total 350 Output Total 600 850 200 Balance -250 -850 -200 Weight 121.5 kg 120 kg Intake: IV 350 Sodium Chloride 0.9% 1, 300 000 ml @ 75 mls/hr IV . [id number] [facility] Rx#:[id number] Output: Urine 600 850 200 Other: Voiding Method Urinal Urinal Urinal # Voids 220 1 - Constitutional General appearance: Present: cooperative, no acute distress, obese - Respiratory Details: Lung sounds diminished bilaterally. Resp even/non-labored. Currently on room air with oxygen saturations 93%. - Cardiovascular Details: S1/S2 present. Regular rate and rhythm, sinus rhythm on telemetry. Palpable peripheral pulses bilaterally. Trace bilateral lower extremity edema present. - Gastrointestinal Gastrointestinal Comment(s): Abd soft/non-tender/non-distended. Bowel sounds active x 4 quadrants. Tolerating diet. - Genitourinary Genitourinary Comment(s): Continues to void. - Integumentary Integumentary Comment(s): Skin warm, dry, pink - Neurologic Neurologic: Present: CNII-XII intact - Musculoskeletal Musculoskeletal Comment(s): Left arm weakness. - Psychiatric Psychiatric: Present: A&O x's 3, appropriate affect, intact judgment & insight - Allied health notes Allied health notes reviewed: nursing - Labs CBC & Chem 7: 05/30/17 06:01 05/30/17 06:01 Labs: Abnormal Lab Results - Last 24 Hours (Table) 05/29/17 05/29/17 05/29/17 Range/Units 11:55 17:07 21:41 RBC (4.30-5.90) m/uL Hgb (13.0-17.5) gm/dL Hct (39.0-53.0) % RDW (11.5-15.5) % Plt Count (150-450) k/uL Chloride (98-107) mmol/L Glucose (74-99) mg/dL POC Glucose (mg/dL) 102 H 125 H 120 H (75-99) mg/dL 05/30/17 05/30/17 05/30/17 Range/Units 06:01 06:01 06:33 RBC 4.19 L (4.30-5.90) m/uL Hgb 11.1 L (13.0-17.5) gm/dL Hct 34.8 L (39.0-53.0) % RDW 17.6 H (11.5-15.5) % Plt Count 149 L (150-450) k/uL Chloride 110 H (98-107) mmol/L Glucose 113 H (74-99) mg/dL POC Glucose (mg/dL) 109 H (75-99) mg/dL Microbiology - Last 24 Hours (Table) 05/27/17 12:43 Blood Culture - Final Blood 05/27/17 12:43 Blood Culture Gram Stain - Preliminary Blood 05/25/17 07:58 Blood Culture - Preliminary Blood No Growth after 96 hours - Imaging and Cardiology ERICA results reviewed. Assessment and Plan Assessment: 1. Vegetation on the right coronary cusp of the aortic valve, aortic valve endocarditis 2. Generalized weakness with fever 3. Coag-negative staph and enterococcus faecalis bacteremia 4. Type 2 diabetes mellitus 5. History of left acoustic neuroma with resection and SANITATION DIRECTOR shunt placement 6. Treated hypertension 7. History of pneumonia 8. History of brain aneurysm 9. History of tracheostomy and PEG tube, both of which have been removed Plan: 1. Continue antibiotics per infectious disease. 2. Patient will need heart catheterization to determine if coronary artery disease is present before aortic valve surgery. 3. Patient will need aortic valve replacement, the timing of which is questionable. Will need to be sooner rather than later secondary to severe aortic insufficiency but prefer his bacteremia clears if possible. 4. Increase activity, ambulate as tolerated. PT/OT following. 5. GI/DVT prophylaxis. 6. More recommendations to follow. Time with Patient: Greater than 30
--- NOTE | 2017-05-30 11:26 | PN ---
PROGRESS NOTE Mr. Gtz is a 61-year-old male with history of acoustic neuroma surgery, history of CHIEF LIFESTYLE OFFICER shunt, who presented with infection and positive blood culture, was found to have evidence of vegetation on his transthoracic echocardiogram and subsequently, documented on the transesophageal echocardiogram with significant aortic regurgitation. He is doing well this morning. He is breathing stable. He is denying any chest pain. He is lying supine without difficulty. He denies any dizziness, palpitation. He denies any nausea. He continued on metoprolol tartrate 25 mg twice a day in addition to vancomycin, gentamicin, amitriptyline. PHYSICAL EXAMINATION: Blood pressure running in the 100/50 with a heart rate in the 70s. LUNGS: Clear. HEART: Regular rhythm S1, S2. No S3 with systolic murmur and diastolic murmur heard at the base. No rub. ABDOMEN: Soft, nontender. EXTREMITIES: No edema. LAB DATA: Revealed BUN and creatinine 10 and 0.8. Hemoglobin of 11.1, white blood cell 4.9. IMPRESSION: 1. Evidence of endocarditis involving the aortic valve with severe aortic regurgitation. 2. History of acoustic neuroma surgery. 3. History of ventriculoperitoneal shunt. RECOMMENDATION: From the cardiac standpoint, will continue antibiotic treatment per Dr. Borja. The patient will require aortic valve replacement once he is stabilized in the infectious disease process, as long as he continues to be clinically stable. I have discussed with him those finding and he has in full understanding and agreement. MMODL / IJN: [id number] /
[2017-05-30] MEDS: MAGNESIUM OXIDE 400 MG TAB PO SCH (11:54)
[2017-05-30 12:18] LABS: Glucose,Whole Blood 142 mg/dL (75-99)
[2017-05-30] MEDS ORDERED: ALPRAZolam 0.5 MG TAB PO PRN (12:44)
[2017-05-30] MEDS ORDERED: SODIUM CHLORIDE 0.9% 1,000 ML in EMPTY BAG 1 BAG IV ONE (12:44)
[2017-05-30] MEDS ORDERED: ALPRAZolam 0.25 MG TAB PO PRN (12:44)
[2017-05-30] MEDS ORDERED: NITROGLYCERIN SL TABS 0.4 MG TAB SUBLINGUAL PRN (12:44)
[2017-05-30] MEDS ORDERED: ASPIRIN 325 MG TAB PO STA (12:44)
[2017-05-30] MEDS ORDERED: ATORVASTATIN 80 MG TAB PO STA (12:44)
--- NOTE | 2017-05-30 16:11 | P.PN ---
Subjective Progress Note Date: 05/30/17 Mr. Gtz is a pleasant 61-year-old past medical history significant for diabetes mellitus, hypertension, brain aneurysm and recent right acoustic neuroma resection with DIRECTOR [employer]AS[employer] shunt placement at [facility] November 2016 he also had an episode of paroxysmal atrial fibrillation after the surgery. He has had no recurrence since and therefore was not anti-coagulated. He follows with Dr. Leblanc as an outpatient. He had been in ECF until 2 weeks ago when he went home with his . She brought him to the hospital with complaints of increasing weakness, fever and chills. Blood cultures show coagulase-negative staph as well as enterococcus faecalis. An echocardiogram was performed and shows mobile structure on the right coronary cusp of the aortic valve consistent with possible vegetation. For that reason a cardiology consult was requested. He is seen sitting up in the chair in no acute distress. He denies chest pain, shortness of breath, dizziness, palpitations or fever. He has been receiving vancomycin per infectious disease. Echocardiogram performed in March of this year revealed preserved LV function with mild mitral regurgitation.Laboratory data has been reviewed, white blood cell count 3.6, hemoglobin 10.3, platelets 112, potassium 4.1, creatinine 0.77.Current cardiac medications include metoprolol 12.5 mg twice a day. Patient underwent a transesophageal echocardiographic study which revealed a vegetation on the right coronary cusp with mild aortic regurgitation. He was advised by Dr. Leblanc to undergo cardiac catheterization, the risks and the benefits were explained to him in detail and this will be performed tomorrow. Objective - Vital Signs Vital signs: Vital Signs Temp 97.5 F L 05/30/17 15:55 Pulse 69 05/30/17 15:55 Resp 16 05/30/17 15:55 BP 99/54 05/30/17 15:55 Pulse Ox 92 L 05/30/17 15:55 Intake & Output 05/29/17 05/30/17 05/30/17 18:59 06:59 18:59 Intake Total 350 Output Total 600 850 200 Balance -250 -850 -200 Weight 121.5 kg 120 kg Intake: IV 350 Sodium Chloride 0.9% 1, 300 000 ml @ 75 mls/hr IV . [id number] [facility] Rx#:[id number] Output: Urine 600 850 200 Other: Voiding Method Urinal Urinal Urinal # Voids 220 1 - Exam PHYSICAL EXAMINATION: HEENT: Head is atraumatic, normocephalic. Pupils equal, round. Neck is supple. There is no elevated jugular venous pressure. HEART EXAMINATION: Heart S1 and S2 systolic ejection murmur is heard CHEST EXAMINATION: Lungs are clear to auscultation and precussion. No chest wall tenderness is noted on palpation or with deep breathing. ABDOMEN: Soft, nontender. Bowel sounds are heard. No organomegaly noted. EXTREMITIES: 2+ peripheral pulses with no evidence of peripheral edema and no calf tenderness noted. NEUROLOGIC patient is awake, alert and oriented -3. . - Labs CBC & Chem 7: 05/30/17 06:01 05/30/17 06:01 Labs: Abnormal Lab Results - Last 24 Hours (Table) 05/29/17 05/29/17 05/30/17 Range/Units 17:07 21:41 06:01 RBC 4.19 L (4.30-5.90) m/uL Hgb 11.1 L (13.0-17.5) gm/dL Hct 34.8 L (39.0-53.0) % RDW 17.6 H (11.5-15.5) % Plt Count 149 L (150-450) k/uL Chloride (98-107) mmol/L Glucose (74-99) mg/dL POC Glucose (mg/dL) 125 H 120 H (75-99) mg/dL 05/30/17 05/30/17 05/30/17 Range/Units 06:01 06:33 12:14 RBC (4.30-5.90) m/uL Hgb (13.0-17.5) gm/dL Hct (39.0-53.0) % RDW (11.5-15.5) % Plt Count (150-450) k/uL Chloride 110 H (98-107) mmol/L Glucose 113 H (74-99) mg/dL POC Glucose (mg/dL) 109 H 142 H (75-99) mg/dL Microbiology - Last 24 Hours (Table) 05/25/17 07:58 Blood Culture - Preliminary Blood No Growth after 120 hours 05/27/17 12:43 Blood Culture Gram Stain - Preliminary Blood Blood Culture - Preliminary Group D Enterococcus 05/27/17 12:43 Blood Culture - Final Blood Assessment and Plan Plan: Assessment and plan #1 evidence of endocarditis with vegetation noted on the aortic valve #2 status post [employer] shunt #3 history of acoustic neuroma removal Plan Patient is scheduled to undergo cardiac catheterization tomorrow with Dr. Leblanc , the wrist and the benefits were explained to him in detail. DNP note has been reviewed, I agree with a documented findings and plan of care. Patient was seen and examined.
[2017-05-30 16:58] LABS: Glucose,Whole Blood 114 mg/dL (75-99)
--- NOTE | 2017-05-30 19:18 | P.PN ---
Subjective Progress Note Date: 05/30/17 Progress note being dictated for Dr. Carreon. Interval history: This a 61-year-old gentleman admitted with possibly infective endocarditis with coagulase-negative staph and enterococcus faecalis, Streptococcus in the blood, septicemia, aortic valve vegetation of the right coronary cusp per 2-D echo, generalized weakness, possible acute TIA and multiple other medical issues. Maintained on antibiotics of IV vancomycin as per ID. Underwent ERICA today reporting right coronary cusp vegetation prolapsing into the left ventricle, no shunting by contrast bubble study, severe aortic regurgitation with mild to moderate tricuspid regurgitation. Moderate pulmonary hypertension No paracardial effusion Denies chest pain, palpitations or increasing shortness of breath. Denies lightheadedness dizziness or focal deficits. 05/30/2017 no overnight events. Maintained on IV antibiotics as per infectious disease. status post ERICA is previously mentioned above. Scheduled for cardiac catheterization tomorrow with cardiology. Objective - Vital Signs Vital signs: Vital Signs Temp 97.5 F L 05/30/17 15:55 Pulse 69 05/30/17 16:00 Resp 16 05/30/17 15:55 BP 99/54 05/30/17 15:55 Pulse Ox 92 L 05/30/17 15:55 Intake & Output 05/30/17 05/30/17 05/31/17 06:59 18:59 06:59 Intake Total 280 Output Total 850 750 Balance -850 -470 Weight 120 kg Intake: Intake, IV Titration 100 Amount Gentamicin 100 mg In 100 Sodium Chloride 0.9% 100 ml @ 102.5 mls/hr IVPB Q8H [facility] Rx#:[id number] Oral 180 Output: Urine 850 750 Other: Voiding Method Urinal Urinal # Voids 1 2 - Exam PHYSICAL EXAM: VITAL SIGNS: As above GENERAL: Sitting up in bed, no acute distress HEENT: Conjunctivae normal. eyes normal. Oral mucosa moist. NECK: No JVD. No thyroid enlargement. No LNs CARDIOVASCULAR: S1, S2 muffled. Positive systolic/diastolic murmur. RESPIRATION: Breath sounds diminished in the bases. No rhonchi or crackles. No bronchial breathing. ABDOMEN: Soft, nontender . No guarding. no masses palpable..Bowel sounds heard. LEGS: No edema. no swelling PSYCHIATRY: Alert and oriented -3, mood and affect normal. NERVOUS SYSTEM: Cranial N 2-12 grossly normal. Moves all 4 limbs. Diffuse weakness No focal deficits. No sensory deficit. Skin: no ulcer no rash Joints: No active swelling. No inflammation. Lymphatic system. No LN neck axilla or groin. Microbiology 05/25/17 07:58 Blood Blood Culture - Preliminary No Growth after 120 hours 05/27/17 12:43 Blood Blood Culture Gram Stain - Preliminary 05/27/17 12:43 Blood Blood Culture - Preliminary Group D Enterococcus 05/27/17 12:43 Blood Blood Culture - Final 05/25/17 08:06 Blood Blood Culture Gram Stain - Final 05/25/17 08:06 Blood Blood Culture - Final Coagulase Negative Staph Alpha Hemolytic Streptococcus 05/22/17 20:55 Blood Blood Culture Gram Stain - Final 05/22/17 20:55 Blood Blood Culture - Final Coagulase Negative Staph Diphtheroid species Diphtheroid species#2 05/22/17 20:25 Blood Blood Culture Gram Stain - Final 05/22/17 20:25 Blood Blood Culture - Final Enterococcus faecalis 05/21/17 22:40 Blood Blood Culture Gram Stain - Final 05/21/17 22:40 Blood Blood Culture - Final Enterococcus faecalis Coagulase Negative Staph 05/25/17 08:06 Blood Blood Culture - Final 05/22/17 20:55 Blood Blood Culture - Final 05/22/17 20:25 Blood Blood Culture - Preliminary 05/22/17 00:08 Urine,Catheterized Urine Culture - Final 05/21/17 22:40 Blood Blood Culture - Final - Labs CBC & Chem 7: 05/30/17 06:01 05/30/17 06:01 Labs: Abnormal Lab Results - Last 24 Hours (Table) 05/29/17 05/30/17 05/30/17 Range/Units 21:41 06:01 06:01 RBC 4.19 L (4.30-5.90) m/uL Hgb 11.1 L (13.0-17.5) gm/dL Hct 34.8 L (39.0-53.0) % RDW 17.6 H (11.5-15.5) % Plt Count 149 L (150-450) k/uL Chloride 110 H (98-107) mmol/L Glucose 113 H (74-99) mg/dL POC Glucose (mg/dL) 120 H (75-99) mg/dL 05/30/17 05/30/1718 Range/Units 06:33 12:14 16:57 RBC (4.30-5.90) m/uL Hgb (13.0-17.5) gm/dL Hct (39.0-53.0) % RDW (11.5-15.5) % Plt Count (150-450) k/uL Chloride (98-107) mmol/L Glucose (74-99) mg/dL POC Glucose (mg/dL) 109 H 142 H 114 H (75-99) mg/dL Microbiology - Last 24 Hours (Table) 05/25/17 07:58 Blood Culture - Preliminary Blood No Growth after 120 hours 05/27/17 12:43 Blood Culture Gram Stain - Preliminary Blood Blood Culture - Preliminary Group D Enterococcus 05/27/17 12:43 Blood Culture - Final Blood Assessment and Plan Assessment: 1. Possibly infective endocarditis with coagulase-negative staph, enterococcus faecalis, alpha hemolytic streptococcus in the blood with septicemia. Status post ERICA. 2. Generalized weakness, tiredness, possible acute TIA present on admission 3. Aortic valve vegetation in the right coronary cusp per 2-D echo and ERICA. 4. Recent left acoustic neuroma surgery with significant left-sided residual weakness 5. History of ventriculoperitoneal shunt 6. Gait dysfunction 7. History of cerebral aneurysm surgery 8. diabetes mellitus type 2 Plan: Continue on current medication regime ,monitoring and symptomatic treatment. Continue following repeat cultures closely. Cardiac catheterization scheduled for tomorrow. Follow closely with cardiovascular thoracic surgery and cardiology. Further recommendations to follow. The impression and plan of care has been dictated as directed. : I performed a history and examination of this patient, discussed the same with the dictator. I agree with the dictator's note ,documented as a scribe. Any additional findings or plans will be noted.
--- NOTE | 2017-05-30 20:14 | P.PN ---
Subjective Progress Note Date: 05/30/17 This patient is a 61-year-old male who recently underwent a left acoustic neuroma surgery as well as COUPLES THERAPIST shunt placement following his surgical intervention. He also has a history of brain aneurysm surgery in the past. Patient was admitted due to TIA symptoms. He was found to have evidence of sepsis and did reveal evidence of a vegetation on his echocardiogram. He underwent ERICA procedure by Dr. Leblanc. 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 No evidence of shunting across the interatrial septum. We reviewed the results of the ERICA today with the patient. He denies any new symptoms of headache or worsening weakness. He was seen by Dr. Borja today and we are awaiting his further recommendations regarding possibility of infective endocarditis. His blood cultures did come back positive for coagulation-negative staph in multiple organisms including an enterococcus faecalis. We will await further recommendations from Dr. Borja in regards to IV antibiotic coverage. Patient denies any headache or new symptoms related to his previous brain surgery. We will need to monitor his condition closely for any signs of intercurrent sepsis. He does have a COUPLES THERAPIST shunt but shows no signs of shunt failure or infection in the shunt region at this time. According to the patient's who is at bedside he is to be scheduled for a cardiac catheterization tomorrow. 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 As per cardiothoracic surgery the patient will need aortic valve replacement secondary to severe aortic insufficiency once his bacteremia clears. Once again we'll await further evaluation from Dr. Borja. We will need to continue close monitoring of his condition. We will await further input from cardiology and cardiothoracic surgery regarding aortic valve endocarditis. Patient's neurological examination remains very stable with no new changes. We will continue close monitoring. His overall prognosis at this time remains very guarded. Objective - Vital Signs Vital signs: Vital Signs Temp 97.5 F L 05/30/17 15:55 Pulse 69 05/30/17 16:00 Resp 16 05/30/17 15:55 BP 99/54 05/30/17 15:55 Pulse Ox 92 L 05/30/17 15:55 Intake & Output 05/30/17 05/30/17 05/31/17 06:59 18:59 06:59 Intake Total 280 Output Total 850 750 Balance -850 -470 Weight 120 kg Intake: Intake, IV Titration 100 Amount Gentamicin 100 mg In 100 Sodium Chloride 0.9% 100 ml @ 102.5 mls/hr IVPB Q8H [facility] Rx#:[id number] Oral 180 Output: Urine 850 750 Other: Voiding Method Urinal Urinal # Voids 1 2 - Exam Physical Examination: PHYSICAL EXAMINATION: Patient is resting comfortably in bed. VITAL SIGNS: Blood pressure is [100/54]. Heart rate is [69]. Respiration is [16] . Temperature is [97.5]. HEENT: Head is atraumatic, neck is supple, there were no carotid bruits. CHEST: Lungs are clear to auscultation and percussion. CARDIAC: S1, S2 normal rate and rhythm. There is no murmur. ABDOMEN: Soft and nontender. Bowel sounds are present. EXTREMITIES: There is no pedal edema. Peripheral pulses are present. Neurological examination: Patient's neurological examination is unchanged from yesterday. Neurological exam findings reveal no new changes. He has left-sided hemiparesthesias from his recent left acoustic neuroma surgery and shunt placement. He is afebrile. No evidence of nuchal rigidity or meningismus. - Labs CBC & Chem 7: 05/30/17 06:01 05/30/17 06:01 Labs: Abnormal Lab Results - Last 24 Hours (Table) 05/29/17 05/30/17 05/30/17 Range/Units 21:41 06:01 06:01 RBC 4.19 L (4.30-5.90) m/uL Hgb 11.1 L (13.0-17.5) gm/dL Hct 34.8 L (39.0-53.0) % RDW 17.6 H (11.5-15.5) % Plt Count 149 L (150-450) k/uL Chloride 110 H (98-107) mmol/L Glucose 113 H (74-99) mg/dL POC Glucose (mg/dL) 120 H (75-99) mg/dL 05/30/17 05/30/17 05/30/17 Range/Units 06:33 12:14 16:57 RBC (4.30-5.90) m/uL Hgb (13.0-17.5) gm/dL Hct (39.0-53.0) % RDW (11.5-15.5) % Plt Count (150-450) k/uL Chloride (98-107) mmol/L Glucose (74-99) mg/dL POC Glucose (mg/dL) 109 H 142 H 114 H (75-99) mg/dL Microbiology - Last 24 Hours (Table) 05/25/17 07:58 Blood Culture - Preliminary Blood No Growth after 120 hours 05/27/17 12:43 Blood Culture Gram Stain - Preliminary Blood Blood Culture - Preliminary Group D Enterococcus 05/27/17 12:43 Blood Culture - Final Blood Assessment and Plan (1) S/P excision of acoustic neuroma Current Visit: Yes Status: Acute Code(s): Z98.890 - OTHER SPECIFIED POSTPROCEDURAL STATES; Z86.018 - PERSONAL HISTORY OF OTHER BENIGN NEOPLASM SNOMED Code(s): 306440231 (2) Cerebral aneurysm Current Visit: Yes Status: Acute Code(s): I67.1 - CEREBRAL ANEURYSM, NONRUPTURED SNOMED Code(s): 185463998 (3) S/P COUPLES THERAPIST shunt Current Visit: Yes Status: Acute Code(s): Z98.2 - PRESENCE OF CEREBROSPINAL FLUID DRAINAGE DEVICE SNOMED Code(s): 919812814 (4) Generalized weakness Current Visit: Yes Status: Acute Code(s): R53.1 - WEAKNESS SNOMED Code(s) : 38091692 (5) Fever Current Visit: Yes Status: Acute Code(s): R50.9 - FEVER, UNSPECIFIED SNOMED Code(s): 307662561 Plan: This patient is a 61-year-old male who has a significant past medical history of left acoustic neuroma resection with COUPLES THERAPIST shunt placement at [facility] in November 2016. He also has history of brain aneurysm surgery in the past. Patient was admitted with possible TIA symptoms. He underwent extensive evaluation for sepsis and is now found to have evidence of aortic valve endocarditis. He is to undergo a cardiac catheterization tomorrow by Dr. Leblanc. We will await his recommendations. Patient is being closely followed by cardiothoracic surgery as well who are recommending aortic valve replacement once his bacteremias resolved. Neurologically he is showing no new changes since admission to hospital. We will await the recommendations of the multiple specialists that are seeing this patient. So overall prognosis at this time remains very guarded. Case was discussed at length today with the patient's at bedside. She is aware of his guarded condition.
[2017-05-30 20:49] LABS: Glucose,Whole Blood 115 mg/dL (75-99)
--- NOTE | 2017-05-30 22:28 | P.PN ---
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 He required an extensive surgical procedure including a ventricular peritoneal shunt for reduction of pressure. 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 There was concerns to a TIA the patient was brought into hospital. His recent hospitalization it was concerns to sepsis and he was treated with antibiotic therapy with concerns to infection at his PEG tube site. At that time he had been recently decannulated from his tracheostomy. And during the recent hospitalization his PEG tube was removed and he was doing well with his feeding. Family has been having no concerns about his nutrition. He was doing well until he had the sudden TIA-like event. Since admission he has been doing relatively well except he has had 101.6 fever. There are now multiple positive blood cultures and without the infectious diseases consultation was requested. Pleasant gentleman has no other acute complaints is evening. He is denying further fevers chills rigors or sweats. He just has generalized weakness but no new acute gross focal sensory motor complaint. Patient states feeling somewhat better today. Fevers have resolved. His been seen by neurology and cardiology. The transthoracic echocardiogram showed abnormality aortic valve and a ERICA has been performed confirming the significant aortic insufficiency and a vegetation on the noncoronary cusp of the aortic valve. Was walking in hallway with 4 prong cane with the PT Objective - Vital Signs Vital signs: Vital Signs Temp 97.5 F L 05/30/17 15:55 Pulse 69 05/30/17 16:00 Resp 16 05/30/17 15:55 BP 99/54 05/30/17 15:55 Pulse Ox 92 L 05/30/17 15:55 Intake & Output 05/30/17 05/30/17 05/31/17 06:59 18:59 06:59 Intake Total 280 Output Total 850 750 Balance -850 -470 Weight 120 kg Intake: Intake, IV Titration 100 Amount Gentamicin 100 mg In 100 Sodium Chloride 0.9% 100 ml @ 102.5 mls/hr IVPB Q8H [facility] Rx#:[id number] Oral 180 Output: Urine 850 750 Other: Voiding Method Urinal Urinal # Voids 1 2 - Exam 61-year-old male comfortable at this time HEENT: Anicteric conjunctiva are pink and moist nasal mucosa grossly intact without significant lesions, there is no thrush. 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 Neck: The neck is supple without significant lymphadenopathy or thyromegaly. DT cannulated tracheostomy site is well-healed Lungs: Good bilateral air entry without significant crackles or wheezing. There is no significant bronchial sounds. There is no egophony or dullness. Heart: Irregular with a positive S4 no murmur click or rub Abdomen: Obese, Positive bowel sounds soft and nontender without palpable masses or organomegaly. There was no guarding or rebound. Surgical wound from his UNDERWRITING SUPPORT MANAGER shunt is well-healed. The prior PEG tube site is without erythema or drainage. Extremities: The upper extremities have excellent pulses they are symmetric, no significant petechiae or telangiectasia. No splinter hemorrhages were noted. The lower extremities are free from significant edema. The peripheral pulses were 2+ and symmetric. Neuro: Is awake and alert as has the left hemiparesis but was able to ambulate today. - Labs CBC & Chem 7: 05/30/17 06:01 05/30/17 06:01 Labs: Abnormal Lab Results - Last 24 Hours (Table) 05/30/17 05/30/17 05/30/17 Range/Units 06:01 06:01 06:33 RBC 4.19 L (4.30-5.90) m/uL Hgb 11.1 L (13.0-17.5) gm/dL Hct 34.8 L (39.0-53.0) % RDW 17.6 H (11.5-15.5) % Plt Count 149 L (150-450) k/uL Chloride 110 H (98-107) mmol/L Glucose 113 H (74-99) mg/dL POC Glucose (mg/dL) 109 H (75-99) mg/dL 05/30/17 05/30/17 05/30/17 Range/Units 12:14 16:57 20:47 RBC (4.30-5.90) m/uL Hgb (13.0-17.5) gm/dL Hct (39.0-53.0) % RDW (11.5-15.5) % Plt Count (150-450) k/uL Chloride (98-107) mmol/L Glucose (74-99) mg/dL POC Glucose (mg/dL) 142 H 114 H 115 H (75-99) mg/dL Microbiology - Last 24 Hours (Table) 05/25/17 07:58 Blood Culture - Preliminary Blood No Growth after 120 hours 05/27/17 12:43 Blood Culture Gram Stain - Preliminary Blood Blood Culture - Preliminary Group D Enterococcus 05/27/17 12:43 Blood Culture - Final Blood Laboratory Results WBC 4.9 k/uL (3.8-10.6) 05/30/17 06:01 RBC 4.19 m/uL (4.30-5.90) L 05/30/17 06:01 Hgb 11.1 gm/dL (13.0-17.5) L 05/30/17 06:01 Hct 34.8 % (39.0-53.0) L 05/30/17 06:01 MCV 83.0 fL (80.0-100.0) 05/30/17 06:01 MCH 26.4 pg (25.0-35.0) 05/30/17 06:01 MCHC 31.9 g/dL (31.0-37.0) 05/30/17 06:01 RDW 17.6 % (11.5-15.5) H 05/30/17 06:01 Plt Count 149 k/uL (150-450) L 05/30/17 06:01 Neutrophils % 69 % 05/30/17 06:01 Lymphocytes % 20 % 05/30/17 06:01 Monocytes % 4 % 05/30/17 06:01 Eosinophils % 5 % 05/30/17 06:01 Basophils % 0 % 05/30/17 06:01 Neutrophils # 3.4 k/uL (1.3-7.7) 05/30/17 06:01 Lymphocytes # 1.0 k/uL (1.0-4.8) 05/30/17 06:01 Monocytes # 0.2 k/uL (0-1.0) 05/30/17 06:01 Eosinophils # 0.2 k/uL (0-0.7) 05/30/17 06:01 Basophils # 0.0 k/uL (0-0.2) 05/30/17 06:01 Hypochromasia Moderate 05/30/17 06:01 Poikilocytosis Slight 05/30/17 06:01 Anisocytosis Slight 05/30/17 06:01 Microcytosis Slight 05/21/17 22:40 PT 11.7 sec (9.0-12.0) 05/21/17 22:40 INR 1.2 (<1.2) H 05/21/17 22:40 APTT 27.8 sec (22.0-30.0) 05/21/17 22:40 Sodium 141 mmol/L (137-145) 05/30/17 06:01 Potassium 4.1 mmol/L (3.5-5.1) 05/30/17 06:01 Chloride 110 mmol/L (98-107) H 05/30/17 06:01 Carbon Dioxide 23 mmol/L (22-30) 05/30/17 06:01 Anion Gap 8 mmol/L 05/30/17 06:01 BUN 10 mg/dL (9-20) 05/30/17 06:01 Creatinine 0.80 mg/dL (0.66-1.25) 05/30/17 06:01 Est GFR (MDRD) Af Amer >60 (>60 ml/min/1.73 sqM) 05/30/17 06:01 Est GFR (MDRD) Non-Af >60 (>60 ml/min/1.73 sqM) 05/30/17 06:01 Glucose 113 mg/dL (74-99) H 05/30/17 06:01 POC Glucose (mg/dL) 115 mg/dL (75-99) H 05/30/17 20:47 POC Glu Arts Education Teacher ID Cyndi Kaur 05/30/17 20:[address] Glu mg/dL 100 05/22/17 06:09 Hemoglobin A1c 5.1 % (4.0-6.0) 05/22/17 06:09 Plasma Lactic Acid Maxx 1.4 mmol/L (0.7-2.0) 05/21/17 22:40 Calcium 8.5 mg/dL (8.4-10.2) 05/30/17 06:01 Magnesium 2.0 mg/dL (1.6-2.3) 05/22/17 06:09 Total Bilirubin 1.0 mg/dL (0.2-1.3) 01/01/18 06:09 AST 21 U/L (17-59) 05/22/17 06:09 ALT 37 U/L (21-72) 05/22/17 06:09 Alkaline Phosphatase 73 U/L (38-126) 05/22/17 06:09 Troponin I <0.012 ng/mL (0.000-0.034) 05/21/17 22:40 Total Protein 6.2 g/dL (6.3-8.2) L 05/22/17 06:09 Albumin 3.1 g/dL (3.5-5.0) L 05/22/17 06:09 Urine Color [place] 05/22/17 00:08 Urine Appearance Clear (Clear) 05/22/17 00:08 Urine pH 5.5 (5.0-8.0) 05/22/17 00:08 Ur Specific [place] 1.023 (1.001-1.035) 05/22/17 00:08 Urine Protein 1+ (Negative) H 05/22/17 00:08 Urine Glucose (UA) Negative (Negative) 05/22/17 00:08 Urine Ketones Negative (Negative) 05/22/17 00:08 Urine Blood Negative (Negative) 05/22/17 00:08 Urine Nitrite Negative (Negative) 05/22/17 00:08 Urine Bilirubin 1+ (Negative) H 05/22/17 00:08 Urine Urobilinogen 2.0 mg/dL (<2.0) 05/22/17 00:08 Ur Leukocyte Esterase Negative (Negative) 05/22/17 00:08 Urine RBC <1 /hpf (0-5) 05/22/17 00:08 Urine WBC 1 /hpf (0-5) 05/22/17 00:08 Urine Bacteria Rare /hpf (None) H 05/22/17 00:08 Urine Mucus Rare /hpf (None) H 05/22/17 00:08 Vancomycin Trough 19.6 ug/mL 05/28/17 06:02 Influenza Type A RNA Not Detected (Not Detectd) 05/21/17 23:00 Influenza Type B (PCR) Not Detected (Not Detectd) 05/21/17 23:00 Microbiology 05/25/17 07:58 Blood Blood Culture - Preliminary No Growth after 120 hours 05/27/17 12:43 Blood Blood Culture Gram Stain - Preliminary 05/27/17 12:43 Blood Blood Culture - Preliminary Group D Enterococcus 05/27/17 12:43 Blood Blood Culture - Final 05/25/17 08:06 Blood Blood Culture Gram Stain - Final 05/25/17 08:06 Blood Blood Culture - Final Coagulase Negative Staph Alpha Hemolytic Streptococcus 05/22/17 20:55 Blood Blood Culture Gram Stain - Final 05/22/17 20:55 Blood Blood Culture - Final Coagulase Negative Staph Diphtheroid species Diphtheroid species#2 05/22/17 20:25 Blood Blood Culture Gram Stain - Final 05/22/17 20:25 Blood Blood Culture - Final Enterococcus faecalis 05/21/17 22:40 Blood Blood Culture Gram Stain - Final 05/21/17 22:40 Blood Blood Culture - Final Enterococcus faecalis Coagulase Negative Staph 05/25/17 08:06 Blood Blood Culture - Final 05/22/17 20:55 Blood Blood Culture - Final 05/22/17 20:25 Blood Blood Culture - Preliminary 05/22/17 00:08 Urine,Catheterized Urine Culture - Final 05/21/17 22:40 Blood Blood Culture - Final Assessment and Plan (1) Acoustic neuroma Current Visit: No Status: Acute Code(s): D33.3 - BENIGN NEOPLASM OF CRANIAL NERVES SNOMED Code(s): 606352708 (2) TIA (transient ischemic attack) Current Visit: Yes Status: Acute Code(s): G45.9 - TRANSIENT CEREBRAL ISCHEMIC ATTACK, UNSPECIFIED SNOMED Code(s): 060080005 (3) Fever Narrative/Plan: 61-year-old male who is a very extensive past medical history regarding his acoustic neuroma, his surgery and his neurological deficits occurred since. He recently had some improvement since he has tracheostomy decannulated and his PEG tube removed. He's been doing quite well since this is occurred. She's not been having difficulties with chewing swallowing and eating. There's been no gagging and choking occurring. Chest x-rays without evidence of significant pneumonia. The patient however did have evidence of fever at admission at which point in time he also had symptoms of a TIA. His been seen by neurology I do not believe that he's had a TIA. He over did have evidence of fever and evidence of multiple positive blood cultures. A coagulase-negative staph appears to be occurring. However other cultures are again showing Enterococcus faecalis that he had in the latter part of 2017 he was treated with a protracted course of intravenous antibiotic therapy. Multiple blood cultures have been requested. As noted there are several blood cultures that have different pathogens including coagulase negative staph, enterococcus faecalis, and some diphtheroids. The diphtheroids or contamination. Vancomycin will continue and gentamicin is added for synergy given the multiple cultures again positive for enterococcus Current urine culture is negative. It is noted the patient had further positive blood cultures and echocardiogram was performed. This did reveal evidence of the abnormality of aortic valve which has now been verified by the ERICA. There is evidence of the aortic insufficiency in the vegetation on the noncoronary cusp of the aortic valve. Antibiotics of vancomycin and gentamicin in process. Follow blood cultures requested. Most recent still positive. Once bacteremia clears he'll need IV access for his outpatient therapy. He'll need to have completion of the course of antibiotics. Cardiothoracic input has been requested and they will monitor. Current Visit: Yes Status: Acute Code(s): R50.9 - FEVER, UNSPECIFIED SNOMED Code(s): 600950678
[2017-05-30] MEDS: TAMSULOSIN 0.4 MG CAP.ER.24H PO SCH (22:37)
[2017-05-30] MEDS: AMITRIPTYLINE HCL 10 MG TAB PO SCH (22:44)
[2017-05-31] MEDS: VANCOMYCIN 1,750 MG in SODIUM CHLORIDE 0.9% 250 ML IVPB SCH ×2 (00:47→15:50)
[2017-05-31 04:46] LABS: Anisocytosis Slight; Basophils % (A) 0 %; Eosinophils # (A) 0.2 k/uL (0-0.7); Eosinophils % (A) 5 %; HCT 35.8 % (39.0-53.0); HGB 10.9 gm/dL (13.0-17.5); Hypochromasia Moderate; Lymphocytes # (A) 0.9 k/uL (1.0-4.8); Lymphocytes % (A) 20 %; MCHC 30.5 g/dL (31.0-37.0); MCV 85.3 fL (80.0-100.0); Mean Platelet Volume 8.6; Monocytes # (A) 0.2 k/uL (0-1.0); Monocytes % (A) 4 %; Neutrophils # (A) 3.2 k/uL (1.3-7.7); Neutrophils % (A) 70 %; Platelet Count 152 k/uL (150-450); Poikilocytosis Slight; RDW 18.2 % (11.5-15.5); WBC 4.6 k/uL (3.8-10.6)
[2017-05-31] MEDS ORDERED: GENTAMICIN TROUGH DUE 1 EACH MISC MISCELLANE ONE (05:00)
[2017-05-31 05:01] LABS: Anion Gap 5 mmol/L; Blood Urea Nitrogen 11 mg/dL (9-20); Calcium 8.5 mg/dL (8.4-10.2); Carbon Dioxide 26 mmol/L (22-30); Chloride 110 mmol/L (98-107); Glucose 126 mg/dL (74-99); Potassium 4.1 mmol/L (3.5-5.1); Sodium 141 mmol/L (137-145)
[2017-05-31 05:50] LABS: Glucose,Whole Blood 129 mg/dL (75-99)
[2017-05-31] MEDS: SODIUM CHLORIDE 0.9% 1,000 ML IV SCH ×2 (05:52→09:12)
[2017-05-31] MEDS: GENTAMICIN 100 MG in SODIUM CHLORIDE 0.9% 100 ML IVPB SCH (05:52)
[2017-05-31] MEDS: PANTOPRAZOLE 40 MG TABLET PO SCH (07:00)
[2017-05-31] MEDS: DULoxetine HCL 30 MG CAPSULE.DR PO SCH (07:01)
[2017-05-31] MEDS: GABAPENTIN 400 MG CAP PO SCH ×3 (07:02→22:45)
[2017-05-31] MEDS ORDERED: GENTAMICIN PEAK DUE 1 EACH MISC MISCELLANE ONE (07:30)
[2017-05-31] MEDS: HEPARIN SODIUM,PORCINE 5,000 UNIT/ML 1 ML VIAL SQ SCH ×2 (08:45→22:44)
[2017-05-31] MEDS: MAGNESIUM OXIDE 400 MG TAB PO SCH (08:48)
[2017-05-31] MEDS: METOPROLOL TARTRATE 25 MG TAB PO SCH ×2 (08:48→22:45)
[2017-05-31] MEDS ORDERED: GENTAMICIN 120 MG in SODIUM CHLORIDE 0.9% 100 ML IVPB SCH (09:00)
[2017-05-31] MEDS ORDERED: LIDOCAINE 2% INJ 20 MG/ML (20 ML MDV) ONE (09:57)
[2017-05-31] MEDS ORDERED: IV FLUID CONTINUATION 800 ML IV ONE (10:10)
[2017-05-31] MEDS ORDERED: fentaNYL (PF) 50 MCG/ML 2 ML AMP ONE (10:19)
[2017-05-31] MEDS ORDERED: fentaNYL (PF) 50 MCG/ML 2 ML AMP IV ONE (10:42)
[2017-05-31] MEDS ORDERED: VERAPAMIL 2.5 MG/ML 2 ML AMP ONE (10:47)
[2017-05-31] MEDS ORDERED: LIDOCAINE 2% INJ 20 MG/ML SQ ONE (10:52)
[2017-05-31] MEDS ORDERED: VERAPAMIL SYRINGE (5 MG/10 ML) INTRAARTER ONE (10:53)
[2017-05-31] MEDS ORDERED: HEPARIN SODIUM 1,000 UN/ML (10ML VL) ONE (10:55)
[2017-05-31] MEDS ORDERED: HEPARIN SODIUM 1,000 UN/ML (10ML VL) IV ONE (10:56)
[2017-05-31] MEDS ORDERED: IOHEXOL 350 MG/ML 125ML BOTTLE INJ ONE (11:12)
[2017-05-31] MEDS ORDERED: RX INFO: IV CONTRAST WAS GIVEN 1 EACH MISC MISCELLANE PRN (11:22)
[2017-05-31] MEDS ORDERED: SODIUM CHLORIDE 0.9% 1,000 ML IV SCH (11:30)
[2017-05-31 11:39] LABS: Glucose,Whole Blood 118 mg/dL (75-99)
--- NOTE | 2017-05-31 12:27 | CC ---
CARDIAC CATHETERIZATION REPORT HISTORY: Mr. Gtz is a 61-year-old male who presented with evidence of bacteremia and was found to have endocarditis involving the aortic valve with severe aortic regurgitation. In view of that, recommendation made regarding cardiac catheterization in preparation for aortic valve replacement. The procedure, as well as the risks and complications, were discussed with the patient who is in full understanding and agreement. PROCEDURE: Patient was brought to cath in fasting semi-sedated state after receiving fentanyl and Benadryl and achieving moderate conscious sedated state. Using Xylocaine anesthesia in Seldinger technique, a 6-Algerian sheath was introduced in the right radial artery. Selective right and left coronary angiography performed using 5-Algerian 3-1/2 bend right Beatriz and 6-Algerian 4 bend left Beatriz catheter. Multiple views of heart including hemiaxial views were obtained. Following that, the catheter and sheath were removed. Hemostasis was obtained with deployment of a TR band. There were no immediate complications. Patient was returned to his room in stable condition. There were no immediate complications. Of note, the patient received 5000 units of intravenous heparin as well as intra-arterial verapamil. FINDINGS: LEFT MAIN: This is a large-sized vessel bifurcating into left circumflex and left anterior descending artery. Left main coronary artery is without any evidence of high- grade stenosis. LEFT ANTERIOR DESCENDING ARTERY: This is a large-sized vessel, reaching toward the apex, tapers down distally giving rise to 3 diagonal branch of moderate caliber. The left anterior descending artery has mild intimal disease of 10 to 20% in the proximal segment without any evidence of high-grade stenosis. LEFT CIRCUMFLEX: This is a large codominant vessel, giving rise to 3 obtuse marginal branches. The 1st and 2nd ones are large in caliber. The left circumflex as well as branches have no evidence of obstructive coronary disease. RIGHT CORONARY ARTERY: This is a large-sized vessel, codominant, bifurcating distally into PDA, posterolateral segment and branches. The right coronary artery PDA reaches toward the inferior apical wall and has no evidence of high-grade stenosis. LEFT VENTRICULOGRAM: Left ventriculogram was not performed. 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 RECOMMENDATIONS: In view of findings and anatomy, I recommend proceeding with evaluation for the aortic valve surgery. Those findings and recommendation were discussed with the patient and his family who are in full understanding and agreement. Duration of the procedure: 28 minutes. MMODL / IJN: [id number] /
--- NOTE | 2017-05-31 12:32 | P.PN ---
<Camille Pope - Last Filed: 05/31/17 12:26> Subjective Progress Note Date: 05/31/17 Principal diagnosis: Aortic valve endocarditis with enterococcus faecalis and coag negative staph. Severe aortic insufficiency, mild mitral regurgitation, moderate tricuspid regurgitation, and moderate pulmonary hypertension on ERICA 05-29-17. History of diabetes mellitus type 2, hypertension, pneumonia, pyelonephritis, brain aneurysm, left acoustic neuroma with resection and shunt placement. The patient is currently sitting up in bed in no acute distress. Denies chest pain, shortness of breath. No new complaints. Scheduled to have heart catheterization today with Dr. Leblanc. Objective - Vital Signs Vital signs: Vital Signs Temp 97.6 F 05/31/17 06:55 Pulse 76 05/31/17 08:00 Resp 18 05/31/17 08:00 BP 102/52 05/31/17 08:00 Pulse Ox 92 L 05/31/17 08:00 Intake & Output 05/30/17 05/31/17 05/31/17 18:59 06:59 18:59 Intake Total 280 100 Output Total 750 1000 Balance -470 -1000 100 Intake: IV 100 Intake, IV Titration 100 Amount Gentamicin 100 mg In 100 Sodium Chloride 0.9% 100 ml @ 102.5 mls/hr IVPB Q8H [facility] Rx#:[id number] Oral 180 Output: Urine 750 1000 Other: Voiding Method Urinal Urinal Urinal # Voids 2 - Constitutional General appearance: Present: cooperative, no acute distress, obese - Respiratory Details: Lungs sounds diminished bilaterally. Respirations even, platelet. Currently on room air with oxygen saturation 93%. - Cardiovascular Details: S1, S2 present. Regular rate and rhythm, sinus rhythm on telemetry. Palpable peripheral pulses bilaterally. Trace bilateral lower extremity edema present. - Gastrointestinal Gastrointestinal Comment(s): Abdomen soft, nontender, nondistended. Active bowel sounds 4 quadrants. Tolerating diet. - Genitourinary Genitourinary Comment(s): Continues to void. - Neurologic Neurologic: Present: CNII-XII intact - Musculoskeletal Musculoskeletal Comment(s): Left arm weakness present. - Psychiatric Psychiatric: Present: A&O x's 3, appropriate affect, intact judgment & insight - Allied health notes Allied health notes reviewed: nursing - Labs CBC & Chem 7: 05/31/17 04:29 05/31/17 04:29 Labs: Abnormal Lab Results - Last 24 Hours (Table) 05/30/17 05/30/17 05/31/17 Range/Units 16:57 20:47 04:29 RBC 4.20 L (4.30-5.90) m/uL Hgb 10.9 L (13.0-17.5) gm/dL Hct 35.8 L (39.0-53.0) % MCHC 30.5 L (31.0-37.0) g/dL RDW 18.2 H (11.5-15.5) % Lymphocytes # 0.9 L (1.0-4.8) k/uL Chloride (98-107) mmol/L Glucose (74-99) mg/dL POC Glucose (mg/dL) 114 H 115 H (75-99) mg/dL Gentamicin Trough ug/mL 05/31/17 05/31/17 05/31/17 Range/Units 04:29 04:29 05:48 RBC (4.30-5.90) m/uL Hgb (13.0-17.5) gm/dL Hct (39.0-53.0) % MCHC (31.0-37.0) g/dL RDW (11.5-15.5) % Lymphocytes # (1.0-4.8) k/uL Chloride 110 H (98-107) mmol/L Glucose 126 H (74-99) mg/dL POC Glucose (mg/dL) 129 H (75-99) mg/dL Gentamicin Trough 2.5 H* ug/mL 05/31/17 Range/Units 11:34 RBC (4.30-5.90) m/uL Hgb (13.0-17.5) gm/dL Hct (39.0-53.0) % MCHC (31.0-37.0) g/dL RDW (11.5-15.5) % Lymphocytes # (1.0-4.8) k/uL Chloride (98-107) mmol/L Glucose (74-99) mg/dL POC Glucose (mg/dL) 118 H (75-99) mg/dL Gentamicin Trough ug/mL Microbiology - Last 24 Hours (Table) 05/27/17 12:43 Blood Culture Gram Stain - Final Blood Blood Culture - Preliminary Enterococcus faecalis 05/25/17 07:58 Blood Culture - Final Blood No Growth after 144 hours 05/30/17 06:01 Blood Culture - Preliminary Blood No Growth after 24 hours Assessment and Plan Assessment: 1. Vegetation on the right coronary cusp of the aortic valve, aortic valve endocarditis 2. Generalized weakness with fever 3. Coag-negative staph and enterococcus faecalis bacteremia, blood culture from May 30 negative so far. 4. Type 2 diabetes mellitus 5. History of left acoustic neuroma with resection and CHIEF QUALITY OFFICER shunt placement 6. Treated hypertension 7. History of pneumonia 8. History of brain aneurysm 9. History of tracheostomy and PEG tube, both of which have been removed Plan: 1. Continue antibiotics per infectious disease. 2. Patient to have heart catheterization today by Dr. Leblanc. 3. Patient will need aortic valve replacement, the timing of which is questionable. Will need to be sooner rather than later secondary to severe aortic insufficiency but prefer his bacteremia clears if possible. 4. Increase activity, ambulate as tolerated. PT/OT following. 5. GI/DVT prophylaxis. 6. Would like neuro surgery involvement to make sure cause of continued bacteremia is not from CHIEF QUALITY OFFICER shunt. Patient may need to be transferred to a facility with neurosurgery. 7. More recommendations to follow. Time with Patient: Greater than 30 <Pramod Briceño - Last Filed: 05/31/17 17:13> Objective - Vital Signs Vital signs: Vital Signs Temp 97.6 F 05/31/17 06:55 Pulse 70 05/31/17 15:42 Resp 16 05/31/17 15:42 BP 91/52 05/31/17 15:42 Pulse Ox 94 L 05/31/17 15:42 Intake & Output 05/30/17 05/31/17 05/31/17 18:59 06:59 18:59 Intake Total 280 100 Output Total 750 1000 300 Balance -470 -1000 -200 Intake: IV 100 Intake, IV Titration 100 Amount Gentamicin 100 mg In 100 Sodium Chloride 0.9% 100 ml @ 102.5 mls/hr IVPB Q8H [facility] Rx#:[id number] Oral 180 Output: Urine 750 1000 300 Other: Voiding Method Urinal Urinal Urinal # Voids 2 - Labs CBC & Chem 7: 05/31/17 04:29 05/31/17 04:29 Labs: Abnormal Lab Results - Last 24 Hours (Table) 05/30/17 05/31/17 05/31/17 Range/Units 20:47 04:29 04:29 RBC 4.20 L (4.30-5.90) m/uL Hgb 10.9 L (13.0-17.5) gm/dL Hct 35.8 L (39.0-53.0) % MCHC 30.5 L (31.0-37.0) g/dL RDW 18.2 H (11.5-15.5) % Lymphocytes # 0.9 L (1.0-4.8) k/uL Chloride 110 H (98-107) mmol/L Glucose 126 H (74-99) mg/dL POC Glucose (mg/dL) 115 H (75-99) mg/dL Gentamicin Trough ug/mL 05/31/17 05/31/17 05/31/17 Range/Units 04:29 05:48 11:34 RBC (4.30-5.90) m/uL Hgb (13.0-17.5) gm/dL Hct (39.0-53.0) % MCHC (31.0-37.0) g/dL RDW (11.5-15.5) % Lymphocytes # (1.0-4.8) k/uL Chloride (98-107) mmol/L Glucose (74-99) mg/dL POC Glucose (mg/dL) 129 H 118 H (75-99) mg/dL Gentamicin Trough 2.5 H* ug/mL 05/31/17 Range/Units 16:48 RBC (4.30-5.90) m/uL Hgb (13.0-17.5) gm/dL Hct (39.0-53.0) % MCHC (31.0-37.0) g/dL RDW (11.5-15.5) % Lymphocytes # (1.0-4.8) k/uL Chloride (98-107) mmol/L Glucose (74-99) mg/dL POC Glucose (mg/dL) 111 H (75-99) mg/dL Gentamicin Trough ug/mL Microbiology - Last 24 Hours (Table) 05/27/17 12:43 Blood Culture Gram Stain - Final Blood Blood Culture - Preliminary Enterococcus faecalis 05/25/17 07:58 Blood Culture - Final Blood No Growth after 144 hours 05/30/17 06:01 Blood Culture - Preliminary Blood No Growth after 24 hours Assessment and Plan Plan: The patient was seen and examined. I agree with the above assessment and plan. His cardiac catheterization performed earlier today was negative for obstructive coronary artery disease. His most recent blood cultures have been negative thus far. He remains on antibiotics. I am still uncertain regarding the source of his infection. The only thing we have not fully investigated is his CHIEF QUALITY OFFICER shunt. Unfortunately we do not have neurosurgery at this hospital. I am therefore planning on transferring him to [facility] in [place] and have neurosurgery evaluate him there. Assuming the CHIEF QUALITY OFFICER shunt is not infected, we will then proceed with aortic valve replacement at that hospital. I did speak at length with both the patient and his regarding these recommendations. They appear to be in agreement. We will initiate the transfer process tomorrow morning.
--- NOTE | 2017-05-31 12:36 | LTR ---
May 31, 2017 Miller Islas DO Dear Kalee: I had the opportunity to perform a cardiac catheterization on Mr. Gtz at [facility] on May 31, 2017. A full copy of the procedure note will be forwarded to you. In brief, he was found to have mild obstructive disease with no evidence of high-grade stenosis. In view of his finding of endocarditis involving the aortic valve, with severe aortic regurgitation, he will be evaluated to undergo aortic valve replacement. Thank you again for allowing me to participate in this patient's care. Please feel free to call if there are any questions. MMODL / IJN: [id number] /
[2017-05-31] MEDS ORDERED: VANCOMYCIN TROUGH DUE 1 EACH MISC MISCELLANE ONE (14:00)
[2017-05-31] MEDS: NON-FORMULARY DRUG (Naloxegol Oxalate [Movantik] 25 MG) PO SCH (14:02)
--- NOTE | 2017-05-31 14:29 | P.PN ---
Subjective Progress Note Date: 05/31/17 This patient is a 61-year-old male who recently underwent a left acoustic neuroma surgery as well as FIELD MECHANICAL METER TESTER shunt placement following his surgical intervention. He also has a history of brain aneurysm surgery in the past. Patient was admitted due to TIA symptoms. He was found to have evidence of sepsis and did reveal evidence of a vegetation on his echocardiogram. He underwent ERICA procedure by Dr. Leblanc. 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 No evidence of shunting across the interatrial septum. We reviewed the results of the ERICA today with the patient. He denies any new symptoms of headache or worsening weakness. He was seen by Dr. Borja today and we are awaiting his further recommendations regarding possibility of infective endocarditis. His blood cultures did come back positive for coagulation-negative staph in multiple organisms including an enterococcus faecalis. We will await further recommendations from Dr. Borja in regards to IV antibiotic coverage. Patient denies any headache or new symptoms related to his previous brain surgery. We will need to monitor his condition closely for any signs of intercurrent sepsis. He does have a FIELD MECHANICAL METER TESTER shunt but shows no signs of shunt failure or infection in the shunt region at this time. According to the patient's who is at bedside he is to be scheduled for a cardiac catheterization tomorrow. 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 As per cardiothoracic surgery the patient will need aortic valve replacement secondary to severe aortic insufficiency once his bacteremia clears. Once again we'll await further evaluation from Dr. Borja. We will need to continue close monitoring of his condition. We will await further input from cardiology and cardiothoracic surgery regarding aortic valve endocarditis. Patient was seen by cardiothoracic surgery today. Nurse practitioner Camille Pope states that cardiothoracic surgery would like neurosurgery consultation to make sure cause of bacteremia is not from his recent FIELD MECHANICAL METER TESTER shunt. We discussed this today with Dr. Angelo in detail and would recommend he be transferred to the place of his recent acoustic neuroma surgery at [facility] in [place]. Dr. Angelo will make arrangements to have this patient transferred as he will likely will need coordinated neurosurgery and cardiothoracic surgery involvement for treatment of this aortic valve endocarditis. Patient's neurological examination remains very stable with no new changes. He does remain afebrile today. He denies any headache at this time. Recommendations of cardiothoracic surgery were reviewed today with the patient. We will await further transfer orders as soon as arrangements can be made. We will continue close monitoring. His overall prognosis at this time remains very guarded. Objective - Vital Signs Vital signs: Vital Signs Temp 97.6 F 05/31/17 06:55 Pulse 69 05/31/17 13:07 Resp 18 05/31/17 13:07 BP 90/51 05/31/17 13:07 Pulse Ox 94 L 05/31/17 13:07 Intake & Output 05/30/17 05/31/17 05/31/17 18:59 06:59 18:59 Intake Total 280 100 Output Total 750 1000 300 Balance -470 -1000 -200 Intake: IV 100 Intake, IV Titration 100 Amount Gentamicin 100 mg In 100 Sodium Chloride 0.9% 100 ml @ 102.5 mls/hr IVPB Q8H [facility] Rx#:[id number] Oral 180 Output: Urine 750 1000 300 Other: Voiding Method Urinal Urinal Urinal # Voids 2 - Exam Physical Examination: PHYSICAL EXAMINATION: Patient is resting comfortably in bed. VITAL SIGNS: Blood pressure is [90/51]. Heart rate is [69]. Respiration is [18] . Temperature is [97.7]. HEENT: Head is atraumatic, neck is supple, there were no carotid bruits. CHEST: Lungs are clear to auscultation and percussion. CARDIAC: S1, S2 normal rate and rhythm. There is no murmur. ABDOMEN: Soft and nontender. Bowel sounds are present. EXTREMITIES: There is no pedal edema. Peripheral pulses are present. Neurological examination: Patient's neurological examination is unchanged from yesterday. Neurological exam findings reveal no new changes. He has left-sided hemiparesis from his recent left acoustic neuroma surgery and shunt placement. He is afebrile. No evidence of nuchal rigidity or meningismus. - Labs CBC & Chem 7: 05/31/17 04:29 05/31/17 04:29 Labs: Abnormal Lab Results - Last 24 Hours (Table) 05/30/17 05/30/17 05/31/17 Range/Units 16:57 20:47 04:29 RBC 4.20 L (4.30-5.90) m/uL Hgb 10.9 L (13.0-17.5) gm/dL Hct 35.8 L (39.0-53.0) % MCHC 30.5 L (31.0-37.0) g/dL RDW 18.2 H (11.5-15.5) % Lymphocytes # 0.9 L (1.0-4.8) k/uL Chloride (98-107) mmol/L Glucose (74-99) mg/dL POC Glucose (mg/dL) 114 H 115 H (75-99) mg/dL Gentamicin Trough ug/mL 05/31/17 05/31/17 05/31/17 Range/Units 04:29 04:29 05:48 RBC (4.30-5.90) m/uL Hgb (13.0-17.5) gm/dL Hct (39.0-53.0) % MCHC (31.0-37.0) g/dL RDW (11.5-15.5) % Lymphocytes # (1.0-4.8) k/uL Chloride 110 H (98-107) mmol/L Glucose 126 H (74-99) mg/dL POC Glucose (mg/dL) 129 H (75-99) mg/dL Gentamicin Trough 2.5 H* ug/mL 05/31/17 Range/Units 11:34 RBC (4.30-5.90) m/uL Hgb (13.0-17.5) gm/dL Hct (39.0-53.0) % MCHC (31.0-37.0) g/dL RDW (11.5-15.5) % Lymphocytes # (1.0-4.8) k/uL Chloride (98-107) mmol/L Glucose (74-99) mg/dL POC Glucose (mg/dL) 118 H (75-99) mg/dL Gentamicin Trough ug/mL Microbiology - Last 24 Hours (Table) 05/27/17 12:43 Blood Culture Gram Stain - Final Blood Blood Culture - Preliminary Enterococcus faecalis 05/25/17 07:58 Blood Culture - Final Blood No Growth after 144 hours 05/30/17 06:01 Blood Culture - Preliminary Blood No Growth after 24 hours Assessment and Plan (1) S/P excision of acoustic neuroma Current Visit: Yes Status: Acute Code(s): Z98.890 - OTHER SPECIFIED POSTPROCEDURAL STATES; Z86.018 - PERSONAL HISTORY OF OTHER BENIGN NEOPLASM SNOMED Code(s): 931823387 (2) Cerebral aneurysm Current Visit: Yes Status: Acute Code(s): I67.1 - CEREBRAL ANEURYSM, NONRUPTURED SNOMED Code(s): 928607776 (3) S/P FIELD MECHANICAL METER TESTER shunt Current Visit: Yes Status: Acute Code(s): Z98.2 - PRESENCE OF CEREBROSPINAL FLUID DRAINAGE DEVICE SNOMED Code(s): 764635766 (4) Generalized weakness Current Visit: Yes Status: Acute Code(s): R53.1 - WEAKNESS SNOMED Code(s) : 49892715 (5) Fever Current Visit: Yes Status: Acute Code(s): R50.9 - FEVER, UNSPECIFIED SNOMED Code(s): 461766593 Plan: This patient is a 61-year-old male who has a significant past medical history of left acoustic neuroma resection with FIELD MECHANICAL METER TESTER shunt placement at [facility] in November 2016. He also has history of brain aneurysm surgery in the past. Patient was admitted with possible TIA symptoms. He underwent extensive evaluation for sepsis and is now found to have evidence of aortic valve endocarditis. He is to undergo a cardiac catheterization tomorrow by Dr. Leblanc. We will await his recommendations. Patient is being closely followed by cardiothoracic surgery as well who are recommending aortic valve replacement once his bacteremias resolved. Patient was seen today by cardiothoracic surgery and nurse practitioner Camille Pope. Cardiothoracic surgery is recommending the patient be transferred for neurosurgical consultation to make sure his FIELD MECHANICAL METER TESTER shunt is not cause for continued bacteremia. Patient will need cardiothoracic evaluation as well for aortic valve replacement as per cardiothoracic surgery recommendation. We reviewed these findings today in detail with Dr. Angelo who will make arrangements for transfer of this patient to [facility] where he underwent his neurosurgical treatment. Neurologically he is showing no new changes since admission to hospital. We will await the recommendations of the multiple specialists that are seeing this patient. So overall prognosis at this time remains very guarded. Case was discussed at length today with the patient's at bedside. Patient was updated on the recommendations of cardiothoracic surgery for neurosurgery consultation. We will continue to follow his progress closely. His overall condition at this time remains guarded.
[2017-05-31 15:43] VITALS: RESP 16
[2017-05-31 16:50] LABS: Glucose,Whole Blood 111 mg/dL (75-99)
--- NOTE | 2017-05-31 17:51 | P.PN ---
Subjective Progress Note Date: 05/31/17 Progress note being dictated for Dr. Angelo Interval history: This a 61-year-old gentleman admitted with possibly infective endocarditis with coagulase-negative staph and enterococcus faecalis, Streptococcus in the blood, septicemia, aortic valve vegetation of the right coronary cusp per 2-D echo, generalized weakness, possible acute TIA and multiple other medical issues. Maintained on antibiotics of IV vancomycin as per ID. Underwent ERICA today reporting right coronary cusp vegetation prolapsing into the left ventricle, no shunting by contrast bubble study, severe aortic regurgitation with mild to moderate tricuspid regurgitation. Moderate pulmonary hypertension No paracardial effusion Denies chest pain, palpitations or increasing shortness of breath. Denies lightheadedness dizziness or focal deficits. 05/30/2017 no overnight events. Maintained on IV antibiotics as per infectious disease. status post ERICA is previously mentioned above. Scheduled for cardiac catheterization tomorrow with cardiology. 05/31/2017 scheduled for cardiac catheterization today with cardiology. Maintained on IV antibiotics as per infectious disease. Denies chest pain, palpitations, increased shortness of breath. Denies abdominal pain denies headache denies focal deficits. Afebrile, normal WBC. Cardiothoracic surgery requesting neurosurgery evaluation/input to rule out persistent bacteremia not from STOCKFEED MILLER shunt prior to aortic valve replacement. Call has been placed to patient's prior neurosurgeon out of [place] to discuss case, potential transfer. Objective - Vital Signs Vital signs: Vital Signs Temp 97.6 F 05/31/17 06:55 Pulse 70 05/31/17 15:42 Resp 16 05/31/17 15:42 BP 91/52 05/31/17 15:42 Pulse Ox 94 L 05/31/17 15:42 Intake & Output 05/30/17 05/31/17 05/31/17 18:59 06:59 18:59 Intake Total 280 100 Output Total 750 1000 300 Balance -470 -1000 -200 Intake: IV 100 Intake, IV Titration 100 Amount Gentamicin 100 mg In 100 Sodium Chloride 0.9% 100 ml @ 102.5 mls/hr IVPB Q8H [facility] Rx#:[id number] Oral 180 Output: Urine 750 1000 300 Other: Voiding Method Urinal Urinal Urinal # Voids 2 - Exam PHYSICAL EXAM: VITAL SIGNS: As above GENERAL: Sitting up in bed, no acute distress HEENT: Conjunctivae normal. eyes normal. Oral mucosa moist. NECK: No JVD. No thyroid enlargement. No LNs CARDIOVASCULAR: S1, S2 muffled. Positive systolic/diastolic murmur. RESPIRATION: Breath sounds diminished in the bases. No rhonchi or crackles. No bronchial breathing. ABDOMEN: Soft, nontender . No guarding. no masses palpable..Bowel sounds heard. LEGS: mild edema. no swelling PSYCHIATRY: Alert and oriented -3, mood and affect normal. NERVOUS SYSTEM: Cranial N 2-12 grossly normal. Moves all 4 limbs. Diffuse weakness No focal deficits. No sensory deficit. Skin: no ulcer no rash Joints: No active swelling. No inflammation. Lymphatic system. No LN neck axilla or groin. Microbiology 05/27/17 12:43 Blood Blood Culture Gram Stain - Final 05/27/17 12:43 Blood Blood Culture - Preliminary Enterococcus faecalis 05/25/17 07:58 Blood Blood Culture - Final No Growth after 144 hours 05/30/17 06:01 Blood Blood Culture - Preliminary No Growth after 24 hours 05/27/17 12:43 Blood Blood Culture - Final 05/25/17 08:06 Blood Blood Culture Gram Stain - Final 05/25/17 08:06 Blood Blood Culture - Final Coagulase Negative Staph Alpha Hemolytic Streptococcus 05/22/17 20:55 Blood Blood Culture Gram Stain - Final 05/22/17 20:55 Blood Blood Culture - Final Coagulase Negative Staph Diphtheroid species Diphtheroid species#2 05/22/17 20:25 Blood Blood Culture Gram Stain - Final 05/22/17 20:25 Blood Blood Culture - Final Enterococcus faecalis 05/21/17 22:40 Blood Blood Culture Gram Stain - Final 05/21/17 22:40 Blood Blood Culture - Final Enterococcus faecalis Coagulase Negative Staph 05/25/17 08:06 Blood Blood Culture - Final 05/22/17 20:55 Blood Blood Culture - Final 05/22/17 20:25 Blood Blood Culture - Preliminary 05/22/17 00:08 Urine,Catheterized Urine Culture - Final 05/21/17 22:40 Blood Blood Culture - Final - Labs CBC & Chem 7: 05/31/17 04:29 05/31/17 04:29 Labs: Abnormal Lab Results - Last 24 Hours (Table) 05/30/17 05/31/17 05/31/17 Range/Units 20:47 04:29 04:29 RBC 4.20 L (4.30-5.90) m/uL Hgb 10.9 L (13.0-17.5) gm/dL Hct 35.8 L (39.0-53.0) % MCHC 30.5 L (31.0-37.0) g/dL RDW 18.2 H (11.5-15.5) % Lymphocytes # 0.9 L (1.0-4.8) k/uL Chloride 110 H (98-107) mmol/L Glucose 126 H (74-99) mg/dL POC Glucose (mg/dL) 115 H (75-99) mg/dL Gentamicin Trough ug/mL 05/31/17 05/31/17 05/31/17 Range/Units 04:29 05:48 11:34 RBC (4.30-5.90) m/uL Hgb (13.0-17.5) gm/dL Hct (39.0-53.0) % MCHC (31.0-37.0) g/dL RDW (11.5-15.5) % Lymphocytes # (1.0-4.8) k/uL Chloride (98-107) mmol/L Glucose (74-99) mg/dL POC Glucose (mg/dL) 129 H 118 H (75-99) mg/dL Gentamicin Trough 2.5 H* ug/mL 05/31/17 Range/Units 16:48 RBC (4.30-5.90) m/uL Hgb (13.0-17.5) gm/dL Hct (39.0-53.0) % MCHC (31.0-37.0) g/dL RDW (11.5-15.5) % Lymphocytes # (1.0-4.8) k/uL Chloride (98-107) mmol/L Glucose (74-99) mg/dL POC Glucose (mg/dL) 111 H (75-99) mg/dL Gentamicin Trough ug/mL Microbiology - Last 24 Hours (Table) 05/27/17 12:43 Blood Culture Gram Stain - Final Blood Blood Culture - Preliminary Enterococcus faecalis 05/25/17 07:58 Blood Culture - Final Blood No Growth after 144 hours 05/30/17 06:01 Blood Culture - Preliminary Blood No Growth after 24 hours Assessment and Plan Assessment: 1. Possibly infective endocarditis with coagulase-negative staph, enterococcus faecalis, alpha hemolytic streptococcus in the blood with septicemia. Status post ERICA. Cardiac cath pending. Preliminary Repeat blood culture of 2017 negative. 2. Generalized weakness, tiredness, possible acute TIA present on admission 3. Aortic valve vegetation in the right coronary cusp per 2-D echo and ERICA. 4. Recent left acoustic neuroma surgery with STOCKFEED MILLER shunt placement,with significant left-sided residual weakness 5. Diabetes mellitus type 2 6. Gait dysfunction 7. History of cerebral aneurysm surgery Plan: Continue on current medication regime ,monitoring and symptomatic treatment. Case management assisting in arranging transfer along with call out to neurosurgery .Continue following repeat cultures closely. Cardiac catheterization pending. Follow closely with cardiovascular thoracic surgery and cardiology. Prognosis guarded given multiple complex medical issues. The impression and plan of care has been dictated as directed. : I performed a history and examination of this patient, discussed the same with the dictator. I agree with the dictator's note ,documented as a scribe. Any additional findings or plans will be noted.
[2017-05-31] MEDS: GENTAMICIN 120 MG in SODIUM CHLORIDE 0.9% 100 ML IVPB SCH (18:56)
[2017-05-31 20:46] LABS: Glucose,Whole Blood 112 mg/dL (75-99)
--- NOTE | 2017-05-31 22:08 | P.PN ---
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 He required an extensive surgical procedure including a ventricular peritoneal shunt for reduction of pressure. 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 There was concerns to a TIA the patient was brought into hospital. His recent hospitalization it was concerns to sepsis and he was treated with antibiotic therapy with concerns to infection at his PEG tube site. At that time he had been recently decannulated from his tracheostomy. And during the recent hospitalization his PEG tube was removed and he was doing well with his feeding. Family has been having no concerns about his nutrition. He was doing well until he had the sudden TIA-like event. Since admission he has been doing relatively well except he has had 101.6 fever. There are now multiple positive blood cultures and without the infectious diseases consultation was requested. Pleasant gentleman has no other acute complaints is evening. He is denying further fevers chills rigors or sweats. He just has generalized weakness but no new acute gross focal sensory motor complaint. Patient states feeling somewhat better today. Fevers have resolved. His been seen by neurology and cardiology. The transthoracic echocardiogram showed abnormality aortic valve and a ERICA has been performed confirming the significant aortic insufficiency and a vegetation on the noncoronary cusp of the aortic valve. Feeling slightly better today. Objective - Vital Signs Vital signs: Vital Signs Temp 97.8 F 05/31/17 20:00 Pulse 77 05/31/17 20:00 Resp 16 05/31/17 20:00 BP 99/50 05/31/17 20:00 Pulse Ox 92 L 05/31/17 20:00 Intake & Output 05/31/17 05/31/17 06/01/17 06:59 18:59 06:59 Intake Total 340 Output Total 1000 300 300 Balance -1000 40 -300 Intake: IV 100 Oral 240 Output: Urine 1000 300 300 Other: Voiding Method Urinal Urinal Urinal # Voids 2 - Exam 61-year-old male comfortable at this time HEENT: Anicteric conjunctiva are pink and moist nasal mucosa grossly intact without significant lesions, there is no thrush. 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 Neck: The neck is supple without significant lymphadenopathy or thyromegaly. DT cannulated tracheostomy site is well-healed Lungs: Good bilateral air entry without significant crackles or wheezing. There is no significant bronchial sounds. There is no egophony or dullness. Heart: Irregular with a positive S4 no murmur click or rub Abdomen: Obese, Positive bowel sounds soft and nontender without palpable masses or organomegaly. There was no guarding or rebound. Surgical wound from his LPN CARE MANAGER shunt is well-healed. The prior PEG tube site is without erythema or drainage. Extremities: The upper extremities have excellent pulses they are symmetric, no significant petechiae or telangiectasia. No splinter hemorrhages were noted. The lower extremities are free from significant edema. The peripheral pulses were 2+ and symmetric. Neuro: Is awake and alert as has the left hemiparesis but was able to ambulate today. - Labs CBC & Chem 7: 05/31/17 04:29 05/31/17 04:29 Labs: Abnormal Lab Results - Last 24 Hours (Table) 05/31/17 05/31/17 05/31/17 Range/Units 04:29 04:29 04:29 RBC 4.20 L (4.30-5.90) m/uL Hgb 10.9 L (13.0-17.5) gm/dL Hct 35.8 L (39.0-53.0) % MCHC 30.5 L (31.0-37.0) g/dL RDW 18.2 H (11.5-15.5) % Lymphocytes # 0.9 L (1.0-4.8) k/uL Chloride 110 H (98-107) mmol/L Glucose 126 H (74-99) mg/dL POC Glucose (mg/dL) (75-99) mg/dL Gentamicin Trough 2.5 H* ug/mL 05/31/17 05/31/17 05/31/17 Range/Units 05:48 11:34 16:48 RBC (4.30-5.90) m/uL Hgb (13.0-17.5) gm/dL Hct (39.0-53.0) % MCHC (31.0-37.0) g/dL RDW (11.5-15.5) % Lymphocytes # (1.0-4.8) k/uL Chloride (98-107) mmol/L Glucose (74-99) mg/dL POC Glucose (mg/dL) 129 H 118 H 111 H (75-99) mg/dL Gentamicin Trough ug/mL 05/31/17 Range/Units 20:43 RBC (4.30-5.90) m/uL Hgb (13.0-17.5) gm/dL Hct (39.0-53.0) % MCHC (31.0-37.0) g/dL RDW (11.5-15.5) % Lymphocytes # (1.0-4.8) k/uL Chloride (98-107) mmol/L Glucose (74-99) mg/dL POC Glucose (mg/dL) 112 H (75-99) mg/dL Gentamicin Trough ug/mL Microbiology - Last 24 Hours (Table) 05/30/17 19:13 Blood Culture - Preliminary Blood No Growth after 24 hours 05/27/17 12:43 Blood Culture Gram Stain - Final Blood Blood Culture - Preliminary Enterococcus faecalis 05/25/17 07:58 Blood Culture - Final Blood No Growth after 144 hours 05/30/17 06:01 Blood Culture - Preliminary Blood No Growth after 24 hours Laboratory Results WBC 4.6 k/uL (3.8-10.6) 05/31/17 04:29 RBC 4.20 m/uL (4.30-5.90) L 05/31/17 04:29 Hgb 10.9 gm/dL (13.0-17.5) L 05/31/17 04:29 Hct 35.8 % (39.0-53.0) L 05/31/17 04:29 MCV 85.3 fL (80.0-100.0) 05/31/17 04:29 MCH 26.0 pg (25.0-35.0) 05/31/17 04:29 MCHC 30.5 g/dL (31.0-37.0) L 05/31/17 04:29 RDW 18.2 % (11.5-15.5) H 05/31/17 04:29 Plt Count 152 k/uL (150-450) 05/31/17 04:29 Neutrophils % 70 % 05/31/17 04:29 Lymphocytes % 20 % 05/31/17 04:29 Monocytes % 4 % 05/31/17 04:29 Eosinophils % 5 % 05/31/17 04:29 Basophils % 0 % 05/31/17 04:29 Neutrophils # 3.2 k/uL (1.3-7.7) 05/31/17 04:29 Lymphocytes # 0.9 k/uL (1.0-4.8) L 05/31/17 04:29 Monocytes # 0.2 k/uL (0-1.0) 05/31/17 04:29 Eosinophils # 0.2 k/uL (0-0.7) 05/31/17 04:29 Basophils # 0.0 k/uL (0-0.2) 05/31/17 04:29 Hypochromasia Moderate 05/31/17 04:29 Poikilocytosis Slight 05/31/17 04:29 Anisocytosis Slight 05/31/17 04:29 Microcytosis Slight 05/21/17 22:40 PT 11.7 sec (9.0-12.0) 05/21/17 22:40 INR 1.2 (<1.2) H 05/21/17 22:40 APTT 27.8 sec (22.0-30.0) 05/21/17 22:40 Sodium 141 mmol/L (137-145) 05/31/17 04:29 Potassium 4.1 mmol/L (3.5-5.1) 05/31/17 04:29 Chloride 110 mmol/L (98-107) H 05/31/17 04:29 Carbon Dioxide 26 mmol/L (22-30) 05/31/17 04:29 Anion Gap 5 mmol/L 05/31/17 04:29 BUN 11 mg/dL (9-20) 05/31/17 04:29 Creatinine 0.90 mg/dL (0.66-1.25) 05/31/17 04:29 Est GFR (MDRD) Af Amer >60 (>60 ml/min/1.73 sqM) 05/31/17 04:29 Est GFR (MDRD) Non-Af >60 (>60 ml/min/1.73 sqM) 05/31/17 04:29 Glucose 126 mg/dL (74-99) H 05/31/17 04:29 POC Glucose (mg/dL) 112 mg/dL (75-99) H 05/31/17 20:43 POC Glu Paper Cap Machine Operator ID Cyndi Kaur 05/31/17 20:[address] Glu mg/dL 100 05/22/17 06:09 Hemoglobin A1c 5.1 % (4.0-6.0) 05/22/17 06:09 Plasma Lactic Acid Maxx 1.4 mmol/L (0.7-2.0) 05/21/17 22:40 Calcium 8.5 mg/dL (8.4-10.2) 05/31/17 04:29 Magnesium 2.0 mg/dL (1.6-2.3) 05/22/17 06:09 Total Bilirubin 1.0 mg/dL (0.2-1.3) 05/22/17 06:09 AST 21 U/L (17-59) 05/22/17 06:09 ALT 37 U/L (21-72) 05/22/17 06:09 Alkaline Phosphatase 73 U/L (38-126) 05/22/17 06:09 Troponin I <0.012 ng/mL (0.000-0.034) 05/21/17 22:40 Total Protein 6.2 g/dL (6.3-8.2) L 05/22/17 06:09 Albumin 3.1 g/dL (3.5-5.0) L 05/22/17 06:09 Urine Color [place] 05/22/17 00:08 Urine Appearance Clear (Clear) 05/22/17 00:08 Urine pH 5.5 (5.0-8.0) 05/22/17 00:08 Ur Specific [place] 1.023 (1.001-1.035) 05/22/17 00:08 Urine Protein 1+ (Negative) H 05/22/17 00:08 Urine Glucose (UA) Negative (Negative) 05/22/17 00:08 Urine Ketones Negative (Negative) 05/22/17 00:08 Urine Blood Negative (Negative) 05/22/17 00:08 Urine Nitrite Negative (Negative) 05/22/17 00:08 Urine Bilirubin 1+ (Negative) H 05/22/17 00:08 Urine Urobilinogen 2.0 mg/dL (<2.0) 05/22/17 00:08 Ur Leukocyte Esterase Negative (Negative) 05/22/17 00:08 Urine RBC <1 /hpf (0-5) 05/22/17 00:08 Urine WBC 1 /hpf (0-5) 05/22/17 00:08 Urine Bacteria Rare /hpf (None) H 05/22/17 00:08 Urine Mucus Rare /hpf (None) H 05/22/17 00:08 Gentamicin Peak 3.2 ug/mL 05/31/17 08:18 Gentamicin Trough 2.5 ug/mL H* 05/31/17 04:29 Vancomycin Trough 17.4 ug/mL 05/31/17 14:15 Influenza Type A RNA Not Detected (Not Detectd) 05/21/17 23:00 Influenza Type B (PCR) Not Detected (Not Detectd) 05/21/17 23:00 Microbiology 05/30/17 19:13 Blood Blood Culture - Preliminary No Growth after 24 hours 05/27/17 12:43 Blood Blood Culture Gram Stain - Final 05/27/17 12:43 Blood Blood Culture - Preliminary Enterococcus faecalis 05/25/17 07:58 Blood Blood Culture - Final No Growth after 144 hours 05/30/17 06:01 Blood Blood Culture - Preliminary No Growth after 24 hours 05/27/17 12:43 Blood Blood Culture - Final 05/25/17 08:06 Blood Blood Culture Gram Stain - Final 05/25/17 08:06 Blood Blood Culture - Final Coagulase Negative Staph Alpha Hemolytic Streptococcus 05/22/17 20:55 Blood Blood Culture Gram Stain - Final 05/22/17 20:55 Blood Blood Culture - Final Coagulase Negative Staph Diphtheroid species Diphtheroid species#2 05/22/17 20:25 Blood Blood Culture Gram Stain - Final 05/22/17 20:25 Blood Blood Culture - Final Enterococcus faecalis 05/21/17 22:40 Blood Blood Culture Gram Stain - Final 05/21/17 22:40 Blood Blood Culture - Final Enterococcus faecalis Coagulase Negative Staph 05/25/17 08:06 Blood Blood Culture - Final 05/22/17 20:55 Blood Blood Culture - Final 05/22/17 20:25 Blood Blood Culture - Preliminary 05/22/17 00:08 Urine,Catheterized Urine Culture - Final 05/21/17 22:40 Blood Blood Culture - Final Assessment and Plan (1) Acoustic neuroma Current Visit: No Status: Acute Code(s): D33.3 - BENIGN NEOPLASM OF CRANIAL NERVES SNOMED Code(s): 519060185 (2) TIA (transient ischemic attack) Current Visit: Yes Status: Acute Code(s): G45.9 - TRANSIENT CEREBRAL ISCHEMIC ATTACK, UNSPECIFIED SNOMED Code(s): 753452282 (3) Fever Narrative/Plan: 61-year-old male who is a very extensive past medical history regarding his acoustic neuroma, his surgery and his neurological deficits occurred since. He recently had some improvement since he has tracheostomy decannulated and his PEG tube removed. He's been doing quite well since this is occurred. She's not been having difficulties with chewing swallowing and eating. There's been no gagging and choking occurring. Chest x-rays without evidence of significant pneumonia. The patient however did have evidence of fever at admission at which point in time he also had symptoms of a TIA. His been seen by neurology I do not believe that he's had a TIA. He over did have evidence of fever and evidence of multiple positive blood cultures. A coagulase-negative staph appears to be occurring. However other cultures are again showing Enterococcus faecalis that he had in the latter part of 2017 he was treated with a protracted course of intravenous antibiotic therapy. Multiple blood cultures have been requested. As noted there are several blood cultures that have different pathogens including coagulase negative staph, enterococcus faecalis, and some diphtheroids. The diphtheroids or contamination. Vancomycin will continue and gentamicin is added for synergy given the multiple cultures again positive for enterococcus Current urine culture is negative. It is noted the patient had further positive blood cultures and echocardiogram was performed. This did reveal evidence of the abnormality of aortic valve which has now been verified by the ERICA. There is evidence of the aortic insufficiency in the vegetation on the noncoronary cusp of the aortic valve. Antibiotics of vancomycin and gentamicin in process. Follow blood cultures requested. Most recent is now negative. A second as requested. Once bacteremia clears he'll need IV access for his outpatient therapy. He'll need to have completion of the course of antibiotics. Cardiothoracic input has occurred. In the agree that he will need aortic valve replacement surgery. His neurosurgeon were sent to [facility] and consequently the patient will be transferred there in the current thoracic team here also works there. We'll proceed to valve replacement the next several days as his bacteremia clears. Current Visit: Yes Status: Acute Code(s): R50.9 - FEVER, UNSPECIFIED SNOMED Code(s): 768682221
[2017-05-31] MEDS: TAMSULOSIN 0.4 MG CAP.ER.24H PO SCH (22:44)
[2017-05-31] MEDS: AMITRIPTYLINE HCL 10 MG TAB PO SCH (22:45)
[2017-06-01 05:53] LABS: Glucose,Whole Blood 118 mg/dL (75-99)
[2017-06-01 05:56] LABS: Anisocytosis Slight; Basophils % (A) 0 %; Eosinophils # (A) 0.3 k/uL (0-0.7); Eosinophils % (A) 5 %; HCT 37.1 % (39.0-53.0); HGB 11.4 gm/dL (13.0-17.5); Hypochromasia Marked; Lymphocytes # (A) 1.1 k/uL (1.0-4.8); Lymphocytes % (A) 20 %; MCH 26.5 pg (25.0-35.0); MCHC 30.8 g/dL (31.0-37.0); MCV 85.9 fL (80.0-100.0); Mean Platelet Volume 8.6; Monocytes # (A) 0.3 k/uL (0-1.0); Monocytes % (A) 5 %; Neutrophils # (A) 3.6 k/uL (1.3-7.7); Neutrophils % (A) 69 %; Platelet Count 140 k/uL (150-450); Poikilocytosis Slight; RBC 4.32 m/uL (4.30-5.90); RDW 18.1 % (11.5-15.5); WBC 5.3 k/uL (3.8-10.6)
[2017-06-01] MEDS: SODIUM CHLORIDE 0.9% 1,000 ML IV SCH (06:08)
[2017-06-01] MEDS: GENTAMICIN 120 MG in SODIUM CHLORIDE 0.9% 100 ML IVPB SCH (06:08)
[2017-06-01 06:21] LABS: Anion Gap 8 mmol/L; Blood Urea Nitrogen 10 mg/dL (9-20); Calcium 8.9 mg/dL (8.4-10.2); Carbon Dioxide 25 mmol/L (22-30); Chloride 109 mmol/L (98-107); Glucose 119 mg/dL (74-99); Potassium 4.4 mmol/L (3.5-5.1); Sodium 142 mmol/L (137-145)
[2017-06-01] MEDS: VANCOMYCIN 1,750 MG in SODIUM CHLORIDE 0.9% 250 ML IVPB SCH (06:47)
[2017-06-01] MEDS: PANTOPRAZOLE 40 MG TABLET PO SCH (06:48)
[2017-06-01 08:43] VITALS: BP 100/46; PULSE 74; TEMP 97
[2017-06-01] MEDS: DULoxetine HCL 30 MG CAPSULE.DR PO SCH (08:43)
[2017-06-01] MEDS: METOPROLOL TARTRATE 25 MG TAB PO SCH (08:43)
[2017-06-01] MEDS: FERROUS SULFATE 325 MG TAB PO SCH (08:43)
[2017-06-01] MEDS: GABAPENTIN 400 MG CAP PO SCH (08:43)
[2017-06-01] MEDS: DOCUSATE 100 MG CAP PO SCH (08:43)
[2017-06-01] MEDS: HEPARIN SODIUM,PORCINE 5,000 UNIT/ML 1 ML VIAL SQ SCH (08:43)
[2017-06-01] MEDS: MAGNESIUM OXIDE 400 MG TAB PO SCH (08:44)
[2017-06-01] MEDS: NON-FORMULARY DRUG (Naloxegol Oxalate [Movantik] 25 MG) PO SCH (08:46)
--- NOTE | 2017-06-01 09:50 | P.PN ---
Subjective Progress Note Date: 06/01/17 Principal diagnosis: Aortic valve endocarditis with enterococcus faecalis and coag negative staph. Severe aortic insufficiency, mild mitral regurgitation, moderate tricuspid regurgitation, and moderate pulmonary hypertension on ERICA 05-29-17. History of diabetes mellitus type 2, hypertension, pneumonia, pyelonephritis, brain aneurysm, left acoustic neuroma with resection and shunt placement. The patient is currently sitting up in bed in no acute distress. Denies chest pain, shortness of breath. No new complaints. Patient had heart catheterization yesterday with Dr. Leblanc which demonstrated no occlusive coronary artery disease. Most recent blood culture from 05/30/2017 is negative so far. Objective - Vital Signs Vital signs: Vital Signs Temp 97 F L 06/01/17 08:30 Pulse 74 06/01/17 08:30 Resp 16 06/01/17 08:30 BP 100/46 06/01/17 08:30 Pulse Ox 92 L 06/01/17 08:30 Intake & Output 05/31/17 06/01/17 06/01/17 18:59 06:59 18:59 Intake Total 340 200 Output Total 300 1550 275 Balance 40 -1550 -75 Weight 91.5 kg Intake: IV 100 Intake, IV Titration 200 Amount Gentamicin 120 mg In 200 Sodium Chloride 0.9% 100 ml @ 103 mls/hr IVPB Q12H [facility] Rx#:[id number] Oral 240 Output: Urine 300 1550 275 Other: Voiding Method Urinal Urinal # Voids 1 - Constitutional General appearance: Present: cooperative, no acute distress, obese - Respiratory Details: Lungs sounds clear bilaterally. Respirations even, nonlabored. Currently on room air oxygen saturation 95%. - Cardiovascular Details: S1, S2 present. Regular rate and rhythm, sinus rhythm on telemetry. Palpable peripheral pulses bilaterally. Trace bilateral lower extremity edema present. - Gastrointestinal Gastrointestinal Comment(s): Abdomen soft, nontender, nondistended. Active bowel sounds 4 quadrants. Tolerating diet. - Genitourinary Genitourinary Comment(s): Continues to void. - Musculoskeletal Musculoskeletal Comment(s): Left arm weakness. Able to ambulate in hallway with a walker. - Psychiatric Psychiatric: Present: A&O x's 3, appropriate affect, intact judgment & insight - Allied health notes Allied health notes reviewed: nursing - Labs CBC & Chem 7: 06/01/17 05:20 06/01/17 05:20 Labs: Abnormal Lab Results - Last 24 Hours (Table) 05/31/17 05/31/17 05/31/17 Range/Units 11:34 16:48 20:43 Hgb (13.0-17.5) gm/dL Hct (39.0-53.0) % MCHC (31.0-37.0) g/dL RDW (11.5-15.5) % Plt Count (150-450) k/uL Chloride (98-107) mmol/L Glucose (74-99) mg/dL POC Glucose (mg/dL) 118 H 111 H 112 H (75-99) mg/dL 06/01/17 06/01/17 06/01/17 Range/Units 05:20 05:20 05:52 Hgb 11.4 L (13.0-17.5) gm/dL Hct 37.1 L (39.0-53.0) % MCHC 30.8 L (31.0-37.0) g/dL RDW 18.1 H (11.5-15.5) % Plt Count 140 L (150-450) k/uL Chloride 109 H (98-107) mmol/L Glucose 119 H (74-99) mg/dL POC Glucose (mg/dL) 118 H (75-99) mg/dL Microbiology - Last 24 Hours (Table) 05/30/17 06:01 Blood Culture - Preliminary Blood No Growth after 48 hours 05/27/17 12:43 Blood Culture Gram Stain - Final Blood Blood Culture - Final Enterococcus faecalis 05/30/17 19:13 Blood Culture - Preliminary Blood No Growth after 24 hours 05/25/17 07:58 Blood Culture - Final Blood No Growth after 144 hours Assessment and Plan Assessment: 1. Vegetation on the right coronary cusp of the aortic valve, aortic valve endocarditis 2. Generalized weakness with fever 3. Coag-negative staph and enterococcus faecalis bacteremia, blood culture from May 30 negative so far. 4. Type 2 diabetes mellitus 5. History of left acoustic neuroma with resection and LOBBY ATTENDANT shunt placement 6. Treated hypertension 7. History of pneumonia 8. History of brain aneurysm 9. History of tracheostomy and PEG tube, both of which have been removed Plan: 1. Continue antibiotics per infectious disease. 2. Patient will need aortic valve replacement, the timing of which is questionable. Will need to be sooner rather than later secondary to severe aortic insufficiency but prefer his bacteremia clears if possible. 3. Increase activity, ambulate as tolerated. PT/OT following. 4. GI/DVT prophylaxis. 5. Would like neuro surgery involvement to make sure cause of continued bacteremia is not from LOBBY ATTENDANT shunt. Patient to be transferred to [facility] with Dr. Briceño as accepting physician. 6. Primary care physician, case management made aware of need to transfer to [place]. Transfer planning in progress. Time with Patient: Greater than 30
--- NOTE | 2017-06-01 11:51 | P.DS ---
Providers Date of admission: 05/22/17 01:14 Attending physician: Calvin Carreon Consults: 05/22/17 18:35 Consult Physician Routine Consulting Provider: Nelson Huffman Consult Reason/Comments: tia Do you want consulting provider notified?: Yes 05/23/17 17:01 Consult Physician Routine Consulting Provider: Edmund Borja Consult Reason/Comments: sepsis Do you want consulting provider notified?: Yes 05/26/17 11:57 Consult Physician Routine Consulting Provider: Gregg Hendrix Consult Reason/Comments: valve vegetation per echo Do you want consulting provider notified?: Yes 05/26/17 12:28 Consult Physician Routine Consulting Provider: Mike Pleitez Thoracic CV Surgery Consult Reason/Comments: vegetation on valve Do you want consulting provider notified?: Yes [facility] Course: Final Diagnoses: 1. Possibly infective endocarditis with coagulase-negative staph, enterococcus faecalis, alpha hemolytic streptococcus in the blood with septicemia. Status post ERICA. S/P Cardiac cath. Preliminary Repeat blood culture of 05/30/2017 negative. 2. Generalized weakness, tiredness, possible acute TIA present on admission 3. Aortic valve vegetation in the right coronary cusp per 2-D echo and ERICA. 4. Recent left acoustic neuroma surgery with MGMT SPECIALIST shunt placement,with significant left-sided residual weakness 5. Diabetes mellitus type 2 6. Gait dysfunction 7. History of cerebral aneurysm surgery Hospital COurse:This a 61-year-old gentleman admitted with possibly infective endocarditis with coagulase-negative staph and enterococcus faecalis, Streptococcus in the blood, septicemia, aortic valve vegetation of the right coronary cusp per 2-D echo, generalized weakness, possible acute TIA and multiple other medical issues. Maintained on antibiotics of IV vancomycin and Gentamycin as per ID. Underwent ERICA reporting right coronary cusp vegetation prolapsing into the left ventricle, no shunting by contrast bubble study, severe aortic regurgitation with mild to moderate tricuspid regurgitation. Moderate pulmonary hypertension No paracardial effusion. Underwent cardiac catheterization reporting mild obstructive disease of the LAD with recommendations of proceeding with evaluation for aortic valve surgery. Dr. Angelo discussed case with patient's initial neurosurgeon from [facility] , recommendations noted, including potential LP. Discussed with cardiothoracic surgery. Cardiothoracic surgery requests neurosurgery involvement secondary to persistent bacteremia in a patient with MGMT SPECIALIST shunt. Patient is therefore being transferred to [facility], admit to Dr. Briceño, in a stable condition with guarded prognosis. The impression and plan of care has been dictated as directed. : I performed a history and examination of this patient, discussed the same with the dictator. I agree with the dictator's note ,documented as a scribe. Any additional findings or plans will be noted. Time Taken: 35 minutes Patient Condition at Discharge: Stable Plan - Discharge Summary Discharge Rx Participant: No New Discharge Prescriptions: New HYDROcodone/APAP 5-325MG [[place] 5-325] 1 each PO Q6H PRN #20 tab PRN Reason: Moderate Pain Acetaminophen Tab [Tylenol] 650 mg PO Q4HR PRN tab PRN Reason: Fever And/ Or Pain ALPRAZolam [Xanax] 0.25 mg PO TID PRN tab PRN Reason: Anxiety ALPRAZolam [Xanax] 0.5 mg PO Q6HR PRN tab PRN Reason: Moderate Anxiety Heparin Sodium,Porcine [Heparin Sodium] 5,000 unit SQ Q12HR vial Metoprolol Tartrate [Lopressor] 25 mg PO BID tab Nitroglycerin Sl Tabs [Nitrostat] 0.4 mg SUBLINGUAL Q5M PRN tab PRN Reason: Chest Pain Non-Formulary Drug [Non Formulary Drug] 120 mg IVPB Q12H #1 misc Ondansetron [Zofran] 4 mg IVP Q8HR PRN vial PRN Reason: Nausea And Vomiting Pantoprazole [Protonix] 40 mg PO AC-BRKFST tablet. Vancomycin 1,750 mg IVPB Q16H vial Continue Magnesium Oxide [Mag-Ox] 400 mg PO DAILY Docusate [Colace] 100 mg PO Q48H Tamsulosin [Flomax] 0.4 mg PO HS Naloxegol Oxalate [Movantik] 25 mg PO DAILY Ferrous Sulfate [Iron (65 MG Elemental)] 325 mg PO Q48H DULoxetine HCL [Cymbalta] 30 mg PO DAILY Gabapentin [Neurontin] 400 mg PO TID Amitriptyline HCl 10 mg PO HS Discontinued Famotidine [Pepcid] 20 mg PO BID Metoprolol Tartrate [Lopressor] 12.5 mg PO BID Discharge Medication List Amitriptyline HCl 10 mg PO HS 05/21/17 [History] DULoxetine HCL [Cymbalta] 30 mg PO DAILY 05/21/17 [History] Docusate [Colace] 100 mg PO Q48H 05/21/17 [History] Ferrous Sulfate [Iron (65 MG Elemental)] 325 mg PO Q48H 05/21/17 [History] Gabapentin [Neurontin] 400 mg PO TID 05/21/17 [History] Magnesium Oxide [Mag-Ox] 400 mg PO DAILY 05/21/17 [History] Naloxegol Oxalate [Movantik] 25 mg PO DAILY 05/21/17 [History] Tamsulosin [Flomax] 0.4 mg PO HS 05/21/17 [History] HYDROcodone/APAP 5-325MG [[place] 5-325] 1 each PO Q6H PRN #20 tab 05/24/17 [Rx] ALPRAZolam [Xanax] 0.25 mg PO TID PRN tab 06/01/17 [Rx] ALPRAZolam [Xanax] 0.5 mg PO Q6HR PRN tab 06/01/17 [Rx] Acetaminophen Tab [Tylenol] 650 mg PO Q4HR PRN tab 06/01/17 [Rx] Heparin Sodium,Porcine [Heparin Sodium] 5,000 unit SQ Q12HR vial 06/01/17 [Rx] Metoprolol Tartrate [Lopressor] 25 mg PO BID tab 06/01/17 [Rx] Nitroglycerin Sl Tabs [Nitrostat] 0.4 mg SUBLINGUAL Q5M PRN tab 06/01/17 [Rx] Non-Formulary Drug [Non Formulary Drug] 120 mg IVPB Q12H #1 misc 06/01/17 [Rx] Ondansetron [Zofran] 4 mg IVP Q8HR PRN vial 06/01/17 [Rx] Pantoprazole [Protonix] 40 mg PO AC-BRKFST tablet. 06/01/17 [Rx] Vancomycin 1,750 mg IVPB Q16H vial 06/01/17 [Rx] Follow up Appointment(s)/Referral(s): [facility], Pt's own [Other] - 1 Week Edmund Borja MD [STAFF PHYSICIAN] - 1 Week [facility], [NON-STAFF] - [facility], [REFERRING] - Miller Granda DO [Primary Care Provider] - 3 Days Activity/Diet/Wound Care/Special Instructions: Tfr to [facility]
--- NOTE | 2017-06-01 12:51 | P.PN ---
Subjective Progress Note Date: 06/01/17 Mr. Gtz is a pleasant 61-year-old past medical history significant for diabetes mellitus, hypertension, brain aneurysm and recent right acoustic neuroma resection with HULL DRAFTER shunt placement at [facility] November 2016 he also had an episode of paroxysmal atrial fibrillation after the surgery. He has had no recurrence since and therefore was not anti-coagulated. He follows with Dr. Leblanc as an outpatient. He had been in ECF until 2 weeks ago when he went home with his . She brought him to the hospital with complaints of increasing weakness, fever and chills. Blood cultures show coagulase-negative staph as well as enterococcus faecalis. An echocardiogram was performed and shows mobile structure on the right coronary cusp of the aortic valve consistent with possible vegetation. For that reason a cardiology consult was requested. He is seen sitting up in the chair in no acute distress. He denies chest pain, shortness of breath, dizziness, palpitations or fever. He has been receiving vancomycin per infectious disease. Echocardiogram performed in March of this year revealed preserved LV function with mild mitral regurgitation.Laboratory data has been reviewed, white blood cell count 3.6, hemoglobin 10.3, platelets 112, potassium 4.1, creatinine 0.77.Current cardiac medications include metoprolol 12.5 mg twice a day. Patient underwent a transesophageal echocardiographic study which revealed a vegetation on the right coronary cusp with mild aortic regurgitation. He was advised by Dr. Leblanc to undergo cardiac catheterization, the risks and the benefits were explained to him in detail and this will be performed tomorrow. 05/31/2017 Patient seen and examined this morning, arrangements are being made for the patient to be transferred today to [facility]. He did undergo cardiac catheterization yesterday, which revealed mild obstructive disease involving the LAD. Objective - Vital Signs Vital signs: Vital Signs Temp 97 F L 06/01/17 08:30 Pulse 74 06/01/17 08:30 Resp 16 06/01/17 08:30 BP 100/46 06/01/17 08:30 Pulse Ox 92 L 06/01/17 08:30 Intake & Output 05/31/17 06/01/17 06/01/17 18:59 06:59 18:59 Intake Total 340 200 Output Total 300 1550 275 Balance 40 -1550 -75 Weight 91.5 kg Intake: IV 100 Intake, IV Titration 200 Amount Gentamicin 120 mg In 200 Sodium Chloride 0.9% 100 ml @ 103 mls/hr IVPB Q12H [facility] Rx#:[id number] Oral 240 Output: Urine 300 1550 275 Other: Voiding Method Urinal Urinal Urinal # Voids 1 - Exam PHYSICAL EXAMINATION: HEENT: Head is atraumatic, normocephalic. Pupils equal, round. Neck is supple. There is no elevated jugular venous pressure. HEART EXAMINATION: Heart S1 and S2 systolic ejection murmur is heard CHEST EXAMINATION: Lungs are clear to auscultation and precussion. No chest wall tenderness is noted on palpation or with deep breathing. ABDOMEN: Soft, nontender. Bowel sounds are heard. No organomegaly noted. EXTREMITIES: 2+ peripheral pulses with no evidence of peripheral edema and no calf tenderness noted. NEUROLOGIC patient is awake, alert and oriented -3. . - Labs CBC & Chem 7: 06/01/17 05:20 06/01/17 05:20 Labs: Abnormal Lab Results - Last 24 Hours (Table) 05/31/17 05/31/17 06/01/17 Range/Units 16:48 20:43 05:20 Hgb 11.4 L (13.0-17.5) gm/dL Hct 37.1 L (39.0-53.0) % MCHC 30.8 L (31.0-37.0) g/dL RDW 18.1 H (11.5-15.5) % Plt Count 140 L (150-450) k/uL Chloride (98-107) mmol/L Glucose (74-99) mg/dL POC Glucose (mg/dL) 111 H 112 H (75-99) mg/dL 06/01/17 06/01/17 Range/Units 05:20 05:52 Hgb (13.0-17.5) gm/dL Hct (39.0-53.0) % MCHC (31.0-37.0) g/dL RDW (11.5-15.5) % Plt Count (150-450) k/uL Chloride 109 H (98-107) mmol/L Glucose 119 H (74-99) mg/dL POC Glucose (mg/dL) 118 H (75-99) mg/dL Microbiology - Last 24 Hours (Table) 05/30/17 06:01 Blood Culture - Preliminary Blood No Growth after 48 hours 05/27/17 12:43 Blood Culture Gram Stain - Final Blood Blood Culture - Final Enterococcus faecalis 05/30/17 19:13 Blood Culture - Preliminary Blood No Growth after 24 hours 05/25/17 07:58 Blood Culture - Final Blood No Growth after 144 hours Assessment and Plan Plan: Assessment and plan #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 Arrangements are being made for him to be transferred to [facility] today. Patient will follow-up with Dr. Leblanc in the office down the road. DNP note has been reviewed, I agree with a documented findings and plan of care. Patient was seen and examined.
--- NOTE | 2017-06-01 22:20 | P.PN ---
Subjective Progress Note Date: 06/01/17 Principal diagnosis: fever 61-year-old male is a very extensive recent past medical history related to his acoustic neuroma. He required an extensive surgical procedure including a ventricular peritoneal shunt for reduction of pressure. 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 There was concerns to a TIA the patient was brought into hospital. His recent hospitalization it was concerns to sepsis and he was treated with antibiotic therapy with concerns to infection at his PEG tube site. At that time he had been recently decannulated from his tracheostomy. And during the recent hospitalization his PEG tube was removed and he was doing well with his feeding. Family has been having no concerns about his nutrition. He was doing well until he had the sudden TIA-like event. Since admission he has been doing relatively well except he has had 101.6 fever. There are now multiple positive blood cultures and without the infectious diseases consultation was requested. Pleasant gentleman has no other acute complaints is evening. He is denying further fevers chills rigors or sweats. He just has generalized weakness but no new acute gross focal sensory motor complaint. Patient states feeling somewhat better today. Fevers have resolved. His been seen by neurology and cardiology. The transthoracic echocardiogram showed abnormality aortic valve and a ERICA has been performed confirming the significant aortic insufficiency and a vegetation on the noncoronary cusp of the aortic valve. Feeling slightly better today. Will be transferred to [facility] today Objective - Vital Signs Vital signs: Vital Signs Temp 97 F L 06/01/17 08:30 Pulse 74 06/01/17 08:30 Resp 16 06/01/17 08:30 BP 100/46 06/01/17 08:30 Pulse Ox 92 L 06/01/17 08:30 Intake & Output 06/01/17 06/01/17 06/02/17 06:59 18:59 06:59 Intake Total 200 Output Total 1550 275 Balance -1550 -75 Weight 91.5 kg Intake: Intake, IV Titration 200 Amount Gentamicin 120 mg In 200 Sodium Chloride 0.9% 100 ml @ 103 mls/hr IVPB Q12H [facility] Rx#:[id number] Output: Urine 1550 275 Other: Voiding Method Urinal Urinal # Voids 1 - Exam 61-year-old male comfortable at this time HEENT: Anicteric conjunctiva are pink and moist nasal mucosa grossly intact without significant lesions, there is no thrush. 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 Neck: The neck is supple without significant lymphadenopathy or thyromegaly. DT cannulated tracheostomy site is well-healed Lungs: Good bilateral air entry without significant crackles or wheezing. There is no significant bronchial sounds. There is no egophony or dullness. Heart: Irregular with a positive S4 no murmur click or rub Abdomen: Obese, Positive bowel sounds soft and nontender without palpable masses or organomegaly. There was no guarding or rebound. Surgical wound from his [employer] shunt is well-healed. The prior PEG tube site is without erythema or drainage. Extremities: The upper extremities have excellent pulses they are symmetric, no significant petechiae or telangiectasia. No splinter hemorrhages were noted. The lower extremities are free from significant edema. The peripheral pulses were 2+ and symmetric. Neuro: Is awake and alert as has the left hemiparesis but was able to ambulate today. - Labs CBC & Chem 7: 06/01/17 05:20 06/01/17 05:20 Labs: Abnormal Lab Results - Last 24 Hours (Table) 06/01/17 06/01/17 06/01/17 Range/Units 05:20 05:20 05:52 Hgb 11.4 L (13.0-17.5) gm/dL Hct 37.1 L (39.0-53.0) % MCHC 30.8 L (31.0-37.0) g/dL RDW 18.1 H (11.5-15.5) % Plt Count 140 L (150-450) k/uL Chloride 109 H (98-107) mmol/L Glucose 119 H (74-99) mg/dL POC Glucose (mg/dL) 118 H (75-99) mg/dL Microbiology - Last 24 Hours (Table) 05/30/17 19:13 Blood Culture - Preliminary Blood No Growth after 48 hours 05/30/17 06:01 Blood Culture - Preliminary Blood No Growth after 48 hours 05/27/17 12:43 Blood Culture Gram Stain - Final Blood Blood Culture - Final Enterococcus faecalis Laboratory Results WBC 5.3 k/uL (3.8-10.6) 06/01/17 05:20 RBC 4.32 m/uL (4.30-5.90) 06/01/17 05:20 Hgb 11.4 gm/dL (13.0-17.5) L 06/01/17 05:20 Hct 37.1 % (39.0-53.0) L 06/01/17 05:20 MCV 85.9 fL (80.0-100.0) 06/01/17 05:20 MCH 26.5 pg (25.0-35.0) 06/01/17 05:20 MCHC 30.8 g/dL (31.0-37.0) L 06/01/17 05:20 RDW 18.1 % (11.5-15.5) H 06/01/17 05:20 Plt Count 140 k/uL (150-450) L 06/01/17 05:20 Neutrophils % 69 % 06/01/17 05:20 Lymphocytes % 20 % 06/01/17 05:20 Monocytes % 5 % 06/01/17 05:20 Eosinophils % 5 % 06/01/17 05:20 Basophils % 0 % 06/01/17 05:20 Neutrophils # 3.6 k/uL (1.3-7.7) 06/01/17 05:20 Lymphocytes # 1.1 k/uL (1.0-4.8) 06/01/17 05:20 Monocytes # 0.3 k/uL (0-1.0) 06/01/17 05:20 Eosinophils # 0.3 k/uL (0-0.7) 06/01/17 05:20 Basophils # 0.0 k/uL (0-0.2) 06/01/17 05:20 Hypochromasia Marked 06/01/17 05:20 Poikilocytosis Slight 06/01/17 05:20 Anisocytosis Slight 06/01/17 05:20 Microcytosis Slight 05/21/17 22:40 PT 11.7 sec (9.0-12.0) 05/21/17 22:40 INR 1.2 (<1.2) H 05/21/17 22:40 APTT 27.8 sec (22.0-30.0) 05/21/17 22:40 Sodium 142 mmol/L (137-145) 06/01/17 05:20 Potassium 4.4 mmol/L (3.5-5.1) 06/01/17 05:20 Chloride 109 mmol/L (98-107) H 06/01/17 05:20 Carbon Dioxide 25 mmol/L (22-30) 06/01/17 05:20 Anion Gap 8 mmol/L 06/01/17 05:20 BUN 10 mg/dL (9-20) 06/01/17 05:20 Creatinine 0.94 mg/dL (0.66-1.25) 06/01/17 05:20 Est GFR (MDRD) Af Amer >60 (>60 ml/min/1.73 sqM) 06/01/17 05:20 Est GFR (MDRD) Non-Af >60 (>60 ml/min/1.73 sqM) 06/01/17 05:20 Glucose 119 mg/dL (74-99) H 06/01/17 05:20 POC Glucose (mg/dL) 118 mg/dL (75-99) H 06/01/17 05:52 POC Glu [place] BHAVIN Cyndi Kaur 06/01/17 05:[address] Glu mg/dL 100 05/22/17 06:09 Hemoglobin A1c 5.1 % (4.0-6.0) 05/22/17 06:09 Plasma Lactic Acid Maxx 1.4 mmol/L (0.7-2.0) 05/21/17 22:40 Calcium 8.9 mg/dL (8.4-10.2) 06/01/17 05:20 Magnesium 2.0 mg/dL (1.6-2.3) 05/22/17 06:09 Total Bilirubin 1.0 mg/dL (0.2-1.3) 05/22/17 06:09 AST 21 U/L (17-59) 05/22/17 06:09 ALT 37 U/L (21-72) 05/22/17 06:09 Alkaline Phosphatase 73 U/L (38-126) 05/22/17 06:09 Troponin I <0.012 ng/mL (0.000-0.034) 05/21/17 22:40 Total Protein 6.2 g/dL (6.3-8.2) L 05/22/17 06:09 Albumin 3.1 g/dL (3.5-5.0) L 05/22/17 06:09 Urine Color [place] 05/22/17 00:08 Urine Appearance Clear (Clear) 05/22/17 00:08 Urine pH 5.5 (5.0-8.0) 05/22/17 00:08 Ur Specific [place] 1.023 (1.001-1.035) 05/22/17 00:08 Urine Protein 1+ (Negative) H 05/22/17 00:08 Urine Glucose (UA) Negative (Negative) 05/22/17 00:08 Urine Ketones Negative (Negative) 05/22/17 00:08 Urine Blood Negative (Negative) 05/22/17 00:08 Urine Nitrite Negative (Negative) 05/22/17 00:08 Urine Bilirubin 1+ (Negative) H 05/22/17 00:08 Urine Urobilinogen 2.0 mg/dL (<2.0) 05/22/17 00:08 Ur Leukocyte Esterase Negative (Negative) 05/22/17 00:08 Urine RBC <1 /hpf (0-5) 05/22/17 00:08 Urine WBC 1 /hpf (0-5) 05/22/17 00:08 Urine Bacteria Rare /hpf (None) H 05/22/17 00:08 Urine Mucus Rare /hpf (None) H 05/22/17 00:08 Gentamicin Peak 3.2 ug/mL 05/31/17 08:18 Gentamicin Trough 2.5 ug/mL H* 05/31/17 04:29 Vancomycin Trough 17.4 ug/mL 05/31/17 14:15 Influenza Type A RNA Not Detected (Not Detectd) 05/21/17 23:00 Influenza Type B (PCR) Not Detected (Not Detectd) 05/21/17 23:00 Microbiology 05/30/17 19:13 Blood Blood Culture - Preliminary No Growth after 48 hours 05/30/17 06:01 Blood Blood Culture - Preliminary No Growth after 48 hours 05/27/17 12:43 Blood Blood Culture Gram Stain - Final 05/27/17 12:43 Blood Blood Culture - Final Enterococcus faecalis 05/25/17 07:58 Blood Blood Culture - Final No Growth after 144 hours 05/27/17 12:43 Blood Blood Culture - Final 05/25/17 08:06 Blood Blood Culture Gram Stain - Final 05/25/17 08:06 Blood Blood Culture - Final Coagulase Negative Staph Alpha Hemolytic Streptococcus 05/22/17 20:55 Blood Blood Culture Gram Stain - Final 05/22/17 20:55 Blood Blood Culture - Final Coagulase Negative Staph Diphtheroid species Diphtheroid species#2 05/22/17 20:25 Blood Blood Culture Gram Stain - Final 05/22/17 20:25 Blood Blood Culture - Final Enterococcus faecalis 05/21/17 22:40 Blood Blood Culture Gram Stain - Final 05/21/17 22:40 Blood Blood Culture - Final Enterococcus faecalis Coagulase Negative Staph 05/25/17 08:06 Blood Blood Culture - Final 05/22/17 20:55 Blood Blood Culture - Final 05/22/17 20:25 Blood Blood Culture - Preliminary 05/22/17 00:08 Urine,Catheterized Urine Culture - Final 05/21/17 22:40 Blood Blood Culture - Final Assessment and Plan (1) Acoustic neuroma Status: Acute Code(s): D33.3 - BENIGN NEOPLASM OF CRANIAL NERVES SNOMED Code (s): 715164734 (2) TIA (transient ischemic attack) Status: Acute Code(s): G45.9 - TRANSIENT CEREBRAL ISCHEMIC ATTACK, UNSPECIFIED SNOMED Code(s): 163155364 (3) Fever Narrative/Plan: 61-year-old male who is a very extensive past medical history regarding his acoustic neuroma, his surgery and his neurological deficits occurred since. He recently had some improvement since he has tracheostomy decannulated and his PEG tube removed. He's been doing quite well since this is occurred. She's not been having difficulties with chewing swallowing and eating. There's been no gagging and choking occurring. Chest x-rays without evidence of significant pneumonia. The patient however did have evidence of fever at admission at which point in time he also had symptoms of a TIA. His been seen by neurology I do not believe that he's had a TIA. He over did have evidence of fever and evidence of multiple positive blood cultures. A coagulase-negative staph appears to be occurring. However other cultures are again showing Enterococcus faecalis that he had in the latter part of 2016 he was treated with a protracted course of intravenous antibiotic therapy. Multiple blood cultures have been requested. As noted there are several blood cultures that have different pathogens including coagulase negative staph, enterococcus faecalis, and some diphtheroids. The diphtheroids are a contamination. Vancomycin will continue and gentamicin is added for synergy given the multiple cultures again positive for enterococcus and [employer]ICE [employer]IDENT Current urine culture is negative. It is noted the patient had further positive blood cultures and echocardiogram was performed. This did reveal evidence of the abnormality of aortic valve which has now been verified by the ERICA. There is evidence of the aortic insufficiency in the vegetation on the noncoronary cusp of the aortic valve. Antibiotics of vancomycin and gentamicin in process. Follow blood cultures requested. The blood cultures at 24 and 48 hours are now negative. Once bacteremia clears he'll need IV access for his outpatient therapy. He'll need to have completion of the course of antibiotics. Cardiothoracic input has occurred. In the agree that he will need aortic valve replacement surgery. His neurosurgeon is on staff at [facility] and consequently the patient will be transferred there in the current thoracic team here also works there. We'll proceed to valve replacement the next several days as his bacteremia clears. Status: Acute Code(s): R50.9 - FEVER, UNSPECIFIED SNOMED Code(s): 452351440
[2017-06-02] MEDS ORDERED: GENTAMICIN TROUGH DUE 1 EACH MISC MISCELLANE ONE (05:00)
[2017-06-02] MEDS ORDERED: GENTAMICIN PEAK DUE 1 EACH MISC MISCELLANE ONE (07:30)
== END 2017-06-01 11:59 | disposition short-term general hospital (02) | DRG 871 ==
LOC: EC 22:12 → 5MS5E 05-22 01:14 → 6SEL 05-26 13:38
PROVIDERS: ADMIT Hospitalist; ATTEND Hospitalist
PROC: B2111ZZ Fluoroscopy of Multiple Coronary Arteries using Low Osmolar Contrast (ICD-10-PCS; principal; 2017-05-22)
PROC: 4A023N7 Measurement of Cardiac Sampling and Pressure, Left Heart, Percutaneous Approach (ICD-10-PCS; principal; 2017-05-22)
PROC: B246ZZ4 Ultrasonography of Right and Left Heart, Transesophageal (ICD-10-PCS; 2017-05-29)
DX: A41.1 Sepsis due to other specified staphylococcus (principal); I33.0 Acute and subacute infective endocarditis; D61.818 Other pancytopenia; G93.89 Other specified disorders of brain; G81.94 Hemiplegia, unspecified affecting left nondominant side; A41.81 Sepsis due to Enterococcus; E11.9 Type 2 diabetes mellitus without complications; E78.5 Hyperlipidemia, unspecified; H91.92 Unspecified hearing loss, left ear; I08.1 Rheumatic disorders of both mitral and tricuspid valves; I10 Essential (primary) hypertension; I27.20 Pulmonary hypertension, unspecified; I35.1 Nonrheumatic aortic (valve) insufficiency; I48.0 Paroxysmal atrial fibrillation; R32 Unspecified urinary incontinence; Z79.899 Other long term (current) drug therapy; Z83.3 Family history of diabetes mellitus; Z85.841 Personal history of malignant neoplasm of brain; Z87.01 Personal history of pneumonia (recurrent); Z87.440 Personal history of urinary (tract) infections; Z98.2 Presence of cerebrospinal fluid drainage device; Z88.1 Allergy status to other antibiotic agents; Z88.0 Allergy status to penicillin; Z88.8 Allergy status to other drugs, medicaments and biological substances
CPT/HCPCS: 36415; 70450; 71010; 80048; 80053; 80170; 80202; 81001; 83036; 83605; 83735; 84484; 85025; 85610; 85730; 87040; 87077; 87086; 87186; 87502; 93005; 93306; 93312; 93320; 93325; 93454; 93880; 94760; 99285

== ENCOUNTER → 2017-07-29 | Outpatient (CLI) | payer BC | END | disposition home or self-care (01) | LOC: LABWHC1 11:57 | PROVIDERS: ATTEND Physical Medicine & Rehabilitation | DX: I35.8 Other nonrheumatic aortic valve disorders (principal); B95.2 Enterococcus as the cause of diseases classified elsewhere; Z88.0 Allergy status to penicillin; Z91.018 Allergy to other foods; Z91.02 Food additives allergy status; Z88.8 Allergy status to other drugs, medicaments and biological substances | CPT/HCPCS: 36415; 87040 ==

== ENCOUNTER 2019-12-05 08:19 | Day surgery (SDC) | payer BC, MEDICARE ==
[2019-11-29 10:45] VITALS: BMI 41.3
[~2019-12-05 08:19] MED LIST: LACTATED RINGERS 1,000 ML IV SCH; LIDOCAINE 1% (10MG/ML) FOR IV START INTRADERMA PRN
[2019-12-05 08:43] VITALS: TEMP 96.8
[2019-12-05] MEDS ORDERED: PROPOFOL 10 MG/ML 20 ML VIAL IV ONE (08:48)
[2019-12-05] MEDS ORDERED: LIDOCAINE 1% INJ 10MG/ML (20 ML MDV) ONE (08:48)
[2019-12-05 08:49] LABS: Glucose,Whole Blood 228 mg/dL (75-99)
--- NOTE | 2019-12-05 09:21 | P.PCN ---
Date of Procedure: 12/05/19 Description of Procedure: BRIEF HISTORY: Patient is a 64-year-old male with a history of colonic polyps presenting for colonoscopy for evaluation. Denies any change in bowel habits, blood per rectum or abdominal pain. Last colonoscopy over 5 years ago with polyps removed for his recollection. PROCEDURE PERFORMED: Colonoscopy with polypectomy. PREOPERATIVE DIAGNOSIS: History of colon polyps, last colonoscopy over 5 years ago per his recollection with pulse. ESTIMATED BLOOD LOSS: Minimal. IV sedation per Anesthesia. PROCEDURE: After informed consent was obtained, the patient, was brought into the endoscopy unit. IV sedation was administered by Anesthesia under continuous monitoring. Digital rectal examination was normal. Initially the Olympus CF-190 flexible video colonoscope was then inserted in the rectum, gradually advanced into the cecum without any difficulty. Careful examination was performed as the scope was gradually being withdrawn. Ileocecal valve and the appendiceal orifice were visualized and appeared normal. Prep was excellent. Mucosa of the cecum, ascending colon, transverse colon, descending colon, sigmoid colon, and rectum appeared normal. Sessile 8 mm transverse colon polyp removed with cold snare polypectomy. Pedunculated splenic flexure polyp during 10 mm removed with cold snare polypectomy. 5 mm sigmoid colon polyp removed with cold snare polypectomy. Retroflexion was performed in the rectum and no lesions were seen. The patient tolerated the procedure well. IMPRESSION: 3 polyps removed from the transverse colon, splenic flexure and sigmoid colon with cold snare polypectomy. Otherwise normal-appearing colon from rectum to cecum. RECOMMENDATIONS: Findings of this examination were discussed with the patient. Okay to resume diet. Okay to resume medications. Await pathology from polypectomies. Would recommend repeat colonoscopy in 3 years for high risk colon polyps, pending pathology from polypectomy.
[2019-12-05 09:23] VITALS: RESP 16
[2019-12-05 09:39] VITALS: BP 132/82; PULSE 64
== END 2019-12-05 10:04 | disposition home or self-care (01) ==
LOC: ORWHC2ENDO 08:19
PROVIDERS: ATTEND Internal Medicine
DX: Z12.11 Encounter for screening for malignant neoplasm of colon (principal); D12.3 Benign neoplasm of transverse colon; K63.5 Polyp of colon; Z86.010 Personal history of colon polyps; I25.10 Atherosclerotic heart disease of native coronary artery without angina pectoris; I10 Essential (primary) hypertension; Z95.1 Presence of aortocoronary bypass graft; E11.9 Type 2 diabetes mellitus without complications; K21.9 Gastro-esophageal reflux disease without esophagitis; Z88.1 Allergy status to other antibiotic agents; Z79.899 Other long term (current) drug therapy; Z79.84 Long term (current) use of oral hypoglycemic drugs; Z98.890 Other specified postprocedural states; Z90.89 Acquired absence of other organs; Z86.79 Personal history of other diseases of the circulatory system
CPT/HCPCS: 88305; 45385; J2001; J2704

== ENCOUNTER → 2020-08-11 | Outpatient (CLI) | payer MEDICARE ==
--- NOTE | 2020-08-12 11:00 | ECHOF ---
Referral Reason:[id number] MEASUREMENTS -------- HEIGHT: 172.7 cm WEIGHT: 131.5 kg BP: RVIDd: 3.7 cm (< 3.3) IVSd: 1.5 cm (0.6 - 1.1) LVIDd: 5.1 cm (3.9 - 5.3) LVPWd: 1.5 cm (0.6 - 1.1) IVSs: 1.9 cm LVIDs: 2.9 cm LVPWs: 1.9 cm LA Diam: 5.2 cm (2.7 - 3.8) LAESV Index (A-L): 30.36 ml/m Ao Diam: 3.4 cm (2.0 - 3.7) AV Cusp: 1.9 cm (1.5 - 2.6) MV EXCURSION: 13.297 mm (> 18.000) MV EF SLOPE: 111 mm/s (70 - 150) EPSS: 0.9 cm MV E Naga: 0.90 m/s MV DecT: 233 ms MV A Naga: 0.80 m/s MV E/A Ratio: 1.14 AV maxP.13 mmHg AV meanP.62 mmHg FINDINGS -------- Sinus rhythm. This was a technically difficult study with suboptimal apical views. The left ventricular size is normal. There is moderate concentric left ventricular hypertrophy. O verall left ventricular systolic function is normal with, an EF between 60 - 65 %. The right ventricle is mildly enlarged. LA is midly dilated 29-33ml/m2. The right atrium is normal in size. 5.0mg of Lumason was utilized for enhancement of images Peak/mean gradient across the Aortic Valve is 15.13mmHg / 7.62mmHg. Normally functioning bioprosthe tic valve. Mild mitral annular calcification present. The tricuspid valve was not well visualized. Trace/mild (physiologic) pulmonic regurgitation. The aortic root size is normal. IVC Not well visulized. There is no pericardial effusion. CONCLUSIONS -------- 1. The left ventricular size is normal. 2. There is moderate concentric left ventricular hypertrophy. 3. Overall left ventricular systolic function is normal with, an EF between 60 - 65 %. 4. The right ventricle is mildly enlarged. 5. LA is midly dilated 29-33ml/m2. 6. 5.0mg of Lumason was utilized for enhancement of images 7. Peak/mean gradient across the Aortic Valve is 15.13mmHg / 7.62mmHg. 8. Normally functioning bioprosthetic valve. 9. Mild mitral annular calcification present. 10. Trace/mild (physiologic) pulmonic regurgitation. 11. There is no pericardial effusion. PROGRAM SUPERVISOR: CHEMA Mclean
== END | disposition home or self-care (01) ==
LOC: RADECHMAIN 13:07
PROVIDERS: ATTEND Family Medicine
DX: I10 Essential (primary) hypertension (principal); I48.0 Paroxysmal atrial fibrillation
CPT/HCPCS: C8929; Q9950; 93306